=== PATIENT | female | born 1970 | race Caucasian/White ===

== ENCOUNTER → 2019-10-31 10:56 | Outpatient (BNVA) | payer MEDICAID, SELFPAY | PROVIDERS: Family Provider Internal Medicine; PCP Internal Medicine; Visit Provider Psychiatry & Neurology Psychiatry | DX: F41.1 Generalized anxiety disorder (principal); F32.9 Major depressive disorder, single episode, unspecified; F48.9 Nonpsychotic mental disorder, unspecified; F29 Unspecified psychosis not due to a substance or known physiological condition; F39 Unspecified mood [affective] disorder; F28 Other psychotic disorder not due to a substance or known physiological condition; R41.9 Unspecified symptoms and signs involving cognitive functions and awareness; E61.8 Deficiency of other specified nutrient elements | CPT/HCPCS: 99205 ==

== ENCOUNTER → 2019-11-16 08:07 | Outpatient (BNVA) | payer MEDICAID, SELFPAY | PROVIDERS: Family Provider Internal Medicine; PCP Internal Medicine; Visit Provider Counselor Professional | DX: F41.1 Generalized anxiety disorder (principal); F41.0 Panic disorder [episodic paroxysmal anxiety] | CPT/HCPCS: 90834 ==

== ENCOUNTER → 2020-01-24 15:25 | Outpatient (BNVA) | payer MEDICAID, SELFPAY | PROVIDERS: Family Provider Internal Medicine; PCP Internal Medicine; Visit Provider Internal Medicine | DX: Z00.00 Encounter for general adult medical examination without abnormal findings (principal) | CPT/HCPCS: 85025 ==

== ENCOUNTER → 2020-04-06 11:13 | Outpatient (BNVA) | payer MEDICAID, SELFPAY | PROVIDERS: Family Provider Internal Medicine; PCP Internal Medicine; Visit Provider Nurse Practitioner Family | DX: E89.0 Postprocedural hypothyroidism (principal); R53.83 Other fatigue; E78.5 Hyperlipidemia, unspecified | CPT/HCPCS: 80053; 80061; 84443 ==

== ENCOUNTER → 2020-06-14 10:26 | Outpatient (BNVA) | payer MEDICAID, SELFPAY | PROVIDERS: Family Provider Internal Medicine; PCP Internal Medicine; Visit Provider Nurse Practitioner | DX: F41.1 Generalized anxiety disorder (principal); F28 Other psychotic disorder not due to a substance or known physiological condition | CPT/HCPCS: 99204 ==

== ENCOUNTER → 2021-05-29 14:51 | Outpatient (BNVA) | payer MEDICAID, SELFPAY | PROVIDERS: Family Provider Internal Medicine; Visit Provider Family Medicine Adult Medicine | DX: E89.0 Postprocedural hypothyroidism (principal); Z86.39 Personal history of other endocrine, nutritional and metabolic disease; G89.4 Chronic pain syndrome; K21.9 Gastro-esophageal reflux disease without esophagitis; R53.83 Other fatigue; M51.37 Other intervertebral disc degeneration, lumbosacral region; Z13.6 Encounter for screening for cardiovascular disorders; M54.9 Dorsalgia, unspecified; R25.2 Cramp and spasm | CPT/HCPCS: 80053; 83036; 84439; 84443; 84480; 85025 ==

== ENCOUNTER 2021-12-28 19:27 | Inpatient (IN) | payer MEDICAID, SELFPAY ==
[2021-12-28 19:33] VITALS: BP 108/72; PULSE 123; RESP 18; TEMP 36.4; O2SAT 97; BMI 18.9
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
--- NOTE | 2021-12-28 19:47 | ECG_ITS ---
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 Measurements Intervals [place] Rate: 107 P: 79 PA: 141 QRS: 82 QRSD: 99 T: 42 QT: 337 QTc: 451 Interpretive Statements SINUS TACHYCARDIA NONSPECIFIC ST & T-WAVE ABNORMALITY ABNORMAL RHYTHM ECG Compared to ECG 02/15/2019 22:33:56 Short PA interval no longer present T-wave abnormality still present Electronically Signed On 12-29-2021 10:34:27 CDT by Rebel Wilson M.D. [email or web address]
--- NOTE | 2021-12-28 20:02 | CTR_ITS ---
PROCEDURE INFORMATION: Exam: CT Head Without Contrast Exam date and time: 12/28/2021 8:43 PM Age: 51 years old Clinical indication: Altered mental status/memory loss; Patient HX: Paranoid delusions; Additional info: AMS TECHNIQUE: Imaging protocol: Computed tomography of the head without contrast. Sagittal and coronal reformatted images were created and reviewed. Radiation optimization: All CT scans at this facility use at least one of these dose optimization techniques: automated exposure control; mA and/or kV adjustment per patient size (includes targeted exams where dose is matched to clinical indication); or iterative reconstruction. COMPARISON: No relevant prior studies available. RADIATION DOSE METRICS: Total DLP (mGy-cm): 967.78 FINDINGS: Brain: No acute intracranial hemorrhage. No acute infarct. No intra-axial or extra-axial masses. Martinez-white matter differentiation is preserved. No cerebral edema. No extra-axial fluid collections. No midline shift. Mild cerebral volume loss. Mildly decreased attenuation in the deep white matter, consistent with mild chronic microangiopathic change. No evidence for Chiari 1 malformation. Cerebral ventricles: No hydrocephalus. Paranasal sinuses: Visualized paranasal sinuses are clear. Mastoid air cells: Visualized mastoid air cells are clear. Orbital cavities: No acute abnormality in the visualized orbits. Bones/joints: No acute fracture. Soft tissues: No acute abnormality of the extracranial soft tissues. Vasculature: Mild atherosclerotic changes in the visualized arteries. CT/CT head wo con* [id number] IMPRESSION: 1. No acute abnormality of the brain. 2. Mild chronic white matter microangiopathic change. 3. Incidental/nonacute findings are listed in the report.
[2021-12-28 20:25] LABS: Basophils # 0.1 10^3/uL (0.0-0.1); Basophils % 0.9 %; Eosinophils # 0.1 10^3/uL (0.0-0.8); Eosinophils % 1.4 %; Hematocrit 45.1 % (37.0-47.0); Hemoglobin 15.5 g/dL (11.5-15.3); Lymphocytes # 2.4 10^3/uL (0.8-4.8); Lymphocytes % 34.6 %; Mean Corpuscular HGB Conc 34.4 g/dL (30.0-36.0); Mean Corpuscular Volume 93.2 fl (81-99); Mean Platelet Volume 10.9 fL (7.4-10.4); Monocytes # 0.5 10^3/uL (0.2-0.9); Monocytes % 7.7 %; Neutrophils # 3.89 10^3/uL (1.8-7.7); Neutrophils % 55.1 %; Nucleated Red Blood Cells % 0 %; Platelet Count 294 10^3/cmm (130-400); Red Blood Count 4.84 10^6/uL (4.1-5.3); Red Cell Distribution Width 12.7 % (12.1-15.1); White Blood Count 7.1 10^3/uL (4.0-10.0)
[2021-12-28 20:56] LABS: Alanine Aminotransferase 7 U/L (0-33); Albumin Level 4.5 g/dL (3.5-5.2); Alkaline Phosphatase 80 IU/L (35-105); Anion Gap 15.8 (5-19); Aspartate Amino Transferase 12 U/L (0-32); Blood Urea Nitrogen 6 mg/dL (6-20); Calcium 9.5 mg/dL (8.5-10.5); Carbon Dioxide 26 mmol/L (22-29); Chloride 103 mmol/L (98-107); Globulin 2.8 g/dL (1.3-4.6); Glomerular Filtration Rate 105.4 mL/min (90-130); Glucose 99 mg/dL (65-115); Osmolality Calculated 290 mOsm/kg (285-295); Potassium 3.8 mmol/L (3.5-5.1); Sodium 141 mmol/L (136-145); Thyroid Stimulating Hormone 0.03 uIU/mL (0.27-4.20); Total Bilirubin 0.2 mg/dL (0.15-1.2); Total Protein 7.3 g/dL (6.6-8.7)
[2021-12-28 20:57] LABS: Acetaminophen < 5.0 ug/mL (10-30); Alcohol Level < 10 mg/dL (0-10); Salicylate < 0.3 mg/dL (3-10)
[2021-12-28 21:05] LABS: ABG PCO2 36.7 mmHg (35-45); ABG PH Result 7.43 (7.35-7.45); Alveolar-Arterial Oxygen Gradi 1.5 mmHg (5-10); Arterial Blood Gas Hematocrit 45.2 % (37-47); Base Excess ABG 0.2 mmol/L (-2.0-2.0); Blood Gas Allen Test Pos; Blood Gas Sample Site Radial, right; Blood Gas Sample Type Arterial; Carboxyhemoglobin 7.8 %THgb (0.4-20.1); HCO3 ABG 24.2 mmol/L (22-26); HGB O2 Sat 89.8 % (95-100); Ionized Calcium Level - ABG 1.2 mmol/L (1.1-1.4); Methemoglobin 0.9 % (0.4-1.5); Oxygen Saturation ABG 98.3; Potassium Level - ABG 3.6 mmol/L (3.5-5.0); Total Hemoglobin 14.7 g/dL (12-16)
[2021-12-28 21:24] LABS: HCG Qualitative Urine. Negative (Negative)
[2021-12-28 21:46] LABS: Amphetamines Screen Urine Negative (Negative); Barbiturates Screen Urine Negative (Negative); Benzodiazepines Screen Urine Negative (Negative); Cocaine Screen Urine Negative (Negative); Opiate Screen Urine Negative (Negative); PCP Screen Urine Negative (Negative); THC Screen Urine Negative (Negative)
[2021-12-28 21:51] LABS: Add Urine Microscopic? YES; Bilirubin Urine Neg (Negative); Blood Urine 2+ (Negative); Glucose Urine UA Norm (Normal); Ketones Urine 1+ (Negative); Leukocyte Esterase Urine 1+ (Negative); Nitrate Urine Negative (Negative); Protein Urine 1+ (Negative); Urine Appearance Clear (CLEAR); Urine Color Yellow (Yellow); Urobilinogen Urine 1 mg/dL (Negative); pH Urine 6 (5-7)
[2021-12-28 21:52] LABS: Add Urine Culture? No; Bacteria Urine TRACE /hpf; Mucus Urine 2+ /hpf; Squamous Epithelial Cell Urine 15-25 /hpf (0-5)
[2021-12-28 21:57] VITALS: BP 125/71; PULSE 91; RESP 18; TEMP 36.6; O2SAT 93
[2021-12-28 22:04] VITALS: O2SAT 93
[2021-12-28 22:49] LABS: Free T4 Free Thyroxine 1.79 ng/dL (0.82-1.77); T3 Free 3.5 PG/ML (2.0-4.4)
[2021-12-29 00:12] VITALS: BP 104/64; PULSE 100; RESP 16; O2SAT 94
[2021-12-29 01:13] VITALS: BP 107/73; PULSE 97; RESP 18; TEMP 36.6; O2SAT 97
[2021-12-29] MEDS: oxyCODONE-APAP 10-325 mg Tablet 1 TAB PO ×3 (01:29→21:40)
--- NOTE | 2021-12-29 02:08 | PC.NURSE ---
Numerous tattoos to chest, abd, arms, back superficial abrasions/scratches to neck bilaterally
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
[2021-12-29] MEDS: levothyroxine 125 mcg Tablet PO (08:08)
[2021-12-29] MEDS: famotidine 20 mg Tablet 40 MG PO (08:09)
[2021-12-29] MEDS: multivitamin therapeutic Tablet 1 TAB PO (08:09)
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
[2021-12-29] MEDS: tizanidine 4 mg Tablet PO ×2 (13:08→17:33)
[2021-12-29 14:00] VITALS: BP 115/53; PULSE 110; RESP 18; TEMP 36.8; O2SAT 99
[2021-12-29 15:23] VITALS: RESP 16; O2SAT 99
[2021-12-29] MEDS: nicotine 2 mg Gum BUCCAL (15:58)
[2021-12-29] MEDS: amitriptyline 25 mg Tablet 50 MG PO (20:42)
[2021-12-29 21:01] VITALS: BP 108/67; PULSE 89; RESP 16; TEMP 36.8; O2SAT 100
[2021-12-29 21:40] VITALS: RESP 20
[2021-12-30] VITALS (7 sets, daily range): BP systolic 100–103; BP diastolic 63–68; PULSE 83–113; RESP 16–20; TEMP 36.6–36.9; O2SAT 98–99
[2021-12-30] MEDS: oxyCODONE-APAP 10-325 mg Tablet 1 TAB PO ×4 (04:01→22:15)
[2021-12-30] MEDS: tizanidine 4 mg Tablet PO (04:06)
[2021-12-30] MEDS: famotidine 20 mg Tablet 40 MG PO (08:15)
[2021-12-30] MEDS: multivitamin therapeutic Tablet 1 TAB PO (08:15)
[2021-12-30] MEDS: levothyroxine 125 mcg Tablet PO (08:15)
--- NOTE | 2021-12-30 14:51 | P.NPUPN_ITS ---
Subjective NPU Subjective: Patient 51 year old white female admitted with active paranoia and delusions who reports that she is here because she needs to move out of her place of residence. Patient continues to report that people are messing with her at home. She reports some frustration but denies suicidal or homicidal thoughts. She reports active use of pain medications in the last month and reports no opiate withdrawal. Mental Status Exam MSE Comments: This is a slender white female in hospital scrubs with adequate grooming and eye contact. No abnormal? movements appreciated. Cooperative with exam in no acute distress but guarded at points of the interview. Speech was normal rate, rhythm, and volume. Mood described as allright, affect was flat. Thought process was organized but evidence of active? ideas of reference and paranoia noted. Thought content: patient denies suicidal or homicidal ideation,? with active paranoid delusions noted. She did not appear to be attending to internal stimuli.?Attention was fair. She is alert and oriented three? times. Insight and judgment are impaired. Impulse control appeared fair.?? Vitals/I&O/Wt Last Vital Signs Temp 98.4 F 12/30/21 20:33 Pulse 102 H 12/30/21 20:33 Resp 20 H 12/30/21 22:15 BP 102/68 12/30/21 20:33 Pulse Ox 98 12/30/21 20:33 O2 Del Method 12/30/21 13:23 O2 Flow Rate 10 12/30/21 08:00 Data NPU : 12/28/21 20:18 12/28/21 20:18 A&P Assessment and plan (1) Psychosis: Status: Acute (2) Hallucinations: Status: Acute (3) Delusions: Status: Acute (4) Insomnia due to medical condition: Status: Acute Plan This is a 51 year old white female with no previously reported psychiatric history who presents with? evidence of paranoia and psychosis denying any past psychiatric issues but reporting active pain issues with extended use (perhaps overuse) of opiates leading to potential opiate withdrawal symptoms and possible psychosis versus primary psychotic disorder. 1. Continue current medications, patient remains resistant to use of antipsychotics. 2. Encourage individual, group and milieu therapy? 3. Continue TO-15 minute check 4. Will attempt to gather collateral information. Involuntary Hold Information 96 Hour Hold: 96 Hour Involuntary Admission: Yes 96 Hour Hold Ending Date: 01/03/22 96 Hour Hold Ending Time: 00:35 Attestations NPU Medical Necessity Statement*: Inpatient hospitalization is medically necessary and the clinically appropriate intervention at this? time. as we will monitor medications and make changes as indicated with likely length of stay is three to five days. 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
[2021-12-30] MEDS: amitriptyline 25 mg Tablet 50 MG PO (20:35)
[2021-12-31 05:27] VITALS: RESP 20
[2021-12-31] MEDS: oxyCODONE-APAP 10-325 mg Tablet 1 TAB PO ×3 (05:27→17:27)
[2021-12-31 06:00] VITALS: BP 105/60; PULSE 70; RESP 16; TEMP 36.8; O2SAT 98
[2021-12-31] MEDS: famotidine 20 mg Tablet 40 MG PO (09:33)
[2021-12-31] MEDS: multivitamin therapeutic Tablet 1 TAB PO (09:33)
[2021-12-31] MEDS: levothyroxine 125 mcg Tablet PO (09:33)
[2021-12-31 11:34] VITALS: RESP 16; O2SAT 99
[2021-12-31] MEDS: tizanidine 4 mg Tablet PO ×2 (11:35→20:52)
[2021-12-31 14:00] VITALS: BP 110/69; PULSE 88; RESP 16; TEMP 36.6; O2SAT 100
--- NOTE | 2021-12-31 14:29 | W.PM.NPUPNS ---
Subjective NPU Subjective: This this is a 51-year-old white female admitted with active paranoid delusions with a history of insomnia and chronic pain issues. She continues to show evidence of active paranoia but states that she has been trying to work through her problems and simply ignore the negative comments that her family members and friends have made about her. She acknowledges that she has been isolating herself. She reports that she is unwilling to consider medications at this time and wishes to try outpatient therapy. Mental Status Exam MSE Comments: This is a slender white female in hospital scrubs with adequate grooming and eye contact. No abnormal? movements appreciated. Somewhat evasive during the interview. Speech was normal rate, rhythm, and volume. Mood described as okay, affect was flat. Thought process was organized but evidence of active? ideas of reference and paranoia noted. Thought content: patient denies suicidal or homicidal ideation,? with active paranoid delusions noted. She did not appear to be attending to internal stimuli.?Attention was fair. She is alert and oriented three? times. Insight was poor. judgment was poor. Impulse control appeared fair.?? Vitals/I&O/Wt Last Vital Signs Temp 98.2 F 12/31/21 06:00 Pulse 70 12/31/21 06:00 Resp 16 12/31/21 11:34 BP 105/60 12/31/21 06:00 Pulse Ox 99 12/31/21 11:34 O2 Del Method 12/30/21 13:23 O2 Flow Rate 10 12/31/21 08:00 Data NPU : 12/28/21 20:18 12/28/21 20:18 A&P Assessment and plan (1) Psychosis: Status: Acute (2) Hallucinations: Status: Acute (3) Delusions: Status: Acute (4) Insomnia due to medical condition: Status: Acute Plan This is a 51 year old white female with no previously reported psychiatric history who presents with? evidence of paranoia and psychosis denying any past psychiatric issues but reporting active pain issues with extended use (perhaps overuse) of opiates leading to potential opiate withdrawal symptoms and possible psychosis versus primary psychotic disorder. 1. Continue current medications, patient remains resistant to use of antipsychotics. 2. Encourage individual, group and milieu therapy? 3. Continue TO-15 minute check 4. Vocational rehabilitation consult to assess her abililty to live in the home environment by herself. If it shown that she can make good decisions, she can likely be discharged very soon. Involuntary Hold Information 96 Hour Hold: 96 Hour Involuntary Admission: Yes 96 Hour Hold Ending Date: 01/03/22 96 Hour Hold Ending Time: 00:35 Attestations NPU Medical Necessity Statement*: Inpatient hospitalization is medically necessary and the clinically appropriate intervention at this? time, the length of stay is likely 1-3 days. 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
[2021-12-31 17:27] VITALS: RESP 16; O2SAT 98
[2021-12-31 20:12] VITALS: BP 109/68; PULSE 93; RESP 20; TEMP 36.7; O2SAT 95
[2021-12-31] MEDS: amitriptyline 25 mg Tablet 50 MG PO (20:51)
--- NOTE | 2021-12-31 22:00 | PC.NURSE ---
Patient was C/O muscle cightness / spasams at 20: 55. 4Mg PO Zanaflex was given with good results.
[2022-01-01 04:56] VITALS: RESP 20
[2022-01-01] MEDS: oxyCODONE-APAP 10-325 mg Tablet 1 TAB PO ×2 (04:56→11:35)
[2022-01-01 06:00] VITALS: BP 102/66; PULSE 96; RESP 20; TEMP 36.9; O2SAT 99
[2022-01-01] MEDS: multivitamin therapeutic Tablet 1 TAB PO (08:22)
[2022-01-01] MEDS: famotidine 20 mg Tablet 40 MG PO (08:22)
[2022-01-01] MEDS: levothyroxine 125 mcg Tablet PO (08:22)
[2022-01-01 11:35] VITALS: RESP 18; O2SAT 99
[2022-01-01 13:41] VITALS: BP 133/68; PULSE 78; RESP 18; TEMP 37; O2SAT 99
--- NOTE | 2022-01-01 14:39 | P.NPUDS_ITS ---
Diagnoses at Discharge Discharge Diagnosis (1) Psychosis: Status: Acute (2) Hallucinations: Status: Acute (3) Delusions: Status: Acute (4) Insomnia due to medical condition: Status: Acute Reason for Visit Reason for Visit: i was dehydrated and not feeling well. Brief History: History of Present Illness Sima Avelar is a a 51 year old white female who was admitted to the NPU due to not feeling well as if she was dehydrated and had brought been? by an ambulance after speaking with a deputy. She has never been psychiatrically hospitalized and has? not seen any outpatient psychiatric services. She reports she has troubles with sleeping and can stay? awake for 5 days at a time but reports it has not happened in a few years and occurred around her? thyroid problems. She has been on Amitriptyline currently but could not recall the dose. She had been? seeing Dr. Bullard at his office at the Urgent Care facility. She reports she takes two of her Percocet in the? morning for her pain and has been on it since 2010 as she was having headaches on the Hydrocodone.? She denies alcohol, marijuana or illicit drug use. She reports she has been having issues with her long? term memory and has had a few hits to her head in the past. We discussed how the reports from the? emergency room stated she had reported she felt as if people were trying to poison her and she? endorses she stated that people were ?messing with me? as other people have access to her house. She? reports sometimes being in the bathtub and hearing the door slam shut and finding food missing after? she grocery shopped. She reports she doesn?t have an idea of who would be messing with her and is? pretty much always at her house. She denies any changes in her mood since this began happening. She? reports she called the emergency room as she was having neck and back pain and had not eaten in? several days as she didn?t feel like it and hadn?t had something to eat. She reports she has been drinking? water but has been losing weight since she has stopped eating. She reports she has been sent things to? eat but feels sick when she does eat it and will get chris on her phone making fun of things that she is? going through as well. She endorses having anxiety and worrying constantly about people. She reports? she feels as if she is missing things and endorsed again that people are just messing or joking with her.? She denies any history of traumatic events that occurred which resulted in hypervigilance or intrusive? thoughts. She endorses her house is old and she needs to find another place to live. She reports once? she went to a doctor appointment and came home to all of her picture frames being moved. She had? spoken with her cousin who laughed at her and said ?why would I do that?. She reports a lot of people? have keys to her house. She denies thinking her house is haunted. She reports she had to switch? something with her cousin which made her mad though she did not understand why and believes that is? what is causing her to mess with her. She reports she has a hard time living in her house as it is filled? with memories and she is by herself and wants to go to another place to restart. She denies feeling as if? she is being messed with in the hospital and denies having issues with food currently either.?? Psychiatric History: As above.? Substance Abuse History:? As above.? Family History: None reported Developmental History:? No hx of developmental delays.? Psychosocial History:? She was born in [place] and raised there. She is currently and has been once. She? has a 25 and 32 year old children. She was raised by her grandparents as her parents both passed by the? time she was 4 years old. Her father in a car accident before she was born and her mother of? cervical cancer. She has a half sister. The highest grade she achieved was 12th? grade and she got her? GED. 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 She is not? currently working and is on disability for her back. She currently lives in a house by herself and reports it? needs some work done.??She report no history of sexual, physical, or emotional abuse.? Legal History:?? Medical History:? She has Graves disease and had an overactive thyroid which was removed. She is allergic to Zoloft. She? has been diagnosed with psoriasis and had a hysterectomy.??Medications on admission: tizanidine, pepcid, amitryptiline, estradiol, percocet.? Hospital Course Hospital Course During the hospitalization, patient had routine laboratory studies which were within normal limits except for few outliers. Additionally there was a general medical evaluation which was also within normal limits and revealed no new acute processes. Discharge Summary: At the time of discharge, lethality was denied. The patient had refused any medications to treat active paranoid delusions that persisted. She had expressed desire to return home and was not seen as a lethal threat to hurt herself or others. An OT evaluation including the ROSA test suggested that she may benefit from professional help in the home but that she could probably manage her affairs without risk. Mood and anxiety issues appeared to diminish on the unit. . Patient endorsed a plan to avoid all drugs of abuse and follow-up with the aftercare recommendations of the treatment team. Patient was evaluated and deemed to be absent credible lethality, and had achieved the maximum benefit from an inpatient hospitalization in the absence of psychotropic medications and was thereby discharged. Involuntary Hold Information 96 Hour Hold: 96 Hour Involuntary Admission: Yes 96 Hour Hold Ending Date: 01/03/22 96 Hour Hold Ending Time: 00:35 Mental Status Exam MSE Comments: This is a slender white female in hospital scrubs with adequate grooming and eye contact. No abnormal? movements appreciated. Somewhat evasive during the interview. Speech was normal rate, rhythm, and volume. Mood described as okay, affect was flat. Thought process was organized but evidence of active? ideas of reference and paranoia noted. Thought content: patient denies suicidal or homicidal ideation,with active paranoid delusions noted. She did not appear to be attending to internal stimuli.?Attention was fair. She is alert and oriented three? times. Insight was feeble. judgment was adeqate Impulse control appeared fair.?? Discharge Data Studies Completed and Pending: Completed Studies During Hospitalization Category Date Time Status CT head wo con* [id number] Stat Cat Scan 12/28/21 20:02 Completed Radiology Impressions Head CT 12/28/21 20:02 IMPRESSION: 1. No acute abnormality of the brain. 2. Mild chronic white matter microangiopathic change. 3. Incidental/nonacute findings are listed in the report. Laboratory Results WBC 7.1 10^3/uL (4.0- 10.0) 12/28/21 20:18 RBC 4.84 10^6/uL (4.1 -5.3) 12/28/21 20:18 Hgb 15.5 g/dL (11.5-1 5.3) H 12/28/21 20:18 Hct 45.1 % (37.0-47.0 ) 12/28/21 20:18 MCV 93.2 fl (81-99) 12/28/21 20:18 MCH 32.0 pg (28.0-34. 0) 12/28/21 20:18 MCHC 34.4 g/dL (30.0-3 6.0) 12/28/21 20:18 RDW 12.7 % (12.1-15.1 ) 12/28/21 20:18 Plt Count 294 10^3/cmm (130 -400) 12/28/21 20:18 MPV 10.9 fL (7.4-10.4 ) H 12/28/21 20:18 Neut % (Auto) 55.1 % 12/28/21 20:18 Lymph % (Auto) 34.6 % 12/28/21 20:18 [place] % (Auto) 7.7 % 12/28/21 20:18 Eos % (Auto) 1.4 % 12/28/21 20:18 Baso % (Auto) 0.9 % 12/28/21 20:18 Neut # (Auto) 3.89 10^3/uL (1.8 -7.7) 12/28/21 20:18 Lymph # (Auto) 2.4 10^3/uL (0.8- 4.8) 12/28/21 20:18 [place] # (Auto) 0.5 10^3/uL (0.2- 0.9) 12/28/21 20:18 Eos # (Auto) 0.1 10^3/uL (0.0- 0.8) 12/28/21 20:18 Baso # (Auto) 0.1 10^3/uL (0.0- 0.1) 12/28/21 20:18 Nucleated RBC % (a uto) 0 % 12/28/21 20:18 Nucleated RBCs # 0.0 /100WBC 12/28/21 20:18 Specimen Type Arterial 12/28/21 20:56 Sample Site Radial, right 12/28/21 20:56 ABG pH 7.43 (7.35-7.45) 12/28/21 20:56 ABG pCO2 36.7 mmHg (35-45) 12/28/21 20:56 ABG pO2 92.0 mmHg (80.0-1 00.0) 12/28/21 20:56 ABG HCO3 24.2 mmol/L (22-2 6) 12/28/21 20:56 ABG O2 Saturation 98.3 12/28/21 20:56 ABG Base Excess 0.2 mmol/L (-2.0- 2.0) 12/28/21 20:56 [place] Test Pos 12/28/21 20:56 A-a O2 Gradient 1.5 mmHg (5-10) L 12/28/21 20:56 Hematocrit 45.2 % (37-47) 12/28/21 20:56 Hgb O2 Saturation 89.8 % (95-100) L 12/28/21 20:56 Carboxyhemoglobin 7.8 %THgb (0.4-20 .1) 12/28/21 20:56 Methemoglobin 0.9 % (0.4-1.5) 12/28/21 20:56 Total Hemoglobin 14.7 g/dL (12-16) 12/28/21 20:56 Sodium 142.0 mmol/L (131 -143) 12/28/21 20:56 Potassium 3.6 mmol/L (3.5-5 .0) 12/28/21 20:56 Glucose 117.0 mg/dL (70-1 15) H 12/28/21 20:56 Ionized Calcium 1.2 mmol/L (1.1-1 .4) 12/28/21 20:56 O2 Delivery Device None 12/28/21 20:56 Supervisor Feed House ID Hensa 12/28/21 20:56 Sodium 141 mmol/L (136-1 45) 12/28/21 20:18 Potassium 3.8 mmol/L (3.5-5 .1) 12/28/21 20:18 Chloride 103 mmol/L (98-10 7) 12/28/21 20:18 Carbon Dioxide 26 mmol/L (22-29) 12/28/21 20:18 Anion Gap 15.8 (5-19) 12/28/21 20:18 BUN 6 mg/dL (6-20) 12/28/21 20:18 Creatinine 0.6 mg/dL (0.5-0. 9) 12/28/21 20:18 GFR Calculation 105.4 mL/min (90- 130) 12/28/21 20:18 Glucose 99 mg/dL (65-115) 12/28/21 20:18 Calculated Osmolal ity 290 mOsm/kg (285- 295) 12/28/21 20:18 Calcium 9.5 mg/dL (8.5-10 .5) 12/28/21 20:18 Total Bilirubin 0.2 mg/dL (0.15-1 .2) 12/28/21 20:18 AST 12 U/L (0-32) 12/28/21 20:18 ALT 7 U/L (0-33) 12/28/21 20:18 Alkaline Phosphata se 80 IU/L (35-105) 12/28/21 20:18 Total Protein 7.3 g/dL (6.6-8.7 ) 12/28/21 20:18 Albumin 4.5 g/dL (3.5-5.2 ) 12/28/21 20:18 Globulin 2.8 g/dL (1.3-4.6 ) 12/28/21 20:18 TSH 0.03 uIU/mL (0.27 -4.20) L 12/28/21 20:18 Free T4 1.79 ng/dL (0.82- 1.77) H 12/28/21 20:18 Free T3 3.5 PG/ML (2.0-4. 4) 12/28/21 20:18 HCG, Qual Negative (Negati ve) 12/28/21 21:10 Urine Color Yellow (Yellow) 12/28/21 21:10 Urine Appearance Clear (CLEAR) 12/28/21 21:10 Urine pH 6 (5-7) 12/28/21 21:10 Ur Specific Gravit y 1.020 (1.005-1.0 30) 12/28/21 21:10 Urine Protein 1+ (Negative) H 12/28/21 21:10 Urine Glucose (UA) Norm (Normal) 12/28/21 21:10 Urine Ketones 1+ (Negative) H 12/28/21 21:10 Urine Blood 2+ (Negative) H 12/28/21 21:10 Urine Nitrate Negative (Negati ve) 12/28/21 21:10 Urine Bilirubin Neg (Negative) 12/28/21 21:10 Urine Urobilinogen 1 mg/dL (Negative ) H 12/28/21 21:10 Ur Leukocyte Isabel ase 1+ (Negative) H 12/28/21 21:10 Urine RBC 5-10 /hpf (0-2) H 12/28/21 21:10 Urine WBC 10-15 /hpf (0-5) H 12/28/21 21:10 Ur Squamous Epith Cells 15-25 /hpf (0-5) H 12/28/21 21:10 Amorphous Sediment Not Reportable 12/28/21 21:10 Urine Bacteria Trace /hpf (NONE) 12/28/21 21:10 Urine Mucus 2+ /hpf 12/28/21 21:10 Salicylates < 0.3 mg/dL (3-10 ) L 12/28/21 20:18 Urine Opiates Scre en Negative ng/mL (N egative) 12/28/21 21:10 Acetaminophen < 5.0 ug/mL (10-3 0) L 12/28/21 20:18 Ur Barbiturates Sc reen Negative ng/mL (N egative) 12/28/21 21:10 Ur Phencyclidine S crn Negative ng/mL (N egative) 12/28/21 21:10 Ur Amphetamines Sc reen Negative ng/mL (N egative) 12/28/21 21:10 U Benzodiazepines Scrn Negative ng/mL (N egative) 12/28/21 21:10 Urine Cocaine Scre en Negative ng/mL (N egative) 12/28/21 21:10 U Marijuana (THC) Screen Negative ng/mL (N egative) 12/28/21 21:10 Ethyl Alcohol < 10 mg/dL (0-10) 12/28/21 20:18 Vitals: Last Vital Signs Temp 98.6 F 01/01/22 13:41 Pulse 78 01/01/22 13:41 Resp 18 01/01/22 13:41 BP 133/68 01/01/22 13:41 Pulse Ox 99 01/01/22 13:41 O2 Del Method 01/01/22 06:00 O2 Flow Rate 10 01/01/22 07:45 Discharge Plan Discharge Patient Disposition: Home Condition: Stable Prescriptions: Continued Narcan 4 mg/actuation spray,non-aerosol 4 mg intranasal Q2M PRN (Reason: opioid overdose) Qty: 2 0RF Rx Instructions: spray 1 dose into ONE nostril; alternate nostrils w each dose until help arrives multivitamin Tablet 1 tab PO DAILY famotidine 40 mg tablet 40 mg PO DAILY Qty: 30 3RF hydrocodone-acetaminophen 10-325 mg tablet 1 tab PO Q6H PRN (Reason: pain) 30 Days Qty: 120 0RF Rx Instructions: Fired from [employer], One month QID then to TID refill on or after 30 day interval levothyroxine [Synthroid] 125 mcg tablet 125 mcg PO DAILY Qty: 90 3RF Rx Instructions: Need labs before next refill. estradiol 1 mg tablet 1 mg PO DAILY Qty: 90 3RF tizanidine 4 mg tablet 4 mg PO Q8H PRN (Reason: muscle spasticity) Qty: 90 3RF amitriptyline 50 mg tablet 50 mg PO BEDTIME Discharge Orders: Discharge Order (Routine); Ordered 01/01/22 Ordered By: Elton Dobbins Referrals: [facility] [Outside] - 01/09/22 9:45 am (Initial appointment set for 9:45 check in on 01/09/22.) Iker Bullard MD [Physician] - 01/14/22 3:30 pm (Follow up) Discharge Diet: Advance as tolerated Discharge Activity: Resume usual activity Patient Instructions: Depression (DC), Generalized Anxiety Disorder (GEN), Help Prevent Suicide (DC), Anxiety (DC), Opioid Safety Discharge Attestations NPU Time Spent in Discharge Care*: less than 30 min Specific Discharge Activities: Specific discharge activities: educating patient, discussing with oil field caser/social workers/dc planners, documenting/other paperwork and evaluating patient/reviewing data Coding Level of Care Code Established Pt Acute Chg FW DC note Patient Type Established History Problem Focused Exam Problem Focused Medical Decision Making Straight Forward Diagnoses Psychosis F29 Hallucinations R44.3 Delusions F22 Insomnia due to medical condition G47.01
== END 2022-01-01 13:51 | disposition home or self-care (01) | DRG 885 ==
LOC: ER 23:39 → NP 12-29 00:03
PROVIDERS: Admitting Provider Psychiatry & Neurology Psychiatry; Emergency Provider Emergency Medicine; Visit Provider Psychiatry & Neurology Psychiatry
DX: F29 Unspecified psychosis not due to a substance or known physiological condition (principal); F22 Delusional disorders; F41.9 Anxiety disorder, unspecified; E89.0 Postprocedural hypothyroidism; Z88.8 Allergy status to other drugs, medicaments and biological substances; L40.0 Psoriasis vulgaris; G89.4 Chronic pain syndrome; M51.37 Other intervertebral disc degeneration, lumbosacral region; F32.A Depression, unspecified; K21.9 Gastro-esophageal reflux disease without esophagitis; G47.01 Insomnia due to medical condition; F17.200 Nicotine dependence, unspecified, uncomplicated; Z79.891 Long term (current) use of opiate analgesic; Z79.890 Hormone replacement therapy
CPT/HCPCS: 36600; 70450; 80051; 80053; 80306; 80307; 81001; 81025; 82330; 82805; 84439; 84443; 84481; 85025; 93005; 97150; 97165; 99285

== ENCOUNTER 2022-01-24 15:02 | Inpatient (IN) | payer MEDICAID, SELFPAY ==
[2022-01-24 15:12] VITALS: BP 115/70; PULSE 125; RESP 18; TEMP 36.8; O2SAT 97; BMI 17.6
--- NOTE | 2022-01-24 15:13 | ED.C_ITS ---
HPI - Psych General: Chief Complaint: Psychiatric Symptoms Stated Complaint: 96 Time Seen by Provider: 01/24/22 15:13 Limitations: altered mental status History of Present Illness: Ms. Avelar is a 51-year-old lady presenting to the emergency department for a 96-hour hold. The patient herself largely minimizes or is unaware of concerning symptoms. She reports that she was just walking down the [address] out for a walk and got hot so she sat down at which point someone saw her outside and called 911. Per review of affidavits patient has been paranoid with delusions and abnormal behavior. Otherwise denies medical complaints. No other specific changes in health, exacerbating, or alleviating factors identified. Review of Systems General: Reports: ROS unobtainable due to mental status PFSH ED PFSH: Medical History Arthritis Chronic pain syndrome DDD (degenerative disc disease), lumbosacral Depression Fluid retention GERD (gastroesophageal reflux disease) Graves disease Hypothyroidism Insomnia due to medical condition Muscle cramps Neuropsychiatric disorder Plaque psoriasis Smoker unmotivated to quit started at age 16 Surgical History History of hysterectomy History of thyroidectomy Family History Grandfather CAD (coronary artery disease) Maternal Cancer Maternal--colon Clotting disorder Maternal Dementia Maternal Hypertension Maternal Lung disease Maternal--TB Stroke Maternal Family/Other CAD (coronary artery disease) Maternal Grandmother Clotting disorder Maternal Dementia Maternal Hypertension Maternal Stroke Maternal Mother Cancer cervical that spread through bones Other Heart disease Denies family history of Diabetes Hyperlipidemia Chronic kidney disease (CKD) Anesthesia complication Bleeding disorder Social History Smoking and tobacco status: current every day smoker (1/2 - 1 ppd) Alcohol intake: never Adopted: No Caregiver/support person: No Lives independently: Yes Housing: House Marital status: Single Number of children: 2 Highest education level completed: GED or Equivalent service: No Current occupational status: unemployed Pets and animals: No History of recent travel: No Current gender identity: Female Mia/Orthodoxy: Sabianist Physical Exam Const: COMMON NORMALS: alert GENERAL APPEARANCE: cooperative and well developed HENMT: COMMON NORMALS: normocephalic and atraumatic HEAD & SCALP: normocephalic and atraumatic Eye: COMMON NORMALS: conjunctivae normal CONJUNCTIVA: Yes conjunctivae no rmal SCLERA: sclerae normal Neck/C-Spine: COMMON NORMALS: supple GENERAL: Yes trachea midline Resp: COMMON NORMALS: clear to auscultation bilaterally EFFORT & INSPECTION: Yes able to speak in complete sentences AUSCULTATION: clear to auscultation bilaterally Cardio: COMMON NORMALS: regular rate and regular rhythm RATE: regular rate RHYTHM: regular rhythm GI: COMMON NORMALS: Soft to palpation PALPATION: Yes Soft to palpation and No Tenderness to palpation present (GI) Extremity: GENERAL: Yes normal exam except as noted and No edema Neuro: COMMON NORMALS: moves all extremities SENSORIUM/ORIENTATION: Yes alert and No Orientation impaired Psych: COMMON NORMALS: mental status grossly normal and Normal thought process present THOUGHT PROCESS: Normal thought process present Course ED course: - Patient was seen and evaluated by me at bedside -Vital signs obtained - Initial evaluation notable for exam as above, nonfocal. Patient has limited insight and poor judgment. - Labs personally interpreted by me -Fluids given. Analgesia given. - Labs notable for leukocytosis which may be reactive. Metabolic panel with some evidence of dehydration, potassium replenishment ordered. Patient can adequately orally rehydrate. Low TSH with normal free T4. Negative . Toxic ingestions negative. - Upon serial reexamination after treatment the patient was similar - Based on patient history, evaluation, and testing as interpreted the most likely cause of the patient's condition is psychiatric disorder - The results of ED evaluation were discussed with the patient including plan for admission due to requirement for level of care not available if discharged to prevent significant worsening/deterioration. - Admitting service was contacted and Dr Dobbins with the psychiatry service [facility] to admit the patient -Patient on ED evaluation at this point there is no obvious condition that would preclude the patient from inpatient management Note: Click bubbles or prepopulated watters in note writing are used for assistance with data collection and billing and are inherently more limited than narrative and other text portions of this note. Please use narrative for additional clin ical history and defer to narrative/free test for any case of contradictory information. If information appears in only free text or click bubble it should be considered present or absent as reported. Please contact note documentation writer for clarifications of clinical information or contradictory information. MDM is a brief summary, contradictory or erroneous seeming information should be clarified and full note should be reviewed. Vital Signs: Vital signs: Vital Signs Temperature 98.0 F 02/09/22 20:09 Pulse Rate 93 02/09/22 20:09 Respiratory Rate 17 02/09/22 20:09 Blood Pressure 114/68 02/09/22 20:09 Pulse Oximetry 99 02/09/22 20:09 Oxygen Delivery Me thod 02/08/22 14:00 MDM - Psych Medical Decision Making 51-year-old lady presenting for a 96-hour hold. Mild dehydration noted on labs, fluids and potassium replenishment given. Admitted to [facility] for further management. Medical Records I reviewed the patient's medical records. Lab Data I reviewed the patient's lab results. : 01/24/22 15:01/24/22 15: Laboratory Results WBC 16.0 10^3/uL (4.0-10.0) H 01/24/22 15: RBC 4.44 10^6/uL (4.1-5.3) 01/24/22 15: Hgb 14.2 g/dL (11.5-15.3) 01/24/22 15: Hct 40.6 % (37.0-47.0) 01/24/22 15: MCV 91.4 fl (81-99) 01/24/22 15: MCH 32.0 pg (28.0-34.0) 01/24/22 15: MCHC 35.0 g/dL (30.0-36.0) 01/24/22 15: RDW 12.6 % (12.1-15.1) 01/24/22: Plt Count 346 10^3/cmm (130-400) 01/24/22 15:22 MPV 9.6 fL (7.4-10.4) 01/24/22 15: Neut % (Auto) 80.1 % 01/24/22: Lymph % (Auto) 11.9 % 01/24/22: Nolan % (Auto) 7.4 % 01/24/22 15: Eos % (Auto) 0.0 % 01/24/22: Baso % (Auto) 0.3 % 01/24/22: Neut # (Auto) 12.83 10^3/uL (1.8-7.7) H 01/24/22 15:22 Lymph # (Auto) 1.9 10^3/uL (0.8-4.8) 01/24/22 15:22 Nolan # (Auto) 1.2 10^3/uL (0.2-0.9) H 01/24/22 15:22 Eos # (Auto) 0.0 10^3/uL (0.0-0.8) 01/24/22 15:22 Baso # (Auto) 0.0 10^3/uL (0.0-0.1) 01/24/22 15:22 Nucleated RBC % (auto) 0 % 01/24/22 15:22 Nucleated RBCs # 0.0 /100WBC 01/24/22 15:22 Sodium 129 mmol/L (136-145) L 01/24/22 15:22 Potassium 3.2 mmol/L (3.5-5.1) L 01/24/22 15:22 Chloride 91 mmol/L (98-107) L 01/24/22 15:22 Carbon Dioxide 23 mmol/L (22-29) 01/24/22 15:22 Anion Gap 18.2 (5-19) 01/24/22 15:22 BUN 6 mg/dL (6-20) 01/24/22 15:22 Creatinine 0.7 mg/dL (0.5-0.9) 01/24/22 15:22 GFR Calculation 88.2 mL/min (90-130) L 01/24/22 15:22 Glucose 122 mg/dL (65-115) H 01/24/22 15:22 Calculated Osmolality 267 mOsm/kg (285-295) L 01/24/22 15:22 Calcium 9.5 mg/dL (8.5-10.5) 01/24/22 15:22 Total Bilirubin 0.3 mg/dL (0.15-1.2) 01/24/22 15:22 AST 22 U/L (0-32) 01/24/22 15:22 ALT 12 U/L (0-33) 01/24/22 15:22 Alkaline Phosphatase 81 U/L (35-105) 01/24/22 15:22 Total Protein 7.5 g/dL (6.6-8.7) 01/24/22 15:22 Albumin 4.8 g/dL (3.5-5.2) 01/24/22 15:22 Globulin 2.7 g/dL (1.3-4.6) 01/24/22 15:22 TSH 0.09 uIU/mL (0.27-4.20) L 01/24/22 15:22 Free T4 1.77 ng/dL (0.82-1.77) 01/24/22 15:22 HCG, Qual Negative (Negative) 01/24/22 16:07 Salicylates < 0.3 mg/dL (3-10) L 01/24/22 15:22 Acetaminophen < 5.0 ug/mL (10-30) L 01/24/22 15:22 Ethyl Alcohol < 10 mg/dL (0-10) 01/24/22 15:22 Discharge Plan Discharge Patient Disposition: Admitted As Inpatient Admit Provider: Jose Raul Santana Clinical Impression: Paranoia (psychosis), Acute dehydration Condition: Stable Coding Level of Care Code ED Business Development Engineer for Walter Ricci
[2022-01-24 15:30] LABS: Basophils % 0.3 %; Hematocrit 40.6 % (37.0-47.0); Hemoglobin 14.2 g/dL (11.5-15.3); Lymphocytes # 1.9 10^3/uL (0.8-4.8); Lymphocytes % 11.9 %; Mean Corpuscular Volume 91.4 fl (81-99); Mean Platelet Volume 9.6 fL (7.4-10.4); Monocytes # 1.2 10^3/uL (0.2-0.9); Monocytes % 7.4 %; Neutrophils # 12.83 10^3/uL (1.8-7.7); Neutrophils % 80.1 %; Nucleated Red Blood Cells % 0 %; Platelet Count 346 10^3/cmm (130-400); Red Blood Count 4.44 10^6/uL (4.1-5.3); Red Cell Distribution Width 12.6 % (12.1-15.1)
[2022-01-24 16:02] LABS: Acetaminophen < 5.0 ug/mL (10-30); Alanine Aminotransferase 12 U/L (0-33); Albumin Level 4.8 g/dL (3.5-5.2); Alcohol Level < 10 mg/dL (0-10); Alkaline Phosphatase 81 U/L (35-105); Anion Gap 18.2 (5-19); Aspartate Amino Transferase 22 U/L (0-32); Blood Urea Nitrogen 6 mg/dL (6-20); Calcium 9.5 mg/dL (8.5-10.5); Carbon Dioxide 23 mmol/L (22-29); Chloride 91 mmol/L (98-107); Free T4 Free Thyroxine 1.77 ng/dL (0.82-1.77); Globulin 2.7 g/dL (1.3-4.6); Glomerular Filtration Rate 88.2 mL/min (90-130); Glucose 122 mg/dL (65-115); Osmolality Calculated 267 mOsm/kg (285-295); Potassium 3.2 mmol/L (3.5-5.1); Salicylate < 0.3 mg/dL (3-10); Sodium 129 mmol/L (136-145); Thyroid Stimulating Hormone 0.09 uIU/mL (0.27-4.20); Total Bilirubin 0.3 mg/dL (0.15-1.2); Total Protein 7.5 g/dL (6.6-8.7)
[2022-01-24 16:39] LABS: HCG Qualitative Urine. Negative (Negative)
--- NOTE | 2022-01-24 16:41 | PC.NURSE ---
PT PLACED IN HORN NEXT TO SITTER D/T ROOM UNAVAILABILITY
[2022-01-24] MEDS: potassium chloride ER 20 mEq Tablet 40 MEQ PO (16:45)
[2022-01-24] MEDS: sodium chloride 0.9% 1,000 ML 999 ML IV (16:45)
[2022-01-24] MEDS: oxyCODONE-APAP 10-325 mg Tablet 1 TAB PO (16:45)
[2022-01-24 20:56] VITALS: BP 116/74; PULSE 99; RESP 16; O2SAT 99
[2022-01-24] MEDS: amitriptyline 25 mg Tablet 50 MG PO (22:35)
[2022-01-24] MEDS: risperiDONE 2 mg Tablet 9 MG PO (22:38)
--- NOTE | 2022-01-25 02:16 | PC.NURSE ---
Arrived 2011 from the ER via w/c and staff escort. Numerous previous admissions to this unit. On arrival, A/O x 2, ambulatory without assist, conversation oriented mostly to person, calm & cooperative demeanor. Stated she is here ?for a rest just like the last time. It?s not my fault they got pissed and called to police and I went for a walk.? Poor historian. Concerned about her meds she has ?missed over the past couple of days.? Oriented to unit.
[2022-01-25 06:00] VITALS: BP 116/74; PULSE 99; RESP 16; TEMP 36.8
[2022-01-25] MEDS: famotidine 20 mg Tablet 40 MG PO (10:17)
[2022-01-25] MEDS: levothyroxine 125 mcg Tablet PO (10:17)
[2022-01-25] MEDS: multivitamin therapeutic Tablet 1 TAB PO (10:17)
[2022-01-25] MEDS: estradiol 1 mg Tablet PO (10:17)
--- NOTE | 2022-01-25 11:13 | PC.NURSE ---
Nurse Note Patient sitting in bed. States she slept well last night. Patient states she has back pain at a 10 on a 0-10 scale. She said she usually takes percocet and should be on antibiotics for a sinus infection that has moved to her jaw. We will verify this with her pharmacy. Denies any suicidal or homicidal ideations. Denies any auditory or visual hallucinations. When asked why she was here she said she had went for a walk, but her uncles called the police on her because they thought she was crazy. States she is not anxious. No further concerns noted at this time.
--- NOTE | 2022-01-25 12:25 | W.PM.NPUH&PS ---
Providers/Chief Complaint Admitting Physician: Jose Raul Santana MD Chief Complaint: 96 HPI NPU History of Present Illness Sima Avelar is a 51 year old female who presents to the emergency department with the following report: Chief Complaint: Psychiatric Symptoms Stated Complaint: 96 Time Seen by Provider: 01/24/22 15:13 History of Present Illness: Ms. Avelar is a 51-year-old lady presenting to the emergency department for a 96-hour hold. The patient herself largely minimizes or is unaware of concerning symptoms. She reports that she was just walking down the [address] out for a walk and got hot so she sat down at which point someone saw her outside and called 911. Per review of affidavits patient has been paranoid with delusions and abnormal behavior. Otherwise denies medical complaints. No other specific changes in health, exacerbating, or alleviating factors identified. She was admitted to the neuropsychiatric unit for definitive treatment of those issues. 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 She reports she worked with a pharmacist afterwards who she trusted that told her to take Benadryl to stop what was happening with someone present to monitor her. She is not currently taking any psychiatric medications. She presented to the hospital as she was walking on the side of the road and police brought her into the hospital because of concerns. She has been psychiatrically hospitalized once before about a month ago and has been on a number of different medications in her life. She reports a pack to a pack and a half a day of cigarettes, denies alcohol, marijuana or any other illicit drug use. She has not been to rehab, gotten a DUI or drug and alcohol related charges. Her depression began presenting when she was a child when her mother and had anxiety which began presenting around her teenage years with increased worrying. She endorses having worsening depression and anxiety from high school that escalated when her children started getting older and she was trying to make their lives perfect. She denies passive wish, suicidal ideation or self-injurious behaviors. She reports she feels she held her family to a higher level of importance than they hold her. She reports at the times she was walking because of all this stress, she would sit in the ditch on the side of the road in between walking. She endorsed several times that she wanted to get help but was not specific in the type of help she is looking for and could not explain what behaviors caused people to be concerned about her. She reported later she had just taken off in her pajamas and started walking as she wanted to get a signal in order to contact her family to get help. She endorsed wanting to speak with a preacher as she has done so in the past and found comfort from it. Please see excerpt of hospitalization from November 2021 below for context. Psychiatric History: As above. Substance Abuse History: As above. Family History: She denies mental health issues on either side of the family, addiction issues on both sides of the family and denies any suicide attempts or completions on either side of the family. Developmental History: She denies any issues with her or , learned to walk and talk and met her developmental milestones on time and denies any need for speech therapy, learning support, emotional support or special education classes. Psychosocial History: She reports her father a week before she was born and she is the only product of this union. Her mother has one additional daughter and her father had no additional children. She described her childhood as good and denies any emotional, physical or sexual abuse. She denies CYS involvement but did have some truancy issues. She remembers when her mother from a stroke reporting she still has flashbacks of that night as well as avoidant behavior. The highest grade she achieved was 12th grade and she got her GED. She endorses being heterosexual with her longest relationship being 20 years. She has been and once, has two sons, 33 and 35, has never been in the and endorses being rastafarian. Her longest employment history is 6 years. She currently is homeless. Legal History: Denied. Medical History: She reports she had a stroke after taking Zoloft. She had Grave?s Disease and had her thyroid removed in 1997. She delivered her children vaginally. She began menstruating around 8th grade and reports her periods were problematic. Per her 12/29/2021 [facility] inpatient psychiatric evaluation: History of Present Illness Sima Avelar is a a 51 year old white female who presents today due to not feeling well as if she was dehydrated and had brought been? by an ambulance after speaking with a deputy. She has never been psychiatrically hospitalized and has? not seen any outpatient psychiatric services. She reports she has troubles with sleeping and can stay? awake for 5 days at a time but reports it has not happened in a few years and occurred around her? thyroid problems. She has been on Amitriptyline currently but could not recall the dose. She had been? seeing Dr. Bullard at his office at the Urgent Care facility. She reports she takes two of her Percocet in the? morning for her pain and has been on it since 2010 as she was having headaches on the Hydrocodone.? She denies alcohol, marijuana or illicit drug use. She reports she has been having issues with her long? term memory and has had a few hits to her head in the past. We discussed how the reports from the? emergency room stated she had reported she felt as if people were trying to poison her and she? endorses she stated that people were ?messing with me? as other people have access to her house. She? reports sometimes being in the bathtub and hearing the door slam shut and finding food missing after? she grocery shopped. She reports she doesn?t have an idea of who would be messing with her and is? pretty much always at her house. She denies any changes in her mood since this began happening. She? reports she called the emergency room as she was having neck and back pain and had not eaten in? several days as she didn?t feel like it and hadn?t had something to eat. She reports she has been drinking? water but has been losing weight since she has stopped eating. She reports she has been sent things to? eat but feels sick when she does eat it and will get chris on her phone making fun of things that she is? going through as well. She endorses having anxiety and worrying constantly about people. She reports? she feels as if she is missing things and endorsed again that people are just messing or joking with her.? She denies any history of traumatic events that occurred which resulted in hypervigilance or intrusive? thoughts. She endorses her house is old and she needs to find another place to live. She reports once? she went to a doctor appointment and came home to all of her picture frames being moved. She had? spoken with her cousin who laughed at her and said ?why would I do that?. She reports a lot of people? have keys to her house. She denies thinking her house is haunted. She reports she had to switch? something with her cousin which made her mad though she did not understand why and believes that is? what is causing her to mess with her. She reports she has a hard time living in her house as it is filled? with memories and she is by herself and wants to go to another place to restart. She denies feeling as if? she is being messed with in the hospital and denies having issues with food currently either.?? Psychiatric History: As above.? Substance Abuse History:? As above.? Family History: None reported Developmental History:? No hx of developmental delays.? Psychosocial History:? She was born in [place] and raised there. She is currently and has been once. She? has a 25 and 32 year old children. She was raised by her grandparents as her parents both passed by the? time she was 4 years old. Her father in a car accident before she was born and her mother of? cervical cancer. She has a half sister. The highest grade she achieved was 12th?grade and she got her? GED. 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 She is not? currently working and is on disability for her back. She currently lives in a house by herself and reports it? needs some work done.??She report no history of sexual, physical, or emotional abuse.? Legal History:?? Medical History:? She has Graves disease and had an overactive thyroid which was removed. She is allergic to Zoloft. She? has been diagnosed with psoriasis and had a hysterectomy.??Medications on admission: tizanidine, pepcid, amitryptiline, estradiol, percocet.? Meds NPU Home Medications Medication Instructions Recorded Confirmed Last Taken Type naloxone 4 mg/actuation nasal 4 mg intranasal Q2M PRN opioid 10/24/20 01/25/22 Unknown Rx spray (Narcan) overdose #2 ea estradiol 1 mg tablet 1 mg PO DAILY #90 tabs 02/01/21 01/24/22 Unknown Rx famotidine 40 mg tablet 40 mg PO DAILY #30 tabs 05/29/21 01/24/22 Unknown Rx multivitamin 1 tab PO DAILY 05/29/21 01/24/22 Unknown History tizanidine 4 mg tablet 4 mg PO Q8H PRN muscle spasticity 09/26/21 01/24/22 Unknown Rx #90 tabs hydrocodone 10 mg-acetaminophen 1 tab PO Q6H PRN pain 30 days #120 12/27/21 01/25/22 Unknown Rx 325 mg tablet tabs amitriptyline 50 mg tablet 50 mg PO BEDTIME 12/29/21 01/24/22 Unknown History levothyroxine 125 mcg tablet 125 mcg PO DAILY #90 tabs 01/23/22 01/24/22 Unknown Rx (Synthroid) hydroxyzine pamoate 50 mg capsule 50 mg PO BEDTIME 01/24/22 01/25/22 Unknown History risperidone 3 mg tablet 9 mg PO BEDTIME 01/24/22 01/24/22 Unknown History Allergies Allergy/AdvReac Type Severity Reaction Status Date / Time Penicillins Allergy Severe ALGY-Anaphy Verified 01/14/22 15:28 laxis gabapentin Allergy ADR-Headach Verified 01/14/22 15:28 e sertraline [From Zoloft] Allergy Unknown Verified 01/14/22 15:28 tramadol [From Ultracet] Allergy ADR-Gastrointestinal Verified 01/14/22 15:28 Upset PFSH NPU PFSH: Medical History Arthritis Chronic pain syndrome DDD (degenerative disc disease), lumbosacral Depression Fluid retention GERD (gastroesophageal reflux disease) Graves disease Insomnia due to medical condition Muscle cramps Neuropsychiatric disorder Plaque psoriasis Smoker unmotivated to quit started at age 16 Surgical History History of hysterectomy History of thyroidectomy Family History Grandfather CAD (coronary artery disease) Maternal Cancer Maternal--colon Clotting disorder Maternal Dementia Maternal Hypertension Maternal Lung disease Maternal--TB Stroke Maternal Family/Other CAD (coronary artery disease) Maternal Grandmother Clotting disorder Maternal Dementia Maternal Hypertension Maternal Stroke Maternal Mother Cancer cervical that spread through bones Other Heart disease Denies family history of Diabetes Hyperlipidemia Chronic kidney disease (CKD) Anesthesia complication Bleeding disorder Social History Smoking and tobacco status: current every day smoker (1/2 - 1 ppd) Alcohol intake: never Adopted: No Caregiver/support person: No Lives independently: Yes Housing: House Marital status: Single Number of children: 2 Highest education level completed: GED or Equivalent service: No Current occupational status: unemployed Pets and animals: No History of recent travel: No Current gender identity: Female Mai/Muslim: Spiritism Mental Status Exam MSE Comments: This is a slender white female in hospital scrubs with adequate grooming and limited eye contact. No abnormal movements except for psychomotor retardation. Cooperative with exam in mild distress. Speech was normal rate and volume. Mood described as good, affect is restricted. Thought process, organized. Thought content: patient denied suicidal or homicidal ideation, no delusions reported or noted and denies any auditory or visual hallucinations. Attention and concentration are intact and memory appeared reliable but none were formally tested. She is alert and oriented three times. Insight is limited versus impaired. Judgement is limited. Impulse control is impaired. Vitals/I&O/Wt Last Vital Signs Temp 98.3 F 01/25/22 06:00 Pulse 99 01/25/22 06:00 Resp 16 01/25/22 06:00 BP 116/74 01/25/22 06:00 Pulse Ox 99 01/24/22 20:56 O2 Del Method 01/25/22 06:00 01/24/22 01/25/22 01/25/22 22:59 06:59 14:59 Intake Total 1000 / 1000 Balance 1000 / 1000 Weight last 48 hrs Weight 45.359 kg Data NPU : 01/24/22 15:22 01/24/22 15:22 A&P Assessment and plan (1) Paranoia (psychosis): Status: Acute (2) Acute dehydration: Status: Acute (3) Delusions: Status: Acute (4) Depression: Status: Acute (5) DOMINIQUE (generalized anxiety disorder): Status: Acute Plan This is a 51 year old white female with a history of trauma and genetic loading for addiction issues who presents after walking for [address] the side of the road reporting she needs help but unable or unwilling to elaborate on what issues she needs help with currently, open to medications at this time. 1. Continue current medications 2. Encourage individual, group and milieu therapy 3. Continue q-15 minute check for safety Involuntary Hold Information 96 Hour Hold: 96 Hour Involuntary Admission: Yes 96 Hour Hold Ending Date: 01/03/22 96 Hour Hold Ending Time: 00:35 Attestations NPU Medical Necessity Statement*: Inpatient hospitalization is medically necessary and the clinically appropriate intervention at this time. We will monitor medications and make changes as indicated. Patient will be in the hospital for over two midnights. Likely length of stay is three to five days. Coding Level of Care Code Acute Beam Dyer Operator for Walter Ricci Diagnoses Paranoia (psychosis) F22 Acute dehydration E86.0 Delusions F22 Depression F32.9 DOMINIQUE (generalized anxiety disorder) F41.1
[2022-01-25 14:00] VITALS: BP 133/77; PULSE 91; RESP 18; TEMP 36.6; O2SAT 99
--- NOTE | 2022-01-25 18:20 | PC.NURSE ---
PATIENT APPROACHED ME TO ASK WHY WE WERE POISONING HER FOOD. SHE HAD PREVIOUSLY ASKED ANOTHER NURSE THIS BUT TURNED AND LEFT. I TOLD HER I WAS SORRY SHE FELT THAT WAY AND ASKED WHAT IT WAS THAT MADE HER FEEL IF THAT WAS HAPPENING. SHE REPLIED, THERE IS NO POINT IN TALKING ABOUT IT. I TOLD HER IT WAS VERY IMPORTANT TO ME TO MAKE HER FEEL COMFORTABLE AND ASKED WHAT I COULD DO TO HELP. SHE THEN SAID, YOU GUYS DON'T CARE. WE'RE JUST SUPPOSED TO SMILE AND LAUGH AND ACT LIKE ROBOTS. SHE THEN STORMED OFF TO HER ROOM.
[2022-01-25 20:15] VITALS: RESP 16
[2022-01-25] MEDS: amitriptyline 25 mg Tablet 50 MG PO (20:51)
[2022-01-25] MEDS: tizanidine 4 mg Tablet PO (20:51)
[2022-01-25] MEDS: risperiDONE 2 mg Tablet 9 MG PO (21:58)
--- NOTE | 2022-01-25 23:51 | PC.NURSE ---
2100 Pt is paranoid and depressed. While at nursing station, she began escalating about her children not talking to her. This nurse was able to calm and redirect her, but she still was upset. Pt kept saying, I don't know if my kids are safe. They won't talk to me for 5 years. they might not be safe right now. This nurse attempted to give pt her nighttime medications and she wanted to see them while they still were in the packaging. She kept insisting the amitriptyline was different last night, but did take it. At first, she refused the risperdal, but then agreed to take it. She only took two of the pills and then decided she didn't want the rest of the dose, so she ingested a total of 4 mg.
[2022-01-26] MEDS: tizanidine 4 mg Tablet PO ×2 (05:10→21:58)
[2022-01-26 06:00] VITALS: BP 104/66; PULSE 125; RESP 20; TEMP 36.9; O2SAT 98
--- NOTE | 2022-01-26 06:57 | W.PM.NPUPNS ---
Subjective NPU Subjective: Patient presents today reporting that she is doing okay in general. She did identify that he is having a tooth infection and there is notable swelling on the right upper side of her face but she reports is how this infection presents. Has been treated before but she has not gone to have it excised. We agreed to restart clindamycin which has been the treatment of choice in the past. She continues to be otherwise fairly isolative and it is unclear that she has been taking medication as prescribed. Mental Status Exam MSE Comments: This is a slender white female in hospital scrubs with adequate grooming and limited eye contact. No abnormal movements except for psychomotor retardation. Cooperative with exam in mild distress. Speech was normal rate and volume. Mood described as good, affect is restricted. Thought process, organized. Thought content: patient denied suicidal or homicidal ideation, no delusions reported or noted and denies any auditory or visual hallucinations. Attention and concentration are intact and memory appeared reliable but none were formally tested. She is alert and oriented three times. Insight is limited versus impaired. Judgement is limited. Impulse control is impaired. 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 1. Continue current medications. We will start clindamycin 3 times daily for her likely oral abscess. 2. Encourage individual, group and milieu therapy 3. Continue q-15 minute check for safety 4. Obtain collateral information on what was going on surrounding her strange episode. Involuntary Hold Information 96 Hour Hold: 96 Hour Involuntary Admission: Yes 96 Hour Hold Ending Date: 01/03/22 96 Hour Hold Ending Time: 00:35 Attestations NPU Medical Necessity Statement*: Inpatient hospitalization is medically necessary and the clinically appropriate intervention at this time. We will monitor medications and make changes as indicated. Likely length of stay is three to five days. 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
[2022-01-26] MEDS: levothyroxine 125 mcg Tablet PO (08:05)
[2022-01-26 14:00] VITALS: BP 107/69; PULSE 109; RESP 16; TEMP 36.9; O2SAT 100
[2022-01-26 19:44] VITALS: BP 119/74; PULSE 112; RESP 18; TEMP 36.8; O2SAT 98
[2022-01-26] MEDS: amitriptyline 25 mg Tablet 50 MG PO (20:37)
[2022-01-26] MEDS: risperiDONE 2 mg Tablet 9 MG PO (20:37)
--- NOTE | 2022-01-26 20:39 | PC.NURSE ---
Addendum entered by Minoo Chowdhury RN 01/27/22 00:22: PATIENT TOOK ANOTHER 2 FOR A TOTAL OF 8 MG OF RISPERIDONE OF THE 9 ORDERED. WOULD NOT TAKE THE 1/2 PILL. Original Note: PATIENT CAME TO STATION FOR MEDS BUT WOULD ONLY TAKE 2 OF THE 2 MG RISPERIDONE EQUALING 4MG INSTEAD OF THE 9 MG ORDERED. SWALLOWED TWO AND REFUSED THE OTHER 2.5
[2022-01-26] MEDS: acetaminophen 325 mg Tablet 650 MG PO (21:57)
[2022-01-26] MEDS: clindamycin 150 mg Capsule 300 MG PO (23:09)
--- NOTE | 2022-01-26 23:11 | PC.NURSE ---
PT PRESENTS TO NURSING STATION WITH SWOLLEN RIGHT FACE STATING, I HAVE AN ABCESS AGAIN. IT HAS BEEN HURTING FOR A COUPLE OF DAYS, BUT IT HAS GOTTEN BAD TODAY AND IS SWOLLEN NOW . PT REPORTS MULTIPLE TIMES OF THIS HAPPENING IN THE PAST. NOTIFIED PROVIDER AND HE SAID TO LOOK IN HX AT PREVIOUS MEDICATIONS GIVEN. NOTIFIED PROVIDER OF CLINDAMYCIN. CLINDAMYCIN STARTED. 1ST DOSE GIVEN.
[2022-01-27] MEDS: ibuprofen 600 mg Tablet PO ×3 (00:05→23:08)
[2022-01-27 06:00] VITALS: BP 108/69; PULSE 99; RESP 15; TEMP 36.6; O2SAT 98
[2022-01-27] MEDS: tizanidine 4 mg Tablet PO ×2 (06:57→18:20)
[2022-01-27] MEDS: hyDROXYzine 25 mg Capsule 50 MG PO ×3 (08:21→21:26)
[2022-01-27] MEDS: levothyroxine 125 mcg Tablet PO (08:21)
[2022-01-27] MEDS: famotidine 20 mg Tablet 40 MG PO (08:21)
[2022-01-27] MEDS: clindamycin 150 mg Capsule 300 MG PO ×3 (08:21→19:57)
[2022-01-27] MEDS: estradiol 1 mg Tablet PO (08:22)
[2022-01-27] MEDS: acetaminophen 325 mg Tablet 650 MG PO ×2 (13:04→18:20)
[2022-01-27 14:00] VITALS: BP 109/73; PULSE 106; RESP 18; TEMP 36.6; O2SAT 97
--- NOTE | 2022-01-27 17:35 | W.PM.NPUPNS ---
Subjective NPU Subjective: Sima is a 51-year-old white female with a history of psychotic disorder not otherwise specified recently discharged from the neuropsych unit last month. Patient continued to exhibit evidence of active paranoia and continued to report blame to her home. She reports that it is a creaky old home that has given her a lot of problems. She continued to report confusion as to why she was placed in the hospital. She reports that she did not follow-up with an outpatient psychiatrist shortly after her last discharge. She reports amitryptiline had been helpful for her sleep but reported pain in her hands and legs after taking her Risperdal last night. Mental Status Exam MSE Comments: This is a slender white female in hospital scrubs with adequate grooming and limited eye contact. No abnormal movements except for psychomotor retardation. Cooperative with exam in mild distress. Speech was normal rate and volume. Mood described as good, affect is blunted. Thought process: linear. Thought content: patient denied suicidal or homicidal ideation, content remained superficial and she was somewhat guarded. Attention and concentration are intact and memory appeared reliable but none were formally tested. She is alert and oriented three times. Insight is impaired. Judgement is limited. Impulse control is impaired. She was unable to elucidate why she was walking on the road with a cut on her finger. Vitals/I&O/Wt Last Vital Signs Temp 98 F 01/27/22 14:00 Pulse 106 H 01/27/22 14:00 Resp 18 01/27/22 14:00 BP 109/73 01/27/22 14:00 Pulse Ox 97 01/27/22 14:00 O2 Del Method 01/27/22 14:00 Weight last 48 hrs Weight 47.627 kg Data NPU : 01/24/22 15:22 01/24/22 15:22 A&P Assessment and plan (1) Paranoia (psychosis): Status: Acute (2) Acute dehydration: Status: Acute (3) Delusions: Status: Acute (4) Depression: Status: Acute (5) DOMINIQUE (generalized anxiety disorder): Status: Acute Plan This is a 51 year old white female with a history of trauma and genetic loading for addiction issues who presents after walking for [address] side of the road reporting she needs help but unable or unwilling to elaborate on what issues she needs help with currently, open to medications at this time. 1. Continue clindamycin 3 times daily for her likely oral abscess. 2. Encourage individual, group and milieu therapy 3. Continue q-15 minute check for safety 4. She may require forceable medication, as this appears unchanged and she has continued to decompensate despite being given opportunity to be discharged last month without psychotropics in theher last voluntary hospitalization. Involuntary Hold Information 96 Hour Hold: 96 Hour Involuntary Admission: Yes 96 Hour Hold Ending Date: 01/03/22 96 Hour Hold Ending Time: 00:35 Attestations NPU Medical Necessity Statement*: Inpatient hospitalization is medically necessary and the clinically appropriate intervention at this time. We will monitor medications and make changes as indicated. Likely length of stay is three to five days. 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
[2022-01-27] MEDS: amitriptyline 25 mg Tablet 50 MG PO (19:57)
[2022-01-27 20:40] VITALS: BP 101/65; PULSE 100; RESP 18; TEMP 36.6; O2SAT 98
[2022-01-28 06:00] VITALS: BP 120/62; PULSE 112; RESP 20; TEMP 36.8; O2SAT 97
[2022-01-28] MEDS: hyDROXYzine 25 mg Capsule 50 MG PO ×3 (08:40→20:44)
[2022-01-28] MEDS: estradiol 1 mg Tablet PO (08:40)
[2022-01-28] MEDS: clindamycin 150 mg Capsule 300 MG PO ×3 (08:40→20:42)
[2022-01-28] MEDS: levothyroxine 125 mcg Tablet PO (08:40)
[2022-01-28] MEDS: multivitamin therapeutic Tablet 1 TAB PO (08:40)
[2022-01-28] MEDS: acetaminophen 325 mg Tablet 650 MG PO (08:40)
[2022-01-28] MEDS: famotidine 20 mg Tablet 40 MG PO (08:40)
--- NOTE | 2022-01-28 10:41 | PC.NURSE ---
PT SON CALLED TO CHECK ON THE PATIENT. PT GAVE VERBAL PERMISISON FOR THIS NURSE TO SPEAK WITH HER. PT SON SAYS HE HAS NOT TALKED TO HER IN AWHILE AND ASK WHY THE PT IS HERE. ONCE THIS NURSE TOLD PT SON WHY PT WAS ADMITTED HE STATED HE WAS NOT SURPRISED. PT SON ASK IF THEY HAD COMPLETED A DRUG SCREEN ON HER UPON ADMISSION BECAUSE PT HAS A LONG HISTORY OF POPPING PILLS . THIS NURSE LOOKED AT THE ED NOTE AND THERE WAS NOT A DRUG SCREEN COMPLETED. PT ASK IF THE PROVIDER COULD STILL ORDER A DRUG SCREEN. THIS NURSE LET PT SON KNOW THAT THE PROVIDER WILL BE NOTIFIED AND ASKED ABOUT THE DRUG SCREEN. PT SON'S NAME IS AZC VIGIL. PHONE NUMBER [phone]
--- NOTE | 2022-01-28 11:46 | PC.NURSE ---
DURING AM ASSESSMENT PT COMPLAINED OF PAIN IN THE LEFT SIDE OF HER FACE FROM DENTAL ABSCESS. PT RECEIVED TYLENOL AND VISTERIL FOR ANXIETY.
[2022-01-28] MEDS: nicotine 2 mg Gum BUCCAL ×3 (13:24→18:15)
[2022-01-28 14:00] VITALS: BP 111/62; PULSE 105; RESP 18; TEMP 36.8; O2SAT 100
[2022-01-28] MEDS: tizanidine 4 mg Tablet PO (14:25)
--- NOTE | 2022-01-28 14:28 | PC.NURSE ---
Administered Zanaflex 4mg tab PO, for pt experiencing back muscle tightness.
--- NOTE | 2022-01-28 17:11 | P.NPUPN_ITS ---
Subjective NPU Subjective: Sima is a 51-year-old white female with a history of psychotic disorder not otherwise specified recently discharged from the neuropsych unit last month. Patient had admitted to having significant pain problems and reported at times that she had taken more pain medicines then she had been pr escribed. She reports that she continued to feel that her home was unsafe and reported some continued paranoia. She reported that she felt that people were trying to kill her in her home. She had continued to isolate herself on the milieu. She denied having any thoughts of hurting herself or others. She reports that she felt ready to go home but she was unable to elucidate how she would be able to solve her problems when she returned home and stated that she would continue to worry about the safety of her home. Mental Status Exam MSE Comments: This is a slender white female in hospital scrubs with adequate grooming and limited eye contact. No abnormal movements except for psychomotor retardation. Cooperative with exam in mild distress. Speech was normal rate and volume. Mood described as okay, affect is blunted and subdued. Thought process: circumstantial, superficial. Thought content: patient denied suicidal or homicidal ideation, content remained superficial and she was somewhat guarded. Attention and concentration are intact and memory appeared reliable but none were formally tested. She is alert and oriented three times. Insight is impaired. Judgement is limited. Impulse control is impaired. She remained guarded. 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 1. Continue clindamycin 3 times daily for her likely oral abscess. 2. Encourage individual, group and milieu therapy 3. Continue q-15 minute check for safety 4. She may require forceable medication, as this appears unchanged and she has continued to decompensate despite being given opportunity to be discharged last month without psychotropics in theher last voluntary hospitalization. Currently pursuing 21 day hold. Involuntary Hold Information 96 Hour Hold: 96 Hour Involuntary Admission: Yes 96 Hour Hold Ending Date: 01/03/22 96 Hour Hold Ending Time: 00:35 Attestations NPU Medical Necessity Statement*: Inpatient hospitalization is medically necessary and the clinically appropriate intervention at this time. We will monitor medications and make changes as indicated. Likely length of stay is five to ten days. 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
[2022-01-28] MEDS: amitriptyline 25 mg Tablet 50 MG PO (20:40)
[2022-01-28 21:48] VITALS: BP 121/73; PULSE 106; RESP 17; TEMP 36.7; O2SAT 99
[2022-01-29] MEDS: tizanidine 4 mg Tablet PO ×2 (03:35→18:55)
[2022-01-29] MEDS: hyDROXYzine 25 mg Capsule 50 MG PO ×4 (04:04→21:16)
[2022-01-29] MEDS: nicotine 2 mg Gum BUCCAL ×6 (04:35→18:55)
[2022-01-29 06:00] VITALS: BP 115/74; PULSE 97; RESP 14; TEMP 36.6; O2SAT 100
[2022-01-29] MEDS: multivitamin therapeutic Tablet 1 TAB PO (07:53)
[2022-01-29] MEDS: famotidine 20 mg Tablet 40 MG PO (07:53)
[2022-01-29] MEDS: clindamycin 150 mg Capsule 300 MG PO ×3 (07:53→20:36)
[2022-01-29] MEDS: levothyroxine 125 mcg Tablet PO (07:54)
[2022-01-29] MEDS: estradiol 1 mg Tablet PO (07:54)
[2022-01-29 14:00] VITALS: BP 109/60; PULSE 101; RESP 18; TEMP 36.9; O2SAT 96
--- NOTE | 2022-01-29 15:04 | P.NPUPN_ITS ---
Subjective NPU Subjective: Sima is a 51-year-old white female with a history of psychotic disorder not otherwise specified recently discharged from the neuropsych unit last month. Patient informed of court hearing to determine the placement of 21 day hold. Patient reported she felt that methamphetamine was being hyped through her ventilation at her house and denied that she had been using methamphetamine. However she had endorsed to a staff that she had indeed been using methamphetamine in her home. Patient continued to remain suspicious of others intent. She had continued to endorse a desire to manage her anxiety and states that she needed her pain medication to be augmented. She had continued to express concern that her house was unsafe but was unclear and did not elucidate why her home being unsafe had led her to be hospitalized involuntarily. Mental Status Exam MSE Comments: This is a slender white female in hospital scrubs with adequate grooming and limited eye contact. No abnormal movements except for psychomotor retardation. Cooperative with exam in mild distress. Speech was normal rate and volume. Mood described as allright, affect is blunted and subdued. Thought process: circumstantial, superficial. Thought content: patient denied suicidal or homicidal ideation, content remained superficial and she was somewhat guarded. There was clear evidence of delusional thinking. Attention and concentration are intact and memory appeared reliable but none were formally tested. She is alert and oriented three times. Insight is impaired. Judgement is limited. Impulse control is impaired. She remained guarded. 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 1. Continue clindamycin 3 times daily for her likely oral abscess. 2. Encourage individual, group and milieu therapy 3. Continue q-15 minute check for safety 4. She may require forceable medication, as this appears unchanged and she has continued to decompensate despite being given opportunity to be discharged last month without psychotropics in her last voluntary hospitalization. Currently pursuing 21 day hold and paperwork filed today. Involuntary Hold Information 96 Hour Hold: 96 Hour Involuntary Admission: Yes 96 Hour Hold Ending Date: 01/03/22 96 Hour Hold Ending Time: 00:35 Attestations NPU Medical Necessity Statement*: Inpatient hospitalization is medically necessary and the clinically appropriate intervention at this time. We will monitor medications and make changes as indicated. Likely length of stay is five to t en days. 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
[2022-01-29] MEDS: amitriptyline 25 mg Tablet 50 MG PO (20:36)
[2022-01-29 21:08] VITALS: BP 136/78; PULSE 96; RESP 15; TEMP 36.6; O2SAT 95
[2022-01-30] MEDS: nicotine 2 mg Gum BUCCAL ×5 (00:48→18:45)
[2022-01-30 06:00] VITALS: BP 111/74; PULSE 114; RESP 16; TEMP 36.7; O2SAT 96
[2022-01-30] MEDS: hyDROXYzine 25 mg Capsule 50 MG PO ×3 (06:37→19:31)
[2022-01-30] MEDS: tizanidine 4 mg Tablet PO ×3 (06:48→21:25)
[2022-01-30] MEDS: clindamycin 150 mg Capsule 300 MG PO ×3 (08:38→21:20)
[2022-01-30] MEDS: famotidine 20 mg Tablet 40 MG PO (08:39)
[2022-01-30] MEDS: multivitamin therapeutic Tablet 1 TAB PO (08:39)
[2022-01-30] MEDS: levothyroxine 125 mcg Tablet PO (08:39)
[2022-01-30] MEDS: estradiol 1 mg Tablet PO (08:39)
[2022-01-30] MEDS: acetaminophen 325 mg Tablet 650 MG PO (08:41)
--- NOTE | 2022-01-30 10:41 | PC.NURSE ---
Nurse Note Patient standing in dayroom calmly watching tv and drinking coffee. We moved to her room to talk and she said she slept well last night. She did say she was having some back and joint pain and rated the pain at a 4 on a 1-10 scale. I let the med nurse know she would need tylenol administered. Patient denied any suicidal or homicidal ideations. Also denied auditory or visual hallucinations. She reported to have very mild anxiety and rated it at a 2 on a scale of 1-10. Patient was bouncing her knee a bit and rarely move her shoulders, which I noted on the CIWA. No other needs or findings noted at this time.
--- NOTE | 2022-01-30 12:30 | PC.NURSE ---
BEHAVIORS PT AT NURSES STATION TO TAKE MEDICATIONS. PT REFUSES TO ALLOW MED NURSE TO VERIFY MEDICATIONS. PT THEN REFUSED TO TAKE EFFEXOR. PT THEN STOOD AT NURSES STATION AND URINATING DOWN BOTH LEGS AND THEN STARTED LAUGHING ERRATICALLY.
[2022-01-30 14:00] VITALS: BP 99/64; PULSE 81; RESP 16; TEMP 36.9; O2SAT 100
[2022-01-30] MEDS: ibuprofen 600 mg Tablet PO (14:30)
--- NOTE | 2022-01-30 17:53 | P.NPUPN_ITS ---
Subjective NPU Subjective: Sima is a 51-year-old white female with a history of psychotic disorder not otherwise specified recently discharged from the neuropsych unit last month. Patient informed of court hearing to determine the placement of 21 day hold. Patient continued to remain isolative on the unit and remained paranoid. She continued to state that she felt that her living situation at home was unsafe and the reason for hospitalization. She was unable to elaborate regarding the situation that had led to her walking along the road aimlessly. The patient did not appear to have any clear plan of where and how she would live if her house was deemed to be unsafe. She stated simply that she was not afraid . Mental Status Exam MSE Comments: This is a slender white female in hospital scrubs with adequate grooming and limited eye contact. No abnormal movements except for psychomotor retardation. Cooperative with exam in mild distress. Speech was normal rate and volume. Mood described as better as she stated she was making progress. , affect is blunted and subdued. Thought process: circumstantial, superficial. Thought content: patient denied suicidal or homicidal ideation, content remained superficial and she was somewhat guarded. There was clear evidence of delusional thinking. Attention and concentration are intact and memory appeared reliable but none were formally tested. She is alert and oriented three times. Insight is feeble. Judgement is limited. Impulse control is impaired. She remained guarded. 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 1. Continue clindamycin 3 times daily for her likely oral abscess. 2. Encourage individual, group and milieu therapy 3. Continue q-15 minute check for safety 4. She may require forceable medication, as this appears unchanged and she has continued to decompensate despite being given opportunity to be discharged last month without psychotropics in her last voluntary hospitalization. Currently pursuing 21 day hold and paperwork filed with adrienne villalobos with hope of forceably medicating her. Involuntary Hold Information 96 Hour Hold: 96 Hour Involuntary Admission: Yes 96 Hour Hold Ending Date: 01/03/22 96 Hour Hold Ending Time: 00:35 Attestations NPU Medical Necessity Statement*: Inpatient hospitalization is medically necessary and the clinically appropriate intervention at this time. We will monitor medications and make changes as indicated. Likely length of stay is five to ten days. 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
[2022-01-30] MEDS: amitriptyline 25 mg Tablet 50 MG PO (21:20)
[2022-01-30 21:54] VITALS: BP 116/74; PULSE 92; RESP 16; TEMP 36.7; O2SAT 100
[2022-01-31] MEDS: hyDROXYzine 25 mg Capsule 50 MG PO ×4 (01:27→19:41)
[2022-01-31 05:26] VITALS: BP 111/69; PULSE 84; RESP 16; TEMP 36.6; O2SAT 100
[2022-01-31] MEDS: tizanidine 4 mg Tablet PO ×3 (05:29→14:47)
[2022-01-31] MEDS: nicotine 2 mg Gum BUCCAL ×3 (09:03→17:58)
[2022-01-31] MEDS: levothyroxine 125 mcg Tablet PO (09:04)
[2022-01-31] MEDS: clindamycin 150 mg Capsule 300 MG PO ×3 (09:04→20:30)
[2022-01-31] MEDS: estradiol 1 mg Tablet PO (09:04)
[2022-01-31] MEDS: famotidine 20 mg Tablet 40 MG PO (09:04)
[2022-01-31] MEDS: multivitamin therapeutic Tablet 1 TAB PO (09:04)
[2022-01-31 14:00] VITALS: BP 115/67; PULSE 94; RESP 16; TEMP 36.6; O2SAT 100
--- NOTE | 2022-01-31 15:53 | PC.NURSE ---
Pt refused the invega 3mg tab, pt stated that she discussed with the doctor about taking Abilify. Nurse contacted on the matter, ordered to change med to Abilify 5mg PO, if the pt refuses to take oral meds, administer IM Haldol 5mg per [address] order.
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
[2022-01-31] MEDS: ARIPiprazole 2 mg Tablet 5 MG PO (17:55)
[2022-01-31] MEDS: nicotine 4 mg lozenge MUCOUS MEM ×2 (18:34→20:55)
[2022-01-31] MEDS: hyDROXYzine 25 mg Capsule PO (18:49)
[2022-01-31 20:18] VITALS: BP 133/71; PULSE 91; RESP 16; O2SAT 100
[2022-01-31] MEDS: amitriptyline 25 mg Tablet 50 MG PO (20:31)
[2022-02-01] MEDS: tizanidine 4 mg Tablet PO ×3 (00:03→16:17)
[2022-02-01] MEDS: hyDROXYzine 25 mg Capsule 50 MG PO ×4 (00:06→19:35)
[2022-02-01] MEDS: nicotine 4 mg lozenge MUCOUS MEM ×7 (00:07→20:11)
[2022-02-01] MEDS: acetaminophen 325 mg Tablet 650 MG PO (04:50)
[2022-02-01 06:00] VITALS: BP 106/67; PULSE 90; RESP 16; O2SAT 100
[2022-02-01] MEDS: multivitamin therapeutic Tablet 1 TAB PO (08:45)
[2022-02-01] MEDS: famotidine 20 mg Tablet 40 MG PO (08:45)
[2022-02-01] MEDS: levothyroxine 125 mcg Tablet PO (08:45)
[2022-02-01] MEDS: estradiol 1 mg Tablet PO (08:46)
[2022-02-01] MEDS: ARIPiprazole 10 mg Tablet 5 MG PO (08:46)
[2022-02-01] MEDS: clindamycin 150 mg Capsule 300 MG PO ×3 (08:47→20:11)
[2022-02-01 09:59] VITALS: RESP 16
[2022-02-01] MEDS: oxyCODONE-APAP 10-325 mg Tablet 1 TAB PO ×2 (09:59→17:49)
[2022-02-01 13:42] VITALS: BP 102/64; PULSE 95; RESP 16; TEMP 36.7; O2SAT 100
--- NOTE | 2022-02-01 15:58 | W.PM.NPUPNS ---
Subjective NPU Subjective: Sima is a 51-year-old white female with a history of psychotic disorder not otherwise specified recently discharged from the neuropsych unit last month. Patient is now on a 21-day hold. She was started on Abilify 5 mg orally daily. She reports no side effects from her medication. She continued to report that she would remain compliant here in the milieu but stated that she felt ready to go home. Patient continued to remain guarded. She was restarted back on her pain medications today and reported some reduction in her overall pain. She reported no auditory hallucinations. Staff reports that the patient has been able to attend groups but has minimally engaged. Mental Status Exam MSE Comments: This is a slender white female in hospital scrubs with adequate grooming and limited eye contact. No abnormal involuntary motor movements appreciated.except for psychomotor retardation. She was superficially cooperative with exam in mild distress. Speech was normal rate and volume. Mood described as okay as she stated she was good , affect remained blunted and subdued. Thought process: circumstantial, superficial. Thought content: patient denied suicidal or homicidal ideation, content remained superficial and she was somewhat guarded. There was clear evidence of delusional thinking with ideas of reference and paranoia. Attention and concentration are intact and memory appeared reliable but none were formally tested. She is alert and oriented three times. Insight is poor. Judgement is limited. Impulse control is impaired. 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 1. Continue clindamycin 3 times daily for her likely oral abscess. 2. Encourage individual, group and milieu therapy 3. Continue q-15 minute check for safety 4. Patient on forced medication with increase abilify to 10mg in am. Involuntary Hold Information 96 Hour Hold: 96 Hour Involuntary Admission: Yes 96 Hour Hold Ending Date: 01/03/22 96 Hour Hold Ending Time: 00:35 Attestations NPU Medical Necessity Statement*: Inpatient hospitalization is medically necessary and the clinically appropriate intervention at this time. We will monitor medications and make changes as indicated with likely length of stay is five to ten days. Coding Level of Care Code Established Pt Acute Orthotic And Prosthetic Technician for Walter Ricci Patient Type Established History Problem Focused Exam Problem Focused Medical Decision Making Straight Forward Diagnoses Psychotic disorder F29 Paranoia (psychosis) F22 Acute dehydration E86.0 Delusions F22 Depression F32.9 DOMINIQUE (generalized anxiety disorder) F41.1
--- NOTE | 2022-02-01 17:22 | PC.NURSE ---
prn Patient complains of muscle spasms - Zanaflex given - see MAR.
[2022-02-01 17:49] VITALS: RESP 18
[2022-02-01 20:01] VITALS: BP 124/75; PULSE 104; RESP 17; TEMP 36.7; O2SAT 98
[2022-02-01] MEDS: amitriptyline 25 mg Tablet 50 MG PO (20:11)
[2022-02-02] MEDS: tizanidine 4 mg Tablet PO ×2 (00:13→20:44)
[2022-02-02 03:20] VITALS: RESP 16
[2022-02-02] MEDS: oxyCODONE-APAP 10-325 mg Tablet 1 TAB PO ×3 (03:20→20:43)
[2022-02-02] MEDS: hyDROXYzine 25 mg Capsule 50 MG PO ×4 (03:21→21:02)
[2022-02-02] MEDS: nicotine 4 mg lozenge MUCOUS MEM ×8 (03:23→22:28)
[2022-02-02 06:00] VITALS: BP 111/67; PULSE 97; RESP 16; TEMP 36.7; O2SAT 100
[2022-02-02] MEDS: estradiol 1 mg Tablet PO (08:57)
[2022-02-02] MEDS: clindamycin 150 mg Capsule 300 MG PO ×3 (08:57→20:02)
[2022-02-02] MEDS: famotidine 20 mg Tablet 40 MG PO (08:57)
[2022-02-02] MEDS: ARIPiprazole 10 mg Tablet PO (08:57)
[2022-02-02] MEDS: levothyroxine 125 mcg Tablet PO (08:57)
[2022-02-02] MEDS: multivitamin therapeutic Tablet 1 TAB PO (08:57)
--- NOTE | 2022-02-02 10:49 | PC.NURSE ---
PT REQUESTED MEDICATION FOR ANXIETY AND NICOTINE LOZENGE. PT RECEIVED NICOTINE LOZENGE AND VISTERIL.
[2022-02-02 11:22] VITALS: RESP 18
[2022-02-02 13:36] VITALS: BP 112/68; PULSE 103; RESP 18; TEMP 36.9; O2SAT 98
--- NOTE | 2022-02-02 18:49 | P.NPUPN_ITS ---
Subjective NPU Subjective: Sima is a 51-year-old white female with a history of psychotic disorder not otherwise specified recently discharged from the neuropsych unit last month. Patient appeared to tolerate Abilify without any side effects. She reported feeling much better today. She reported no feelings of hopelessness. She reported that her thinking appeared to be clear today. Mental Status Exam MSE Comments: This is a slender white female in hospital scrubs with adequate grooming and limited eye contact. No abnormal involuntary motor movements appreciated.except for psychomotor retardation. She was superficially cooperative with exam in mild distress. Speech was normal rate and volume. Mood described as better as she stated she was good , affect did appear brighter. Thought process: circumstantial and superficial. Thought content: patient denied suicidal or homicidal ideation, content remained superficial and she was somewhat guarded. She remained paranoid. Attention and concentration are in tact and memory appeared reliable but none were formally tested. She is alert and oriented three times. Insight is poor. Judgement is limited. Impulse control is improving. 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 1. Continue clindamycin 3 times daily for her likely oral abscess. 2. Encourage individual, group and milieu therapy 3. Continue q-15 minute check for safety 4. Patient on forced medication and is tolerating abilify at 10mg in am. Involuntary Hold Information 96 Hour Hold: 96 Hour Involuntary Admission: Yes 96 Hour Hold Ending Date: 01/03/22 96 Hour Hold Ending Time: 00:35 Attestations NPU Medical Necessity Statement*: Inpatient hospitalization is medically necessary and the clinically appropriate intervention at this time. We will monitor medications and make changes as indicated with likely length of stay is five to ten days. Coding Level of Care Code Established Pt Acute Professional Soccer Player for Chg Fwd Patient Type Established History Problem Focused Exam Problem Focused Medical Decision Making Straight Forward Diagnoses Psychotic disorder F29 Paranoia (psychosis) F22 Acute dehydration E86.0 Delusions F22 Depression F32.9 DOMINIQUE (generalized anxiety disorder) F41.1
[2022-02-02] MEDS: amitriptyline 25 mg Tablet 50 MG PO (20:03)
[2022-02-02 20:12] VITALS: BP 123/74; PULSE 98; RESP 18; TEMP 36.6; O2SAT 99
[2022-02-02 20:43] VITALS: RESP 16; O2SAT 98
--- NOTE | 2022-02-03 01:52 | PC.NURSE ---
Medicated patient with Oxy/APAP for back pain;also had Zanaflex,Vistaril, and Nicotine lozenge.
[2022-02-03] MEDS: hyDROXYzine 25 mg Capsule 50 MG PO ×4 (02:59→20:48)
[2022-02-03 04:53] VITALS: RESP 16; O2SAT 98
[2022-02-03] MEDS: oxyCODONE-APAP 10-325 mg Tablet 1 TAB PO ×3 (04:53→17:25)
--- NOTE | 2022-02-03 04:57 | PC.NURSE ---
Patient was medicated for pain with Oxy/APAP,rated pain a 6,along her thoracic spine and shoulders.
[2022-02-03] MEDS: tizanidine 4 mg Tablet PO ×2 (05:56→17:25)
[2022-02-03 06:00] VITALS: BP 106/68; PULSE 98; RESP 16; TEMP 37; O2SAT 97
[2022-02-03] MEDS: nicotine 4 mg lozenge MUCOUS MEM ×7 (07:44→23:08)
[2022-02-03] MEDS: clindamycin 150 mg Capsule 300 MG PO ×3 (08:26→20:05)
[2022-02-03] MEDS: famotidine 20 mg Tablet 40 MG PO (08:26)
[2022-02-03] MEDS: levothyroxine 125 mcg Tablet PO (08:26)
[2022-02-03] MEDS: multivitamin therapeutic Tablet 1 TAB PO (08:26)
[2022-02-03] MEDS: ARIPiprazole 10 mg Tablet PO (08:26)
[2022-02-03] MEDS: estradiol 1 mg Tablet PO (08:26)
[2022-02-03 11:12] VITALS: RESP 18
[2022-02-03] MEDS: blistex lip oint 7 gm Tube 1 APPLIC TOPICAL (12:43)
[2022-02-03] MEDS: ibuprofen 600 mg Tablet PO (13:47)
[2022-02-03] MEDS: OLANZapine 5 mg ODT PO ×2 (13:49→23:10)
[2022-02-03 14:00] VITALS: BP 118/75; PULSE 98; RESP 18; TEMP 36.6; O2SAT 98
[2022-02-03] MEDS: acetaminophen 325 mg Tablet 650 MG PO (14:55)
--- NOTE | 2022-02-03 16:33 | W.PM.NPUPNS ---
Subjective NPU Subjective: Sima is a 51-year-old white female with a history of psychotic disorder not otherwise currently on a 21-day hold. Patient continues to report feeling better. Staff reports that engaged in treatment in the milieu. She reported no side effects from her medication. A great weight appeared to be lifted from her head and a decrease in anxiety was reported. She reports no suicidal thoughts and reports that she has been less worried about leaving to her home. Mental Status Exam MSE Comments: This is a slender white female in hospital scrubs with adequate grooming and limited eye contact. No abnormal involuntary motor movements appreciated other than some psychomotor slowing. She was superficially cooperative with exam in mild distress. Speech was normal rate and volume. Mood described as good. Her affect did appear brighter. Thought process: circumstantial and superficial. Thought content: patient denied suicidal or homicidal ideation, content remained superficial and she was somewhat guarded. She remained paranoid with still some evidence of delusional thinking. Attention and concentration are intact and memory appeared reliable but none were formally tested. She is alert and oriented three times. Insight is poor. Judgement is limited. Impulse control is improving. 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 1. Continue clindamycin 3 times daily for her likely oral abscess. 2. Encourage individual, group and milieu therapy 3. Continue q-15 minute check for safety 4. Patient on forced medication and is tolerating abilify with increase planned tommorow to 15mg in am. Involuntary Hold Information 96 Hour Hold: 96 Hour Involuntary Admission: Yes 96 Hour Hold Ending Date: 01/03/22 96 Hour Hold Ending Time: 00:35 Attestations NPU Medical Necessity Statement*: Inpatient hospitalization is medically necessary and the clinically appropriate intervention at this time. We will monitor medications and make changes as indicated with likely length of stay is five to ten days. Coding Level of Care Code Established Pt Acute Violent Crimes Detective for Chg Fwd Patient Type Established History Problem Focused Exam Problem Focused Medical Decision Making Straight Forward Diagnoses Psychotic disorder F29 Paranoia (psychosis) F22 Acute dehydration E86.0 Delusions F22 Depression F32.9 DOMINIQUE (generalized anxiety disorder) F41.1
[2022-02-03 17:25] VITALS: RESP 12
[2022-02-03] MEDS: trazodone 50 mg Tablet PO (20:05)
[2022-02-03 21:28] VITALS: BP 114/74; PULSE 90; RESP 20; TEMP 36.4; O2SAT 100
[2022-02-04] VITALS (7 sets, daily range): BP systolic 102–112; BP diastolic 67–70; PULSE 86–100; RESP 16–18; TEMP 36.4–36.8; O2SAT 96–100
[2022-02-04] MEDS: tizanidine 4 mg Tablet PO ×3 (03:48→20:48)
[2022-02-04] MEDS: hyDROXYzine 25 mg Capsule 50 MG PO ×4 (03:48→20:52)
[2022-02-04] MEDS: oxyCODONE-APAP 10-325 mg Tablet 1 TAB PO ×4 (03:48→20:45)
--- NOTE | 2022-02-04 04:02 | PC.NURSE ---
Patient requested something for pain,medicated with Percocet 10/325 mg po.
[2022-02-04] MEDS: nicotine 4 mg lozenge MUCOUS MEM ×7 (06:05→21:06)
[2022-02-04] MEDS: ibuprofen 600 mg Tablet PO ×2 (06:54→20:48)
[2022-02-04] MEDS: estradiol 1 mg Tablet PO (08:21)
[2022-02-04] MEDS: clindamycin 150 mg Capsule 300 MG PO ×3 (08:21→20:48)
[2022-02-04] MEDS: levothyroxine 125 mcg Tablet PO (08:21)
[2022-02-04] MEDS: multivitamin therapeutic Tablet 1 TAB PO (08:21)
[2022-02-04] MEDS: ARIPiprazole 10 mg Tablet 15 MG PO (08:21)
[2022-02-04] MEDS: famotidine 20 mg Tablet 40 MG PO (08:22)
[2022-02-04] MEDS: OLANZapine 5 mg ODT PO ×3 (13:52→22:01)
--- NOTE | 2022-02-04 15:31 | PC.NURSE ---
Pt wanted the to know that she used to take Ativan for her panic attacks and also for sleep and pt stated that it really worked.
--- NOTE | 2022-02-04 17:02 | W.PM.NPUPNS ---
Subjective NPU Subjective: Sima is a 51-year-old white female with a history of psychotic disorder not otherwise currently on a 21-day hold. Patient reported no side effects from her Abilify and states that she has been feeling better. She reported no feelings of hopelessness. She reported improved ability to focus and states that she has been less worried about her home situation. The patient reports that she has not been worrying about anything and states that she has been hopeful that her children will call her. She reports having extreme worry that she would have another stroke associated with her medication as per patient when on zoloft. Mental Status Exam MSE Comments: This is a slender white female in hospital scrubs with adequate grooming and limited eye contact. No abnormal involuntary motor movements appreciated other than some psychomotor slowing. She was more cooperative on exam in mild distress. Speech was normal rate and volume. Mood described as good. Her affect did appear brighter. Thought process: circumstantial and superficial. Thought content: patient denied suicidal or homicidal ideation, content remained superficial and she was somewhat guarded. She appeared less paranoid with still some evidence of delusional thinking. Attention and concentration are intact and memory appeared reliable but none were formally tested. She is alert and oriented three times. Insight is improving. Judgement is limited. Impulse control is improving. Vitals/I&O/Wt Last Vital Signs Temp 97.6 F 02/04/22 14:00 Pulse 91 02/04/22 14:00 Resp 16 02/04/22 16:52 BP 112/70 02/04/22 14:00 Pulse Ox 98 02/04/22 16:52 O2 Del Method 02/04/22 06:00 Data NPU : 01/24/22 15:22 01/24/22 15:22 A&P Assessment and plan (1) Psychotic disorder: Status: Acute (2) Paranoia (psychosis): Status: Acute (3) Acute dehydration: Status: Acute (4) Delusions: Status: Acute (5) Depression: Status: Acute (6) DOMINIQUE (generalized anxiety disorder): Status: Acute Plan This is a 51 year old white female with a history of trauma and genetic loading for addiction issues who presents after walking for [address] reporting she needs help currently receiving treatment for psychosis. 1. Referral for outpatient treatment. 2. Encourage individual, group and milieu therapy 3. Continue q-15 minute check for safety 4. Patient on forced medication and appears much improved, continue abilify 15mg daily Involuntary Hold Information 96 Hour Hold: 96 Hour Involuntary Admission: Yes 96 Hour Hold Ending Date: 01/03/22 96 Hour Hold Ending Time: 00:35 Attestations NPU Medical Necessity Statement*: Inpatient hospitalization is medically necessary and the clinically appropriate intervention at this time. We will monitor medications and make changes as indicated with likely length of stay is five to ten days. Coding Level of Care Code Established Pt Acute Employment Training Specialist for Chg Fwd Patient Type Established History Problem Focused Exam Problem Focused Medical Decision Making Straight Forward Diagnoses Psychotic disorder F29 Paranoia (psychosis) F22 Acute dehydration E86.0 Delusions F22 Depression F32.9 DOMINIQUE (generalized anxiety disorder) F41.1
[2022-02-04] MEDS: trazodone 50 mg Tablet PO (20:52)
--- NOTE | 2022-02-04 23:05 | NUR.SHIFT ---
at appx 2008 pt presents calm and cooperative with euthymic affect. pt reports 5/10 anxiety and 3/10 depression. pt denies si/hi/avh at this time. pt reports mood is tired pt reports last night I didn't really sleep and am worried I won't tonight, and they can't seem to get my pain meds right. I was doing so good at home and cleaning because I love to clean, but I just want my pain meds right and spent all day trying to get ahold of the doctor's office to get it handled. pt is hyperfocused on the timeline of when she can have her pain meds and has been told this nurse will give her some with her nightly meds. pt took all meds as prescribed.
[2022-02-05] VITALS (7 sets, daily range): BP systolic 102–113; BP diastolic 65–72; PULSE 91–101; RESP 16–18; TEMP 36.6; O2SAT 98–100
[2022-02-05] MEDS: nicotine 4 mg lozenge MUCOUS MEM ×9 (00:02→22:26)
[2022-02-05] MEDS: oxyCODONE-APAP 10-325 mg Tablet 1 TAB PO ×4 (05:15→21:44)
[2022-02-05] MEDS: hyDROXYzine 25 mg Capsule 50 MG PO ×4 (05:16→19:01)
[2022-02-05] MEDS: nicotine 2 mg Gum BUCCAL (05:26)
[2022-02-05] MEDS: tizanidine 4 mg Tablet PO ×3 (06:19→19:01)
[2022-02-05] MEDS: clindamycin 150 mg Capsule 300 MG PO ×3 (08:15→20:01)
[2022-02-05] MEDS: multivitamin therapeutic Tablet 1 TAB PO (08:15)
[2022-02-05] MEDS: ARIPiprazole 10 mg Tablet 15 MG PO (08:15)
[2022-02-05] MEDS: levothyroxine 125 mcg Tablet PO (08:16)
[2022-02-05] MEDS: famotidine 20 mg Tablet 40 MG PO (08:16)
[2022-02-05] MEDS: estradiol 1 mg Tablet PO (08:16)
[2022-02-05] MEDS: OLANZapine 5 mg ODT PO ×4 (09:28→22:26)
[2022-02-05] MEDS: ibuprofen 600 mg Tablet PO ×2 (10:32→18:22)
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
[2022-02-05] MEDS: trazodone 100 mg Tablet PO (20:01)
[2022-02-06] MEDS: hyDROXYzine 25 mg Capsule 50 MG PO ×3 (01:20→15:25)
[2022-02-06] MEDS: nicotine 4 mg lozenge MUCOUS MEM ×7 (01:31→22:06)
[2022-02-06 06:00] VITALS: BP 91/54; PULSE 95; RESP 14; TEMP 36.7; O2SAT 98
[2022-02-06] MEDS: tizanidine 4 mg Tablet PO ×2 (06:32→16:22)
[2022-02-06 06:35] VITALS: RESP 16
[2022-02-06] MEDS: oxyCODONE-APAP 10-325 mg Tablet 1 TAB PO ×3 (06:35→19:06)
[2022-02-06] MEDS: multivitamin therapeutic Tablet 1 TAB PO (09:00)
[2022-02-06] MEDS: ARIPiprazole 10 mg Tablet 15 MG PO (09:00)
[2022-02-06] MEDS: estradiol 1 mg Tablet PO (09:00)
[2022-02-06] MEDS: famotidine 20 mg Tablet 40 MG PO (09:00)
[2022-02-06] MEDS: levothyroxine 125 mcg Tablet PO (09:00)
--- NOTE | 2022-02-06 09:01 | PC.NURSE ---
prn Vistaril 50 mg given po per pt request and c/o anxiety
--- NOTE | 2022-02-06 11:34 | W.PM.NPUPNS ---
Subjective NPU Subjective: Patient resents today reporting that she is realizing that her being resistant to the medication is not helpful. She reports that after taking Zoloft previously she had a stroke or some neurological episode and so she was resistant to taking any more medication. But she told Dr. Dobbins and the nurse Viktoriya who suggested that she put her trust in their hands. She reports that she feels guilty now saying that the only thing she has experienced since starting Abilify has been positive. Mental Status Exam MSE Comments: This is a slender white female in hospital scrubs with adequate grooming and limited eye contact. No abnormal involuntary motor movements appreciated other than some psychomotor slowing. She was more cooperative on exam in mild distress. Speech was normal rate and volume. Mood described as better since the Abilify. Her affect did appear brighter. Thought process: linear, logical Thought content: patient denied suicidal or homicidal ideation, content remained superficial and she was somewhat guarded. She appeared less paranoid with still some evidence of delusional thinking. Attention and concentration are intact. and Her recent and remote memory were grossly intact. She is alert and oriented three times. Insight is improving. Judgement is limited. Impulse control is improving. Vitals/I&O/Wt Last Vital Signs Temp 98.1 F 02/06/22 06:00 Pulse 95 02/06/22 06:00 Resp 16 02/06/22 06:35 BP 91/54 02/06/22 06:00 Pulse Ox 98 02/06/22 06:00 O2 Del Method 02/05/22 06:00 Data NPU : 01/24/22 15:22 01/24/22 15:22 A&P Assessment and plan (1) Psychotic disorder: Status: Acute (2) Paranoia (psychosis): Status: Acute (3) Acute dehydration: Status: Acute (4) Delusions: Status: Acute (5) Depression: Status: Acute (6) DOMINIQUE (generalized anxiety disorder): Status: Acute Plan This is a 51 year old white female with a history of trauma and genetic loading for addiction issues who presents after walking for [address] road reporting she needs help currently receiving treatment for psychosis. 1. Referral for outpatient treatment. 2. Encourage individual, group and milieu therapy 3. Continue q-15 minute check for safety 4. Patient on forced medication and appears much improved, continue abilify 15mg daily Involuntary Hold Information 96 Hour Hold: 96 Hour Involuntary Admission: Yes 96 Hour Hold Ending Date: 01/03/22 96 Hour Hold Ending Time: 00:35 Attestations NPU Medical Necessity Statement*: Inpatient hospitalization is medically necessary and the clinically appropriate intervention at this time. We will monitor medications and make changes as indicated with likely length of stay is two to four days. Coding Level of Care Code Acute Buildings And Grounds Supervisor for g Fwd Diagnoses Psychotic disorder F29 Paranoia (psychosis) F22 Acute dehydration E86.0 Delusions F22 Depression F32.9 DOMINIQUE (generalized anxiety disorder) F41.1
[2022-02-06 14:00] VITALS: BP 106/75; PULSE 90; RESP 16; TEMP 36.6; O2SAT 100
[2022-02-06 14:06] VITALS: RESP 18
--- NOTE | 2022-02-06 14:08 | PC.NURSE ---
PRN MEDICATION PT C/O BACK PAIN 12/08 PERCOCET WAS GIVEN ORDERED.
[2022-02-06] MEDS: OLANZapine 5 mg ODT PO ×2 (16:21→22:06)
[2022-02-06 19:06] VITALS: RESP 16; O2SAT 98
[2022-02-06] MEDS: trazodone 100 mg Tablet PO (21:05)
[2022-02-06 21:35] VITALS: BP 123/66; PULSE 93; RESP 17; TEMP 36.7; O2SAT 94
[2022-02-07] MEDS: hyDROXYzine 25 mg Capsule 50 MG PO ×3 (00:39→21:38)
[2022-02-07] MEDS: tizanidine 4 mg Tablet PO ×3 (00:40→16:53)
[2022-02-07] MEDS: nicotine 4 mg lozenge MUCOUS MEM ×7 (00:42→21:38)
[2022-02-07 00:51] VITALS: RESP 16
[2022-02-07] MEDS: oxyCODONE-APAP 10-325 mg Tablet 1 TAB PO ×3 (00:51→16:53)
[2022-02-07 06:00] VITALS: BP 111/69; PULSE 87; RESP 17; TEMP 36.7; O2SAT 100
[2022-02-07] MEDS: ARIPiprazole 10 mg Tablet 15 MG PO (08:06)
[2022-02-07] MEDS: multivitamin therapeutic Tablet 1 TAB PO (08:06)
[2022-02-07] MEDS: famotidine 20 mg Tablet 40 MG PO (08:06)
[2022-02-07] MEDS: levothyroxine 125 mcg Tablet PO (08:06)
[2022-02-07] MEDS: estradiol 1 mg Tablet PO (08:06)
[2022-02-07 09:15] VITALS: RESP 17
--- NOTE | 2022-02-07 09:16 | PC.NURSE ---
PRN ZANAFLEX 4 MG GIVEN PO PER PT C/O SPASMS
--- NOTE | 2022-02-07 11:12 | PC.NURSE ---
PRN VISTARIL 50 MG GIVEN PO PER REQUEST, PT MED SEEKING, ASKING FOR ANY AND ALL PRN MEDICATIONS SHE CAN HAVE CONSTANTLY..PREVIOUSLY ATTENDING GROUP, NO OUTWARD S/S OF ANXIETY NOTED.
[2022-02-07 14:00] VITALS: BP 125/69; PULSE 107; RESP 19; O2SAT 100
[2022-02-07 16:53] VITALS: RESP 17
--- NOTE | 2022-02-07 16:55 | PC.NURSE ---
PRN ZANAFLEX 4 MG GIVEN PO PER PT C/O MUSCLE SPASMS
--- NOTE | 2022-02-07 19:20 | P.NPUPN_ITS ---
Subjective NPU Subjective: Patient presents today with continued advancement in her recovery. She was hopeful for discharge but understood the conservative treatment team to make sure she had a safe place to return to. She does report having a neighbor that would be able to assist in her reentry. She discussed still having significant pain and anxiety and was focused on the medications. She did not find the psychosis he was having prior to coming to the hospital but had loculation for why it occurred. She endorsed being stressed but there are concerns for drug abuse which she denied but there is no objective information in the form of the drug screen. Mental Status Exam MSE Comments: This is a slender white female in hospital scrubs with adequate grooming and limited eye contact. No abnormal involuntary motor movements appreciated other than some psychomotor slowing. She was more cooperative on exam in mild distress. Speech was normal rate and volume. Mood described as better since the Abilify. Her affect did appear brighter. Thought process: linear, logical Thought content: patient denied suicidal or homicidal ideation, content remained superficial and she was somewhat guarded. She appeared less paranoid with still some evidence of delusional thinking. Attention and concentration are intact. and Her recent and remote memory were grossly intact. She is alert and oriented three times. Insight is improving. Judgement is limited. Impulse control is improving. Vitals/I&O/Wt Last Vital Signs Temp 98.5 F 02/07/22 22:00 Pulse 95 02/07/22 22:00 Resp 20 H 02/07/22 22:00 BP 115/68 02/07/22 22:00 Pulse Ox 100 02/07/22 22:00 O2 Del Method 02/07/22 22:00 Data NPU : 01/24/22 15:22 01/24/22 15:22 A&P Assessment and plan (1) Psychotic disorder: Status: Acute (2) Paranoia (psychosis): Status: Acute (3) Acute dehydration: Status: Acute (4) Delusions: Status: Acute (5) Depression: Status: Acute (6) DOMINIQUE (generalized anxiety disorder): Status: Acute Plan This is a 51 year old white female with a history of trauma and genetic loading for addiction issues who presents after walking for [address] reporting she needs help currently receiving treatment for psychosis. 1. Referral for outpatient treatment. 2. Encourage individual, group and milieu therapy 3. Continue q-15 minute check for safety 4. Patient on forced medication and appears much improved, continue abilify 15mg daily, will consider long-acting injectable. Involuntary Hold Information 96 Hour Hold: 96 Hour Involuntary Admission: Yes 96 Hour Hold Ending Date: 01/03/22 96 Hour Hold Ending Time: 00:35 Attestations NPU Medical Necessity Statement*: Inpatient hospitalization is medically necessary and the clinically appropriate intervention at this time. We will monitor medications and make changes as indicated with likely length of stay is two to four days. Coding Level of Care Code Acute Billing Coordinator for Souravg Fwd Diagnoses Psychotic disorder F29 Paranoia (psychosis) F22 Acute dehydration E86.0 Delusions F22 Depression F32.9 DOMINIQUE (generalized anxiety disorder) F41.1
[2022-02-07] MEDS: ibuprofen 600 mg Tablet PO (21:38)
[2022-02-07] MEDS: trazodone 100 mg Tablet PO (21:38)
[2022-02-07 22:00] VITALS: BP 115/68; PULSE 95; RESP 20; TEMP 36.9; O2SAT 100
--- NOTE | 2022-02-07 22:45 | PC.NURSE ---
PRN MED PT GIVEN 50MG VISTARIL FOR STATED ANXIETY, WILL CONTINUE TO MONITOR.
[2022-02-08] VITALS (7 sets, daily range): BP systolic 95–111; BP diastolic 57–71; PULSE 94–97; RESP 14–20; TEMP 36.6–36.8; O2SAT 96–100
[2022-02-08] MEDS: nicotine 4 mg lozenge MUCOUS MEM ×9 (00:38→22:01)
[2022-02-08] MEDS: tizanidine 4 mg Tablet PO ×4 (00:54→20:13)
[2022-02-08] MEDS: oxyCODONE-APAP 10-325 mg Tablet 1 TAB PO ×4 (00:54→21:32)
[2022-02-08] MEDS: hyDROXYzine 25 mg Capsule 50 MG PO ×4 (03:45→21:32)
[2022-02-08] MEDS: estradiol 1 mg Tablet PO (08:35)
[2022-02-08] MEDS: multivitamin therapeutic Tablet 1 TAB PO (08:35)
[2022-02-08] MEDS: famotidine 20 mg Tablet 40 MG PO (08:35)
[2022-02-08] MEDS: ARIPiprazole 10 mg Tablet 15 MG PO (08:38)
[2022-02-08] MEDS: levothyroxine 125 mcg Tablet PO (08:38)
[2022-02-08] MEDS: ibuprofen 600 mg Tablet PO ×2 (11:53→19:36)
--- NOTE | 2022-02-08 11:58 | P.NPUPN_ITS ---
Subjective NPU Subjective: Patient returns today continuing to show slow but notable improvement in her psychosis. After drug screen we have limited objective information but great concern for issues regarding addiction. She continues to have no explanation for why I was thinking like that. Methamphetamine was likely malt and the importance of her avoiding drug abuse as well as maintaining her medication to manage any rebound psychosis. Mental Status Exam MSE Comments: This is a slender white female in hospital scrubs with adequate grooming and limited eye contact. No abnormal involuntary motor movements appreciated other than some psychomotor slowing. She was more cooperative on exam in mild distress. Speech was normal rate and volume. Mood described as better/pretty good. Her affect did appear brighter. Thought process: linear, logical Thought content: patient denied suicidal or homicidal ideation, content remained superficial and she was somewhat guarded. She appeared less paranoid with still some evidence of delusional thinking. Attention and concentration are intact. and Her recent and remote memory were grossly intact. She is alert and oriented three times. Insight is improving. Judgement is limited. Impulse control is improving. Vitals/I&O/Wt Last Vital Signs Temp 98.2 F 02/08/22 06:00 Pulse 97 02/08/22 06:00 Resp 16 02/08/22 08:35 BP 95/57 02/08/22 06:00 Pulse Ox 98 02/08/22 08:35 O2 Del Method 02/08/22 06:00 Data NPU : 01/24/22 15:22 01/24/22 15:22 A&P Assessment and plan (1) Psychotic disorder: Status: Acute (2) Paranoia (psychosis): Status: Acute (3) Acute dehydration: Status: Acute (4) Delusions: Status: Acute (5) Depression: Status: Acute (6) DOMINIQUE (generalized anxiety disorder): Status: Acute Plan This is a 51 year old white female with a history of trauma and genetic loading for addiction issues who presents after walking for [address] reporting she needs help currently receiving treatment for psychosis. 1. Referral for outpatient treatment. 2. Encourage individual, group and milieu therapy 3. Continue q-15 minute check for safety 4. Patient on forced medication and appears much improved, continue abilify 15mg daily, will consider long-acting injectable. Involuntary Hold Information 96 Hour Hold: 96 Hour Involuntary Admission: Yes 96 Hour Hold Ending Date: 01/03/22 96 Hour Hold Ending Time: 00:35 Attestations NPU Medical Necessity Statement*: Inpatient hospitalization is medically necessary and the clinically appropriate intervention at this time. We will monitor medications and make changes as indicated with likely length of stay is two to four days. Coding Level of Care Code Acute Preform Machine Operator for Souravg Fwd Diagnoses Psychotic disorder F29 Paranoia (psychosis) F22 Acute dehydration E86.0 Delusions F22 Depression F32.9 DOMINIQUE (generalized anxiety disorder) F41.1
[2022-02-08] MEDS: OLANZapine 5 mg ODT PO ×2 (13:37→17:35)
[2022-02-08] MEDS: trazodone 100 mg Tablet PO (20:13)
[2022-02-08] MEDS: haloperidol 5 mg Tablet PO (22:53)
[2022-02-09] VITALS (7 sets, daily range): BP systolic 102–120; BP diastolic 62–69; PULSE 86–94; RESP 16–20; TEMP 36.5–36.7; O2SAT 96–99; BMI 21.4
[2022-02-09] MEDS: ibuprofen 600 mg Tablet PO ×3 (03:51→19:59)
[2022-02-09] MEDS: OLANZapine 5 mg ODT PO ×4 (03:53→17:06)
[2022-02-09] MEDS: nicotine 4 mg lozenge MUCOUS MEM ×8 (03:57→20:02)
[2022-02-09] MEDS: tizanidine 4 mg Tablet PO ×4 (05:42→18:52)
[2022-02-09] MEDS: oxyCODONE-APAP 10-325 mg Tablet 1 TAB PO ×4 (05:43→18:51)
[2022-02-09] MEDS: hyDROXYzine 25 mg Capsule 50 MG PO ×2 (06:43→15:19)
[2022-02-09] MEDS: levothyroxine 125 mcg Tablet PO (08:42)
[2022-02-09] MEDS: ARIPiprazole 10 mg Tablet 15 MG PO (08:42)
[2022-02-09] MEDS: estradiol 1 mg Tablet PO (08:43)
[2022-02-09] MEDS: multivitamin therapeutic Tablet 1 TAB PO (08:43)
[2022-02-09] MEDS: famotidine 20 mg Tablet 40 MG PO (08:43)
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
[2022-02-09] MEDS: trazodone 100 mg Tablet PO (19:59)
[2022-02-09] MEDS: docusate sodium 100 mg Capsule PO (20:30)
[2022-02-10] MEDS: nicotine 4 mg lozenge MUCOUS MEM ×9 (00:39→22:51)
[2022-02-10] MEDS: hyDROXYzine 25 mg Capsule 50 MG PO ×4 (00:39→23:16)
[2022-02-10 04:38] VITALS: RESP 20
[2022-02-10] MEDS: oxyCODONE-APAP 10-325 mg Tablet 1 TAB PO ×3 (04:38→20:45)
[2022-02-10] MEDS: OLANZapine 5 mg ODT PO (04:49)
[2022-02-10 06:00] VITALS: BP 119/75; PULSE 84; RESP 20; TEMP 36.6; O2SAT 98
[2022-02-10] MEDS: tizanidine 4 mg Tablet PO ×3 (06:30→22:31)
[2022-02-10] MEDS: multivitamin therapeutic Tablet 1 TAB PO (08:29)
[2022-02-10] MEDS: famotidine 20 mg Tablet 40 MG PO (08:29)
[2022-02-10] MEDS: levothyroxine 125 mcg Tablet PO (08:29)
[2022-02-10] MEDS: estradiol 1 mg Tablet PO (08:29)
[2022-02-10] MEDS: ARIPiprazole 10 mg Tablet 15 MG PO (08:29)
--- NOTE | 2022-02-10 09:06 | PC.NURSE ---
asking for PRN Zyprexa, was told it was discontinued by physician, pt stated okay well thank you
--- NOTE | 2022-02-10 11:00 | W.PM.NPUPNS ---
Subjective NPU Subjective: Patient presents today reporting that she is feeling better and continued to have symptoms of her improving. She is eating better and sleeping fine. She reported openness to discharge soon if it something about going home. We discussed close of the condition her home is in and returning there being a very bad idea. We discussed possibility of initiating Abilify Maintena 400 mg IM for medication consistency and she understood and agreed to consider. Mental Status Exam MSE Comments: This is a slender white female in hospital scrubs with adequate grooming and limited eye contact. No abnormal involuntary motor movements appreciated other than some resolving psychomotor slowing. She was more cooperative on exam in no acute distress. Speech was normal rate and volume. Mood described as pretty good, her affect is brighter. Thought process: linear, logical Thought content: patient denied suicidal or homicidal ideation, content remained superficial and she was somewhat guarded. She appeared less paranoid with no clear evidence of delusional thinking. Attention and concentration are intact. and Her recent and remote memory were grossly intact. She is alert and oriented three times. Insight is improving. Judgement is limited. Impulse control is improving. Vitals/I&O/Wt Last Vital Signs Temp 97.9 F 02/10/22 06:00 Pulse 84 02/10/22 06:00 Resp 20 H 02/10/22 06:00 BP 119/75 02/10/22 06:00 Pulse Ox 98 02/10/22 06:00 O2 Del Method 02/10/22 06:00 Weight last 48 hrs Weight 54.885 kg Data NPU : 01/24/22 15:22 01/24/22 15:22 A&P Assessment and plan (1) Psychotic disorder: Status: Acute (2) Paranoia (psychosis): Status: Acute (3) Acute dehydration: Status: Acute (4) Delusions: Status: Acute (5) Depression: Status: Acute (6) DOMINIQUE (generalized anxiety disorder): Status: Acute Plan This is a 51 year old white female with a history of trauma and genetic loading for addiction issues who presents after walking for [address] reporting she needs help currently receiving treatment for psychosis. 1. Referral for outpatient treatment. 2. Encourage individual, group and milieu therapy 3. Continue q-15 minute check for safety 4. Patient on forced medication and appears much improved, continue abilify 15mg daily, will consider long-acting injectable. Involuntary Hold Information 96 Hour Hold: 96 Hour Involuntary Admission: Yes 96 Hour Hold Ending Date: 01/03/22 96 Hour Hold Ending Time: 00:35 Attestations NPU Medical Necessity Statement*: Inpatient hospitalization is medically necessary and the clinically appropriate intervention at this time. We will monitor medications and make changes as indicated with likely length of stay is two to four days. Coding Level of Care Code Acute Expressive Art Therapist for Walter Fwd Diagnoses Psychotic disorder F29 Paranoia (psychosis) F22 Acute dehydration E86.0 Delusions F22 Depression F32.9 DOMINIQUE (generalized anxiety disorder) F41.1
[2022-02-10 12:35] VITALS: RESP 16
[2022-02-10 14:00] VITALS: BP 117/73; PULSE 104; RESP 18; TEMP 36.7; O2SAT 100
--- NOTE | 2022-02-10 14:27 | PC.NURSE ---
PRN VISTARIL & ZANAFLEX VISTARIL 50 MG GIVEN PO PER PT REQUEST AND C/O STATED ANXIETY, NO OUTWARD S/S OF ANXIETY NOTED ZANAFLEX 4 MG GIVEN PO PER PT C/O SPASMS
[2022-02-10] MEDS: ibuprofen 600 mg Tablet PO ×2 (16:24→21:33)
[2022-02-10 20:15] VITALS: RESP 17
[2022-02-10 20:45] VITALS: RESP 18; O2SAT 97
[2022-02-10] MEDS: trazodone 100 mg Tablet PO (20:46)
[2022-02-11] MEDS: nicotine 4 mg lozenge MUCOUS MEM ×10 (01:25→23:11)
--- NOTE | 2022-02-11 03:05 | PC.NURSE ---
Patient has been awake since 44,spent time in the dayroom,walking the halls,prns given,Ibuprofen,Oxycodone,Trazadone,Tizanidine,Nolberto pancho x2.
[2022-02-11 06:00] VITALS: BP 102/63; PULSE 92; RESP 17; O2SAT 97
[2022-02-11 06:44] VITALS: RESP 18
[2022-02-11] MEDS: oxyCODONE-APAP 10-325 mg Tablet 1 TAB PO ×3 (06:44→20:53)
[2022-02-11] MEDS: famotidine 20 mg Tablet 40 MG PO (07:46)
[2022-02-11] MEDS: estradiol 1 mg Tablet PO (07:46)
[2022-02-11] MEDS: tizanidine 4 mg Tablet PO ×2 (07:46→16:34)
[2022-02-11] MEDS: ARIPiprazole 10 mg Tablet 15 MG PO (07:46)
[2022-02-11] MEDS: multivitamin therapeutic Tablet 1 TAB PO (07:46)
[2022-02-11] MEDS: levothyroxine 125 mcg Tablet PO (07:46)
[2022-02-11] MEDS: hyDROXYzine 25 mg Capsule 50 MG PO ×3 (09:47→22:10)
[2022-02-11 12:53] VITALS: RESP 16
[2022-02-11 14:00] VITALS: BP 113/70; PULSE 99; RESP 20; TEMP 36.8; O2SAT 100
[2022-02-11] MEDS: ibuprofen 600 mg Tablet PO ×2 (14:59→23:11)
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
[2022-02-11] MEDS: trazodone 100 mg Tablet PO (18:32)
[2022-02-11 20:53] VITALS: RESP 16
[2022-02-11 21:09] VITALS: BP 115/71; PULSE 100; RESP 18; O2SAT 100
[2022-02-12] MEDS: tizanidine 4 mg Tablet PO ×3 (04:16→21:53)
[2022-02-12] MEDS: nicotine 4 mg lozenge MUCOUS MEM ×8 (04:17→20:54)
[2022-02-12 04:53] VITALS: RESP 22
[2022-02-12] MEDS: oxyCODONE-APAP 10-325 mg Tablet 1 TAB PO ×3 (04:53→21:53)
[2022-02-12 06:00] VITALS: BP 108/69; PULSE 88; RESP 20; TEMP 36.6; O2SAT 100
[2022-02-12] MEDS: hyDROXYzine 25 mg Capsule 50 MG PO ×3 (06:09→20:07)
[2022-02-12] MEDS: multivitamin therapeutic Tablet 1 TAB PO (08:35)
[2022-02-12] MEDS: levothyroxine 125 mcg Tablet PO (08:35)
[2022-02-12] MEDS: famotidine 20 mg Tablet 40 MG PO (08:35)
[2022-02-12] MEDS: estradiol 1 mg Tablet PO (08:35)
[2022-02-12] MEDS: ARIPiprazole 10 mg Tablet 15 MG PO (08:36)
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
[2022-02-12 13:09] VITALS: RESP 17
--- NOTE | 2022-02-12 13:11 | PC.NURSE ---
PRN ZANAFLEX 4 MG GIVEN PO PER PT C/O STATED MUSCLE SPASMS
[2022-02-12 14:00] VITALS: BP 115/73; PULSE 95; RESP 18; TEMP 36.7; O2SAT 100
--- NOTE | 2022-02-12 14:03 | PC.NURSE ---
PRN VISTARIL 50 MG GIVEN PO PER PT C/O STATED ANXIETY, NO OUTWARD S/S OF ANXIETY NOTED
[2022-02-12] MEDS: ibuprofen 600 mg Tablet PO ×2 (16:45→21:53)
--- NOTE | 2022-02-12 16:55 | P.NPUPN_ITS ---
Subjective NPU Subjective: Patient presents today reporting that she is feeling ready to be discharged. We discussed our desire to assist her to get to a safe place to reside without returning home with the conditions that she had and living in. We also continued to discuss concerns about addiction as she continues to have signs including her psychosis and presentation that her use is more significant than she lets on. She has had her opiate pain medication delivered to the unit today for reasons that were unclear. She met with the [facility] program today which will help her focus on better utilization of resources at discharge. Mental Status Exam MSE Comments: This is a slender white female in hospital scrubs with adequate grooming and limited eye contact. No abnormal involuntary motor movements appreciated other than some resolving psychomotor slowing. She was more cooperative with exam in no acute distress. Speech was normal rate and volume. Mood described as better, her affect is congruent. Thought process: linear, logical Thought content: patient denied suicidal or homicidal ideation, content remained superficial and she was somewhat guarded. She appeared less paranoid with no clear evidence of delusional thinking. Attention and concentration are intact. and Her recent and remote memory were grossly intact. She is alert and oriented three times. Insight is improving. Judgement is limited. Impulse control is improving. Vitals/I&O/Wt Last Vital Signs Temp 98.6 F 02/12/22 22:00 Pulse 91 02/12/22 22:00 Resp 16 02/12/22 22:00 BP 132/80 02/12/22 22:00 Pulse Ox 98 02/12/22 22:00 O2 Del Method 02/12/22 22:00 Data NPU : 01/24/22 15:22 01/24/22 15:22 A&P Assessment and plan (1) Psychotic disorder: Status: Acute (2) Paranoia (psychosis): Status: Acute (3) Acute dehydration: Status: Acute (4) Delusions: Status: Acute (5) Depression: Status: Acute (6) DOMINIQUE (generalized anxiety disorder): Status: Acute Plan This is a 51 year old white female with a history of trauma and genetic loading for addiction issues who presents after walking for [address] reporting she needs help currently receiving treatment for psychosis. 1. Referral for outpatient treatment. 2. Encourage individual, group and milieu therapy 3. Continue q-15 minute check for safety 4. Patient on forced medication and appears much improved, continue abilify 15mg daily, will consider long-acting injectable. 5. We will work with outpatient resources and allow safe/stable discharge option to determine how quickly she can leave. Involuntary Hold Information 96 Hour Hold: 96 Hour Involuntary Admission: Yes 96 Hour Hold Ending Date: 01/03/22 96 Hour Hold Ending Time: 00:35 Attestations NPU Medical Necessity Statement*: Inpatient hospitalization is medically necessary and the clinically appropriate intervention at this time. We will monitor medications and make changes as indicated with likely length of stay is two to four days. Coding Level of Care Code Acute Dining Room Tables Set Up Attendant for [facility] Fwd Diagnoses Psychotic disorder F29 Paranoia (psychosis) F22 Acute dehydration E86.0 Delusions F22 Depression F32.9 DOMINIQUE (generalized anxiety disorder) F41.1
[2022-02-12] MEDS: trazodone 100 mg Tablet PO (20:07)
[2022-02-12] MEDS: trazodone 50 mg Tablet PO (20:07)
[2022-02-12 22:00] VITALS: BP 132/80; PULSE 91; RESP 16; TEMP 37; O2SAT 98
[2022-02-13] MEDS: hyDROXYzine 25 mg Capsule 50 MG PO ×3 (04:05→16:32)
[2022-02-13] MEDS: nicotine 4 mg lozenge MUCOUS MEM ×8 (05:18→21:00)
[2022-02-13] MEDS: acetaminophen 325 mg Tablet 650 MG PO (05:18)
[2022-02-13 06:00] VITALS: BP 114/70; PULSE 84; RESP 16; TEMP 36.7; O2SAT 98
[2022-02-13] MEDS: tizanidine 4 mg Tablet PO ×2 (06:18→14:16)
[2022-02-13] MEDS: ARIPiprazole 10 mg Tablet 15 MG PO (08:21)
[2022-02-13] MEDS: multivitamin therapeutic Tablet 1 TAB PO (08:21)
[2022-02-13] MEDS: levothyroxine 125 mcg Tablet PO (08:22)
[2022-02-13] MEDS: estradiol 1 mg Tablet PO (08:22)
[2022-02-13] MEDS: famotidine 20 mg Tablet 40 MG PO (08:22)
[2022-02-13 09:24] VITALS: RESP 18
[2022-02-13] MEDS: oxyCODONE-APAP 10-325 mg Tablet 1 TAB PO ×2 (09:24→17:22)
[2022-02-13] MEDS: ondansetron 4 MG Tablet PO ×2 (12:34→18:35)
[2022-02-13 14:00] VITALS: BP 124/75; PULSE 95; RESP 18; TEMP 36.8; O2SAT 100
[2022-02-13 17:22] VITALS: RESP 16; O2SAT 99
--- NOTE | 2022-02-13 17:59 | W.PM.NPUPNS ---
Subjective NPU Subjective: Patient presents today lobbying for discharge soon. She reports that she did get a hotel room and hang out there for about. We discussed ongoing concerns about addiction even with her prescribed medication. We also discussed illicit drug use concerns. She continues to deny those issues. We discussed making sure appropriate measures are in place at discharge and to be deferred with the treatment team on placement reportedly has been calling landlords. Mental Status Exam MSE Comments: This is a slender white female in hospital scrubs with adequate grooming and limited eye contact. No abnormal involuntary motor movements appreciated other than some resolving psychomotor slowing. She was more cooperative with exam in no acute distress. Speech was normal rate and volume. Mood described as better, her affect is congruent. Thought process: linear, logical Thought content: patient denied suicidal or homicidal ideation, content remained superficial and she was somewhat guarded. She appeared less paranoid with no clear evidence of delusional thinking. Attention and concentration are intact. and Her recent and remote memory were grossly intact. She is alert and oriented three times. Insight is improving. Judgement is limited. Impulse control is improving. Vitals/I&O/Wt Last Vital Signs Temp 98.4 F 02/13/22 20:48 Pulse 90 02/13/22 20:48 Resp 18 02/14/22 01:27 BP 106/65 02/13/22 20:48 Pulse Ox 100 02/13/22 20:48 O2 Del Method 02/13/22 20:48 Data NPU : 01/24/22 15:22 01/24/22 15:22 A&P Assessment and plan (1) Psychotic disorder: Status: Acute (2) Paranoia (psychosis): Status: Acute (3) Acute dehydration: Status: Acute (4) Delusions: Status: Acute (5) Depression: Status: Acute (6) DOMINIQUE (generalized anxiety disorder): Status: Acute Plan This is a 51 year old white female with a history of trauma and genetic loading for addiction issues who presents after walking for [address] reporting she needs help currently receiving treatment for psychosis. 1. Referral for outpatient treatment. 2. Encourage individual, group and milieu therapy 3. Continue q-15 minute check for safety 4. Patient on forced medication and appears much improved, continue abilify 15mg daily, will consider long-acting injectable. 5. We will work with outpatient resources and allow safe/stable discharge option to determine how quickly she can leave. Involuntary Hold Information 96 Hour Hold: 96 Hour Involuntary Admission: Yes 96 Hour Hold Ending Date: 01/03/22 96 Hour Hold Ending Time: 00:35 Attestations NPU Medical Necessity Statement*: Inpatient hospitalization is medically necessary and the clinically appropriate intervention at this time. We will monitor medications and make changes as indicated with likely length of stay is two to four days. Coding Level of Care Code Acute Senior Mobile Web Developer for Walter Molinad Diagnoses Psychotic disorder F29 Paranoia (psychosis) F22 Acute dehydration E86.0 Delusions F22 Depression F32.9 DOMINIQUE (generalized anxiety disorder) F41.1
[2022-02-13] MEDS: trazodone 50 mg Tablet PO (20:14)
[2022-02-13 20:48] VITALS: BP 106/65; PULSE 90; RESP 16; TEMP 36.9; O2SAT 100
[2022-02-13] MEDS: trazodone 100 mg Tablet PO (23:11)
[2022-02-14] MEDS: nicotine 4 mg lozenge MUCOUS MEM ×9 (01:26→20:06)
[2022-02-14 01:27] VITALS: RESP 18
[2022-02-14] MEDS: oxyCODONE-APAP 10-325 mg Tablet 1 TAB PO ×3 (01:27→17:26)
[2022-02-14] MEDS: hyDROXYzine 25 mg Capsule 50 MG PO ×4 (01:28→20:07)
[2022-02-14] MEDS: tizanidine 4 mg Tablet PO ×3 (02:54→20:09)
[2022-02-14] MEDS: ondansetron 4 MG Tablet PO ×3 (04:26→15:41)
[2022-02-14 06:00] VITALS: BP 113/78; PULSE 79; RESP 16; TEMP 36.4; O2SAT 98
[2022-02-14] MEDS: multivitamin therapeutic Tablet 1 TAB PO (08:38)
[2022-02-14] MEDS: levothyroxine 125 mcg Tablet PO (08:38)
[2022-02-14] MEDS: ibuprofen 600 mg Tablet PO ×2 (08:39→20:06)
[2022-02-14] MEDS: estradiol 1 mg Tablet PO (08:39)
[2022-02-14] MEDS: ARIPiprazole 10 mg Tablet 15 MG PO (08:40)
[2022-02-14] MEDS: famotidine 20 mg Tablet 40 MG PO (08:40)
[2022-02-14 09:24] VITALS: RESP 16; O2SAT 99
[2022-02-14] MEDS: benztropine 1 mg Tablet PO (13:30)
[2022-02-14] MEDS: diphenhydrAMINE 50 mg Capsule PO ×2 (13:47→18:36)
--- NOTE | 2022-02-14 13:47 | W.PM.NPUPNS ---
Subjective NPU Subjective: Sima presents today continuing to look for ways to get out of the hospital more quickly and we continue to discuss our concerns that this relates to addictive behavior whether illicit or prescription. We continue to work with the treatment team to creating a smooth transition to her new housing with significant mental health services in place. Mental Status Exam MSE Comments: This is a slender white female in hospital scrubs with adequate grooming and limited eye contact. No abnormal involuntary motor movements appreciated other than some resolving psychomotor slowing. She was more cooperative with exam in no acute distress. Speech was normal rate and volume. Mood described as better, her affect is congruent. Thought process: linear, logical Thought content: patient denied suicidal or homicidal ideation, content remained superficial and she was somewhat guarded. She appeared less paranoid with no clear evidence of delusional thinking. Attention and concentration are intact. and Her recent and remote memory were grossly intact. She is alert and oriented three times. Insight is improving. Judgement is limited. Impulse control is improving. Vitals/I&O/Wt Last Vital Signs Temp 97.6 F 02/14/22 06:00 Pulse 79 02/14/22 06:00 Resp 16 02/14/22 09:24 BP 113/78 02/14/22 06:00 Pulse Ox 99 02/14/22 09:24 O2 Del Method 02/14/22 06:00 Data NPU : 01/24/22 15:22 01/24/22 15:22 A&P Assessment and plan (1) Psychotic disorder: Status: Acute (2) Paranoia (psychosis): Status: Acute (3) Acute dehydration: Status: Acute (4) Delusions: Status: Acute (5) Depression: Status: Acute (6) DOMINIQUE (generalized anxiety disorder): Status: Acute Plan This is a 51 year old white female with a history of trauma and genetic loading for addiction issues who presents after walking for [address] reporting she needs help currently receiving treatment for psychosis. 1. Referral for outpatient treatment. 2. Encourage individual, group and milieu therapy 3. Continue q-15 minute check for safety 4. Patient on forced medication and appears much improved, continue abilify 15mg daily, will consider long-acting injectable. 5. We will work with outpatient resources and allow safe/stable discharge option to determine how quickly she can leave. Involuntary Hold Information 96 Hour Hold: 96 Hour Involuntary Admission: Yes 96 Hour Hold Ending Date: 01/03/22 96 Hour Hold Ending Time: 00:35 Attestations NPU Medical Necessity Statement*: Inpatient hospitalization is medically necessary and the clinically appropriate intervention at this time. We will monitor medications and make changes as indicated with likely length of stay is two to four days. Coding Level of Care Code Acute Gateman for [facility] Fwd Diagnoses Psychotic disorder F29 Paranoia (psychosis) F22 Acute dehydration E86.0 Delusions F22 Depression F32.9 DOMINIQUE (generalized anxiety disorder) F41.1
[2022-02-14] MEDS: nicotine 2 mg Gum BUCCAL (13:54)
[2022-02-14 14:00] VITALS: BP 125/75; PULSE 91; RESP 18; TEMP 36.6; O2SAT 100
[2022-02-14 17:26] VITALS: RESP 16; O2SAT 99
[2022-02-14] MEDS: docusate sodium 100 mg Capsule PO (18:36)
[2022-02-14] MEDS: trazodone 100 mg Tablet PO (20:07)
[2022-02-14 21:01] VITALS: BP 112/68; PULSE 86; RESP 16; TEMP 36.7; O2SAT 100
[2022-02-15] MEDS: hyDROXYzine 25 mg Capsule 50 MG PO ×4 (01:49→20:03)
[2022-02-15 01:54] VITALS: RESP 18
[2022-02-15] MEDS: oxyCODONE-APAP 10-325 mg Tablet 1 TAB PO ×3 (01:54→18:05)
[2022-02-15] MEDS: nicotine 4 mg lozenge MUCOUS MEM ×9 (02:25→23:03)
[2022-02-15] MEDS: ondansetron 4 MG Tablet PO (04:10)
[2022-02-15] MEDS: tizanidine 4 mg Tablet PO ×3 (04:10→20:02)
[2022-02-15 06:00] VITALS: BP 100/46; PULSE 79; RESP 15; TEMP 36.4; O2SAT 97
[2022-02-15] MEDS: estradiol 1 mg Tablet PO (08:31)
[2022-02-15] MEDS: multivitamin therapeutic Tablet 1 TAB PO (08:31)
[2022-02-15] MEDS: famotidine 20 mg Tablet 40 MG PO (08:31)
[2022-02-15] MEDS: levothyroxine 125 mcg Tablet PO (08:31)
[2022-02-15] MEDS: ARIPiprazole 10 mg Tablet PO (09:18)
[2022-02-15 10:03] VITALS: RESP 18
[2022-02-15] MEDS: docusate sodium 100 mg Capsule PO (12:44)
[2022-02-15 13:01] VITALS: BP 111/72; PULSE 83; RESP 20; TEMP 36.3; O2SAT 99
--- NOTE | 2022-02-15 13:26 | W.PM.NPUPNS ---
Subjective NPU Subjective: Patient presents today continuing to look for ways to get out of the hospital more quickly and we continue to discuss our concerns that this relates to addictive behavior whether illicit or prescription. She got focused on anxiety and tried to get Ativan prescribed, increasing the concern about addiction. We continue to work with the treatment team to creating a smooth transition to her new housing with significant mental health services in place, hopefully early next week. Mental Status Exam MSE Comments: This is a slender white female in hospital scrubs with adequate grooming and limited eye contact. No abnormal involuntary motor movements appreciated other than some resolving psychomotor slowing. She was more cooperative with exam in no acute distress. Speech was normal rate and volume. Mood described as okay but anxious, her affect is congruent. Thought process: linear, logical Thought content: patient denied suicidal or homicidal ideation, content remained superficial and she was somewhat guarded. She appeared less paranoid with no clear evidence of delusional thinking. Attention and concentration are intact. and Her recent and remote memory were grossly intact. She is alert and oriented three times. Insight is improving. Judgement is limited. Impulse control is improving. Vitals/I&O/Wt Last Vital Signs Temp 97.4 F L 02/15/22 13:01 Pulse 83 02/15/22 13:01 Resp 20 H 02/15/22 13:01 BP 111/72 02/15/22 13:01 Pulse Ox 99 02/15/22 13:01 O2 Del Method 02/15/22 13:01 Data NPU : 01/24/22 15:22 01/24/22 15:22 A&P Assessment and plan (1) Psychotic disorder: Status: Acute (2) Paranoia (psychosis): Status: Acute (3) Acute dehydration: Status: Acute (4) Delusions: Status: Acute (5) Depression: Status: Acute (6) DOMINIQUE (generalized anxiety disorder): Status: Acute Plan This is a 51 year old white female with a history of trauma and genetic loading for addiction issues who presents after walking for [address] reporting she needs help currently receiving treatment for psychosis. 1. Referral for outpatient treatment. 2. Encourage individual, group and milieu therapy 3. Continue q-15 minute check for safety 4. Patient on forced medication and appears much improved, continue abilify 15mg daily, will consider long-acting injectable. 5. We will work with outpatient resources and allow safe/stable discharge option to determine how quickly she can leave. Involuntary Hold Information 96 Hour Hold: 96 Hour Involuntary Admission: Yes 96 Hour Hold Ending Date: 01/03/22 96 Hour Hold Ending Time: 00:35 Attestations NPU Medical Necessity Statement*: Inpatient hospitalization is medically necessary and the clinically appropriate intervention at this time. We will monitor medications and make changes as indicated with likely length of stay is two to four days. 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
[2022-02-15] MEDS: benztropine 1 mg Tablet 0.5 MG PO (17:12)
[2022-02-15 18:05] VITALS: RESP 18
[2022-02-15 19:51] VITALS: BP 112/66; PULSE 87; RESP 15; TEMP 36.4; O2SAT 99
[2022-02-15] MEDS: ibuprofen 600 mg Tablet PO (20:01)
[2022-02-15] MEDS: trazodone 100 mg Tablet PO (20:02)
[2022-02-15] MEDS: trazodone 50 mg Tablet PO (22:20)
[2022-02-16 03:33] VITALS: RESP 18
[2022-02-16] MEDS: nicotine 4 mg lozenge MUCOUS MEM ×8 (03:33→20:23)
[2022-02-16] MEDS: oxyCODONE-APAP 10-325 mg Tablet 1 TAB PO ×3 (03:33→19:43)
[2022-02-16] MEDS: hyDROXYzine 25 mg Capsule 50 MG PO ×3 (03:34→17:20)
[2022-02-16] MEDS: tizanidine 4 mg Tablet PO ×3 (05:31→21:56)
[2022-02-16 06:00] VITALS: BP 112/70; PULSE 87; RESP 18; TEMP 36.4; O2SAT 100; BMI 21.4
[2022-02-16] MEDS: famotidine 20 mg Tablet 40 MG PO (08:53)
[2022-02-16] MEDS: ARIPiprazole 10 mg Tablet PO (08:53)
[2022-02-16] MEDS: benztropine 1 mg Tablet 0.5 MG PO ×2 (08:53→17:02)
[2022-02-16] MEDS: levothyroxine 125 mcg Tablet PO (08:53)
[2022-02-16] MEDS: estradiol 1 mg Tablet PO (08:53)
[2022-02-16] MEDS: multivitamin therapeutic Tablet 1 TAB PO (08:54)
[2022-02-16] MEDS: diphenhydrAMINE 50 mg Capsule PO (08:54)
[2022-02-16 11:32] VITALS: RESP 16
[2022-02-16 14:00] VITALS: BP 115/64; PULSE 87; RESP 18; TEMP 36.7; O2SAT 100
[2022-02-16] MEDS: ibuprofen 600 mg Tablet PO ×2 (15:24→20:17)
--- NOTE | 2022-02-16 17:39 | W.PM.NPUPNS ---
Subjective NPU Subjective: Patient presents today spending most of the time talking about concerns related to Abilify. We had a long conversation about how much better she is since she started Abilify and she acknowledges that was accurate. We discussed considering the injection still and she did not improvement on how she was feeling with the addition of of Cogentin. We discussed increasing the Cogentin. Mental Status Exam MSE Comments: This is a slender white female in hospital scrubs with adequate grooming and limited eye contact. No abnormal involuntary motor movements appreciated other than some resolving psychomotor slowing. She was more cooperative with exam in no acute distress. Speech was normal rate and volume. Mood described as fine, her affect is congruent. Thought process: linear, logical Thought content: patient denied suicidal or homicidal ideation, content remained superficial and she was somewhat guarded. She appeared less paranoid with no clear evidence of delusional thinking. Attention and concentration are intact. and Her recent and remote memory were grossly intact. She is alert and oriented three times. Insight is improving. Judgement is limited. Impulse control is improving. Vitals/I&O/Wt Last Vital Signs Temp 98.0 F 02/16/22 14:00 Pulse 87 02/16/22 14:00 Resp 18 02/16/22 14:00 BP 115/64 02/16/22 14:00 Pulse Ox 100 02/16/22 14:00 O2 Del Method 02/16/22 14:00 Weight last 48 hrs Weight 54.885 kg Data NPU : 01/24/22 15:22 01/24/22 15:22 A&P Assessment and plan (1) Psychotic disorder: Status: Acute (2) Paranoia (psychosis): Status: Acute (3) Acute dehydration: Status: Acute (4) Delusions: Status: Acute (5) Depression: Status: Acute (6) DOMINIQUE (generalized anxiety disorder): Status: Acute Plan This is a 51 year old white female with a history of trauma and genetic loading for addiction issues who presents after walking for [address] reporting she needs help currently receiving treatment for psychosis. 1. Referral for outpatient treatment. 2. Encourage individual, group and milieu therapy 3. Continue q-15 minute check for safety 4. Patient on forced medication and appears much improved, continue abilify 10mg daily, will consider long-acting injectable. 5. We will work with outpatient resources and allow safe/stable discharge option to determine how quickly she can leave. Involuntary Hold Information 96 Hour Hold: 96 Hour Involuntary Admission: Yes 96 Hour Hold Ending Date: 01/03/22 96 Hour Hold Ending Time: 00:35 Attestations NPU Medical Necessity Statement*: Inpatient hospitalization is medically necessary and the clinically appropriate intervention at this time. We will monitor medications and make changes as indicated with likely length of stay is two to four days. Coding Level of Care Code Acute Cosmetic Account Coordinator for Walter Ricci Diagnoses Psychotic disorder F29 Paranoia (psychosis) F22 Acute dehydration E86.0 Delusions F22 Depression F32.9 DOMINIQUE (generalized anxiety disorder) F41.1
[2022-02-16 19:43] VITALS: RESP 20
[2022-02-16] MEDS: simethicone 80 mg Chew PO ×2 (19:43→20:17)
[2022-02-16 20:15] VITALS: BP 115/69; PULSE 98; RESP 18; TEMP 36.7; O2SAT 99
[2022-02-16] MEDS: trazodone 100 mg Tablet PO (20:17)
[2022-02-16] MEDS: docusate sodium 100 mg Capsule PO (20:52)
[2022-02-17] MEDS: nicotine 4 mg lozenge MUCOUS MEM ×10 (00:57→23:20)
[2022-02-17] MEDS: hyDROXYzine 25 mg Capsule 50 MG PO ×4 (03:33→23:36)
[2022-02-17 03:47] VITALS: RESP 18
[2022-02-17] MEDS: oxyCODONE-APAP 10-325 mg Tablet 1 TAB PO ×3 (03:47→19:50)
[2022-02-17] MEDS: tizanidine 4 mg Tablet PO ×2 (05:58→14:57)
[2022-02-17] MEDS: simethicone 80 mg Chew PO ×2 (05:58→17:36)
[2022-02-17 06:00] VITALS: BP 119/75; PULSE 79; RESP 17; TEMP 36.5; O2SAT 97
[2022-02-17] MEDS: estradiol 1 mg Tablet PO (08:25)
[2022-02-17] MEDS: ibuprofen 600 mg Tablet PO ×2 (08:25→14:55)
[2022-02-17] MEDS: levothyroxine 125 mcg Tablet PO (08:25)
[2022-02-17] MEDS: famotidine 20 mg Tablet 40 MG PO (08:25)
[2022-02-17] MEDS: benztropine 1 mg Tablet PO ×2 (08:25→17:36)
[2022-02-17] MEDS: multivitamin therapeutic Tablet 1 TAB PO (08:25)
[2022-02-17] MEDS: ARIPiprazole 10 mg Tablet PO (08:25)
[2022-02-17 11:47] VITALS: RESP 17; O2SAT 97
[2022-02-17] MEDS: paliperidone palmitate 234 mg Syringe IM (13:29)
[2022-02-17 14:00] VITALS: BP 123/71; PULSE 93; RESP 16; TEMP 36.8; O2SAT 100
--- NOTE | 2022-02-17 15:57 | W.PM.NPUPNS ---
Subjective NPU Subjective: Patient presents today reporting that she is wanting to leave as soon as possible. She was not happy about Abilify Maintena injection being introduced. She reports that she does not need medication, just needs to leave her alone that were messing with her. Eventually we were able to discuss that she acknowledged the improvement she has had from Abilify and with the injection she does not have to worry about missing medication doses daily. We discussed working towards discharge with the treatment team. Mental Status Exam MSE Comments: This is a slender white female in hospital scrubs with adequate grooming and limited eye contact. No abnormal involuntary motor movements appreciated other than some resolving psychomotor slowing. She was more cooperative with exam in no acute distress. Speech was normal rate and volume. Mood described as okay, her affect is tearful. Thought process: linear, logical Thought content: patient denied suicidal or homicidal ideation, content remained superficial and she was somewhat guarded. She appeared less paranoid with no clear evidence of delusional thinking. Attention and concentration are intact. and Her recent and remote memory were grossly intact. She is alert and oriented three times. Insight is improving. Judgement is limited. Impulse control is improving. Vitals/I&O/Wt Last Vital Signs Temp 98.2 F 02/17/22 14:00 Pulse 93 02/17/22 14:00 Resp 16 02/17/22 14:00 BP 123/71 02/17/22 14:00 Pulse Ox 100 02/17/22 14:00 O2 Del Method 02/17/22 14:00 Weight last 48 hrs Weight 54.885 kg Data NPU : 01/24/22 15:22 01/24/22 15:22 A&P Assessment and plan (1) Psychotic disorder: Status: Acute (2) Paranoia (psychosis): Status: Acute (3) Acute dehydration: Status: Acute (4) Delusions: Status: Acute (5) Depression: Status: Acute (6) DOMINIQUE (generalized anxiety disorder): Status: Acute Plan This is a 51 year old white female with a history of trauma and genetic loading for addiction issues who presents after walking for [address] reporting she needs help currently receiving treatment for psychosis. 1. Referral for outpatient treatment. 2. Encourage individual, group and milieu therapy 3. Continue q-15 minute check for safety 4. Patient on forced medication and appears much improved, continue abilify 10mg daily, will administered long-acting injectable Abilify Maintena 400 mg IM q. monthly. 5. We will work with outpatient resources and allow safe/stable discharge option to determine how quickly she can leave. Involuntary Hold Information 96 Hour Hold: 96 Hour Involuntary Admission: Yes 96 Hour Hold Ending Date: 01/03/22 96 Hour Hold Ending Time: 00:35 Attestations NPU Medical Necessity Statement*: Inpatient hospitalization is medically necessary and the clinically appropriate intervention at this time. We will monitor medications and make changes as indicated with likely length of stay is two to four days. Coding Level of Care Code Acute Armhole Baster Jumpbasting for Walter Fwd Diagnoses Psychotic disorder F29 Paranoia (psychosis) F22 Acute dehydration E86.0 Delusions F22 Depression F32.9 DOMINIQUE (generalized anxiety disorder) F41.1
[2022-02-17 19:50] VITALS: RESP 22
[2022-02-17] MEDS: trazodone 100 mg Tablet PO (19:51)
[2022-02-17] MEDS: docusate sodium 100 mg Capsule PO (19:51)
[2022-02-17 21:26] VITALS: BP 118/70; PULSE 96; RESP 18; TEMP 37; O2SAT 100
[2022-02-18] MEDS: tizanidine 4 mg Tablet PO ×3 (03:09→17:39)
[2022-02-18] MEDS: nicotine 4 mg lozenge MUCOUS MEM ×9 (03:09→22:44)
[2022-02-18 06:00] VITALS: BP 98/59; PULSE 92; RESP 18; TEMP 36.3; O2SAT 97
[2022-02-18] MEDS: hyDROXYzine 25 mg Capsule 50 MG PO ×3 (06:05→15:58)
[2022-02-18 06:53] VITALS: RESP 22
[2022-02-18] MEDS: oxyCODONE-APAP 10-325 mg Tablet 1 TAB PO ×3 (06:53→22:43)
[2022-02-18] MEDS: multivitamin therapeutic Tablet 1 TAB PO (08:17)
[2022-02-18] MEDS: benztropine 1 mg Tablet PO ×2 (08:17→17:02)
[2022-02-18] MEDS: estradiol 1 mg Tablet PO (08:17)
[2022-02-18] MEDS: famotidine 20 mg Tablet 40 MG PO (08:17)
[2022-02-18] MEDS: levothyroxine 125 mcg Tablet PO (08:18)
[2022-02-18] MEDS: simethicone 80 mg Chew PO ×2 (08:22→17:39)
[2022-02-18 14:00] VITALS: BP 113/69; PULSE 95; RESP 17; TEMP 36.8; O2SAT 99
[2022-02-18 14:39] VITALS: RESP 16; O2SAT 99
--- NOTE | 2022-02-18 17:25 | P.NPUPN_ITS ---
Subjective NPU Subjective: Patient presents today reporting that she had no ill effects with the Invega injection. She reports that the black floaties and muscle heaviness that she has experienced is not present with the Invega. We discussed that the medication level will begin to increase and that she will be due for a second injection next Thursday. She was okay with that wanting to move away from the Abilify. We agreed to have the Abilify at 5 mg tomorrow and if she still feels the same response that we can discontinue it completely in favor of the Invega. We agreed to continue the Cogentin. Her family member came by and she was able to fill out the application for the home that she had been looking at and saw in the picture. Mental Status Exam MSE Comments: This is a slender white female in hospital scrubs with adequate grooming and limited eye contact. No abnormal involuntary motor movements appreciated other than some resolving psychomotor slowing. She was more cooperative with exam in no acute distress. Speech was normal rate and volume. Mood described as feeling better, her affect is congruent. Thought process: linear, logical Thought content: patient denied suicidal or homicidal ideatio n, content remained superficial and she was somewhat guarded. She appeared less paranoid with no clear evidence of delusional thinking. Attention and concentration are intact. and Her recent and remote memory were grossly intact. She is alert and oriented three times. Insight is improving. Judgement is limited. Impulse control is improving. Vitals/I&O/Wt Last Vital Signs Temp 97.7 F 02/18/22 21:22 Pulse 91 02/18/22 21:22 Resp 20 H 02/18/22 21:22 BP 109/69 02/18/22 21:22 Pulse Ox 100 02/18/22 21:22 O2 Del Method 02/18/22 21:22 Data NPU : 01/24/22 15:22 01/24/22 15:22 A&P Assessment and plan (1) Psychotic disorder: Status: Acute (2) Paranoia (psychosis): Status: Acute (3) Acute dehydration: Status: Acute (4) Delusions: Status: Acute (5) Depression: Status: Acute (6) DOMINIQUE (generalized anxiety disorder): Status: Acute Plan This is a 51 year old white female with a history of trauma and genetic loading for addiction issues who presents after walking for [address] reporting she needs help currently receiving treatment for psychosis. 1. Referral for outpatient treatment. 2. Encourage individual, group and milieu therapy 3. Continue q-15 minute check for safety 4. Patient on forced medication and appears much improved, decrease Abilify to 5 mg and consider discontinuing. Patient received Invega Sustenna 234 mg IM to deltoid and first loading dose yesterday. We discussed which approach he takes given intention was for Abilify long-acting. We agreed to monitor for 2 days, continue Cogentin and likely move forward with second milligrams next week given her reticence to continue Abilify anyway 5. We will work with outpatient resources and allow safe/stable discharge option to determine how quickly she can leave. Plan for discharge . Involuntary Hold Information 96 Hour Hold: 96 Hour Involuntary Admission: Yes 96 Hour Hold Ending Date: 01/03/22 96 Hour Hold Ending Time: 00:35 Attestations NPU Medical Necessity Statement*: Inpatient hospitalization is medically necessary and the clinically appropriate intervention at this time. We will monitor medications and make changes as indicated with likely length of stay is two days. Coding Level of Care Code Acute Change Control Analyst for Walter Fwd Diagnoses Psychotic disorder F29 Paranoia (psychosis) F22 Acute dehydration E86.0 Delusions F22 Depression F32.9 DOMINIQUE (generalized anxiety disorder) F41.1
[2022-02-18] MEDS: diphenhydrAMINE 50 mg Capsule PO (19:12)
[2022-02-18] MEDS: ibuprofen 600 mg Tablet PO (20:09)
[2022-02-18] MEDS: trazodone 100 mg Tablet PO (20:09)
[2022-02-18 21:22] VITALS: BP 109/69; PULSE 91; RESP 20; TEMP 36.5; O2SAT 100
[2022-02-18] MEDS: docusate sodium 100 mg Capsule PO (22:18)
[2022-02-18 22:43] VITALS: RESP 18
[2022-02-18] MEDS: trazodone 50 mg Tablet PO (22:43)
[2022-02-19] MEDS: nicotine 4 mg lozenge MUCOUS MEM ×9 (02:55→20:02)
[2022-02-19] MEDS: hyDROXYzine 25 mg Capsule 50 MG PO ×3 (02:55→17:19)
[2022-02-19] MEDS: acetaminophen 325 mg Tablet 650 MG PO (02:55)
--- NOTE | 2022-02-19 02:57 | PC.NURSE ---
patient came to nurses desk stating having an sinus headache requesting benadryl. I offered patient tylenol for pain management stating ibuprofen is not do until 0400. patient refused stating she didn't want to take the chance of not being able to take her oxycodone/tylenol. informed patient that if she did take the tylenol now for pain relief she still would be able have her oxycodone/tylenol prn medication on time. patient stated well give me the vistaril now an if it doesnt work i will come back for the tylenol because i want my oxycodone when it is available. I again explained to patient if she did take the tylenol now it would not effect the time for the oxycodone but if she waited to take the tylenol then it would defintely effect the time frame of the prn oxycodone. I administered verbal education on the amount of tylenol an person can have in a day and that taking tylenol 650 mg once a day extra would not exceed the dosage amount in a 24 hour peroid. patient stated she understood but just did not want to take the chance of not being able to take her other pain medication. patient did finally state she would take the tylenol now with the visitril for her sinus headache.
[2022-02-19] MEDS: tizanidine 4 mg Tablet PO ×4 (03:45→22:34)
[2022-02-19] MEDS: hydrocortisone 2.5% cream 28 gm 1 APPLIC TOPICAL ×2 (03:46→16:01)
[2022-02-19 06:00] VITALS: BP 94/53; PULSE 87; RESP 16; TEMP 36.8; O2SAT 98
[2022-02-19 06:50] VITALS: RESP 16
[2022-02-19] MEDS: oxyCODONE-APAP 10-325 mg Tablet 1 TAB PO ×3 (06:50→22:34)
[2022-02-19] MEDS: famotidine 20 mg Tablet 40 MG PO (08:37)
[2022-02-19] MEDS: multivitamin therapeutic Tablet 1 TAB PO (08:37)
[2022-02-19] MEDS: levothyroxine 125 mcg Tablet PO (08:38)
[2022-02-19] MEDS: estradiol 1 mg Tablet PO (08:38)
[2022-02-19] MEDS: simethicone 80 mg Chew PO ×4 (08:39→21:22)
[2022-02-19] MEDS: benztropine 1 mg Tablet PO ×2 (08:39→17:40)
[2022-02-19] MEDS: diphenhydrAMINE 50 mg Capsule PO ×3 (08:42→20:02)
[2022-02-19] MEDS: ibuprofen 600 mg Tablet PO ×2 (09:59→18:20)
[2022-02-19] MEDS: ondansetron 4 MG Tablet PO ×2 (12:53→18:21)
[2022-02-19 14:00] VITALS: BP 121/68; PULSE 89; RESP 17; TEMP 36.4; O2SAT 99
[2022-02-19 14:32] VITALS: RESP 16; O2SAT 99
--- NOTE | 2022-02-19 14:50 | P.NPUPN_ITS ---
Subjective NPU Subjective: Patient is in today reporting that she is feeling tightness and pain in her back but feeling very happy as the landlord for the property had reported that he is going to work with her to help her make this rental happen. Her aunt/family number is more open now to taking her given that we had a clear living arrangement. She reports he is tolerating the Invega injection and is planning for the next injection next week through [facility]. We discussed discharge by Thursday when her 21-day hold expires. Mental Status Exam MSE Comments: This is a slender white female in hospital scrubs with adequate grooming and improving eye contact. No abnormal involuntary motor movements appreciated other than some resolving psychomotor slowing and stiffness of gait. She was cooperative with exam in no acute distress. Speech was normal rate and volume. Mood described as better, her affect is congruent. Thought process: linear, logical Thought content: patient denied suicidal or homicidal ideation, there were no delusions reported or noted and she denied auditory or visualizations. Attention and concentration are intact. and Her recent and remote memory were grossly intact. She is alert and oriented x3. Insight is improving. Judgement is limited, but improving. Impulse control is improving. Vitals/I&O/Wt Last Vital Signs Temp 97.6 F 02/19/22 14:00 Pulse 89 02/19/22 14:00 Resp 16 02/19/22 14:32 BP 121/68 02/19/22 14:00 Pulse Ox 99 02/19/22 14:32 O2 Del Method 02/19/22 06:00 Data NPU : 01/24/22 15:22 01/24/22 15:22 A&P Assessment and plan (1) Psychotic disorder: Status: Acute (2) Paranoia (psychosis): Status: Acute (3) Acute dehydration: Status: Acute (4) Delusions: Status: Acute (5) Depression: Status: Acute (6) DOMINIQUE (generalized anxiety disorder): Status: Acute Plan This is a 51 year old white female with a history of trauma and genetic loading for addiction issues who presents after walking for [address] side of the road reporting she needs help currently receiving treatment for psychosis. 1. Referral for outpatient treatment. 2. Encourage individual, group and milieu therapy 3. Continue q-15 minute check for safety 4. Patient on forced medication and appears much improved, decrease Abilify to 5 mg and consider discontinuing. Patient received Invega Sustenna 234 mg IM to deltoid and first loading dose yesterday. We discussed which approach he takes given intention was for Abilify long-acting. We agreed to monitor for 2 days, continue Cogentin and likely move forward with second 156 mg Invega Sustenna next week given her reticence to continue Abilify anyway. We will officially discontinue oral Abilify. 5. Clear location for discharge identified and her aunt is going to allow her to stay until she is able to move in. Working with her for discharge by Thursday at 1400. Involuntary Hold Information 96 Hour Hold: 96 Hour Involuntary Admission: Yes 96 Hour Hold Ending Date: 01/03/22 96 Hour Hold Ending Time: 00:35 Attestations NPU Medical Necessity Statement*: Inpatient hospitalization is medically necessary and the clinically appropriate intervention at this time. We will monitor medications and make changes as indicated with likely length of stay is 1-2 days. Coding Level of Care Code Acute Program Director/Morning Show Host for Walter Ricci Diagnoses Psychotic disorder F29 Paranoia (psychosis) F22 Acute dehydration E86.0 Delusions F22 Depression F32.9 DOMINIQUE (generalized anxiety disorder) F41.1
[2022-02-19] MEDS: trazodone 100 mg Tablet PO (20:03)
[2022-02-19 20:21] VITALS: BP 96/53; PULSE 84; RESP 16; TEMP 36.6; O2SAT 99
[2022-02-19 22:34] VITALS: RESP 16
[2022-02-19] MEDS: trazodone 50 mg Tablet PO (22:34)
[2022-02-19] MEDS: docusate sodium 100 mg Capsule PO (22:34)
[2022-02-20] MEDS: nicotine 4 mg lozenge MUCOUS MEM ×10 (02:53→20:24)
[2022-02-20] MEDS: hyDROXYzine 25 mg Capsule 50 MG PO ×3 (03:27→16:34)
--- NOTE | 2022-02-20 03:46 | PC.NURSE ---
0240 AM. PT CAME TO NURSING STATION REQUESTING NICOTINE LOZENGE. THIS NURSE TOLD PT THAT BECAUSE SHE HAD BEEN TAKING MANY MEDICATION TO TRY AND REST AND DECREASE STIMULATION THAT A NICOTINE LOZENGE WOULD NOT BE APPROPRIATE AFTER 10PM BECAUSE IT IS A STIMULANT. PT WAS OK UNTIL ANOTHER NURSE SAID, YES YOU CAN GIVE IT TO HER THIS NURSE THEN EXPLAINED AGAIN WHY THAT WOULD NOT BE A GREAT CHOICE AT THIS TIME AND PT BECAME AGITATED STATING, YOU GIVE IT TO OTHER PATIENT'S THIS NURSE REPLIED, NO, I DO NOT GIVE STIMULANTS OF ANY KIND AFTER 10PM. WE ALSO DON'T GIVE CAFFEINE AFTER 3PM. PT IRRITABLE BUT WENT BACK TO ROOM.
[2022-02-20 06:00] VITALS: BP 92/53; PULSE 84; RESP 17; TEMP 36.6; O2SAT 93
[2022-02-20 06:56] VITALS: RESP 14
[2022-02-20] MEDS: oxyCODONE-APAP 10-325 mg Tablet 1 TAB PO ×2 (06:56→15:09)
[2022-02-20] MEDS: benztropine 1 mg Tablet PO ×2 (08:15→17:13)
[2022-02-20] MEDS: levothyroxine 125 mcg Tablet PO (08:15)
[2022-02-20] MEDS: estradiol 1 mg Tablet PO (08:15)
[2022-02-20] MEDS: simethicone 80 mg Chew PO ×4 (08:15→18:26)
[2022-02-20] MEDS: famotidine 20 mg Tablet 40 MG PO (08:16)
[2022-02-20] MEDS: multivitamin therapeutic Tablet 1 TAB PO (08:16)
[2022-02-20] MEDS: tizanidine 4 mg Tablet PO ×2 (10:28→18:06)
[2022-02-20 14:00] VITALS: BP 116/73; PULSE 92; RESP 18; O2SAT 100
[2022-02-20] MEDS: diphenhydrAMINE 50 mg Capsule PO ×2 (14:03→18:26)
[2022-02-20 15:09] VITALS: RESP 16; O2SAT 100
--- NOTE | 2022-02-20 16:30 | W.PM.NPUPNS ---
Subjective NPU Subjective: Patient presents today reporting that she is feeling optimistic and excited about discharge tomorrow. She had a medical discharge for today but she reports appreciating all that her aunt is doing and knowing that this will be a challenge for her to have company. She continues to be optimistic things will work out as planned and we agreed that continued adherence to her monthly injection will go a long way towards her success. Mental Status Exam MSE Comments: This is a slender white female in hospital scrubs with adequate grooming and improving eye contact. No abnormal involuntary motor movements appreciated other than some resolving psychomotor slowing and stiffness of gait. She was cooperative with exam in no acute distress. Speech was normal rate and volume. Mood described as happy, her affect is congruent. Thought process: linear, logical Thought content: patient denied suicidal or homicidal ideation, there were no delusions reported or noted and she denied auditory or visualizations. Attention and concentration are intact. and Her recent and remote memory were grossly intact. She is alert and oriented x3. Insight is improving. Judgement is limited, but improving. Impulse control is improving. Vitals/I&O/Wt Last Vital Signs Temp 97.5 F L 02/20/22 20:39 Pulse 94 02/20/22 20:39 Resp 16 02/20/22 20:39 BP 114/74 02/20/22 20:39 Pulse Ox 100 02/20/22 20:39 O2 Del Method 02/19/22 06:00 Data NPU : 01/24/22 15:22 01/24/22 15:22 A&P Assessment and plan (1) Psychotic disorder: Status: Acute (2) Paranoia (psychosis): Status: Acute (3) Acute dehydration: Status: Acute (4) Delusions: Status: Acute (5) Depression: Status: Acute (6) DOMINIQUE (generalized anxiety disorder): Status: Acute Plan This is a 51 year old white female with a history of trauma and genetic loading for addiction issues who presents after walking for [address] of the road reporting she needs help currently receiving treatment for psychosis. 1. Referral for outpatient treatment. 2. Encourage individual, group and milieu therapy 3. Continue q-15 minute check for safety 4. Patient on forced medication and appears much improved. Patient received Invega Sustenna 234 mg IM to deltoid and first loading dose yesterday. We discussed which approach he takes given intention was for Abilify long-acting. We agreed to continue Cogentin and give 156 mg Invega Sustenna second loading dose via deltoid 02/24/2022. We discontinued oral Abilify. 5. Clear location for discharge identified and her aunt is going to allow her to stay until she is able to move in. Working with her for discharge by tomorrow at 1400. Involuntary Hold Information 96 Hour Hold: 96 Hour Involuntary Admission: Yes 96 Hour Hold Ending Date: 01/03/22 96 Hour Hold Ending Time: 00:35 Attestations NPU Medical Necessity Statement*: Inpatient hospitalization is medically necessary and the clinically appropriate intervention at this time. We will monitor medications and make changes as indicated. Plan for discharge tomorrow. Coding Level of Care Code Acute Bill Adjuster for Walter Molinad Diagnoses Psychotic disorder F29 Paranoia (psychosis) F22 Acute dehydration E86.0 Delusions F22 Depression F32.9 DOMINIQUE (generalized anxiety disorder) F41.1
[2022-02-20] MEDS: trazodone 100 mg Tablet PO (20:24)
[2022-02-20 20:39] VITALS: BP 114/74; PULSE 94; RESP 16; TEMP 36.4; O2SAT 100
[2022-02-21] MEDS: nicotine 4 mg lozenge MUCOUS MEM ×5 (00:53→11:28)
[2022-02-21] MEDS: hyDROXYzine 25 mg Capsule 50 MG PO ×2 (00:53→07:41)
[2022-02-21] MEDS: oxyCODONE-APAP 10-325 mg Tablet 1 TAB PO ×2 (00:56→08:30)
[2022-02-21] MEDS: tizanidine 4 mg Tablet PO ×2 (03:05→11:28)
[2022-02-21] MEDS: ibuprofen 600 mg Tablet PO (05:03)
[2022-02-21 07:25] VITALS: BP 113/66; PULSE 84; RESP 16; TEMP 36.5; O2SAT 100
[2022-02-21] MEDS: multivitamin therapeutic Tablet 1 TAB PO (08:29)
[2022-02-21] MEDS: benztropine 1 mg Tablet PO (08:29)
[2022-02-21] MEDS: famotidine 20 mg Tablet 40 MG PO (08:29)
[2022-02-21] MEDS: estradiol 1 mg Tablet PO (08:29)
[2022-02-21 08:30] VITALS: RESP 16; O2SAT 100
[2022-02-21] MEDS: levothyroxine 125 mcg Tablet PO (08:30)
[2022-02-21] MEDS: blistex lip oint 7 gm Tube 1 APPLIC TOPICAL (09:29)
--- NOTE | 2022-02-21 11:23 | P.NPUDS_ITS ---
Diagnoses at Discharge Discharge Diagnosis (1) Psychotic disorder: Status: Acute (2) Paranoia (psychosis): Status: Acute (3) Acute dehydration: Status: Resolved (4) Delusions: Status: Acute (5) Depression: Status: Acute (6) DOMINIQUE (generalized anxiety disorder): Status: Acute Reason for Visit Reason for Visit: 96 Brief History: History of Present Illness Sima Avelar is a 51 year old female who presents to the emergency department with the following report: Chief Complaint: Psychiatric Symptoms Stated Complaint: 96 Time Seen by Provider: 01/24/22 15:13 History of Present Illness: Ms. Avelar is a 51-year-old lady presenting to the emergency department for a 96-hour hold. The patient herself largely minimizes or is unaware of concerning symptoms. She reports that she was just walking down the [address] out for a walk and got hot so she sat down at which point someone saw her outside and called 911. Per review of affidavits patient has been paranoid with delusions and abnormal behavior. Otherwise denies medical complaints. No other specific changes in health, exacerbating, or alleviating factors identified. She was admitted to the neuropsychiatric unit for definitive treatment of those issues. 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 She reports she worked with a pharmacist afterwards who she trusted that told her to take Benadryl to stop what was happening with someone present to monitor her. She is not currently taking any psychiatric medications. She presented to the hospital as she was walking on the side of the road and police brought her into the hospital because of concerns. She has been psychiatrically hospitalized once before about a month ago and has been on a number of different medications in her life. She reports a pack to a pack and a half a day of cigarettes, denies alcohol, marijuana or any other illicit drug use. She has not been to rehab, gotten a DUI or drug and alcohol related charges. Her depression began presenting when she was a child when her mother and had anxiety which began presenting around her teenage years with increased worrying. She endorses having worsening depression and anxiety from high school that escalated when her children started getting older and she was trying to make their lives perfect. She denies passive wish, suicidal ideation or self-injurious behaviors. She reports she feels she held her family to a higher level of importance than they hold her. She reports at the times she was walking because of all this stress, she would sit in the ditch on the side of the road in between walking. She endorsed several times that she wanted to get help but was not specific in the type of help she is looking for and could not explain what behaviors caused people to be concerned about her. She reported later she had just taken off in her pajamas and started walking as she wanted to get a signal in order to contact her family to get help. She endorsed wanting to speak with a preacher as she has done so in the past and found comfort from it. Please see excerpt of hospitalization from November 2021 below for context. Psychiatric History: As above. Substance Abuse History: As above. Family History: She denies mental health issues on either side of the family, addiction issues on both sides of the family and denies any suicide attempts or completions on either side of the family. Developmental History: She denies any issues with her or , learned to walk and talk and met her developmental milestones on time and denies any need for speech therapy, learning support, emotional support or special education classes. Psychosocial History: She reports her father a week before she was born and she is the only product of this union. Her mother has one additional daughter and her father had no additional children. She described her childhood as good and denies any emotional, physical or sexual abuse. She denies CYS involvement but did have some truancy issues. She remembers when her mother from a stroke reporting she still has flashbacks of that night as well as avoidant behavior. The highest grade she achieved was 12th grade and she got her GED. She endorses being heterosexual with her longest relationship being 20 years. She has been and once, has two sons, 33 and 35, has never been in the and endorses being muslim. Her longest employment history is 6 years. She currently is homeless. Legal History: Denied. Medical History: She reports she had a stroke after taking Zoloft. She had Grave?s Disease and had her thyroid removed in 1997. She delivered her children vaginally. She began menstruating around 8th grade and reports her periods were problematic. Per her 12/29/2021 [facility] inpatient psychiatric evaluation: History of Present Illness Sima Avelar is a a 51 year old white female who presents today due to not feeling well as if she was dehydrated and had brought been by an ambulance after speaking with a deputy. She has never been psychiatrically hospitalized and has not seen any outpatient psychiatric services. She reports she has troubles with sleeping and can stay awake for 5 days at a time but reports it has not happened in a few years and occurred around her thyroid problems. She has been on Amitriptyline currently but could not recall the dose. She had been seeing Dr. Bullard at his office at the Urgent Care facility. She reports she takes two of her Percocet in the morning for her pain and has been on it since 2010 as she was having headaches on the Hydrocodone. She denies alcohol, marijuana or illicit drug use. She reports she has been having issues with her intermission coordinator memory and has had a few hits to her head in the past. We discussed how the reports from the emergency room stated she had reported she felt as if people were trying to poison her and she endorses she stated that people were ?messing with me? as other people have access to her house. She reports sometimes being in the bathtub and hearing the door slam shut and finding food missing after she grocery shopped. She reports she doesn?t have an idea of who would be messing with her and is pretty much always at her house. She denies any changes in her mood since this began happening. She reports she called the emergency room as she was having neck and back pain and had not eaten in several days as she didn?t feel like it and hadn?t had something to eat. She reports she has been drinking water but has been losing weight since she has stopped eating. She reports she has been sent things to eat but feels sick when she does eat it and will get chris on her phone making fun of things that she is going through as well. She endorses having anxiety and worrying constantly about people. She reports she feels as if she is missing things and endorsed again that people are just messing or joking with her. She denies any history of traumatic events that occurred which resulted in hypervigilance or intrusive thoughts. She endorses her house is old and she needs to find another place to live. She reports once she went to a doctor appointment and came home to all of her picture frames being moved. She had spoken with her cousin who laughed at her and said ?why would I do that?. She reports a lot of people have keys to her house. She denies thinking her house is haunted. She reports she had to switch something with her cousin which made her mad though she did not understand why and believes that is what is causing her to mess with her. She reports she has a hard time living in her house as it is filled with memories and she is by herself and wants to go to another place to restart. She denies feeling as if she is being messed with in the hospital and denies having issues with food currently either. Psychiatric History: As above. Substance Abuse History: As above. Family History: None reported Developmental History: No hx of developmental delays. Psychosocial History: She was born in [place] and raised there. She is currently and has been once. She has a 25 and 32 year old children. She was raised by her grandparents as her parents both passed by the time she was 4 years old. Her father in a car accident before she was born and her mother of cervical cancer. She has a half sister. The highest grade she achieved was 12th grade and she got her GED. 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 She is not currently working and is on disability for her back. She currently lives in a house by herself and reports it needs some work done. She report no history of sexual, physical, or emotional abuse. Legal History: Medical History: She has Graves disease and had an overactive thyroid which was removed. She is allergic to Zoloft. She has been diagnosed with psoriasis and had a hysterectomy. Medications on admission: tizanidine, pepcid, amitryptiline, estradiol, percocet. Hospital Course Hospital Course She slowly acclimated to the individual, group and milieu therapies provided.? When she presented she was struggling with hallucinations and psychosis with no clear evidence of addiction but concerns raised about addiction. It is unclear whether this represents a new onset psychosis related to the violent nature of psychotic illness appointment or a substance-induced situation. She was initially started on Abilify with some improvement but she complained about side effects that she reported were relieved to some degree with Cogentin. She was switched to Invega Sustenna 234 mg IM instead of Abilify Maintena which she was happy about because he did not really Abilify. She was monitored for a couple days after that with a plan to transition her with the second injection of 156 mg IM next week. She had significant improvement during her hospitalization. She worked with the treatment team and was able to go from an unlivable home from she came to live with her aunt with a [employer] housing option being pursued vigorously. She was able to contract for safety outside of the hospital prior to discharge.? During the hospitalization, patient had routine laboratory studies which were within normal limits except for few outliers.? Additionally there was a general medical evaluation which was also within normal limits and revealed no new acute processes. Discharge Summary: At the time of discharge, lethality was denied and psychosis was resolving.? Mood and anxiety were well managed.? Patient endorsed a plan to avoid all drugs of abuse and follow-up with the aftercare recommendations of the treatment team .? Patient was evaluated and deemed to be absent credible lethality, and had achieved the maximum benefit from an inpatient hospitalization, so was discharged. Involuntary Hold Information 96 Hour Hold: 96 Hour Involuntary Admission: Yes 96 Hour Hold Ending Date: 01/03/22 96 Hour Hold Ending Time: 00:35 Mental Status Exam MSE Comments: This is a slender white female in hospital scrubs with adequate grooming and improving eye contact. No abnormal involuntary motor movements appreciated other than some resolving psychomotor slowing and stiffness of gait. She was cooperative with exam in no acute distress. Speech was normal rate and volume. Mood described as happy, her affect is congruent. Thought process: linear, logical Thought content: patient denied suicidal or homicidal ideation, there were no delusions reported or noted and she denied auditory or visualizations. Attention and concentration are intact. and Her recent and remote memory were grossly intact. She is alert and oriented x3. Insight is improving. Judgement is limited, but improving. Impulse control is improving. Discharge Data Studies Completed and Pending: Laboratory Results WBC 16.0 10^3/uL (4.0 -10.0) H 01/24/22 15:22 RBC 4.44 10^6/uL (4.1 -5.3) 01/24/22 15:22 Hgb 14.2 g/dL (11.5-1 5.3) 01/24/22 15: Hct 40.6 % (37.0-47.0 ) 01/24/22 15: MCV 91.4 fl (81-99) 01/24/22 15: MCH 32.0 pg (28.0-34. 0) 01/24/22 15: MCHC 35.0 g/dL (30.0-3 6.0) 01/24/22: RDW 12.6 % (12.1-15.1 ) 01/24/22 15: Plt Count 346 10^3/cmm (130 -400) 01/24/22 15: MPV 9.6 fL (7.4-10.4) 01/24/22: Neut % (Auto) 80.1 % 01/24/22: Lymph % (Auto) 11.9 % 01/24/22 15: [place] % (Auto) 7.4 % 01/24/22 15: Eos % (Auto) 0.0 % 01/24/22 15: Baso % (Auto) 0.3 % 01/24/22: Neut # (Auto) 12.83 10^3/uL (1. 8-7.7) H 01/24/22: Lymph # (Auto) 1.9 10^3/uL (0.8- 4.8) 01/24/22: [place] # (Auto) 1.2 10^3/uL (0.2- 0.9) H 01/24/22: Eos # (Auto) 0.0 10^3/uL (0.0- 0.8) 01/24/22: Baso # (Auto) 0.0 10^3/uL (0.0- 0.1) 01/24/22: Nucleated RBC % (a uto) 0 % 01/24/22: Nucleated RBCs # 0.0 /100WBC 01/24/22 15:22 Sodium 129 mmol/L (136-1 45) L 01/24/22 15: Potassium 3.2 mmol/L (3.5-5 .1) L 01/24/22 15:22 Chloride 91 mmol/L (98-107 ) L 01/24/22 15:22 Carbon Dioxide 23 mmol/L (22-29) 01/24/22 15:22 Anion Gap 18.2 (5-19) 01/24/22 15:22 BUN 6 mg/dL (6-20) 01/24/22 15:22 Creatinine 0.7 mg/dL (0.5-0. 9) 01/24/22 15:22 GFR Calculation 88.2 mL/min (90-1 30) L 01/24/22 15:22 Glucose 122 mg/dL (65-115 ) H 01/24/22 15:22 Calculated Osmolal ity 267 mOsm/kg (285- 295) L 01/24/22 15:22 Calcium 9.5 mg/dL (8.5-10 .5) 01/24/22 15:22 Total Bilirubin 0.3 mg/dL (0.15-1 .2) 01/24/22 15:22 AST 22 U/L (0-32) 01/24/22 15:22 ALT 12 U/L (0-33) 01/24/22 15:22 Alkaline Phosphata se 81 U/L (35-105) 01/24/22 15:22 Total Protein 7.5 g/dL (6.6-8.7 ) 01/24/22 15:22 Albumin 4.8 g/dL (3.5-5.2 ) 01/24/22 15:22 Globulin 2.7 g/dL (1.3-4.6 ) 01/24/22 15:22 TSH 0.09 uIU/mL (0.27 -4.20) L 01/24/22 15:22 Free T4 1.77 ng/dL (0.82- 1.77) 01/24/22 15:22 HCG, Qual Negative (Negati ve) 01/24/22 16:07 Salicylates < 0.3 mg/dL (3-10 ) L 01/24/22 15:22 Acetaminophen < 5.0 ug/mL (10-3 0) L 01/24/22 15:22 Ethyl Alcohol < 10 mg/dL (0-10) 01/24/22 15:22 Vitals: Last Vital Signs Temp 97.7 F 02/21/22 07:25 Pulse 84 02/21/22 07:25 Resp 16 02/21/22 08:30 BP 113/66 02/21/22 07:25 Pulse Ox 100 02/21/22 08:30 O2 Del Method 02/21/22 07:25 Discharge Plan Discharge Patient Disposition: Home Condition: Stable Prescriptions: New famotidine 20 mg Tablet 40 mg PO DAILY 30 Days Qty: 60 1RF benztropine 1 mg Tablet 1 mg PO BID 30 Days Qty: 60 1RF trazodone 100 mg Tablet 100 mg PO BEDTIME 30 Days Qty: 30 1RF simethicone 80 mg Tablet,Chewable 80 mg PO QID PRN (Reason: Flatulence) 30 Days Qty: 90 1RF Invega Sustenna 156 mg/mL syringe 156 mg IM Q30D 30 Days Qty: 1 1RF Rx Instructions: next injection 02/24/22 IM deltoid then monthly injection 03/26 Continued Narcan 4 mg/actuation spray,non-aerosol 4 mg intranasal Q2M PRN (Reason: opioid overdose) Qty: 2 0RF Rx Instructions: spray 1 dose into ONE nostril; alternate nostrils w each dose until help arrives multivitamin Tablet 1 tab PO DAILY levothyroxine [Synthroid] 125 mcg tablet 125 mcg PO DAILY Qty: 90 3RF Rx Instructions: Need labs before next refill. estradiol 1 mg tablet 1 mg PO DAILY Qty: 90 3RF tizanidine 4 mg tablet 4 mg PO Q8H PRN (Reason: muscle spasticity) Qty: 90 3RF Percocet 10-325 mg tablet 10 - 325 tab PO TID PRN (Reason: Pain, Moderate) Discontinued famotidine 40 mg tablet See Rx Instructions .ROUTE .COMPLEX Qty: 30 2RF Dose Instruction: TAKE ONE TABLET BY MOUTH DAILY Rx Instructions: TAKE ONE TABLET BY MOUTH DAILY amitriptyline 50 mg tablet 50 mg PO BEDTIME hydroxyzine pamoate 50 mg capsule 50 mg PO BEDTIME risperidone 3 mg tablet 9 mg PO BEDTIME Discharge Orders: Discharge Order (Routine); Ordered 02/21/22 Ordered By: Jose Raul Santana Referrals: [facility] [Outside] - 03/06/22 1:30 pm (Initial appointment. ) Iker Bullard MD [Physician] - 02/27/22 11:30 am (Follow up) Discharge Diet: Regular Discharge Activity: Resume usual activity Patient Instructions: Schizophrenia (DC), Psychotic Disorder (DC), Opioid Safety Discharge Attestations NPU Time Spent in Discharge Care*: less than 30 min Specific Discharge Activities: Specific discharge activities: educating patient, discussing with casework manager/social workers/dc planners, documenting/other paperwork and evaluating patient/reviewing data Coding Level of Care Code Acute Chg FW DC note Diagnoses Psychotic disorder F29 Paranoia (psychosis) F22 Acute dehydration E86.0 Delusions F22 Depression F32.9 DOMINIQUE (generalized anxiety disorder) F41.1
[2022-02-21 12:10] VITALS: RESP 16; O2SAT 100
== END 2022-02-21 12:31 | disposition home or self-care (01) | DRG 885 ==
LOC: ER 17:34 → NP 18:01
PROVIDERS: Admitting Provider Psychiatry & Neurology Psychiatry; Emergency Provider Emergency Medicine; Visit Provider Psychiatry & Neurology Psychiatry
DX: F20.9 Schizophrenia, unspecified (principal); F17.210 Nicotine dependence, cigarettes, uncomplicated; G89.4 Chronic pain syndrome; M51.37 Other intervertebral disc degeneration, lumbosacral region; K21.9 Gastro-esophageal reflux disease without esophagitis; E86.0 Dehydration; Z79.890 Hormone replacement therapy
CPT/HCPCS: 80053; 80307; 81025; 84439; 84443; 85025; 96360; 96372; 97150; 97165; 99285; J7030; J8499; Q0162; Q0163

== ENCOUNTER → 2022-04-11 13:57 | Outpatient (BNVA) | payer MEDICAID, SELFPAY | PROVIDERS: PCP Family Medicine Adult Medicine; Visit Provider Family Medicine Adult Medicine | DX: E03.9 Hypothyroidism, unspecified (principal); M51.37 Other intervertebral disc degeneration, lumbosacral region; G89.4 Chronic pain syndrome; L40.0 Psoriasis vulgaris; F20.9 Schizophrenia, unspecified; Z79.891 Long term (current) use of opiate analgesic | CPT/HCPCS: 84443 ==

== ENCOUNTER 2022-04-18 18:22 | Emergency (ER) | payer MEDICAID, SELFPAY ==
--- NOTE | 2022-04-18 18:34 | ED_ITS ---
HPI - Anxiety General: Chief Complaint: Anxiety Stated Complaint: anxiety Time Seen by Provider: 04/18/22 18:32 History of Present Illness: Ms. Avelar is a 51-year-old lady with significant past medical history of psychiatric illness and chronic pain presenting to the emergency department due to anxious feeling and other generalized illness that has largely improved. She reports searching for a treatment that is more verbal for her chronic pain and she stumbled upon delta 8 THC. She used this for the first time and had a abnormal feeling. She describes feeling like she was m elting through objects and it made her very anxious. She has subsequently improved somewhat. No other specific changes in health, exacerbating, or alleviating factors identified. Onset (ago): hour(s) Symptoms: palpitations, sense of impending doom and other Severity: mild Quality: improving History of similar episodes: No Provoking factors: other Review of Systems General: Reports: 10 or more systems reviewed and unremarkable except in HPI and below PFSH ED PFSH: Medical History Arthritis Chronic pain syndrome DDD (degenerative disc disease), lumbosacral Fluid retention GERD (gastroesophageal reflux disease) Graves disease Hypothyroidism Insomnia due to medical condition Muscle cramps Neuropsychiatric disorder Opiate analgesic contract exists Plaque psoriasis Post menopausal syndrome Psychiatric care Smoker unmotivated to quit started at age 16 Surgical History History of hysterectomy History of thyroidectomy Family History Grandfather CAD (coronary artery disease) Maternal Cancer Maternal--colon Clotting disorder Maternal Dementia Maternal Hypertension Maternal Lung disease Maternal--TB Stroke Maternal Family/Other CAD (coronary artery disease) Maternal Grandmother Clotting disorder Maternal Dementia Maternal Hypertension Maternal Stroke Maternal Mother Cancer cervical that spread through bones Other Heart disease Denies family history of Diabetes Hyperlipidemia Chronic kidney disease (CKD) Anesthesia complication Bleeding disorder Social History Smoking and tobacco status: current every day smoker cigarettes Smoking risk assessment/counseling performed?: No Alcohol intake: never Desire information about alcohol rehabilitation?: No Counseling given: No Desire information about substance/drug rehabilitation?: No Counseling given: No Adopted: No Caregiver/support person: No Lives independently: Yes Housing: House Marital status: Single Number of children: 2 Highest education level completed: GED or Equivalent service: No Current occupational status: unemployed Pets and animals: No History of recent travel: No Current gender identity: Female Mia/Orthodoxy: Yazidi Special mia needs: No Physical Exam Const: COMMON NORMALS: alert GENERAL APPEARANCE: cooperative and well developed HENMT: COMMON NORMALS: normocephalic and atraumatic HEAD & SCALP: n ormocephalic and atraumatic Eye: COMMON NORMALS: conjunctivae normal CONJUNCTIVA: Yes conjunctivae normal SCLERA: sclerae normal Neck/C-Spine: COMMON NORMALS: supple GENERAL: Yes trachea midline Resp: COMMON NORMALS: normal respiratory effort EFFORT & INSPECTION: Yes able to speak in complete sentences Cardio: COMMON NORMALS: regular rate and regular rhythm RATE: regular rate RHYTHM: regular rhythm GI: COMMON NORMALS: Soft to palpation PALPATION: Yes Soft to palpation and No Tenderness to palpation present (GI) PERCUSSION: normal to percussion Extremity: GENERAL: Yes normal exam except as noted and No edema Neuro: COMMON NORMALS: moves all extremities SENSORIUM/ORIENTATION: Yes alert and No Orientation impaired Psych: COMMON NORMALS: mental status grossly normal and Normal thought process present THOUGHT PROCESS: Normal thought process present Course Vital Signs: Vital signs: Vital Signs Temperature 98 F 04/18/22 18:36 Pulse Rate 84 04/18/22 23:27 Respiratory Rate 16 04/18/22 23:27 Blood Pressure 130/74 04/18/22 18:36 Pulse Oximetry 97 04/18/22 23:27 Oxygen Delivery Me thod 04/18/22 18:36 MDM - Anxiety Medical Decision Making 51-year-old lady presenting with anxiety. Slightly abnormal mental status though no focal abnormalities on exam. Clinical appearance consistent with reported delta 8 THC use. No significant hematologic abnormalities. No significant metabolic abnormalities. TSH elevated but normal free T4. Given provided history and physical exam indication for imaging. Patient proved with anxiolysis, fluids, analgesia. Most likely cause of patient's symptoms is related to delta 8 THC use/intoxication. The results of ED evaluation were discussed with the patient including pre scriptions and/or symptomatic cares (if applicable) including appropriate and responsible use, followup plan, and return precautions. The patient verbalized understanding and felt safe for discharge. Medical Records I reviewed the patient's medical records. Lab Data I reviewed the patient's lab results. 04/18/22 18:55 04/18/22 18:55 Laboratory Results WBC 9.8 10^3/uL (4.0-10.0) 04/18/22 18:55 RBC 4.68 10^6/uL (4.1-5.3) 04/18/22 18:55 Hgb 15.0 g/dL (11.5-15.3) 04/18/22 18:55 Hct 44.8 % (37.0-47.0) 04/18/22 18:55 MCV 95.7 fl (81-99) 04/18/22 18:55 MCH 32.1 pg (28.0-34.0) 04/18/22 18:55 MCHC 33.5 g/dL (30.0-36.0) 04/18/22 18: RDW 13.2 % (12.1-15.1) 04/18/22 18:55 Plt Count 346 10^3/cmm (130-400) 04/18/22 18: MPV 9.9 fL (7.4-10.4) 04/18/22 18:55 Neut % (Auto) 63.3 % 04/18/22 18:55 Lymph % (Auto) 27.0 % 04/18/22 18:55 [place] % (Auto) 7.2 % 04/18/22 18:55 Eos % (Auto) 1.3 % 04/18/22 18:55 Baso % (Auto) 0.8 % 04/18/22 18:55 Neut # (Auto) 6.22 10^3/uL (1.8-7.7) 04/18/22 18:55 Lymph # (Auto) 2.7 10^3/uL (0.8-4.8) 04/18/22 18:55 [place] # (Auto) 0.7 10^3/uL (0.2-0.9) 04/18/22 18:55 Eos # (Auto) 0.1 10^3/uL (0.0-0.8) 04/18/22 18:55 Baso # (Auto) 0.1 10^3/uL (0.0-0.1) 04/18/22 18:55 Nucleated RBC % (auto) 0 % 04/18/22 18:55 Nucleated RBCs # 0.0 /100WBC 04/18/22 18:55 Sodium 138 mmol/L (136-145) 04/18/22 18:55 Potassium 3.5 mmol/L (3.5-5.1) 04/18/22 18:55 Chloride 98 mmol/L (98-107) 04/18/22 18:55 Carbon Dioxide 27 mmol/L (22-29) 04/18/22 18:55 Anion Gap 16.5 (5-19) 04/18/22 18:55 BUN 6 mg/dL (6-20) 04/18/22 18:55 Creatinine 0.8 mg/dL (0.5-0.9) 04/18/22 18:55 GFR Calculation 75.6 mL/min (90-130) L 04/18/22 18:55 Glucose 178 mg/dL (65-115) H 04/18/22 18:55 Calculated Osmolality 288 mOsm/kg (285-295) 04/18/22 18:55 Calcium 9.5 mg/dL (8.5-10.5) 04/18/22 18:55 TSH 5.85 uIU/mL (0.27-4.20) H 04/18/22 18:55 Free T4 0.92 ng/dL (0.82-1.77) 04/18/22 16:55 Discharge Plan Discharge Patient Disposition: Home Clinical Impression: Synthetic cannabinoid intoxication Condition: Stable Prescriptions: No Action Narcan 4 mg/actuation spray,non-aerosol 4 mg intranasal Q2M PRN (Reason: opioid overdose) Qty: 2 0RF Rx Instructions: spray 1 dose into ONE nostril; alternate nostrils w each dose until help arrives multivitamin Tablet 1 tab PO DAILY oxycodone-acetaminophen [Percocet] 10-325 mg tablet 10 - 325 tab PO TID PRN (Reason: Pain, Moderate) 30 Days Qty: 90 0RF Rx Instructions: refill on or after 30 day interval diphenhydramine HCl [Benadryl Allergy] 25 mg tablet 25 mg PO BID PRN estradiol 1 mg tablet 1 mg PO DAILY 90 Days Qty: 90 3RF tizanidine 4 mg tablet 4 mg PO Q8H PRN (Reason: muscle spasticity) Qty: 90 3RF levothyroxine 88 mcg capsule 88 mcg PO DAILY Qty: 30 5RF amitriptyline 50 mg tablet 50 mg PO DAILY Qty: 30 5RF famotidine 20 mg Tablet 40 mg PO DAILY 30 Days Qty: 60 1RF simethicone 80 mg Tablet,Chewable 80 mg PO QID PRN (Reason: Flatulence) 30 Days Qty: 90 1RF Discharge Orders: Discharge ED (Routine); Ordered 04/18/22 Ordered By: Eric Garcia Referrals: Iker Bullard MD [Primary Care Provider] - Discharge Diet: Usual diet Discharge Activity: Increase activity as tolerated Activity Restrictions/Additional Instructions: Thank you for visiting the emergency department. You were seen evaluated for symptoms which are likely related to your abuse of delta-8-THC. We are pleased that you had improvement. Given your underlying psychiatric history I recommend avoiding using ps ychoactive substances outside of the prescribed medications. Follow-up with your primary care provider and psychiatric care provider. Return to the emergency department for uncontrolled symptoms or anything else that you are concerned about and feel needs emergency department evaluation. [facility] [phone] If you or someone you care for is experiencing a psychiatric emergency, please call the crisis hotline ([email or web address]) 24-hours a day, 7 days a week at [phone]. 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
[2022-04-18 18:36] VITALS: BP 130/74; PULSE 110; RESP 21; TEMP 36.6; O2SAT 97
--- NOTE | 2022-04-18 18:56 | ECG_ITS ---
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 Measurements Intervals [place] Rate: 106 P: 66 SC: 160 QRS: 75 QRSD: 81 T: 53 QT: 324 QTc: 431 Interpretive Statements SINUS TACHYCARDIA SEPTAL MYOCARDIAL INFARCTION , PROBABLY OLD [40+ ms Q WAVE IN V1/V2] Compared to ECG 12/28/2021 19:47:49 Myocardial infarct finding now present T-wave abnormality no longer present Electronically Signed On 04-21-2022 18:25:43 DIRECTOR CLIENT by Ant Lopez M.D. [id number]
[2022-04-18 19:02] LABS: Basophils # 0.1 10^3/uL (0.0-0.1); Basophils % 0.8 %; Eosinophils # 0.1 10^3/uL (0.0-0.8); Eosinophils % 1.3 %; Hematocrit 44.8 % (37.0-47.0); Lymphocytes # 2.7 10^3/uL (0.8-4.8); Mean Corpuscular HGB Conc 33.5 g/dL (30.0-36.0); Mean Corpuscular Hemoglobin 32.1 pg (28.0-34.0); Mean Corpuscular Volume 95.7 fl (81-99); Mean Platelet Volume 9.9 fL (7.4-10.4); Monocytes # 0.7 10^3/uL (0.2-0.9); Monocytes % 7.2 %; Neutrophils # 6.22 10^3/uL (1.8-7.7); Neutrophils % 63.3 %; Nucleated Red Blood Cells % 0 %; Platelet Count 346 10^3/cmm (130-400); Red Blood Count 4.68 10^6/uL (4.1-5.3); Red Cell Distribution Width 13.2 % (12.1-15.1); White Blood Count 9.8 10^3/uL (4.0-10.0)
[2022-04-18] MEDS: sodium chloride 0.9% 1,000 ML 999 ML IV (19:14)
[2022-04-18] MEDS: LORazepam 0.5 mg Tablet PO (19:14)
[2022-04-18 19:30] LABS: Anion Gap 16.5 (5-19); Blood Urea Nitrogen 6 mg/dL (6-20); Calcium 9.5 mg/dL (8.5-10.5); Carbon Dioxide 27 mmol/L (22-29); Chloride 98 mmol/L (98-107); Glomerular Filtration Rate 75.6 mL/min (90-130); Glucose 178 mg/dL (65-115); Osmolality Calculated 288 mOsm/kg (285-295); Potassium 3.5 mmol/L (3.5-5.1); Sodium 138 mmol/L (136-145); Thyroid Stimulating Hormone 5.85 uIU/mL (0.27-4.20)
[2022-04-18 22:21] LABS: Free T4 Free Thyroxine 0.92 ng/dL (0.82-1.77)
[2022-04-18] MEDS: ketorolac 30 mg/mL INJ 15 MG IVP (23:18)
[2022-04-18] MEDS: acetaminophen 500 mg Tablet 1000 MG PO (23:19)
[2022-04-18 23:27] VITALS: PULSE 84; RESP 16; O2SAT 97
== END 2022-04-18 23:26 | disposition home or self-care (01) ==
PROVIDERS: Emergency Provider Emergency Medicine; PCP Family Medicine Adult Medicine
DX: F12.929 Cannabis use, unspecified with intoxication, unspecified (principal)
CPT/HCPCS: 80048; 84439; 84443; 85025; 93005; 96374; 99284; J1885; J7030

== ENCOUNTER 2022-11-15 00:18 | Inpatient (IN) | payer MEDICAID, SELFPAY ==
[2022-11-15] VITALS (8 sets, daily range): BP systolic 109–130; BP diastolic 70–83; PULSE 91–104; RESP 15–18; TEMP 36.4–36.7; O2SAT 93–100; BMI 22.1
[2022-11-15 01:09] LABS: Basophils # 0.1 10^3/uL (0.0-0.1); Basophils % 1.2 %; Eosinophils # 0.1 10^3/uL (0.0-0.8); Eosinophils % 1.7 %; Hematocrit 45.3 % (37.0-47.0); Hemoglobin 14.9 g/dL (11.5-15.3); Lymphocytes # 3.3 10^3/uL (0.8-4.8); Lymphocytes % 42.9 %; Mean Corpuscular HGB Conc 32.9 g/dL (30.0-36.0); Mean Corpuscular Hemoglobin 31.2 pg (28.0-34.0); Mean Corpuscular Volume 94.8 fl (81-99); Mean Platelet Volume 10.6 fL (7.4-10.4); Monocytes # 0.6 10^3/uL (0.2-0.9); Monocytes % 7.8 %; Neutrophils # 3.59 10^3/uL (1.8-7.7); Neutrophils % 46.3 %; Nucleated Red Blood Cells % 0 %; Platelet Count 290 10^3/cmm (130-400); Red Blood Count 4.78 10^6/uL (4.1-5.3); Red Cell Distribution Width 12.8 % (12.1-15.1); White Blood Count 7.7 10^3/uL (4.0-10.0)
[2022-11-15 01:18] LABS: Bilirubin Urine Neg (Negative); Blood Urine 2+ (Negative); Glucose Urine UA Norm (Normal); Ketones Urine 1+ (Negative); Nitrate Urine Negative (Negative); Protein Urine Neg (Negative); Specific Gravity, Urine 1.015 (1.005-1.030); Urine Appearance Hazy (CLEAR); Urine Color Yellow (Yellow); Urobilinogen Urine Norm (Negative); pH Urine 6 (5-7)
[2022-11-15 01:19] LABS: Add Urine Microscopic? YES; Leukocyte Esterase Urine 2+ (Negative)
[2022-11-15 01:20] LABS: Bacteria Urine 1+ /hpf; WBC Urine 40-55 /hpf (0-5)
[2022-11-15 01:22] LABS: Amphetamines Screen Urine Negative (Negative); Barbiturates Screen Urine Negative (Negative); Benzodiazepines Screen Urine Negative (Negative); Cocaine Screen Urine Negative (Negative); Opiate Screen Urine Negative (Negative); PCP Screen Urine Negative (Negative); THC Screen Urine Negative (Negative)
[2022-11-15 01:23] LABS: Alanine Aminotransferase 6 U/L (0-33); Albumin Level 4.4 g/dL (3.5-5.2); Alkaline Phosphatase 105 U/L (35-105); Anion Gap 15.4 (5-19); Aspartate Amino Transferase 13 U/L (0-32); Blood Urea Nitrogen 4 mg/dL (6-20); Calcium 9.4 mg/dL (8.5-10.5); Carbon Dioxide 27 mmol/L (22-29); Chloride 100 mmol/L (98-107); Glomerular Filtration Rate 87.9 mL/min (90-130); Glucose 86 mg/dL (65-115); Osmolality Calculated 284 mOsm/kg (285-295); Potassium 3.4 mmol/L (3.5-5.1); Sodium 139 mmol/L (136-145); Total Bilirubin 0.3 mg/dL (0.15-1.2); Total Protein 7.4 g/dL (6.6-8.7)
--- NOTE | 2022-11-15 01:23 | PC.NURSE ---
11/15/2022 at 0123 96 Hour Hold Patient Rights have been read to patient and a copy of the same has been given to her. Supervisor Polishing Murray Santana was present at bedside at the time of reading.
[2022-11-15 01:26] LABS: Acetaminophen < 5.0 ug/mL (10-30); Alcohol Level < 10 mg/dL (0-10); Salicylate < 0.3 mg/dL (3-10)
[2022-11-15] MEDS: oxyCODONE-APAP 5-325 mg Tablet 1 TAB PO (01:35)
[2022-11-15] MEDS: sulfamethoxazole-trimeth DS 160-800 mg Tablet 1 TAB PO ×3 (02:06→20:02)
--- NOTE | 2022-11-15 02:58 | W.ED.PSYCHS ---
HPI - Psych General: Chief Complaint: Psychiatric Symptoms Stated Complaint: 96 HOUR HOLD Time Seen by Provider: 11/15/22 00:41 History of Present Illness: 52-year-old female comes in as a 96-hour hold that is court ordered. Family stated that she was acting odd, paranoid, and has a history of paranoid schizophrenia. She had stopped taking her medication evidently. She does not admit to other substance related problems such as illicit substance abuse, etc. MD complaint: altered mental status and other Onset (ago): hour(s) History of same: Yes Relieving factors: none Exacerbating factors: none Associated symptoms: Reports auditory hallucinations (By report.) and visual hallucinations Treatments prior to arrival: placed on mental health hold Review of Systems Const: Denies: fever(s), chills or body aches Eyes: Denies: change in vision Card: Denies: chest pain or palpitations Resp: Denies: dyspnea, productive cough, non-productive cough or wheezing GI: Denies: abdominal pain, nausea, vomiting, diarrhea or hematochezia : Denies: difficulty voiding Musc: Reports: back pain (chronic) Skin/Breast: Denies: rash Neuro: Denies: headache(s), weakness in extremities, dizziness or confusion Psych: Reports: visual hallucinations and auditory hallucinations (By report.) PFSH ED PFSH: Medical History Arthritis Chronic pain syndrome DDD (degenerative disc disease), lumbosacral Encounter for smoking cessation counseling GERD (gastroesophageal reflux disease) Hypothyroidism Muscle cramps Neuropsychiatric disorder Opiate analgesic 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 Plaque psoriasis Psychiatric care Raynaud phenomenon Tobacco use disorder Started at age 16 Surgical History History of hysterectomy History of thyroidectomy Family History Grandfather CAD (coronary artery disease) Maternal Cancer Maternal--colon Clotting disorder Maternal Dementia Maternal Hypertension Maternal Lung disease Maternal--TB Stroke Maternal Family/Other CAD (coronary artery disease) Maternal Grandmother Clotting disorder Maternal Dementia Maternal Hypertension Maternal Stroke Maternal Mother Cancer cervical that spread through bones Other Heart disease Denies family history of Diabetes Hyperlipidemia Chronic kidney disease (CKD) Anesthesia complication Bleeding disorder Social History Smoking and tobacco status: current every day smoker cigarettes Smoking risk assessment/counseling performed?: No Alcohol intake: never Desire information about alcohol rehabilitation?: No Counseling given: No Substance/Drug Use: never Desire information about substance/drug rehabilitation?: No Counseling given: No Adopted: No Caregiver/support person: No Lives independently: Yes Housing: House Marital status: Single Number of children: 2 Highest education level completed: GED or Equivalent service: No Current occupational status: unemployed Pets and animals: No Do you think of yourself as: Straight/Heterosexual Current gender identity: Female Mia/Scientology: Taoism Special mia needs: No Physical Exam Const: COMMON NORMALS: no acute distress GENERAL APPEARANCE: cooperative; not ill appearing and not frail appearing HENMT: COMMON NORMALS: normocephalic, atraumatic and Normal external nose present HEAD & SCALP: normocephalic and atraumatic FACE & SINUS: normal facial exam and face symmetric NOSE: Normal external nose present Eye: COMMON NORMALS: Equal, round and reactive pupils present and EOMs intact bilaterally PUPIL: Yes Equal, round and reactive pupils present Neck/C-Spine: GENERAL: Yes trachea midline Chest: CHEST: Yes Symmetrical chest wall rise Resp: COMMON NORMALS: normal respiratory effort, No retractions, No use of accessory muscles and clear to auscultation bilaterally AUSCULTATION: clear to auscultation bilaterally Cardio: COMMON NORMALS: regular rate and regular rhythm RATE: regular rate RHYTHM: regular rhythm GI: COMMON NORMALS: Normal to inspection, nondistended, normoactive bowel sounds present Extremity: COMMON NORMALS: no pedal edema Neuro: DUANE COMA SCALE: document GCS findings Duane coma scale eye opening: Spontaneous Duane coma scale verbal response: Orientated Duane coma scale motor response: Obey commands Duane coma scale total score: 15 SENSORY EXAM: Yes extremities (intact) Psych: COMMON NORMALS: speech normal SPEECH: Yes normal speech Skin: COMMON NORMALS: no rashes or lesions noted GENERAL SKIN EXAM: no rashes or lesions noted Course Vital Signs: Vital signs: Vital Signs Temperature 97.6 F 11/15/22 02:46 Pulse Rate 93 11/15/22 02:46 Respiratory Rate 18 11/15/22 02:46 Blood Pressure 130/83 06/17/23 02:46 Pulse Oximetry 100 11/15/22 02:46 Oxygen Delivery Me thod Room Air 11/15/22 02:46 MDM - Psych Medical Decision Making Patient does have a urinary tract infection. No other medical issues. No coingestions. She will be treated with antibiotics for the UTI. Spoke with Dr. Santana. He agrees to admission. She is placed under court ordered 96-hour hold. Admission orders written. Lab Data 11/15/22 00:51 11/15/22 00:51 Laboratory Results WBC 7.7 10^3/uL (4.0-10.0) 11/15/22 00:51 RBC 4.78 10^6/uL (4.1-5.3) 11/15/22 00:51 Hgb 14.9 g/dL (11.5-15.3) 11/15/22 00:51 Hct 45.3 % (37.0-47.0) 11/15/22 00:51 MCV 94.8 fl (81-99) 11/15/22 00:51 MCH 31.2 pg (28.0-34.0) 11/15/22 00:51 MCHC 32.9 g/dL (30.0-36.0) 11/15/22 00:51 RDW 12.8 % (12.1-15.1) 11/15/22 00:51 Plt Count 290 10^3/cmm (130-400) 11/15/22 00:51 MPV 10.6 fL (7.4-10.4) H 11/15/22 00:51 Neut % (Auto) 46.3 % 11/15/22 00:51 Lymph % (Auto) 42.9 % 11/15/22 00:51 [place] % (Auto) 7.8 % 11/15/22 00:51 Eos % (Auto) 1.7 % 11/15/22 00:51 Baso % (Auto) 1.2 % 11/15/22 00:51 Neut # (Auto) 3.59 10^3/uL (1.8-7.7) 11/15/22 00:51 Lymph # (Auto) 3.3 10^3/uL (0.8-4.8) 11/15/22 00:51 [place] # (Auto) 0.6 10^3/uL (0.2-0.9) 11/15/22 00:51 Eos # (Auto) 0.1 10^3/uL (0.0-0.8) 11/15/22 00:51 Baso # (Auto) 0.1 10^3/uL (0.0-0.1) 11/15/22 00:51 Nucleated RBC % (auto) 0 % 11/15/22 00:51 Nucleated RBCs # 0.0 /100WBC 11/15/22 00:51 Sodium 139 mmol/L (136-145) 11/15/22 00:51 Potassium 3.4 mmol/L (3.5-5.1) L 11/15/22 00:51 Chloride 100 mmol/L (98-107) 11/15/22 00:51 Carbon Dioxide 27 mmol/L (22-29) 11/15/22 00:51 Anion Gap 15.4 (5-19) 11/15/22 00:51 BUN 4 mg/dL (6-20) L 11/15/22 00:51 Creatinine 0.7 mg/dL (0.5-0.9) 11/15/22 00:51 GFR Calculation 87.9 mL/min (90-130) L 11/15/22 00:51 Glucose 86 mg/dL (65-115) 11/15/22 00:51 Calculated Osmolality 284 mOsm/kg (285-295) L 11/15/22 00:51 Calcium 9.4 mg/dL (8.5-10.5) 11/15/22 00:51 Total Bilirubin 0.3 mg/dL (0.15-1.2) 11/15/22 00:51 AST 13 U/L (0-32) 11/15/22 00:51 ALT 6 U/L (0-33) 11/15/22 00:51 Alkaline Phosphatase 105 U/L (35-105) 11/15/22 00:51 Total Protein 7.4 g/dL (6.6-8.7) 11/15/22 00:51 Albumin 4.4 g/dL (3.5-5.2) 11/15/22 00:51 Globulin 3.0 g/dL (1.3-4.6) 11/15/22 00:51 Urine Color Yellow (Yellow) 11/15/22 00:52 Urine Appearance Hazy (CLEAR) A 11/15/22 00:52 Urine pH 6 (5-7) 11/15/22 00:52 Ur Specific [place] 1.015 (1.005-1.030) 11/15/22 00:52 Urine Protein Neg (Negative) 11/15/22 00:52 Urine Glucose (UA) Norm (Normal) 11/15/22 00:52 Urine Ketones 1+ (Negative) H 11/15/22 00:52 Urine Blood 2+ (Negative) H 11/15/22 00:52 Urine Nitrate Negative (Negative) 11/15/22 00:52 Urine Bilirubin Neg (Negative) 11/15/22 00:52 Urine Urobilinogen Norm mg/dL (Negative) 11/15/22 00:52 Ur Leukocyte Esterase 2+ (Negative) H 11/15/22 00:52 Urine RBC 10-15 /hpf (0-2) H 11/15/22 00:52 Urine WBC 40-55 /hpf (0-5) H 11/15/22 00:52 Ur Squamous Epith Cells 10-15 /hpf (0-5) H 11/15/22 00:52 Amorphous Sediment Not Reportable 11/15/22 00:52 Urine Bacteria 1+ /hpf (NONE) H 11/15/22 00:52 Salicylates < 0.3 mg/dL (3-10) L 11/15/22 00:51 Urine Opiates Screen Negative ng/mL (Negative) 11/15/22 00:52 Acetaminophen < 5.0 ug/mL (10-30) L 11/15/22 00:51 Ur Barbiturates Screen Negative ng/mL (Negative) 11/15/22 00:52 Ur Phencyclidine Scrn Negative ng/mL (Negative) 11/15/22 00:52 Ur Amphetamines Screen Negative ng/mL (Negative) 11/15/22 00:52 U Benzodiazepines Scrn Negative ng/mL (Negative) 11/15/22 00:52 Urine Cocaine Screen Negative ng/mL (Negative) 11/15/22 00:52 U Marijuana (THC) Screen Negative ng/mL (Negative) 11/15/22 00:52 Ethyl Alcohol < 10 mg/dL (0-10) 11/15/22 00:51 Discharge Plan Discharge Patient Disposition: Admitted As Inpatient Admit Provider: Jose Raul Santana Clinical Impression: Schizophrenia, Acute psychosis, Urinary tract infection Condition: Stable Coding Level of Care Code ED 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
[2022-11-15] MEDS: tizanidine 4 mg Tablet PO ×3 (05:04→17:32)
[2022-11-15] MEDS: levothyroxine 88 mcg Tablet PO (09:23)
[2022-11-15] MEDS: nicotine 4 mg lozenge MUCOUS MEM ×7 (09:23→21:04)
[2022-11-15] MEDS: estradiol 1 mg Tablet PO (09:23)
--- NOTE | 2022-11-15 11:48 | W.PM.NPUH&PS ---
Providers/Chief Complaint Admitting Physician: Jose Raul Santana MD Chief Complaint: 96 HOUR HOLD [facility] NPU History of Present Illness Sima Avelar is a 52 year old female who presents to the emergency department with the following report: Chief Complaint: Psychiatric Symptoms Stated Complaint: 96 HOUR HOLD Time Seen by Provider: 11/15/22 00:41 History of Present Illness: 52-year-old female comes in as a 96-hour hold that is court ordered. Family stated that she was acting odd, paranoid, and has a history of paranoid schizophrenia. She had stopped taking her medication evidently. She does not admit to other substance related problems such as illicit substance abuse, etc. complaint: altered mental status and other Onset (ago): hour(s) History of same: Yes Relieving factors: none Exacerbating factors: none Associated symptoms: Reports auditory hallucinations (By report.) and visual hallucinations Treatments prior to arrival: placed on mental health hold She was admitted to the neuropsychiatric unit for definitive treatment of those issues. She presents today on a 96-hour hold reporting that she does not understand why she is here. She does acknowledge that she stopped taking her medication but she reports that she did fine after that. She endorsed not feeling like she needs her medication. She reports that she stopped going to [facility] but that the counselor [facility] told she did not need to come anymore but she was going fine. We discussed the need to get collateral information on her report. She reports that she was at home doing fine having no issues there were knots on her door that were the police picking her up and telling her that she needed to go because she was on this hold. She denies any symptoms or any problems and she reports that this is just a confusing situation. We agreed we would hold on medication for today, but her history suggest that being stable on medication we will keep her out of the hospital but we need to do some research and collateral information to find out what is really going on. An excerpt of her discharge summary from January of last year is included below for context. Per her 02/21/2022 [facility] inpatient psychiatric discharge summary: Discharge Diagnosis (1) Psychotic disorder: Status: Acute (2) Paranoia (psychosis): Status: Acute (3) Acute dehydration: Status: Resolved (4) Delusions: Status: Acute (5) Depression: Status: Acute (6) DOMINIQUE (generalized anxiety disorder): Status: Acute Reason for Visit Reason for Visit: 96 Brief History: History of Present Illness Sima Avelar is a 51 year old female who presents to the emergency department with the following report: Chief Complaint: Psychiatric Symptoms Stated Complaint: 96 Time Seen by Provider: 01/24/22 15:13 History of Present Illness: Ms. Avelar is a 51-year-old lady presenting to the emergency department for a 96-hour hold. The patient herself largely minimizes or is unaware of concerning symptoms. She reports that she was just walking down the [address] out for a walk and got hot so she sat down at which point someone saw her outside and called 911. Per review of affidavits patient has been paranoid with delusions and abnormal behavior. Otherwise denies medical complaints. No other specific changes in health, exacerbating, or alleviating factors identified. She was admitted to the neuropsychiatric unit for definitive treatment of those issues. 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 She reports she worked with a pharmacist afterwards who she trusted that told her to take Benadryl to stop what was happening with someone present to monitor her. She is not currently taking any psychiatric medications. She presented to the hospital as she was walking on the side of the road and police brought her into the hospital because of concerns. She has been psychiatrically hospitalized once before about a month ago and has been on a number of different medications in her life. She reports a pack to a pack and a half a day of cigarettes, denies alcohol, marijuana or any other illicit drug use. She has not been to rehab, gotten a DUI or drug and alcohol related charges. Her depression began presenting when she was a child when her mother and had anxiety which began presenting around her teenage years with increased worrying. She endorses having worsening depression and anxiety from high school that escalated when her children started getting older and she was trying to make their lives perfect. She denies passive wish, suicidal ideation or self-injurious behaviors. She reports she feels she held her family to a higher level of importance than they hold her. She reports at the times she was walking because of all this stress, she would sit in the ditch on the side of the road in between walking. She endorsed several times that she wanted to get help but was not specific in the type of help she is looking for and could not explain what behaviors caused people to be concerned about her. She reported later she had just taken off in her pajamas and started walking as she wanted to get a signal in order to contact her family to get help. She endorsed wanting to speak with a preacher as she has done so in the past and found comfort from it. Please see excerpt of hospitalization from November 2021 below for context. Psychiatric History: As above. Substance Abuse History: As above. Family History: She denies mental health issues on either side of the family, addiction issues on both sides of the family and denies any suicide attempts or completions on either side of the family. Developmental History: She denies any issues with her or , learned to walk and talk and met her developmental milestones on time and denies any need for speech therapy, learning support, emotional support or special education classes. Psychosocial History: She reports her father a week before she was born and she is the only product of this union. Her mother has one additional daughter and her father had no additional children. She described her childhood as good and denies any emotional, physical or sexual abuse. She denies CYS involvement but did have some truancy issues. She remembers when her mother from a stroke reporting she still has flashbacks of that night as well as avoidant behavior. The highest grade she achieved was 12th grade and she got her GED. She endorses being heterosexual with her longest relationship being 20 years. She has been and once, has two sons, 33 and 35, has never been in the and endorses being catholic. Her longest employment history is 6 years. She currently is homeless. Legal History: Denied. Medical History: She reports she had a stroke after taking Zoloft. She had Grave?s Disease and had her thyroid removed in 1997. She delivered her children vaginally. She began menstruating around 8th grade and reports her periods were problematic. Per her 12/29/2021 [facility] inpatient psychiatric evaluation: History of Present Illness Sima Avelar is a a 51 year old white female who presents today due to not feeling well as if she was dehydrated and had brought been by an ambulance after speaking with a deputy. She has never been psychiatrically hospitalized and has not seen any outpatient psychiatric services. She reports she has troubles with sleeping and can stay awake for 5 days at a time but reports it has not happened in a few years and occurred around her thyroid problems. She has been on Amitriptyline currently but could not recall the dose. She had been seeing Dr. Bullard at his office at the Urgent Care facility. She reports she takes two of her Percocet in the morning for her pain and has been on it since 2010 as she was having headaches on the Hydrocodone. She denies alcohol, marijuana or illicit drug use. 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 We discussed how the reports from the emergency room stated she had reported she felt as if people were trying to poison her and she endorses she stated that people were ?messing with me? as other people have access to her house. She reports sometimes being in the bathtub and hearing the door slam shut and finding food missing after she grocery shopped. She reports she doesn?t have an idea of who would be messing with her and is pretty much always at her house. She denies any changes in her mood since this began happening. She reports she called the emergency room as she was having neck and back pain and had not eaten in several days as she didn?t feel like it and hadn?t had something to eat. She reports she has been drinking water but has been losing weight since she has stopped eating. She reports she has been sent things to eat but feels sick when she does eat it and will get chris on her phone making fun of things that she is going through as well. She endorses having anxiety and worrying constantly about people. She reports she feels as if she is missing things and endorsed again that people are just messing or joking with her. She denies any history of traumatic events that occurred which resulted in hypervigilance or intrusive thoughts. She endorses her house is old and she needs to find another place to live. She reports once she went to a doctor appointment and came home to all of her picture frames being moved. She had spoken with her cousin who laughed at her and said ?why would I do that?. She reports a lot of people have keys to her house. She denies thinking her house is haunted. She reports she had to switch something with her cousin which made her mad though she did not understand why and believes that is what is causing her to mess with her. She reports she has a hard time living in her house as it is filled with memories and she is by herself and wants to go to another place to restart. She denies feeling as if she is being messed with in the hospital and denies having issues with food currently either. Psychiatric History: As above. Substance Abuse History: As above. Family History: None reported Developmental History: No hx of developmental delays. Psychosocial History: She was born in [place] and raised there. She is currently and has been once. She has a 25 and 32 year old children. She was raised by her grandparents as her parents both passed by the time she was 4 years old. Her father in a car accident before she was born and her mother of cervical cancer. She has a half sister. The highest grade she achieved was 12th grade and she got her GED. 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 She is not currently working and is on disability for her back. She currently lives in a house by herself and reports it needs some work done. She report no history of sexual, physical, or emotional abuse. Legal History: Medical History: She has Graves disease and had an overactive thyroid which was removed. She is allergic to Zoloft. She has been diagnosed with psoriasis and had a hysterectomy. Medications on admission: tizanidine, pepcid, amitryptiline, estradiol, percocet. Hospital Course Hospital Course She slowly acclimated to the individual, group and milieu therapies provided. When she presented she was struggling with hallucinations and psychosis with no clear evidence of addiction but concerns raised about addiction. It is unclear whether this represents a new onset psychosis related to the violent nature of psychotic illness appointment or a substance-induced situation. She was initially started on Abilify with some improvement but she complained about side effects that she reported were relieved to some degree with Cogentin. She was switched to Invega Sustenna 234 mg IM instead of Abilify Maintena which she was happy about because he did not really Abilify. She was monitored for a couple days after that with a plan to transition her with the second injection of 156 mg IM next week. She had significant improvement during her hospitalization. She worked with the treatment team and was able to go from an unlivable home from she came to live with her aunt with a [employer] housing option being pursued vigorously. She was able to contract for safety outside of the hospital prior to discharge. During the hospitalization, patient had routine laboratory studies which were within normal limits except for few outliers. Additionally there was a general medical evaluation which was also within normal limits and revealed no new acute processes. Discharge Summary: At the time of discharge, lethality was denied and psychosis was resolving. Mood and anxiety were well managed. Patient endorsed a plan to avoid all drugs of abuse and follow-up with the aftercare recommendations of the treatment team. Patient was evaluated and deemed to be absent credible lethality, and had achieved the maximum benefit from an inpatient hospitalization, so was discharged. Meds NPU Home Medications Medication Instructions Recorded Confirmed Last Taken Type naloxone 4 mg/actuation nasal 4 mg intranasal Q2M PRN opioid 10/24/20 09/18/22 Unknown Rx spray (Narcan) overdose #2 ea multivitamin 1 tab PO DAILY 05/29/21 09/18/22 Unknown History famotidine 20 mg tablet 40 mg PO DAILY 30 days #60 tabs 02/21/22 09/18/22 Unknown Rx simethicone 80 mg chewable tablet 80 mg PO QID PRN Flatulence 30 02/21/22 09/18/22 Unknown Rx days #90 tabs diphenhydramine HCl 25 mg tablet 25 mg PO BID PRN 03/11/22 09/18/22 Unknown History (Benadryl Allergy) estradiol 1 mg tablet 1 mg PO DAILY Menopause symptoms 03/11/22 11/15/22 Unknown Rx 90 days #90 tabs amitriptyline 50 mg tablet 50 mg PO DAILY #30 tabs 05/19/22 11/15/22 Unknown Rx naproxen sodium 220 mg tablet 220 mg PO DAILY 07/03/22 09/18/22 Unknown History (Aleve) orphenadrine citrate 100 mg 100 mg PO BID #60 tabs 09/18/22 09/18/22 Unknown Rx tablet,extended release triamcinolone acetonide 0.025 % 1 applic topical DAILY eczema #80 09/18/22 09/18/22 Unknown Rx topical cream grams levothyroxine 88 mcg capsule 88 mcg PO DAILY low thyroid #30 09/25/22 11/15/22 Unknown Rx caps hydrocodone 5 mg-acetaminophen 325 2.5 - 162.5 tab PO DAILY PRN Pain 11/15/22 11/15/22 Unknown History mg tablet tizanidine 4 mg tablet 4 mg PO Q8H PRN Muscle Pain 11/15/22 11/15/22 Unknown History Allergies Allergy/AdvReac Type Severity Reaction Status Date / Time Penicillins Allergy Severe ALGY-Anaphy Verified 09/18/22 14:49 laxis gabapentin Allergy ADR-Headach Verified 09/18/22 14:49 e sertraline [From Zoloft] Allergy Unknown Verified 09/18/22 14:49 tramadol [From Ultracet] Allergy ADR-Gastrointestinal Verified 09/18/22 14:49 Upset PFSH NPU PFSH: Medical History Arthritis Chronic pain syndrome DDD (degenerative disc disease), lumbosacral Encounter for smoking cessation counseling GERD (gastroesophageal reflux disease) Hypothyroidism Muscle cramps Neuropsychiatric disorder Opiate analgesic 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 Plaque psoriasis Psychiatric care Raynaud phenomenon Tobacco use disorder Started at age 16 Surgical History History of hysterectomy History of thyroidectomy Family History Grandfather CAD (coronary artery disease) Maternal Cancer Maternal--colon Clotting disorder Maternal Dementia Maternal Hypertension Maternal Lung disease Maternal--TB Stroke Maternal Family/Other CAD (coronary artery disease) Maternal Grandmother Clotting disorder Maternal Dementia Maternal Hypertension Maternal Stroke Maternal Mother Cancer cervical that spread through bones Other Heart disease Denies family history of Diabetes Hyperlipidemia Chronic kidney disease (CKD) Anesthesia complication Bleeding disorder Social History Smoking and tobacco status: current every day smoker cigarettes Smoking risk assessment/counseling performed?: No Alcohol intake: never Desire information about alcohol rehabilitation?: No Counseling given: No Substance/Drug Use: never Desire information about substance/drug rehabilitation?: No Counseling given: No Adopted: No Caregiver/support person: No Lives independently: Yes Housing: House Marital status: Single Number of children: 2 Highest education level completed: GED or Equivalent service: No Current occupational status: unemployed Pets and animals: No Do you think of yourself as: Straight/Heterosexual Current gender identity: Female Mia/Yazidism: Synagogue Special mia needs: No Mental Status Exam MSE Comments: This is a slender white female in hospital scrubs with adequate grooming and eye contact. No abnormal involuntary motor movements appreciated other than some mild psychomotor retardation. She was cooperative with exam in no acute distress. Speech was normal rate and volume. Mood described as fine not sure why I am here, her affect is congruent. Thought process: linear, logical Thought content: patient denied suicidal or homicidal ideation, there were no delusions reported or noted and she denied auditory or visualizations. Attention and concentration are intact. and Her recent and remote memory were grossly intact. She is alert and oriented x3. Insight and judgment are limited and impulse control appears fair. Vitals/I&O/Wt Last Vital Signs Temp 98.1 F 11/15/22 06:00 Pulse 101 H 11/15/22 06:00 Resp 16 11/15/22 06:00 BP 115/75 11/15/22 06:00 Pulse Ox 100 11/15/22 06:00 O2 Del Method Room Air 11/15/22 06:00 Weight last 48 hrs Weight 53.07 kg Data NPU 11/15/22 00:51 11/15/22 00:51 A&P Assessment and plan (1) Psychotic disorder: (2) Paranoia (psychosis): (3) Acute dehydration: (4) Delusions: (5) Depression: (6) DOMINIQUE (generalized anxiety disorder): Plan This is a 52 year old white female with a history of trauma and genetic loading for addiction issues who presents about 9 months after her last hospitalization endorsing that she is doing fine and not sure why she has been brought to the hospital. Currently off of her medications. 1. Continue off medication while we identify previous medication and need to restart. Patient required forced medication during last hospitalization. 2. Encourage individual, group and milieu therapy 3. Continue q-15 minute check for safety Involuntary Hold Information 96 Hour Hold: 96 Hour Involuntary Admission: Yes 96 Hour Hold Ending Date: 11/24/22 96 Hour Hold Ending Time: 00:01 Attestations NPU Medical Necessity Statement*: Inpatient hospitalization is medically necessary and the clinically appropriate intervention at this time. We will monitor medications and make changes as indicated. Patient will be in the hospital for over two midnights. Likely length of stay is three to five days. Coding Level of Care Code Acute Code for Chg Fwd Diagnoses Psychotic disorder F29 Paranoia (psychosis) F22 Acute dehydration E86.0 Delusions F22 Depression F32.9 DOMINIQUE (generalized anxiety disorder) F41.1
[2022-11-15] MEDS: HYDROcodone-acetaminophen 5-325 mg Tablet 0.5 TAB PO (11:54)
[2022-11-15] MEDS: amitriptyline 25 mg Tablet 50 MG PO (20:01)
[2022-11-15] MEDS: acetaminophen 325 mg Tablet 650 MG PO (20:02)
[2022-11-16 06:00] VITALS: BP 104/64; PULSE 105; RESP 16; TEMP 36.6; O2SAT 96
[2022-11-16] MEDS: tizanidine 4 mg Tablet PO ×3 (06:42→20:51)
[2022-11-16] MEDS: nicotine 4 mg lozenge MUCOUS MEM ×9 (06:44→22:38)
[2022-11-16] MEDS: estradiol 1 mg Tablet PO (08:39)
[2022-11-16] MEDS: levothyroxine 88 mcg Tablet PO (08:39)
[2022-11-16] MEDS: HYDROcodone-acetaminophen 5-325 mg Tablet 0.5 TAB PO (08:42)
--- NOTE | 2022-11-16 11:24 | P.NPUPN_ITS ---
Subjective NPU Subjective: Patient presented today reporting that she was doing fine. We had a lengthy discussion about her 96-hour hold affidavits and the reason why she is here. She denied what was in the document but clearly was struggling with acknowledgment that what they were saying she was saying was not actually true. We discussed the clear presence of paranoia and the need to restart her medication when she had resistance soon. We discussed her last hospitalization and our understanding of her illness and the need for us to restart the medication for a more rapid discharge outcome. Mental Status Exam MSE Comments: This is a slender white female in hospital scrubs with adequate grooming and eye contact. No abnormal involuntary motor movements appreciated other than some mild psychomotor retardation. She was cooperative with exam in no acute distress. Speech was normal rate and volume. Mood described as fine not sure why I am here, her affect is congruent. Thought process: linear, logical Thought content: patient denied suicidal or homicidal ideation, there were no delusions reported but paranoid and likely persecutory delusions noted and she denied auditory or visual hallucinations. Attention and concentration are intact. and Her recent and remote memory were grossly intact, but concerns exist about the reliability of some of the information secondary to paranoia. She is alert and oriented x3. Insight and judgment are limited and impulse control appears limited versus impaired. Vitals/I&O/Wt Last Vital Signs Temp 97.8 F 11/16/22 06:00 Pulse 105 H 11/16/22 06:00 Resp 16 11/16/22 06:00 BP 104/64 11/16/22 06:00 Pulse Ox 96 11/16/22 06:00 O2 Del Method Room Air 11/16/22 06:00 11/15/22 11/16/22 11/16/22 22:59 06:59 14:59 Intake Total 720 / 720 Balance 720 / 720 Weight last 48 hrs Weight 58.06 kg Weight 53.07 kg Data NPU 11/15/22 00:51 11/15/22 00:51 A&P Assessment and plan (1) Psychotic disorder: (2) Paranoia (psychosis): (3) Acute dehydration: (4) Delusions: (5) Depression: (6) DOMINIQUE (generalized anxiety disorder): Plan This is a 52 year old white female with a history of trauma and genetic loading for addiction issues who presents about 9 months after her last hospitalization endorsing that she is doing fine and not sure why she has been brought to the hospital. Currently off of her medications. 1. Continue off medication and restart Invega Sustenna injection with permission. Patient required forced medication during last hospitalization. 2. Encourage individual, group and milieu therapy 3. Continue q-15 minute check for safety Involuntary Hold Information 96 Hour Hold: 96 Hour Involuntary Admission: Yes 96 Hour Hold Ending Date: 11/24/22 96 Hour Hold Ending Time: 00:01 Attestations NPU Medical Necessity Statement*: Inpatient hospitalization is medically necessary and the clinically appropriate intervention at this time. We will monitor medications and make changes as indicated. Likely length of stay is three to five days. But possibly longer if patient unwilling to restart medications. Coding Level of Care Code Acute Code for [facility] Fwd Diagnoses Psychotic disorder F29 Paranoia (psychosis) F22 Acute dehydration E86.0 Delusions F22 Depression F32.9 DOMINIQUE (generalized anxiety disorder) F41.1
--- NOTE | 2022-11-16 13:23 | PC.NURSE ---
patient asking for pain medication, only written for once a day, which she was given this AM. She was given zanaflex 4mg for muscle spasms in her upper back pain 5-10
[2022-11-16 14:00] VITALS: BP 114/73; PULSE 98; RESP 17; TEMP 36.8; O2SAT 100
[2022-11-16] MEDS: sulfamethoxazole-trimeth DS 160-800 mg Tablet 1 TAB PO (17:33)
--- NOTE | 2022-11-16 17:36 | PC.NURSE ---
patient has been pacing for several hours, patient has not asked for more hydrocodone.
[2022-11-16] MEDS: diphenhydrAMINE 50 mg Capsule PO (19:37)
[2022-11-16] MEDS: amitriptyline 25 mg Tablet 50 MG PO (20:51)
[2022-11-16 21:03] VITALS: BP 104/71; PULSE 101; RESP 16; TEMP 37; O2SAT 97
[2022-11-16] MEDS: acetaminophen 325 mg Tablet 650 MG PO (21:31)
[2022-11-17 06:00] VITALS: BP 104/75; PULSE 100; RESP 16; TEMP 36.7; O2SAT 95
[2022-11-17] MEDS: tizanidine 4 mg Tablet PO ×3 (06:15→17:40)
[2022-11-17] MEDS: nicotine 4 mg lozenge MUCOUS MEM ×10 (06:18→21:10)
[2022-11-17] MEDS: HYDROcodone-acetaminophen 5-325 mg Tablet 0.5 TAB PO (06:33)
[2022-11-17] MEDS: estradiol 1 mg Tablet PO (08:01)
[2022-11-17] MEDS: levothyroxine 88 mcg Tablet PO (08:01)
[2022-11-17] MEDS: diphenhydrAMINE 50 mg Capsule PO ×3 (08:02→20:55)
--- NOTE | 2022-11-17 09:48 | PC.NURSE ---
refusing her antibiotics for a UTI because she believes she does not have one. Patient agreed to take antibiotics if she could have tests ran again.
[2022-11-17 10:55] LABS: Add Urine Microscopic? YES; Bilirubin Urine Neg (Negative); Blood Urine 2+ (Negative); Glucose Urine UA Norm (Normal); Ketones Urine Negative (Negative); Leukocyte Esterase Urine Negative (Negative); Nitrate Urine Negative (Negative); Protein Urine Neg (Negative); RBC Urine 0-4 /hpf (0-2); Specific Gravity, Urine 1.005 (1.005-1.030); Urine Appearance Hazy (CLEAR); Urine Color Yellow (Yellow); Urobilinogen Urine Norm (Negative); pH Urine 8 (5-7)
[2022-11-17 10:56] LABS: Add Urine Culture? No; Bacteria Urine 1+ /hpf; Squamous Epithelial Cell Urine 40-55 /hpf (0-5)
--- NOTE | 2022-11-17 11:57 | W.PM.NPUPNS ---
Subjective NPU Subjective: Patient presented today reporting that she was not needing medication but ultimately after an extended conversation agreed that she would consider restarting the Abilify at the lowest dose. We discussed the risk benefits and alternatives of starting it at 5 mg p.o. every morning and she understood and agreed to proceed as is documented in this note. We continue to discuss the need for the long-acting injectable given her continued resistance to the medication and the resistance to the reality that no one was breaking into her house and tasing her. Mental Status Exam MSE Comments: This is a slender white female in hospital scrubs with adequate grooming and eye contact. No abnormal involuntary motor movements appreciated other than some mild psychomotor retardation. She was cooperative with exam in no acute distress. Speech was normal rate and volume. Mood described okay, her affect is congruent. Thought process: linear, logical Thought content: patient denied suicidal or homicidal ideation, there were no delusions reported but paranoid and likely persecutory delusions noted and she denied auditory or visual hallucinations. Attention and concentration are intact. and Her recent and remote memory were grossly intact, but concerns exist about the reliability of some of the information secondary to paranoia. She is alert and oriented x3. Insight and judgment are limited and impulse control appears limited versus impaired. Vitals/I&O/Wt Last Vital Signs Temp 98.0 F 11/17/22 06:00 Pulse 100 11/17/22 06:00 Resp 16 11/17/22 06:00 BP 104/75 11/17/22 06:00 Pulse Ox 95 11/17/22 06:00 O2 Del Method Room Air 11/16/22 21:03 Weight last 48 hrs Weight 58.06 kg Data NPU 11/15/22 00:51 11/15/22 00:51 A&P Assessment and plan (1) Psychotic disorder: (2) Paranoia (psychosis): (3) Acute dehydration: (4) Delusions: (5) Depression: (6) DOMINIQUE (generalized anxiety disorder): Plan This is a 52 year old white female with a history of trauma and genetic loading for addiction issues who presents about 9 months after her last hospitalization endorsing that she is doing fine and not sure why she has been brought to the hospital. Currently off of her medications. 1. Continue off medication and restart Abilify 5 mg with permission. Plan to switch to long-acting injection prior to discharge as patient required forced medication during last hospitalization. 2. Encourage individual, group and milieu therapy 3. Continue q-15 minute check for safety Involuntary Hold Information 96 Hour Hold: 96 Hour Involuntary Admission: Yes 96 Hour Hold Ending Date: 11/24/22 96 Hour Hold Ending Time: 00:01 Attestations NPU Medical Necessity Statement*: Inpatient hospitalization is medically necessary and the clinically appropriate intervention at this time. We will monitor medications and make changes as indicated. Likely length of stay is three to five days. But possibly longer if patient unwilling to restart medications. The patient will depend on whether she agrees to long-acting injection but likely plan to submit for 21-day hold. Coding Level of Care Code Acute Code for [facility] Fwd Diagnoses Psychotic disorder F29 Paranoia (psychosis) F22 Acute dehydration E86.0 Delusions F22 Depression F32.9 DOMINIQUE (generalized anxiety disorder) F41.1
[2022-11-17] MEDS: acetaminophen 325 mg Tablet 650 MG PO ×2 (13:35→19:27)
[2022-11-17 14:00] VITALS: BP 103/67; PULSE 97; RESP 14; TEMP 36.8; O2SAT 96
[2022-11-17] MEDS: amitriptyline 25 mg Tablet 50 MG PO (20:47)
[2022-11-17] MEDS: sulfamethoxazole-trimeth DS 160-800 mg Tablet 1 TAB PO (20:49)
[2022-11-17 21:06] VITALS: BP 115/75; PULSE 100; RESP 18; TEMP 36.8; O2SAT 99
[2022-11-18] MEDS: nicotine 4 mg lozenge MUCOUS MEM ×10 (00:12→23:38)
[2022-11-18] MEDS: tizanidine 4 mg Tablet PO ×4 (00:12→20:04)
[2022-11-18 06:00] VITALS: BP 108/67; PULSE 94; RESP 16; TEMP 36.6; O2SAT 98
[2022-11-18] MEDS: diphenhydrAMINE 50 mg Capsule PO ×3 (06:19→20:55)
[2022-11-18] MEDS: estradiol 1 mg Tablet PO (08:26)
[2022-11-18] MEDS: ARIPiprazole 10 mg Tablet 5 MG PO (08:26)
[2022-11-18] MEDS: HYDROcodone-acetaminophen 5-325 mg Tablet 0.5 TAB PO (08:26)
[2022-11-18] MEDS: levothyroxine 88 mcg Tablet PO (08:26)
[2022-11-18] MEDS: sulfamethoxazole-trimeth DS 160-800 mg Tablet 1 TAB PO (08:28)
[2022-11-18 13:11] VITALS: BP 127/78; PULSE 80; RESP 16; TEMP 36.8; O2SAT 95
[2022-11-18] MEDS: acetaminophen 325 mg Tablet 650 MG PO ×2 (16:28→20:55)
--- NOTE | 2022-11-18 17:32 | W.PM.NPUPNS ---
Subjective NPU Subjective: Patient presented today reporting that she is doing okay with the Abilify. Still endorsing that she has concerns that the dose is too high at 5 mg. We discussed the fact that we need the dose to be high enough to have impact. Once again discussed her psychosis and the text messages and her inability to embrace the fact that no one breaking in her house and pacing her in her sleep that there would be clear signs of that kind of interaction. Reports of her being less paranoid per staff and certainly appears to already be improving. Mental Status Exam MSE Comments: This is a slender white female in hospital scrubs with adequate grooming and eye contact. No abnormal involuntary motor movements appreciated other than some mild psychomotor retardation. She was cooperative with exam in no acute distress. Speech was normal rate and volume. Mood described okay, her affect is congruent. Thought process: linear, logical Thought content: patient denied suicidal or homicidal ideation, there were no delusions reported but paranoid and likely persecutory delusions noted and she denied auditory or visual hallucinations. Attention and concentration are intact. and Her recent and remote memory were grossly intact, but concerns exist about the reliability of some of the information secondary to paranoia. She is alert and oriented x3. Insight and judgment are limited and impulse control appears limited versus impaired. Vitals/I&O/Wt Last Vital Signs Temp 98.3 F 11/18/22 22:00 Pulse 101 H 11/18/22 22:00 Resp 17 11/18/22 22:00 BP 126/79 11/18/22 22:00 Pulse Ox 98 11/18/22 22:00 O2 Del Method Room Air 11/18/22 22:00 Data NPU 11/15/22 00:51 11/15/22 00:51 A&P Assessment and plan (1) Psychotic disorder: (2) Paranoia (psychosis): (3) Acute dehydration: (4) Delusions: (5) Depression: (6) DOMINIQUE (generalized anxiety disorder): Plan This is a 52 year old white female with a history of trauma and genetic loading for addiction issues who presents about 9 months after her last hospitalization endorsing that she is doing fine and not sure why she has been brought to the hospital. Currently off of her medications. 1. Continue off medication and restarted Abilify 5 mg. Plan to switch to long-acting injection prior to discharge as patient required forced medication during last hospitalization. 2. Encourage individual, group and milieu therapy 3. Continue q-15 minute check for safety Involuntary Hold Information 96 Hour Hold: 96 Hour Involuntary Admission: Yes 96 Hour Hold Ending Date: 11/24/22 96 Hour Hold Ending Time: 00:01 Attestations NPU Medical Necessity Statement*: Inpatient hospitalization is medically necessary and the clinically appropriate intervention at this time. We will monitor medications and make changes as indicated. Likely length of stay is three to five days. But possibly longer if patient unwilling to restart medications. The patient will depend on whether she agrees to long-acting injection but likely plan to submit for 21-day hold. Coding Level of Care Code Acute Code for [facility] Fwd Diagnoses Psychotic disorder F29 Paranoia (psychosis) F22 Acute dehydration E86.0 Delusions F22 Depression F32.9 DOMINIQUE (generalized anxiety disorder) F41.1
[2022-11-18] MEDS: amitriptyline 25 mg Tablet 50 MG PO (20:04)
[2022-11-18 22:00] VITALS: BP 126/79; PULSE 101; RESP 17; TEMP 36.8; O2SAT 98
[2022-11-19] MEDS: nicotine 4 mg lozenge MUCOUS MEM ×9 (03:38→21:13)
[2022-11-19] MEDS: diphenhydrAMINE 50 mg Capsule PO ×5 (03:56→20:03)
[2022-11-19] MEDS: tizanidine 4 mg Tablet PO ×3 (04:53→20:03)
[2022-11-19] MEDS: HYDROcodone-acetaminophen 5-325 mg Tablet 0.5 TAB PO ×2 (05:27→18:12)
[2022-11-19 06:00] VITALS: BP 110/70; PULSE 99; RESP 17; O2SAT 96
[2022-11-19] MEDS: estradiol 1 mg Tablet PO (08:50)
[2022-11-19] MEDS: ARIPiprazole 10 mg Tablet 5 MG PO (08:50)
[2022-11-19] MEDS: levothyroxine 88 mcg Tablet PO (08:50)
[2022-11-19] MEDS: blistex lip oint 7 gm Tube 1 APPLIC TOPICAL (11:26)
[2022-11-19 14:05] VITALS: BP 109/73; PULSE 101; RESP 16; TEMP 36.8; O2SAT 98
--- NOTE | 2022-11-19 17:58 | PC.NURSE ---
PT REQUESTED FOR PAIN MEDICATION TO BE CHANGES TO BID. PHYSICIAN AGREED WITH THIS CHANGE UNDER THE CIRCUMSTANCE TAHT IT WILL RETURN TO PREVIOUS ORDER UPON DISCHARGE.
--- NOTE | 2022-11-19 19:09 | W.PM.NPUPNS ---
Subjective NPU Subjective: Patient presented today with some pain complaints but with overall reports of improvement. He was more open about the concerns that surround her irritability and paranoia. She acknowledges that the Abilify has not caused any side effects like headaches that she was concerned about and that she is feeling less stressed and knotted up like she was when she came in. We discussed that our concern is highly get her to continue to take the medication and which has been a challenge on a longer nonadherence. Mental Status Exam MSE Comments: This is a slender white female in hospital scrubs with adequate grooming and eye contact. No abnormal involuntary motor movements appreciated other than some mild psychomotor retardation. She was cooperative with exam in no acute distress. Speech was normal rate and volume. Mood described okay, her affect is congruent. Thought process: linear, logical Thought content: patient denied suicidal or homicidal ideation, there were no delusions reported but paranoid and likely persecutory delusions noted and she denied auditory or visual hallucinations. Attention and concentration are intact. and Her recent and remote memory were grossly intact, but concerns exist about the reliability of some of the information secondary to paranoia. She is alert and oriented x3. Insight and judgment are limited and impulse control appears limited versus impaired. Vitals/I&O/Wt Last Vital Signs Temp 98.2 F 11/19/22 14:05 Pulse 101 H 11/19/22 14:05 Resp 16 11/19/22 14:05 BP 109/73 11/19/22 14:05 Pulse Ox 98 11/19/22 14:05 O2 Del Method Room Air 11/19/22 14:05 11/19/22 11/19/22 11/19/22 06:59 14:59 22:59 Intake Total 720 / 720 Balance 720 / 720 Data NPU 11/15/22 00:51 11/15/22 00:51 A&P Assessment and plan (1) Psychotic disorder: (2) Paranoia (psychosis): (3) Acute dehydration: (4) Delusions: (5) Depression: (6) DOMINIQUE (generalized anxiety disorder): Plan This is a 52 year old white female with a history of trauma and genetic loading for addiction issues who presents about 9 months after her last hospitalization endorsing that she is doing fine and not sure why she has been brought to the hospital. Currently off of her medications. 1. Continue off medication and restarted Abilify 5 mg. Plan to switch to long-acting injection prior to discharge as patient required forced medication during last hospitalization. 2. Encourage individual, group and milieu therapy 3. Continue q-15 minute check for safety Involuntary Hold Information 96 Hour Hold: 96 Hour Involuntary Admission: Yes 96 Hour Hold Ending Date: 11/24/22 96 Hour Hold Ending Time: 00:01 Attestations NPU Medical Necessity Statement*: Inpatient hospitalization is medically necessary and the clinically appropriate intervention at this time. We will monitor medications and make changes as indicated. Likely length of stay is three to five days. But possibly longer if patient unwilling to restart long-acting injectable. The patient will depend on whether she agrees to long-acting injection but likely plan to submit for 21-day hold. Coding Level of Care Code Acute Code for [facility] Fwd Diagnoses Psychotic disorder F29 Paranoia (psychosis) F22 Acute dehydration E86.0 Delusions F22 Depression F32.9 DOMINIQUE (generalized anxiety disorder) F41.1
[2022-11-19] MEDS: amitriptyline 25 mg Tablet 50 MG PO (20:03)
[2022-11-19] MEDS: naproxen 500 mg Tablet 250 MG PO (20:08)
[2022-11-19 21:26] VITALS: BP 120/76; PULSE 99; RESP 12; TEMP 36.8; O2SAT 96
[2022-11-20] MEDS: nicotine 4 mg lozenge MUCOUS MEM ×9 (00:26→21:27)
[2022-11-20] MEDS: diphenhydrAMINE 50 mg Capsule PO ×4 (00:48→21:54)
[2022-11-20 06:00] VITALS: BP 113/75; PULSE 74; RESP 14; TEMP 36.8; O2SAT 98
[2022-11-20] MEDS: HYDROcodone-acetaminophen 5-325 mg Tablet 0.5 TAB PO ×2 (06:10→14:10)
[2022-11-20] MEDS: tizanidine 4 mg Tablet PO ×4 (06:10→21:53)
[2022-11-20] MEDS: levothyroxine 88 mcg Tablet PO (09:07)
[2022-11-20] MEDS: estradiol 1 mg Tablet PO (09:07)
[2022-11-20] MEDS: ARIPiprazole 10 mg Tablet 5 MG PO (09:07)
--- NOTE | 2022-11-20 11:17 | PC.NURSE ---
11/19/22 1600 Pt stated that she really loved talking with Dr. Santana today, she exclaimed that he was very nice and felt that he was truly listening to her needs and wants.
[2022-11-20] MEDS: naproxen 500 mg Tablet 250 MG PO (13:13)
[2022-11-20 14:00] VITALS: BP 112/73; PULSE 104; TEMP 36.8; O2SAT 100
--- NOTE | 2022-11-20 18:45 | P.NPUPN_ITS ---
Subjective NPU Subjective: Patient presented today reporting that she is feeling better physically. Patient was last stiff as she walked around on the unit. She continued to report being less anxious. And was able to knowledge the impact of the Abilify. We continue to discuss as feeling much more comfortable with the idea of her being on the injection given her history of nonadherence. We discussed her considering this as a contingency for us to move towards discharge versus a 21- day hold. Mental Status Exam MSE Comments: This is a slender white female in hospital scrubs with adequate grooming and eye contact. No abnormal involuntary motor movements appreciated other than some mild psychomotor retardation. She was cooperative with exam in no acute distress. Speech was normal rate and volume. Mood described okay, her affect is congruent. Thought process: linear, logical Thought content: patient denied suicidal or homicidal ideation, there were no delusions reported but paranoid and likely persecutory delusions noted and she denied auditory or visual hallucinations. Attention and concentration are intact. and Her recent and remote memory were grossly intact, but concerns exist about the reliability of some of the information secondary to paranoia. She is alert and oriented x3. Insight and judgment are limited and impulse control appears limited. Vitals/I&O/Wt Last Vital Signs Temp 98.1 F 11/20/22 20:05 Pulse 100 11/20/22 20:05 Resp 14 11/20/22 20:05 BP 120/63 11/20/22 20:05 Pulse Ox 99 11/20/22 20:05 O2 Del Method Room Air 11/20/22 20:05 Data NPU 11/15/22 00:51 11/15/22 00:51 A&P Assessment and plan (1) Psychotic disorder: (2) Paranoia (psychosis): (3) Acute dehydration: (4) Delusions: (5) Depression: (6) DOMINIQUE (generalized anxiety disorder): Plan This is a 52 year old white female with a history of trauma and genetic loading for addiction issues who presents about 9 months after her last hospitalization endorsing that she is doing fine and not sure why she has been brought to the hospital. Currently off of her medications. 1. Continue off medication and restarted Abilify 5 mg. Plan to switch to long-acting injection prior to discharge as patient required forced medication during last hospitalization. 2. Encourage individual, group and milieu therapy 3. Continue q-15 minute check for safety Involuntary Hold Information 96 Hour Hold: 96 Hour Involuntary Admission: Yes 96 Hour Hold Ending Date: 11/24/22 96 Hour Hold Ending Time: 00:01 Attestations NPU Medical Necessity Statement*: Inpatient hospitalization is medically necessary and the clinically appropriate intervention at this time. We will monitor medications and make changes as indicated. Likely length of stay is 2-4 days. But possibly longer if patient unwilling to restart long-acting injectable. The patient will depend on whether she agrees to long-acting injection but likely plan to submit for 21-day hold. Coding Level of Care Code Acute Code for [facility] Fwd Diagnoses Psychotic disorder F29 Paranoia (psychosis) F22 Acute dehydration E86.0 Delusions F22 Depression F32.9 DOMINIQUE (generalized anxiety disorder) F41.1
[2022-11-20 20:05] VITALS: BP 120/63; PULSE 100; RESP 14; TEMP 36.7; O2SAT 99
[2022-11-20] MEDS: amitriptyline 25 mg Tablet 50 MG PO (20:13)
[2022-11-21] MEDS: nicotine 4 mg lozenge MUCOUS MEM ×10 (04:12→21:47)
[2022-11-21] MEDS: HYDROcodone-acetaminophen 5-325 mg Tablet 0.5 TAB PO ×2 (04:27→12:29)
[2022-11-21] MEDS: tizanidine 4 mg Tablet PO ×3 (04:27→20:09)
[2022-11-21 06:00] VITALS: BP 102/64; PULSE 102; RESP 16; TEMP 36.8; O2SAT 95
[2022-11-21] MEDS: diphenhydrAMINE 50 mg Capsule PO ×4 (06:10→20:09)
[2022-11-21] MEDS: estradiol 1 mg Tablet PO (08:11)
[2022-11-21] MEDS: ARIPiprazole 10 mg Tablet 5 MG PO (08:11)
[2022-11-21] MEDS: levothyroxine 88 mcg Tablet PO (08:11)
[2022-11-21 14:00] VITALS: BP 106/66; PULSE 93; RESP 20; TEMP 36.7; O2SAT 98
[2022-11-21] MEDS: naproxen 500 mg Tablet 250 MG PO (15:40)
--- NOTE | 2022-11-21 17:07 | P.NPUPN_ITS ---
Subjective NPU Subjective: Patient presented today reporting that she is fine continuing to lobby for discharge. Continue to discuss long-acting injectable but she continues to be resistant to it reporting that she promises that she will take her medication every day. We continue to discuss the challenges that we have with her as she finds her self at times committed to medication but then stops and then back thi ngs happen. Is understanding that she is back in the residence that created although concern the last time she was here. She is talking to the nurses about mice running over her as she was laying down. We discussed the total day hold being submitted and the hearing is on Thursday. Mental Status Exam MSE Comments: This is a slender white female in hospital scrubs with adequate grooming and eye contact. No abnormal involuntary motor movements appreciated other than some mild psychomotor retardation. She was cooperative with exam in no acute distress. Speech was normal rate and volume. Mood described okay, her affect is congruent. Thought process: linear, logical Thought content: patient denied suicidal or homicidal ideation, there were no delusions reported but paranoid and persecutory delusions noted and she denied auditory or visual hallucinations. Attention and concentration are intact. and Her recent and remote memory were grossly intact, but concerns exist about the reliability of some of the information secondary to paranoia. She is alert and oriented x3. Insight and judgment are limited and impulse control appears limited. Vitals/I&O/Wt Last Vital Signs Temp 98.2 F 11/21/22 20:53 Pulse 107 H 11/21/22 20:53 Resp 16 11/21/22 20:53 BP 126/77 11/21/22 20:53 Pulse Ox 100 11/21/22 20:53 O2 Del Method Room Air 11/21/22 14:00 Data NPU 11/15/22 00:51 11/15/22 00:51 A&P Assessment and plan (1) Psychotic disorder: (2) Paranoia (psychosis): (3) Acute dehydration: (4) Delusions: (5) Depression: (6) DOMINIQUE (generalized anxiety disorder): Plan This is a 52 year old white female with a history of trauma and genetic loading for addiction issues who presents about 9 months after her last hospitalization endorsing that she is doing fine and not sure why she has been brought to the hospital. Currently off of her medications. 1. Continue off medication and restarted Abilify 5 mg. Plan to switch to long-acting injection prior to discharge as patient required forced medication during last hospitalization. 2. Encourage individual, group and milieu therapy 3. Continue q-15 minute check for safety 4. 21-day hold paperwork submitted in hearing will be on 11/25/2022. We will give her the injection as soon as she agrees and or the hearing concludes. Involuntary Hold Information 96 Hour Hold: 96 Hour Involuntary Admission: Yes 96 Hour Hold Ending Date: 11/24/22 96 Hour Hold Ending Time: 00:01 Attestations NPU Medical Necessity Statement*: Inpatient hospitalization is medically necessary and the clinically appropriate intervention at this time. We will monitor medications and make changes as indicated. Likely length of stay is 6-10 days. But possibly longer if patient unwilling to restart long-acting injectable. The patient will depend on whether she agrees to long-acting injection but likely plan to submit for 21-day hold. Coding Level of Care Code Acute Code for [facility] Fwd Diagnoses Psychotic disorder F29 Paranoia (psychosis) F22 Acute dehydration E86.0 Delusions F22 Depression F32.9 DOMNIIQUE (generalized anxiety disorder) F41.1
--- NOTE | 2022-11-21 19:39 | PC.NURSE ---
after being served by [facility] for [address] pt became upset and went to her room. at that time I went to pt room to talk with her. pt stated that the reason she is here is because of her cousin calling the police because she sent her a text. pt then stated that her cousin wired her whole house up with camera and she knows everything she does, that she sees her everywhere she goes, when she goes to the grocery store she is there when she goes to the doctors she is shows up, pt then stated that she knows she has camera because she hears the motors in the ceiling fans as the camera is coming down to record her. pt then stated that her cousin wired speakers on the outside and played birds sounds really loud and that she knew it because birds do not sing that loud. pt then stated that when she left her house one time an when i came home there were mice and poop everywhere on the the counters and on the floors, i tried to clean it up but finally i stopped and i didn't want to have my cousin see me cry so i just let the mice go even when I went to bed and layed down they ran all over me. pt then stated when she would call 911 to reeport something missing, her cousin and her cousins had some how had her phone directed to them and they would say oh you are related to the person who worked at [facility] so I know they are in my phone.
[2022-11-21] MEDS: amitriptyline 25 mg Tablet 50 MG PO (20:08)
[2022-11-21] MEDS: acetaminophen 325 mg Tablet 650 MG PO (20:08)
[2022-11-21 20:53] VITALS: BP 126/77; PULSE 107; RESP 16; TEMP 36.8; O2SAT 100
[2022-11-22] MEDS: nicotine 4 mg lozenge MUCOUS MEM ×12 (01:27→23:23)
[2022-11-22] MEDS: HYDROcodone-acetaminophen 5-325 mg Tablet 0.5 TAB PO ×2 (02:28→10:58)
[2022-11-22 06:00] VITALS: BP 107/72; PULSE 87; RESP 18; TEMP 36.7; O2SAT 100
[2022-11-22] MEDS: ARIPiprazole 10 mg Tablet 5 MG PO (08:49)
[2022-11-22] MEDS: levothyroxine 88 mcg Tablet PO (08:50)
[2022-11-22] MEDS: estradiol 1 mg Tablet PO (08:51)
[2022-11-22] MEDS: tizanidine 4 mg Tablet PO ×3 (08:53→20:40)
--- NOTE | 2022-11-22 12:13 | W.PM.NPUPNS ---
Subjective NPU Subjective: Patient presented today reporting that she is feeling better with the dose of Abilify as it is. We discussed the fact that the milligrams is likely better dose for and that we would prefer that she have the medication in a injectable form. We discussed concerns we have about her place of residence and I returned back to the place that is reportedly still deplorable but she argues that she has cleaned up. Other times though she has reported to staff horrible conditions with mice etc. we agreed to allow her to have 1 more day with the Abilify 5 mg. We discussed likely increasing to 10 mg tomorrow which is resistant to. She is aware of the 21-day hearing that is scheduled for Thursday. Mental Status Exam MSE Comments: This is a slender white female in hospital scrubs with adequate grooming and eye contact. No abnormal involuntary motor movements appreciated other than some mild psychomotor retardation. She was cooperative with exam in no acute distress. Speech was normal rate and volume. Mood described okay, her affect is congruent. Thought process: linear, logical Thought content: patient denied suicidal or homicidal ideation, there were no delusions reported but paranoid and persecutory delusions noted and she denied auditory or visual hallucinations. Attention and concentration are intact. and Her recent and remote memory were grossly intact, but concerns exist about the reliability of some of the information secondary to paranoia. She is alert and oriented x3. Insight and judgment are limited and impulse control appears limited. 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 Currently off of her medications. 1. Continue off medication and restarted Abilify 5 mg. Plan to switch to long-acting injection prior to discharge as patient required forced medication during last hospitalization. Working on increasing Abilify to 10 mg po q daily. 2. Encourage individual, group and milieu therapy 3. Continue q-15 minute check for safety 4. 21-day hold paperwork submitted in hearing will be on 11/25/2022. We will give her the injection as soon as she agrees and or the hearing concludes. Involuntary Hold Information 96 Hour Hold: 96 Hour Involuntary Admission: Yes 96 Hour Hold Ending Date: 11/24/22 96 Hour Hold Ending Time: 00:01 Attestations NPU Medical Necessity Statement*: Inpatient hospitalization is medically necessary and the clinically appropriate intervention at this time. We will monitor medications and make changes as indicated. Likely length of stay is 6-10 days. But possibly longer if patient unwilling to restart long-acting injectable. The patient will depend on whether she agrees to long-acting injection but likely plan to submit for 21-day hold. Coding Level of Care Code Acute Code for [facility] Fwd Diagnoses Psychotic disorder F29 Paranoia (psychosis) F22 Acute dehydration E86.0 Delusions F22 Depression F32.9 DOMINIQUE (generalized anxiety disorder) F41.1
[2022-11-22] MEDS: diphenhydrAMINE 50 mg Capsule PO ×2 (13:01→16:46)
[2022-11-22 14:00] VITALS: BP 112/71; PULSE 90; RESP 17; TEMP 36.6; O2SAT 100
[2022-11-22] MEDS: naproxen 500 mg Tablet 250 MG PO (14:17)
[2022-11-22] MEDS: amitriptyline 25 mg Tablet 50 MG PO (20:40)
[2022-11-22] MEDS: acetaminophen 325 mg Tablet 650 MG PO (20:42)
[2022-11-22 21:28] VITALS: BP 108/72; PULSE 92; RESP 15; TEMP 36.6; O2SAT 100
[2022-11-23] MEDS: nicotine 4 mg lozenge MUCOUS MEM ×8 (05:26→21:19)
[2022-11-23] MEDS: HYDROcodone-acetaminophen 5-325 mg Tablet 0.5 TAB PO ×2 (05:34→13:37)
[2022-11-23 06:00] VITALS: BP 115/76; PULSE 97; RESP 16; TEMP 36.7; O2SAT 96
[2022-11-23] MEDS: levothyroxine 88 mcg Tablet PO (08:53)
[2022-11-23] MEDS: estradiol 1 mg Tablet PO (08:53)
[2022-11-23] MEDS: ARIPiprazole 10 mg Tablet 5 MG PO (08:53)
[2022-11-23] MEDS: naproxen 500 mg Tablet 250 MG PO ×2 (08:59→21:55)
[2022-11-23] MEDS: tizanidine 4 mg Tablet PO ×2 (08:59→17:35)
--- NOTE | 2022-11-23 10:30 | W.PM.NPUPNS ---
Subjective NPU Subjective: Patient presented today reporting that she is afraid of the increase in medication and afraid of the injection. However we continued to discuss the importance of creating this foundation for her to have her ability to have independence. She reported a plan to take injection tomorrow. We discussed the likelihood that she will need to take the 1 month injection tomorrow but that we would have her follow-up with the 2-month injection. Mental Status Exam MSE Comments: This is a slender white female in hospital scrubs with adequate grooming and eye contact. No abnormal involuntary motor movements appreciated other than some mild psychomotor retardation. She was cooperative with exam in no acute distress. Speech was normal rate and volume. Mood described okay but anxious about the injection, her affect is congruent. Thought process: linear, logical Thought content: patient denied suicidal or homicidal ideation, there were no delusions reported but paranoid and persecutory delusions noted and she denied auditory or visual hallucinations. Attention and concentration are intact. and Her recent and remote memory were grossly intact, but concerns exist about the reliability of some of the information secondary to paranoia. She is alert and oriented x3. Insight and judgment are limited and impulse control appears limited. 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 Currently off of her medications. 1. Continue off medication and restarted Abilify 5 mg. Plan to switch to long-acting injection prior to discharge as patient required forced medication during last hospitalization. Increase Abilify to 10 mg po q daily in the morning. 2. Encourage individual, group and milieu therapy 3. Continue q-15 minute check for safety 4. 21-day hold paperwork submitted in hearing will be on 11/25/2022. We will give her the injection as soon as she agrees and or the hearing concludes. Involuntary Hold Information 96 Hour Hold: 96 Hour Involuntary Admission: Yes 96 Hour Hold Ending Date: 11/24/22 96 Hour Hold Ending Time: 00:01 Attestations NPU Medical Necessity Statement*: Inpatient hospitalization is medically necessary and the clinically appropriate intervention at this time. We will monitor medications and make changes as indicated. Likely length of stay is 5-9 days. But possibly longer if patient unwilling to restart long-acting injectable. The patient will depend on whether she agrees to long-acting injection but likely plan to submit for 21-day hold. Coding Level of Care Code Acute Code for [facility] Fwd Diagnoses Psychotic disorder F29 Paranoia (psychosis) F22 Acute dehydration E86.0 Delusions F22 Depression F32.9 DOMINIQUE (generalized anxiety disorder) F41.1
[2022-11-23 14:00] VITALS: BP 121/75; PULSE 97; RESP 16; TEMP 36.6; O2SAT 100
[2022-11-23] MEDS: diphenhydrAMINE 50 mg Capsule PO ×2 (17:35→21:44)
[2022-11-23] MEDS: amitriptyline 25 mg Tablet 50 MG PO (20:02)
[2022-11-23] MEDS: acetaminophen 325 mg Tablet 650 MG PO (20:02)
[2022-11-23 20:21] VITALS: BP 104/70; PULSE 99; RESP 16; TEMP 36.7; O2SAT 100
[2022-11-24] MEDS: nicotine 4 mg lozenge MUCOUS MEM ×12 (00:12→23:29)
[2022-11-24] MEDS: tizanidine 4 mg Tablet PO ×4 (02:06→20:53)
[2022-11-24] MEDS: HYDROcodone-acetaminophen 5-325 mg Tablet 0.5 TAB PO ×2 (02:25→11:42)
[2022-11-24] MEDS: diphenhydrAMINE 50 mg Capsule PO ×4 (03:56→20:56)
--- NOTE | 2022-11-24 04:06 | PC.NURSE ---
pt c/o continued pain. requested norco and flexeril. administered, will continue to monitor.
[2022-11-24 06:00] VITALS: BP 103/69; PULSE 90; RESP 16; TEMP 36.5; O2SAT 99
[2022-11-24] MEDS: naproxen 500 mg Tablet 250 MG PO ×2 (08:03→23:33)
[2022-11-24] MEDS: estradiol 1 mg Tablet PO (08:03)
[2022-11-24] MEDS: levothyroxine 88 mcg Tablet PO (08:03)
[2022-11-24] MEDS: ARIPiprazole 10 mg Tablet PO (08:03)
--- NOTE | 2022-11-24 08:06 | PC.NURSE ---
Patient refused triamcinolone ointment this AM. Stated it was too messy and didn't want it, but said if she felt she needed something else she would ask.
[2022-11-24] MEDS: ARIPiprazole Maintena 400 MG IM (12:28)
[2022-11-24 14:00] VITALS: BP 138/76; PULSE 110; RESP 18; TEMP 36.6; O2SAT 98
--- NOTE | 2022-11-24 14:05 | PC.NURSE ---
Patient initially refused to take abilify injection but after a long discussion with this RN she agreed to take it. Patient tolerated injection and is now pacing hallway.
--- NOTE | 2022-11-24 16:24 | P.NPUPN_ITS ---
Subjective NPU Subjective: Patient presented today reporting that she is doing okay. After some resistance she took the Abilify Maintena injection with a plan to change to the Abilify Asimtufii injection. We discussed her 21 day hold hearing tomorrow and concerns that that us to this route. Otherwise she denies symptoms and reports that she feels like she is ready to go home. She continues to downplay the circumstances of her living arrangements. Mental Status Exam MSE Comments: This is a slender white female in hospital scrubs with adequate grooming and eye contact. No abnormal involuntary motor movements appreciated other than some mild psychomotor retardation. She was cooperative with exam in no acute dis tress. Speech was normal rate and volume. Mood described okay but anxious about the injection, her affect is congruent. Thought process: linear, logical Thought content: patient denied suicidal or homicidal ideation, there were no delusions reported but paranoid and persecutory delusions noted and she denied auditory or visual hallucinations. Attention and concentration are intact. and Her recent and remote memory were grossly intact, but concerns exist about the reliability of some of the information secondary to paranoia. She is alert and oriented x3. Insight and judgment are limited and impulse control appears limited. 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 Currently off of her medications. 1. Continue off medication and restarted Abilify 5 mg. Plan to switch to long-acting injection prior to discharge as patient required forced medication during last hospitalization. Increased Abilify to 10 mg po q daily in the morning. And gave the Abilify Maintena 400 mg IM injection. 2. Encourage individual, group and milieu therapy 3. Continue q-15 minute check for safety 4. 21-day hold paperwork submitted in hearing will be on 11/25/2022. We will give her the injection as soon as she agrees and or the hearing concludes. Involuntary Hold Information 96 Hour Hold: 96 Hour Involuntary Admission: Yes 96 Hour Hold Ending Date: 11/24/22 96 Hour Hold Ending Time: 00:01 Attestations NPU Medical Necessity Statement*: Inpatient hospitalization is medically necessary and the clinically appropriate intervention at this time. We will monitor medications and make changes as indicated. Likely length of stay is 5-9 days. But possibly longer if patient unwilling to restart long-acting injectable. The patient will depend on whether she agrees to long-acting injection but likely plan to submit for 21-day hold. Coding Level of Care Code Acute Code for [facility] Diagnoses Psychotic disorder F29 Paranoia (psychosis) F22 Acute dehydration E86.0 Delusions F22 Depression F32.9 DOMINIQUE (generalized anxiety disorder) F41.1
[2022-11-24 20:32] VITALS: BP 109/73; PULSE 94; RESP 18; TEMP 36.7; O2SAT 100
[2022-11-24] MEDS: amitriptyline 25 mg Tablet 50 MG PO (20:53)
[2022-11-24] MEDS: acetaminophen 325 mg Tablet 650 MG PO (21:36)
[2022-11-25] MEDS: HYDROcodone-acetaminophen 5-325 mg Tablet 0.5 TAB PO ×3 (01:19→20:47)
[2022-11-25] MEDS: nicotine 4 mg lozenge MUCOUS MEM ×11 (01:20→22:58)
[2022-11-25] MEDS: diphenhydrAMINE 50 mg Capsule PO ×2 (02:34→15:34)
[2022-11-25 06:00] VITALS: BP 115/70; PULSE 90; RESP 16; TEMP 36.9; O2SAT 100
[2022-11-25] MEDS: levothyroxine 88 mcg Tablet PO (08:04)
[2022-11-25] MEDS: tizanidine 4 mg Tablet PO ×2 (08:04→16:28)
[2022-11-25] MEDS: estradiol 1 mg Tablet PO (08:04)
[2022-11-25] MEDS: ARIPiprazole 10 mg Tablet PO (08:04)
[2022-11-25 14:00] VITALS: BP 125/73; PULSE 101; RESP 16; TEMP 36.6; O2SAT 100
--- NOTE | 2022-11-25 15:37 | PC.NURSE ---
off unit for [address]
[2022-11-25] MEDS: naproxen 500 mg Tablet 250 MG PO (17:14)
--- NOTE | 2022-11-25 17:51 | P.NPUPN_ITS ---
Subjective NPU Subjective: Patient presented today reporting that she is feeling better. She did go to the 21-day hold hearing and testified. She did really struggle in cross examination by the hospital salesperson pets [employer] pet supplies. Her paranoia was exposed understand that she identified a belief that the mice in her house were put there by someone. She also identified her continued belief that she does not have a mental illness and questions whether medication is necessary for her. Which underscore the risk and need for her to be on the long-acting injectable in her case the every 2 month Abilify Asimtufii. Mental Status Exam MSE Comments: This is a slender white female in hospital scrubs with adequate grooming and eye contact. No abnormal involuntary motor movements appreciated other than some mild psychomotor retardation. She was cooperative with exam in no acute distress. Speech was normal rate and volume. Mood described okay but anxious about the injection, her affect is congruent. Thought process: linear, logical Thought content: patient denied suicidal or homicidal ideation, there were no delusions reported but paranoid and persecutory delusions noted and she denied auditory or visual hallucinations. Attention and concentration are intact. and Her recent and remote memory were grossly intact, but concerns exist about the reliability of some of the information secondary to paranoia. She is alert and o riented x3. Insight and judgment are limited and impulse control appears limited. Vitals/I&O/Wt Last Vital Signs Temp 97.6 F 11/25/22 22:00 Pulse 92 11/25/22 22:00 Resp 24 H 11/25/22 22:00 BP 109/73 11/25/22 22:00 Pulse Ox 99 11/25/22 22:00 O2 Del Method Room Air 11/25/22 22:00 Data NPU 11/15/22 00:51 11/15/22 00:51 A&P Assessment and plan (1) Psychotic disorder: (2) Paranoia (psychosis): (3) Acute dehydration: (4) Delusions: (5) Depression: (6) DOMINIQUE (generalized anxiety disorder): (7) Schizophrenia: Plan This is a 52 year old white female with a history of trauma and genetic loading for addiction issues who presents about 9 months after her last hospitalization endorsing that she is doing fine and not sure why she has been brought to the hospital. Currently off of her medications. 1. Continue off medication and restarted Abilify 5 mg. Plan to switch to long-acting injection prior to discharge as patient required forced medication during last hospitalization. Increased Abilify to 10 mg po q daily 11/24/22 . And gave the Abilify Maintena 400 mg IM injection 11/24/22. 2. Encourage individual, group and milieu therapy 3. Continue q-15 minute check for safety 4. 21-day hold hearing today at 3 PM and she was placed on a 21-day hold. Involuntary Hold Information 96 Hour Hold: 96 Hour Involuntary Admission: Yes 96 Hour Hold Ending Date: 11/24/22 96 Hour Hold Ending Time: 00:01 Attestations NPU Medical Necessity Statement*: Inpatient hospitalization is medically necessary and the clinically appropriate intervention at this time. We will monitor medications and make changes as indicated. Likely length of stay is 5-9 days. Coding Level of Care Code Acute Code for [facility] Fwd Diagnoses Psychotic disorder F29 Paranoia (psychosis) F22 Acute dehydration E86.0 Delusions F22 Depression F32.9 DOMINIQUE (generalized anxiety disorder) F41.1 Schizophrenia F20.9
[2022-11-25 20:00] VITALS: BP 109/73; PULSE 92; RESP 24; TEMP 36.4; O2SAT 99
[2022-11-25] MEDS: amitriptyline 25 mg Tablet 50 MG PO (20:48)
[2022-11-25 22:00] VITALS: BP 109/73; PULSE 92; RESP 24; TEMP 36.4; O2SAT 99
[2022-11-25] MEDS: hyDROXYzine 25 mg Capsule 50 MG PO (23:10)
[2022-11-26] MEDS: tizanidine 4 mg Tablet PO ×3 (00:48→17:39)
[2022-11-26] MEDS: nicotine 4 mg lozenge MUCOUS MEM ×9 (01:01→21:30)
[2022-11-26] MEDS: OLANZapine 5 mg ODT PO (01:24)
[2022-11-26] MEDS: acetaminophen 325 mg Tablet 650 MG PO ×2 (02:18→19:32)
[2022-11-26] MEDS: HYDROcodone-acetaminophen 5-325 mg Tablet 0.5 TAB PO ×2 (05:33→17:39)
[2022-11-26 06:00] VITALS: BP 118/64; PULSE 91; RESP 16; O2SAT 98
[2022-11-26] MEDS: ARIPiprazole 10 mg Tablet PO (08:10)
[2022-11-26] MEDS: estradiol 1 mg Tablet PO (08:10)
[2022-11-26] MEDS: levothyroxine 88 mcg Tablet PO (08:11)
[2022-11-26] MEDS: naproxen 500 mg Tablet 250 MG PO (08:48)
--- NOTE | 2022-11-26 09:26 | PC.NURSE ---
PT HAS BLISTER ON LEFT PAD OF FOOT CLEANED WITH NORMAL SALINE, PATTED DRY, DRESSED WITH VENAGUARD. WENT TO CRISIS CENTER AND WAS GIVEN SMITH PAIR OF ANKLET SOCKS TO HELP WITH FRICTION ON INJURED SITE.
--- NOTE | 2022-11-26 10:21 | P.NPUPN_ITS ---
Subjective NPU Subjective: Patient presented today reporting that she was tolerating the injection along with the medication which she is taking daily. We have discussing what options to be for discharge which created some struggle as she continues to be resistant to the idea of needing help and avoiding returning to her home in its current condition. Mental Status Exam MSE Comments: This is a slender white female in hospital scrubs with adequate grooming and eye contact. No abnormal involuntary motor movements appreciated other than some mild psychomotor retardation. She was cooperative with exam in no acute dis tress. Speech was normal rate and volume. Mood described okay, her affect is congruent. Thought process: linear, logical Thought content: patient denied suicidal or homicidal ideation, there were no delusions reported but paranoid and persecutory delusions noted and she denied auditory or visual hallucinations. Attention and concentration are intact. and Her recent and remote memory were grossly intact, but concerns exist about the reliability of some of the information secondary to paranoia. She is alert and oriented x3. Insight and judgment are limited and impulse control appears limited. Vitals/I&O/Wt Last Vital Signs Temp 97.6 F 11/25/22 22:00 Pulse 91 11/26/22 06:00 Resp 16 11/26/22 06:00 BP 118/64 11/26/22 06:00 Pulse Ox 98 11/26/22 06:00 O2 Del Method Room Air 11/26/22 06:00 Data NPU 11/15/22 00:51 11/15/22 00:51 A&P Assessment and plan (1) Psychotic disorder: (2) Paranoia (psychosis): (3) Acute dehydration: (4) Delusions: (5) Depression: (6) DOMINIQUE (generalized anxiety disorder): (7) Schizophrenia: Plan This is a 52 year old white female with a history of trauma and genetic loading for addiction issues who presents about 9 months after her last hospitalization endorsing that she is doing fine and not sure why she has been brought to the hospital. Currently off of her medications. 1. Continue off medication and restarted Abilify 5 mg. Plan to switch to long-acting injection prior to discharge as patient required forced medication during last hospitalization. Increased Abilify to 10 mg po q daily 11/24/22 . And gave the Abilify Maintena 400 mg IM injection 11/24/22. 2. Encourage individual, group and milieu therapy 3. Continue q-15 minute check for safety 4. 21-day hold hearing today at 3 PM and she was placed on a 21-day hold. Involuntary Hold Information 96 Hour Hold: 96 Hour Involuntary Admission: Yes 96 Hour Hold Ending Date: 11/24/22 96 Hour Hold Ending Time: 00:01 Attestations NPU Medical Necessity Statement*: Inpatient hospitalization is medically necessary and the clinically appropriate intervention at this time. We will monitor medications and make changes as indicated. Likely length of stay is 5-9 days. Coding Level of Care Code Acute Code for [facility] Diagnoses Psychotic disorder F29 Paranoia (psychosis) F22 Acute dehydration E86.0 Delusions F22 Depression F32.9 DOMINIQUE (generalized anxiety disorder) F41.1 Schizophrenia F20.9
[2022-11-26] MEDS: diphenhydrAMINE 50 mg Capsule PO ×2 (11:53→21:24)
[2022-11-26 14:00] VITALS: BP 121/68; PULSE 90; RESP 16; TEMP 36.6; O2SAT 98
[2022-11-26] MEDS: amitriptyline 25 mg Tablet 50 MG PO (19:32)
[2022-11-26 20:39] VITALS: BP 117/74; PULSE 95; RESP 18; TEMP 36.6; O2SAT 99
[2022-11-26] MEDS: CLONazepam 1 mg Tablet PO (21:37)
[2022-11-27] MEDS: nicotine 4 mg lozenge MUCOUS MEM ×9 (04:32→20:16)
[2022-11-27] MEDS: HYDROcodone-acetaminophen 5-325 mg Tablet 0.5 TAB PO ×2 (05:02→14:08)
[2022-11-27] MEDS: tizanidine 4 mg Tablet PO ×3 (05:03→20:16)
[2022-11-27] MEDS: blistex lip oint 7 gm Tube 1 APPLIC TOPICAL (05:16)
[2022-11-27] MEDS: neomycin-poly-bacitracin oint 28 gm 1 APPLIC TOPICAL (05:26)
[2022-11-27 06:00] VITALS: BP 105/71; PULSE 98; RESP 18; TEMP 36.6; O2SAT 96
[2022-11-27] MEDS: estradiol 1 mg Tablet PO (08:31)
[2022-11-27] MEDS: ARIPiprazole 10 mg Tablet PO (08:31)
[2022-11-27] MEDS: levothyroxine 88 mcg Tablet PO (08:31)
[2022-11-27] MEDS: naproxen 500 mg Tablet 250 MG PO ×2 (09:10→21:10)
[2022-11-27] MEDS: diphenhydrAMINE 50 mg Capsule PO (10:08)
[2022-11-27 14:00] VITALS: BP 105/69; PULSE 95; RESP 16; TEMP 36.6; O2SAT 100
[2022-11-27] MEDS: acetaminophen 325 mg Tablet 650 MG PO (17:32)
--- NOTE | 2022-11-27 18:04 | P.NPUPN_ITS ---
Subjective NPU Subjective: Patient is in today again as a reluctant patient. We discussed importance of having a viable plan for discharge. She continues to report a willingness to work with the social work team on something other than a plan to return to her home that she reports is now well kept but we will verify. She reports tolerating the Abilify injection at this time. Mental Status Exam MSE Comments: This is a slender white female in hospital scrubs with adequate grooming and eye contact. No abnormal involuntary motor movements appreciated other than some mild psychomotor retardation. She was cooperative with exam in no acute distress. Speech was normal rate and volume. Mood described okay, her affect is congruent. Thought process: linear, logical Thought content: patient denied suicidal or homicidal ideation, there were no delusions reported but paranoid and persecutory delusions noted and she denied auditory or visual hallucinations. Attention and concentration are intact. and Her recent and remote memory were grossly intact, but concerns exist about the reliability of some of the information secondary to paranoia. She is alert and oriented x3. Insight and judgment are limited and impulse control appears limited. Vitals/I&O/Wt Last Vital Signs Temp 98.6 F 11/27/22 20:24 Pulse 90 11/27/22 20:24 Resp 18 11/27/22 20:24 BP 121/75 11/27/22 20:24 Pulse Ox 97 11/27/22 20:24 O2 Del Method Room Air 11/27/22 20:24 Data NPU 11/15/22 00:51 11/15/22 00:51 A&P Assessment and plan (1) Psychotic disorder: (2) Paranoia (psychosis): (3) Acute dehydration: (4) Delusions: (5) Depression: (6) DOMINIQUE (generalized anxiety disorder): (7) Schizophrenia: Plan This is a 52 year old white female with a history of trauma and genetic loading for addiction issues who presents about 9 months after her last hospitalization endorsing that she is doing fine and not sure why she has been brought to the hospital. Currently off of her medications. 1. Continue off medication and restarted Abilify 5 mg. Plan to switch to long-acting injection prior to discharge as patient required forced medication during last hospitalization. Increased Abilify to 10 mg po q daily 11/24/22 . And gave the Abilify Maintena 400 mg IM injection 11/24/22. 2. Encourage individual, group and milieu therapy 3. Continue q-15 minute check for safety 4. 21-day hold hearing today at 3 PM and she was placed on a 21-day hold. Involuntary Hold Information 96 Hour Hold: 96 Hour Involuntary Admission: Yes 96 Hour Hold Ending Date: 11/24/22 96 Hour Hold Ending Time: 00:01 Attestations NPU Medical Necessity Statement*: Inpatient hospitalization is medically necessary and the clinically appropriate intervention at this time. We will monitor medications and make changes as i ndicated. Likely length of stay is 4-8 days. Coding Level of Care Code Acute Code for [facility] Fwd Diagnoses Psychotic disorder F29 Paranoia (psychosis) F22 Acute dehydration E86.0 Delusions F22 Depression F32.9 DOMINIQUE (generalized anxiety disorder) F41.1 Schizophrenia F20.9
[2022-11-27] MEDS: OLANZapine 5 mg ODT PO (20:16)
[2022-11-27] MEDS: amitriptyline 25 mg Tablet 50 MG PO (20:16)
[2022-11-27 20:24] VITALS: BP 121/75; PULSE 90; RESP 18; TEMP 37; O2SAT 97
[2022-11-27] MEDS: CLONazepam 1 mg Tablet PO (21:22)
[2022-11-28] MEDS: nicotine 4 mg lozenge MUCOUS MEM ×7 (01:47→20:06)
[2022-11-28 06:00] VITALS: BP 113/73; PULSE 106; RESP 18; TEMP 37; O2SAT 94
[2022-11-28] MEDS: tizanidine 4 mg Tablet PO ×3 (06:20→20:14)
[2022-11-28] MEDS: HYDROcodone-acetaminophen 5-325 mg Tablet 0.5 TAB PO ×2 (06:20→14:42)
[2022-11-28] MEDS: naproxen 500 mg Tablet 250 MG PO ×2 (09:08→20:14)
[2022-11-28] MEDS: diphenhydrAMINE 50 mg Capsule PO ×2 (09:08→13:25)
[2022-11-28] MEDS: levothyroxine 88 mcg Tablet PO (09:10)
[2022-11-28] MEDS: ARIPiprazole 10 mg Tablet PO (09:10)
[2022-11-28] MEDS: estradiol 1 mg Tablet PO (09:10)
[2022-11-28] MEDS: acetaminophen 325 mg Tablet 650 MG PO ×2 (12:06→20:35)
--- NOTE | 2022-11-28 13:02 | P.NPUPN_ITS ---
Subjective NPU Subjective: Patient presents today again resistent to being here and on medication, but having improved insight. We discussed importance of having a viable plan for discharge. She continues to report a willingness to work with the social work team on something other than a plan to return to her home that she reports is now well kept but we will verify. She denies side effects to the medication. Mental Status Exam MSE Comments: This is a slender white female in hospital scrubs with adequate grooming and eye contact. No abnormal involuntary motor movements appreciated other than some mild psychomotor retardation. She was cooperative with exam in no acute distress. Speech was normal rate and volume. Mood described okay, her affect is congruent, but anxious. Thought process: linear, logical Thought content: patient denied suicidal or homicidal ideation, there were no delusions reported but paranoid and persecutory delusions noted and she denied auditory or visual hallucinations. Attention and concentration are intact. and Her recent and remote memory were grossly intact, but concerns exist about the reliability of some of the information secondary to paranoia. She is alert and oriented x3. Insight and judgment are limited and impulse control appears limited. 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 Currently off of her medications. 1. Continue off medication and restarted Abilify 5 mg. Plan to switch to long-acting injection prior to discharge as patient required forced medication during last hospitalization. Increased Abilify to 10 mg po q daily 11/24/22 . And gave the Abilify Maintena 400 mg IM injection 11/24/22. 2. Encourage individual, group and milieu therapy 3. Continue q-15 minute check for safety 4. 21-day hold hearing today at 3 PM and she was placed on a 21-day hold. Involuntary Hold Information 96 Hour Hold: 96 Hour Involuntary Admission: Yes 96 Hour Hold Ending Date: 11/24/22 96 Hour Hold Ending Time: 00:01 Attestations NPU Medical Necessity Statement*: Inpatient hospitalization is medically necessary and the clinically appropriate intervention at this time. We will monitor medications and make changes as indicated. Likely length of stay is 4-8 days. Coding Level of Care Code Acute Code for [facility] Fwd Diagnoses Psychotic disorder F29 Paranoia (psychosis) F22 Acute dehydration E86.0 Delusions F22 Depression F32.9 DOMINIQUE (generalized anxiety disorder) F41.1 Schizophrenia F20.9
[2022-11-28 14:00] VITALS: BP 112/79; PULSE 115; RESP 18; TEMP 36.6; O2SAT 99
[2022-11-28] MEDS: OLANZapine 5 mg ODT PO ×2 (16:41→20:06)
[2022-11-28] MEDS: amitriptyline 25 mg Tablet 50 MG PO (20:06)
[2022-11-28] MEDS: CLONazepam 1 mg Tablet PO (20:35)
[2022-11-28 20:41] VITALS: BP 107/68; PULSE 97; RESP 18; TEMP 36.4; O2SAT 96
[2022-11-29] MEDS: nicotine 4 mg lozenge MUCOUS MEM ×10 (00:55→23:15)
[2022-11-29] MEDS: diphenhydrAMINE 50 mg Capsule PO ×3 (01:01→18:00)
[2022-11-29] MEDS: haloperidol 5 mg Tablet PO (02:03)
[2022-11-29] MEDS: OLANZapine 5 mg ODT PO ×5 (02:03→20:12)
[2022-11-29 06:00] VITALS: BP 121/79; PULSE 93; RESP 16; TEMP 36.5; O2SAT 97
[2022-11-29] MEDS: tizanidine 4 mg Tablet PO ×3 (06:33→23:15)
[2022-11-29] MEDS: HYDROcodone-acetaminophen 5-325 mg Tablet 0.5 TAB PO ×2 (06:34→14:49)
[2022-11-29] MEDS: neomycin-poly-bacitracin oint 28 gm 1 APPLIC TOPICAL (08:30)
[2022-11-29] MEDS: ARIPiprazole 10 mg Tablet PO (08:30)
[2022-11-29] MEDS: levothyroxine 88 mcg Tablet PO (08:30)
[2022-11-29] MEDS: estradiol 1 mg Tablet PO (08:30)
[2022-11-29] MEDS: naproxen 500 mg Tablet 250 MG PO (10:25)
--- NOTE | 2022-11-29 12:18 | PC.NURSE ---
Administered ODT Zyprexa to patient for anxiety. Patient reports being anxious about being here and about being in pain.
[2022-11-29 14:00] VITALS: BP 118/74; PULSE 95; RESP 16; TEMP 36.3; O2SAT 98
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
[2022-11-29 19:50] VITALS: BP 115/71; PULSE 91; RESP 17; TEMP 36.6; O2SAT 98
[2022-11-29] MEDS: CLONazepam 1 mg Tablet PO (20:12)
[2022-11-29] MEDS: amitriptyline 25 mg Tablet 50 MG PO (20:12)
[2022-11-29] MEDS: acetaminophen 325 mg Tablet 650 MG PO (20:12)
[2022-11-29] MEDS: hyDROXYzine 25 mg Capsule 50 MG PO (23:15)
[2022-11-30] MEDS: nicotine 4 mg lozenge MUCOUS MEM ×8 (04:07→23:16)
[2022-11-30] MEDS: OLANZapine 5 mg ODT PO ×4 (04:07→18:19)
[2022-11-30] MEDS: HYDROcodone-acetaminophen 5-325 mg Tablet 0.5 TAB PO ×2 (04:27→14:57)
[2022-11-30] MEDS: naproxen 500 mg Tablet 250 MG PO ×2 (05:45→20:20)
[2022-11-30 06:00] VITALS: BP 108/69; PULSE 84; RESP 17; TEMP 36.6; O2SAT 100; BMI 23.8
[2022-11-30] MEDS: ARIPiprazole 10 mg Tablet PO (08:21)
[2022-11-30] MEDS: levothyroxine 88 mcg Tablet PO (08:22)
[2022-11-30] MEDS: estradiol 1 mg Tablet PO (08:22)
[2022-11-30] MEDS: tizanidine 4 mg Tablet PO ×2 (08:22→16:48)
--- NOTE | 2022-11-30 09:16 | PC.NURSE ---
refused scheduled Triamcinolone Acetonide cream this morning
[2022-11-30] MEDS: hyDROXYzine 25 mg Capsule 50 MG PO (11:25)
[2022-11-30] MEDS: acetaminophen 325 mg Tablet 650 MG PO ×2 (11:53→16:48)
[2022-11-30 14:00] VITALS: BP 115/74; PULSE 97; RESP 18; TEMP 36.6; O2SAT 100
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
[2022-11-30] MEDS: diphenhydrAMINE 50 mg Capsule PO ×2 (15:41→21:12)
--- NOTE | 2022-11-30 16:50 | PC.NURSE ---
PRN ZANAFLEX 4 MG GIVEN PO PER PT REQUEST & C/O SPASMS. MED SEEKING FOR ANY AND ALL PRN MEDICATIONS
[2022-11-30] MEDS: amitriptyline 25 mg Tablet 50 MG PO (20:18)
[2022-11-30] MEDS: CLONazepam 1 mg Tablet PO (20:36)
[2022-11-30 21:30] VITALS: BP 112/73; PULSE 83; RESP 18; TEMP 36.5; O2SAT 100
[2022-12-01] MEDS: hyDROXYzine 25 mg Capsule 50 MG PO ×2 (01:37→12:08)
[2022-12-01] MEDS: nicotine 4 mg lozenge MUCOUS MEM ×8 (01:37→20:48)
[2022-12-01] MEDS: HYDROcodone-acetaminophen 5-325 mg Tablet 0.5 TAB PO ×2 (05:02→17:05)
[2022-12-01] MEDS: tizanidine 4 mg Tablet PO ×2 (05:02→13:02)
[2022-12-01] MEDS: OLANZapine 5 mg ODT PO ×4 (05:17→17:49)
[2022-12-01 06:00] VITALS: BP 105/69; PULSE 84; RESP 16; TEMP 36.6; O2SAT 98
[2022-12-01] MEDS: levothyroxine 88 mcg Tablet PO (07:49)
[2022-12-01] MEDS: estradiol 1 mg Tablet PO (07:49)
[2022-12-01] MEDS: ARIPiprazole 10 mg Tablet PO (07:49)
[2022-12-01] MEDS: acetaminophen 325 mg Tablet 650 MG PO ×3 (07:50→20:48)
[2022-12-01] MEDS: diphenhydrAMINE 50 mg Capsule PO ×2 (07:51→20:48)
[2022-12-01 14:00] VITALS: BP 113/73; PULSE 92; RESP 17; TEMP 36.8; O2SAT 100
[2022-12-01] MEDS: naproxen 500 mg Tablet 250 MG PO (15:27)
--- NOTE | 2022-12-01 18:23 | P.NPUPN_ITS ---
Subjective NPU Subjective: Patient is a 52-year-old white female currently involuntarily hospitalized for psychosis particularly with paranoia. she continued to show evidence of active paranoia with concerns about family members and friends having been overly intrusive and messing with me . She continued to report significant back pain. She had reported a history of complete thyroidectomy and stated that she had needed to her thyroid medication adjusted as she was without a thyroid currently. She reported complaints of being cold and complained of recent hair loss. She reported difficulties with concentration but stated that she had been feeling calmer with her Abilify. she reported struggles with concentration. She continued to isolate herself on the milieu with limited interaction with her peers. Mental Status Exam MSE Comments: This is a slender white female in hospital scrubs with adequate grooming and eye contact. She was seen pacing through the hallway today. No abnormal involuntary motor movements appreciated other than some mild psychomotor retardation. She was cooperative with exam in no acute distress. Speech was normal in rate and volume. Mood described as all right. Her affect is blunted and mood incongruent. Thought process: linear, logical Thought content: patient denied suicidal or homicidal ideation. She endorsed ideas of persecution with some paranoid delusions present. Continued ideas of reference were noted. Attention and concentration are intact. and Her recent and remote memory were grossly intact, but concerns exist about the reliability of some of the information secondary to paranoia. She is alert and oriented x3. Insight and judgment are impaired. Her impulse control appears limited. 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 Currently off of her medications. 1. Increase Abilify to 15mg po q daily. Patient given the Abilify Maintena 400 mg IM injection 11/24/22. Check thyroid function tests. 2. Encourage individual, group and milieu therapy 3. Continue q-15 minute check for safety 4. Patient remains on 21 day hold. . Involuntary Hold Information 96 Hour Hold: 96 Hour Involuntary Admission: Yes 96 Hour Hold Ending Date: 11/24/22 96 Hour Hold Ending Time: 00:01 Attestations NPU 2 Medical Necessity Statement*: Inpatient hospitalization is medically necessary and the clinically appropriate intervention at this time. We will monitor medications and make changes as indicated. Her likely length of stay is 6-8 days. Coding Level of Care Code Acute Code for [facility] Diagnoses Psychotic disorder F29 Paranoia (psychosis) F22 Acute dehydration E86.0 Delusions F22 Depression F32.9 DOMINIQUE (generalized anxiety disorder) F41.1 Schizophrenia F20.9
[2022-12-01 19:40] VITALS: BP 105/66; PULSE 95; RESP 18; TEMP 36.6; O2SAT 98
[2022-12-01] MEDS: amitriptyline 25 mg Tablet 50 MG PO (20:48)
[2022-12-01] MEDS: CLONazepam 1 mg Tablet PO (20:48)
[2022-12-02] MEDS: nicotine 4 mg lozenge MUCOUS MEM ×9 (00:27→20:39)
[2022-12-02] MEDS: tizanidine 4 mg Tablet PO ×4 (00:42→21:29)
[2022-12-02] MEDS: OLANZapine 5 mg ODT PO ×4 (00:42→17:19)
[2022-12-02] MEDS: HYDROcodone-acetaminophen 5-325 mg Tablet 0.5 TAB PO ×3 (04:39→21:29)
[2022-12-02] MEDS: hyDROXYzine 25 mg Capsule 50 MG PO ×2 (04:48→21:43)
[2022-12-02 06:00] VITALS: BP 109/69; PULSE 84; RESP 18; TEMP 36.4; O2SAT 97
[2022-12-02] MEDS: docusate sodium 100 mg Capsule PO (08:16)
[2022-12-02] MEDS: ARIPiprazole 10 mg Tablet 15 MG PO (08:16)
[2022-12-02] MEDS: levothyroxine 88 mcg Tablet PO (08:16)
[2022-12-02] MEDS: diphenhydrAMINE 50 mg Capsule PO ×2 (08:16→15:09)
[2022-12-02] MEDS: estradiol 1 mg Tablet PO (08:16)
[2022-12-02] MEDS: benztropine 1 mg Tablet PO ×2 (08:16→17:19)
[2022-12-02 08:45] LABS: Thyroid Stimulating Hormone 8.05 uIU/mL (0.27-4.20)
[2022-12-02 10:50] LABS: Free T4 Free Thyroxine 1.34 ng/dL (0.82-1.77)
[2022-12-02 14:00] VITALS: BP 110/65; PULSE 96; RESP 18; TEMP 36.8; O2SAT 100
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
[2022-12-02 19:43] VITALS: BP 107/63; PULSE 84; RESP 16; TEMP 36.8; O2SAT 97
[2022-12-02] MEDS: CLONazepam 1 mg Tablet PO (20:39)
[2022-12-02] MEDS: amitriptyline 25 mg Tablet 50 MG PO (20:40)
[2022-12-02] MEDS: naproxen 500 mg Tablet 250 MG PO (20:45)
[2022-12-03] MEDS: nicotine 4 mg lozenge MUCOUS MEM ×7 (03:08→19:21)
[2022-12-03] MEDS: diphenhydrAMINE 50 mg Capsule PO ×3 (03:08→14:32)
[2022-12-03] MEDS: OLANZapine 5 mg ODT PO ×5 (03:35→21:03)
[2022-12-03] MEDS: tizanidine 4 mg Tablet PO ×3 (03:35→20:09)
[2022-12-03] MEDS: hyDROXYzine 25 mg Capsule 50 MG PO ×2 (03:58→19:20)
[2022-12-03] MEDS: ARIPiprazole 10 mg Tablet 15 MG PO (07:36)
[2022-12-03] MEDS: benztropine 1 mg Tablet PO ×2 (07:37→19:20)
[2022-12-03] MEDS: docusate sodium 100 mg Capsule PO (07:37)
[2022-12-03] MEDS: levothyroxine 88 mcg Tablet PO (07:37)
[2022-12-03] MEDS: HYDROcodone-acetaminophen 5-325 mg Tablet 0.5 TAB PO ×2 (07:37→20:09)
[2022-12-03] MEDS: estradiol 1 mg Tablet PO (07:37)
[2022-12-03] MEDS: naproxen 500 mg Tablet 250 MG PO (10:17)
--- NOTE | 2022-12-03 12:25 | PC.NURSE ---
PT REQUESTS SOMETHING FOR ANXIETY. PT REPORTS I AM VERY ANXIOUS. ZYPREXA MG GIVEN ORDERED FOR ANXIETY.
[2022-12-03] MEDS: acetaminophen 325 mg Tablet 650 MG PO (13:22)
[2022-12-03 14:00] VITALS: BP 111/65; PULSE 88; RESP 18; TEMP 36.6; O2SAT 100
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
[2022-12-03 19:38] VITALS: BP 116/73; PULSE 95; RESP 17; TEMP 37.2; O2SAT 100
[2022-12-03] MEDS: amitriptyline 25 mg Tablet 50 MG PO (20:09)
[2022-12-03] MEDS: CLONazepam 1 mg Tablet PO (20:09)
[2022-12-04] MEDS: OLANZapine 5 mg ODT PO ×3 (01:06→20:43)
[2022-12-04] MEDS: nicotine 4 mg lozenge MUCOUS MEM ×8 (01:06→21:27)
[2022-12-04] MEDS: tizanidine 4 mg Tablet PO ×3 (01:13→18:01)
[2022-12-04] MEDS: diphenhydrAMINE 50 mg Capsule PO ×4 (01:13→21:46)
[2022-12-04] MEDS: hyDROXYzine 25 mg Capsule 50 MG PO ×2 (01:29→18:01)
[2022-12-04] MEDS: naproxen 500 mg Tablet 250 MG PO ×2 (02:07→20:43)
[2022-12-04 06:00] VITALS: BP 115/71; PULSE 84; RESP 18; TEMP 36.5; O2SAT 100
[2022-12-04] MEDS: docusate sodium 100 mg Capsule PO (07:33)
[2022-12-04] MEDS: benztropine 1 mg Tablet PO ×2 (07:33→18:01)
[2022-12-04] MEDS: estradiol 1 mg Tablet PO (07:34)
[2022-12-04] MEDS: HYDROcodone-acetaminophen 5-325 mg Tablet 0.5 TAB PO ×2 (07:34→16:51)
[2022-12-04] MEDS: levothyroxine 100 mcg Tablet PO (07:34)
[2022-12-04] MEDS: ARIPiprazole 10 mg Tablet 15 MG PO (07:37)
[2022-12-04 14:00] VITALS: BP 128/74; PULSE 83; RESP 18; TEMP 36.6; O2SAT 95
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
[2022-12-04 20:27] VITALS: BP 105/70; PULSE 95; RESP 18; TEMP 36.6; O2SAT 98
[2022-12-04] MEDS: amitriptyline 25 mg Tablet 50 MG PO (20:42)
[2022-12-04] MEDS: CLONazepam 1 mg Tablet PO (20:43)
[2022-12-05] MEDS: nicotine 4 mg lozenge MUCOUS MEM ×10 (00:55→21:34)
[2022-12-05] MEDS: hyDROXYzine 25 mg Capsule 50 MG PO ×3 (00:55→16:22)
[2022-12-05] MEDS: HYDROcodone-acetaminophen 5-325 mg Tablet 0.5 TAB PO ×2 (01:11→11:32)
[2022-12-05] MEDS: tizanidine 4 mg Tablet PO ×2 (04:19→15:11)
[2022-12-05] MEDS: OLANZapine 5 mg ODT PO ×3 (05:39→19:03)
[2022-12-05 06:00] VITALS: BP 113/73; PULSE 84; RESP 16; TEMP 36.4; O2SAT 99
[2022-12-05] MEDS: ARIPiprazole 10 mg Tablet 15 MG PO (08:28)
[2022-12-05] MEDS: docusate sodium 100 mg Capsule PO (08:29)
[2022-12-05] MEDS: estradiol 1 mg Tablet PO (08:29)
[2022-12-05] MEDS: levothyroxine 100 mcg Tablet PO (08:29)
[2022-12-05] MEDS: benztropine 1 mg Tablet PO ×2 (08:29→17:08)
[2022-12-05 14:00] VITALS: BP 117/75; PULSE 92; RESP 18; TEMP 36.7; O2SAT 100
--- NOTE | 2022-12-05 15:08 | P.NPUPN_ITS ---
Subjective NPU Subjective: Patient is a 52-year-old white female currently involuntarily hospitalized for psychosis particularly with paranoia. The patient reported no side effects from her medication. The patient had complained of low energy for several months with reports of excess caffeine use. She had continued to perseverate regarding wanting medication to help better manage her pain as she states it had been reduced inappropriately. She reported no suicidal thoughts. She reported that she was encouraged to hear that her son had offered to put her on her property in a smaller home until they could decide whether to refurbish or demolition her house. She reported having a good visit with her brothers but stated that she still was worried about seeing her children. She had expressed less anger reg arding her hospitalization today stating that she was thinking better here and was feeling optimistic about leaving soon. Mental Status Exam MSE Comments: This is a slender white female in hospital scrubs with adequate grooming and eye contact. She was seen in her room today and was calm and cooperative. There were no abnormal involuntary motor movements appreciated other than some mild psychomotor slowing. She was cooperative with exam in no acute distress. Speech was normal in rate and volume. Mood described as okay. Her affect was blunted. Thought process: linear, logical Thought content: patient denied suicidal or homicidal ideation. There was less paranoia noted though she still expressed concern about her house being bugged. There was continued ideas of reference were present but it was less prominent. Attention and concentration are intact. Her recent and remote memory were grossly intact,She is alert and oriented x3. Insight was improving. Her judgment was also improving. Her impulse control appears limited. Vitals/I&O/Wt Last Vital Signs Temp 98.1 F 12/05/22 14:00 Pulse 92 12/05/22 14:00 Resp 18 12/05/22 14:00 BP 117/75 12/05/22 14:00 Pulse Ox 100 12/05/22 14:00 O2 Del Method Room Air 12/05/22 14:00 Data NPU 11/15/22 00:51 11/15/22 00:51 A&P Assessment and plan (1) Psychotic disorder: (2) Paranoia (psychosis): (3) Acute dehydration: (4) Delusions: (5) Depression: (6) DOMINIQUE (generalized anxiety disorder): (7) Schizophrenia: Plan This is a 52 year old white female with a history of trauma and genetic loading for addiction issues who presents about 9 months after her last hospitalization endorsing that she is doing fine and not sure why she has been brought to the hospital. Currently off of her medications. 1. Continue Abilify at 15mg po q daily. Patient given the Abilify Maintena 400 mg IM injection 11/24/22. TSH elevated 8.02, normal T4 (suggest continued subclinical hypothyroidism.)-Continue Synthroid to 100mcg daily, continue klonopin 1mg at night, add zyprexa 5mg at night. 2. Encourage individual, group and milieu therapy 3. Continue q-15 minute check for safety 4. Patient remains on 21 day hold. Involuntary Hold Information 96 Hour Hold: 96 Hour Involuntary Admission: Yes 96 Hour Hold Ending Date: 11/24/22 96 Hour Hold Ending Time: 00:01 Attestations NPU Medical Necessity Statement*: Inpatient hospitalization is medically necessary and the clinically appropriate intervention at this time. We will monitor medications and make changes as indicated. Her likely length of stay is 6-8 days. Coding Level of Care Code Acute Code for [facility] Fwd Diagnoses Psychotic disorder F29 Paranoia (psychosis) F22 Acute dehydration E86.0 Delusions F22 Depression F32.9 DOMINIQUE (generalized anxiety disorder) F41.1 Schizophrenia F20.9
[2022-12-05] MEDS: diphenhydrAMINE 50 mg Capsule PO (15:10)
[2022-12-05 18:40] LABS: Basophils # 0.1 10^3/uL (0.0-0.1); Basophils % 0.9 %; Eosinophils # 0.1 10^3/uL (0.0-0.8); Eosinophils % 1.8 %; Hematocrit 37.7 % (37.0-47.0); Hemoglobin 12.8 g/dL (11.5-15.3); Lymphocytes # 1.9 10^3/uL (0.8-4.8); Lymphocytes % 23.9 %; Mean Corpuscular Hemoglobin 31.9 pg (28.0-34.0); Mean Platelet Volume 9.6 fL (7.4-10.4); Monocytes # 0.7 10^3/uL (0.2-0.9); Monocytes % 9.1 %; Neutrophils # 5.06 10^3/uL (1.8-7.7); Nucleated Red Blood Cells % 0 %; Platelet Count 283 10^3/cmm (130-400); Red Blood Count 4.01 10^6/uL (4.1-5.3); Red Cell Distribution Width 12.5 % (12.1-15.1); White Blood Count 7.9 10^3/uL (4.0-10.0)
[2022-12-05 19:00] LABS: Alanine Aminotransferase 21 U/L (0-33); Albumin Level 4.8 g/dL (3.5-5.2); Alkaline Phosphatase 79 U/L (35-105); Anion Gap 15.2 (5-19); Aspartate Amino Transferase 19 U/L (0-32); Blood Urea Nitrogen 12 mg/dL (6-20); Calcium 9.6 mg/dL (8.5-10.5); Carbon Dioxide 26 mmol/L (22-29); Chloride 94 mmol/L (98-107); Globulin 2.6 g/dL (1.3-4.6); Glomerular Filtration Rate 87.9 mL/min (90-130); Glucose 74 mg/dL (65-115); Osmolality Calculated 270 mOsm/kg (285-295); Potassium 4.2 mmol/L (3.5-5.1); Sodium 131 mmol/L (136-145); Total Bilirubin 0.2 mg/dL (0.15-1.2); Total Protein 7.4 g/dL (6.6-8.7)
[2022-12-05] MEDS: amitriptyline 25 mg Tablet 50 MG PO (20:43)
[2022-12-05] MEDS: OLANZapine 5 mg TABLET PO (20:43)
[2022-12-05] MEDS: CLONazepam 1 mg Tablet PO (21:47)
[2022-12-05 22:00] VITALS: BP 108/70; PULSE 97; RESP 18; TEMP 36.6; O2SAT 100
[2022-12-06 06:00] VITALS: RESP 16
[2022-12-06] MEDS: ARIPiprazole 10 mg Tablet 15 MG PO (07:43)
[2022-12-06] MEDS: HYDROcodone-acetaminophen 5-325 mg Tablet 0.5 TAB PO ×2 (07:44→16:32)
[2022-12-06] MEDS: docusate sodium 100 mg Capsule PO (07:44)
[2022-12-06] MEDS: benztropine 1 mg Tablet PO ×2 (07:45→17:00)
[2022-12-06] MEDS: tizanidine 4 mg Tablet PO ×3 (07:45→20:00)
[2022-12-06] MEDS: estradiol 1 mg Tablet PO (07:45)
[2022-12-06] MEDS: levothyroxine 100 mcg Tablet PO (07:45)
[2022-12-06] MEDS: nicotine 4 mg lozenge MUCOUS MEM ×7 (07:45→22:06)
[2022-12-06] MEDS: hyDROXYzine 25 mg Capsule 50 MG PO ×2 (09:48→21:28)
[2022-12-06] MEDS: naproxen 500 mg Tablet 250 MG PO (12:14)
[2022-12-06 14:00] VITALS: BP 123/79; PULSE 93; RESP 18; TEMP 36.7; O2SAT 94
[2022-12-06] MEDS: diphenhydrAMINE 50 mg Capsule PO (14:19)
--- NOTE | 2022-12-06 14:57 | NPU.GN ---
[facility] Topic: art therapy General Mood of Group patient participated in group, painting a rainbow and listening to music. Became distracted when was talking with another patient and conversation turned to killing. We turned the music up and her view was blocked. Patient was able to reengage in activity
[2022-12-06] MEDS: OLANZapine 5 mg ODT PO (15:47)
--- NOTE | 2022-12-06 16:09 | P.NPUPN_ITS ---
Subjective NPU Subjective: Patient is a 52-year-old white female currently involuntarily hospitalized for psychosis particularly with paranoia. The patient had expressed no changes in mood. She was less guarded and isolative on the milieu. She continued to blame a friend for causing her stay here. She remained agreeable to the use of abilify. Patient reports no feelings of hopelessness. She reports continued pr oblems with low energy. She reports sleep continuity disruption but states that addition of zyprexa was helpful. She reports long hx of low motivation and states that her pain issues remain prominent and particularly her lower back pain. Mental Status Exam MSE Comments: This is a slender white female in hospital scrubs with adequate grooming and eye contact. She was seen in her room today and was calm and cooperative. There were no abnormal involuntary motor movements appreciated other than some mild psychomotor slowing. She was cooperative with exam in no acute distress. Speech was normal in rate and volume. Mood described as allright. Her affect was blunted. Thought process: linear, logical Thought content: patient denied suicidal or homicidal ideation. There was some perseveration regarding her hospitalization being associated to others messing with me There was contin ued ideas of reference were present but it was less prominent. Attention and concentration are intact. Her recent and remote memory were grossly intact,She is alert and oriented x3. Insight was improving. Her judgment was also improving. Her impulse control appears limited. Vitals/I&O/Wt Last Vital Signs Temp 97.8 F 12/05/22 22:00 Pulse 97 12/05/22 22:00 Resp 16 12/06/22 06:00 BP 108/70 12/05/22 22:00 Pulse Ox 100 12/05/22 22:00 O2 Del Method Room Air 12/05/22 14:00 Data NPU 12/05/22 18:20 12/05/22 18:20 A&P Assessment and plan (1) Psychotic disorder: (2) Paranoia (psychosis): (3) Acute dehydration: (4) Delusions: (5) Depression: (6) DOMINIQUE (generalized anxiety disorder): (7) Schizophrenia: Plan This is a 52 year old white female with a history of trauma and genetic loading for addiction issues who presents about 9 months after her last hospitalization endorsing that she is doing fine and not sure why she has been brought to the hospital. Currently off of her medications. 1. Continue Abilify at 15mg po q daily. Patient given the Abilify Maintena 400 mg IM injection 11/24/22. TSH elevated 8.02, normal T4 (suggest continued subclinical hypothyroidism.)-Continue Synthroid to 100mcg daily, continue klonopin 1mg at night, continue zyprexa 5mg at night. 2. Encourage individual, group and milieu therapy 3. Continue q-15 minute check for safety 4. Patient remains on 21 day hold. Involuntary Hold Information 96 Hour Hold: 96 Hour Involuntary Admission: Yes 96 Hour Hold Ending Date: 11/24/22 96 Hour Hold Ending Time: 00:01 Attestations NPU Medical Necessity Statement*: Inpatient hospitalization is medically necessary and the clinically appropriate intervention at this time. We will monitor medications and make changes as indicated. Her likely length of stay is 3-5 days. Coding Level of Care Code Acute Code for Chg Fwd Diagnoses Psychotic disorder F29 Paranoia (psychosis) F22 Acute dehydration E86.0 Delusions F22 Depression F32.9 DOMINIQUE (generalized anxiety disorder) F41.1 Schizophrenia F20.9
[2022-12-06] MEDS: nicotine 2 mg Gum BUCCAL (19:55)
--- NOTE | 2022-12-06 20:00 | PC.NURSE ---
Patient with c/o back and neck spasms. Rating pain 6/10. Request for muscle relaxer. Tizanidine 4 mg po given for this.
[2022-12-06 20:38] VITALS: BP 107/72; PULSE 90; RESP 18; TEMP 36.6; O2SAT 96
[2022-12-06] MEDS: OLANZapine 5 mg TABLET PO (21:20)
[2022-12-06] MEDS: CLONazepam 1 mg Tablet PO (21:21)
[2022-12-06] MEDS: amitriptyline 25 mg Tablet 50 MG PO (21:21)
--- NOTE | 2022-12-06 21:28 | PC.NURSE ---
Patient reports increased anxiety this shift. Requested medication for this. Given hydroxyzine 50 po.
[2022-12-07] MEDS: nicotine 4 mg lozenge MUCOUS MEM ×9 (02:49→20:35)
[2022-12-07] MEDS: OLANZapine 5 mg ODT PO ×3 (02:55→17:19)
--- NOTE | 2022-12-07 03:07 | PC.NURSE ---
patient at nurses station with c/o anxiety. Patient is upset over not being prescribed pain medication appropriately. Zyprexa 5mg sl given.
[2022-12-07] MEDS: HYDROcodone-acetaminophen 5-325 mg Tablet 0.5 TAB PO ×2 (04:07→15:18)
[2022-12-07] MEDS: tizanidine 4 mg Tablet PO ×2 (04:08→14:11)
--- NOTE | 2022-12-07 04:18 | PC.NURSE ---
Hydrocodone 5/325mg 1/2 tab, tizanidine 4 mg po given for c/o right hip and spinal pain rated 7/10.
[2022-12-07 06:00] VITALS: BP 112/73; PULSE 85; RESP 18; TEMP 36.6; O2SAT 98
[2022-12-07] MEDS: levothyroxine 100 mcg Tablet PO (09:10)
[2022-12-07] MEDS: ARIPiprazole 10 mg Tablet 15 MG PO (09:10)
[2022-12-07] MEDS: benztropine 1 mg Tablet PO ×2 (09:12→17:02)
[2022-12-07] MEDS: docusate sodium 100 mg Capsule PO (09:12)
[2022-12-07] MEDS: estradiol 1 mg Tablet PO (09:12)
--- NOTE | 2022-12-07 11:07 | NPU.GN ---
[facility] Topic:Motivation General Mood of Group Patient participated in group writing down her motivations on her paper and adding to the list. Patient was positive about herself during group
[2022-12-07] MEDS: diphenhydrAMINE 50 mg Capsule PO ×2 (11:17→17:02)
--- NOTE | 2022-12-07 12:23 | P.NPUPN_ITS ---
Subjective NPU Subjective: Patient is a 52-year-old white female currently involuntarily hospitalized for psychosis particularly with paranoia. The patient had continued to be somewhat suspicious as she stated that she felt that someone had signed the affidavit and used her son's signature but states that upon looking at that signature she felt that it was not him that had written the affidavit that supported the patient needing to be in the hospital. She had reported that she was more goal directed about wanting to switch her phone and change her locks of her home when she would leave here. She reported no side effects from the current Abilify. She had reported having problems with anxiety and stated that she frequently worried about other people interfering with her life particularly her distant cousin. She had reported feeling anxious and reported that she was sleeping better with her routine use of Zyprexa. Mental Status Exam MSE Comments: This is a slender white female in hospital scrubs with adequate grooming and eye contact. She is alert and oriented x3 There were no abnormal involuntary mot or movements appreciated other than some mild psychomotor slowing. She was cooperative with exam in no acute distress. Speech was normal in rate and volume. Mood described as okay.. Her affect remained blunted. Thought process: linear, logical Thought content: patient denied suicidal or homicidal ideation. There was some and ideas of reference and continued evidence of paranoia. She continued to appear focused on determining who was attempting to sabotage her return home. Attention and concentration are intact. Her recent and remote memory were grossly intact ,. Insight was improving. Her judgment was also improving. Her impulse control appears limited. Vitals/I&O/Wt Last Vital Signs Temp 97.8 F 12/07/22 06:00 Pulse 85 12/07/22 06:00 Resp 18 12/07/22 06:00 BP 112/73 12/07/22 06:00 Pulse Ox 98 12/07/22 06:00 O2 Del Method Room Air 12/05/22 14:00 12/06/22 12/07/22 12/07/22 22:59 06:59 14:59 Intake Total 0 / 0 Balance 0 / 0 Weight last 48 hrs Weight 59.148 kg Data NPU 12/05/22 18:20 12/05/22 18:20 A&P Assessment and plan (1) Psychotic disorder: (2) Paranoia (psychosis): (3) Acute dehydration: (4) Delusions: (5) Depression: (6) DOMINIQUE (generalized anxiety disorder): (7) Schizophrenia: Plan This is a 52 year old white female with a history of trauma and genetic loading for addiction issues who presents about 9 months after her last hospitalization endorsing that she is doing fine and not sure why she has been brought to the hospital. Currently off of her medications. 1. Continue Abilify at 15mg po q daily. Patient given the Abilify Maintena 400 mg IM injection 11/24/22. TSH elevated 8.02, normal T4 (suggest continued subclinical hypothyroidism.)-Continue Synthroid to 100mcg daily, continue klonopin 1mg at night, continue zyprexa 5mg at night. 2. Encourage individual, group and milieu therapy 3. Continue q-15 minute check for safety 4. Patient remains on 21 day hold. Involuntary Hold Information 96 Hour Hold: 96 Hour Involuntary Admission: Yes 96 Hour Hold Ending Date: 11/24/22 96 Hour Hold Ending Time: 00:01 Attestations NPU Medical Necessity Statement*: Inpatient hospitalization is medically necessary and the clinically appropriate intervention at this time. We will monitor medications and make changes as indicated. Her likely length of stay is 3-5 days. Coding Level of Care Code Acute Code for [facility] Fwd Diagnoses Psychotic disorder F29 Paranoia (psychosis) F22 Acute dehydration E86.0 Delusions F22 Depression F32.9 DOMINIQUE (generalized anxiety disorder) F41.1 Schizophrenia F20.9
--- NOTE | 2022-12-07 12:37 | PC.NURSE ---
Patient requesting Zyprexa. Patient couldn't give an answer for why she needed it. This nurse encouraged patient to try coloring, etc for distraction. Patient said that she could go back and watch her movie. This nurse explained the importance of not relying on meds.
[2022-12-07 13:36] VITALS: BP 124/74; PULSE 97; RESP 17; TEMP 36.6; O2SAT 100
[2022-12-07] MEDS: amitriptyline 25 mg Tablet 50 MG PO (19:58)
[2022-12-07] MEDS: OLANZapine 5 mg TABLET PO (19:58)
[2022-12-07] MEDS: CLONazepam 1 mg Tablet PO (19:59)
[2022-12-07 20:01] VITALS: BP 117/72; PULSE 98; RESP 18; TEMP 36.4; O2SAT 98
[2022-12-07] MEDS: hyDROXYzine 25 mg Capsule 50 MG PO (20:45)
[2022-12-08] MEDS: nicotine 4 mg lozenge MUCOUS MEM ×10 (01:48→22:18)
[2022-12-08] MEDS: tizanidine 4 mg Tablet PO (01:58)
[2022-12-08] MEDS: OLANZapine 5 mg ODT PO ×3 (02:26→15:47)
[2022-12-08] MEDS: hyDROXYzine 25 mg Capsule 50 MG PO ×3 (02:41→19:07)
[2022-12-08] MEDS: HYDROcodone-acetaminophen 5-325 mg Tablet 0.5 TAB PO ×2 (04:00→14:14)
[2022-12-08 06:00] VITALS: BP 119/74; PULSE 92; RESP 18; O2SAT 96
[2022-12-08] MEDS: diphenhydrAMINE 50 mg Capsule PO ×2 (07:33→17:46)
[2022-12-08] MEDS: ARIPiprazole 10 mg Tablet 15 MG PO (08:29)
[2022-12-08] MEDS: levothyroxine 100 mcg Tablet PO (08:29)
[2022-12-08] MEDS: estradiol 1 mg Tablet PO (08:30)
[2022-12-08] MEDS: docusate sodium 100 mg Capsule PO (08:30)
[2022-12-08] MEDS: benztropine 1 mg Tablet PO ×2 (08:30→17:46)
[2022-12-08 14:00] VITALS: BP 118/72; PULSE 87; RESP 18; TEMP 36.6; O2SAT 100
--- NOTE | 2022-12-08 15:27 | W.PM.NPUPNS ---
Subjective NPU Subjective: Patient is a 52-year-old white female currently involuntarily hospitalized for psychosis particularly with paranoia. There were no new changes. She had continued to report active paranoia and concerned about her phone being bugged. Despite this, she had been reporting feeling better and reported an improvement in energy. She had reported improved sleep with the addition of Zyprexa. She reported that she would be able to continue to take her medication and was agreeable to taking Abilify and Zyprexa on discharge. Staff notes patient was redirectable and was able to attend groups. She appeared less guarded and reported that she did not feel at this time like others were attempting to sabotage her but stated that in the past these events had occurred. Mental Status Exam MSE Comments: This is a slender white female in hospital scrubs with adequate grooming and eye contact. She is alert and oriented x3 There were no abnormal involuntary motor movements appreciated other than some mild psychomotor slowing. She was cooperative with exam in no acute distress. Speech was normal in rate and volume. Mood described as good. Her affect remained blunted and mood incongruent. Thought process: linear, logical Thought content: patient denied suicidal or homicidal ideation. There was some and ideas of reference and continued evidence of paranoia with ideas of persecution remaining present. Attention and concentration are intact. Her recent and remote memory were grossly intact ,. Insight was improving. Her judgment was also improving. Her impulse control appears limited. Vitals/I&O/Wt Last Vital Signs Temp 98 F 12/08/22 14:00 Pulse 87 12/08/22 14:00 Resp 18 12/08/22 14:00 BP 118/72 12/08/22 14:00 Pulse Ox 100 12/08/22 14:00 O2 Del Method Room Air 12/08/22 14:00 Weight last 48 hrs Weight 59.148 kg Data NPU 12/05/22 18:20 12/05/22 18:20 A&P Assessment and plan (1) Psychotic disorder: (2) Paranoia (psychosis): (3) Acute dehydration: (4) Delusions: (5) Depression: (6) DOMINIQUE (generalized anxiety disorder): (7) Schizophrenia: Plan This is a 52 year old white female with a history of trauma and genetic loading for addiction issues who presents about 9 months after her last hospitalization endorsing that she is doing fine and not sure why she has been brought to the hospital. Currently off of her medications. 1. Continue Abilify at 15mg po q daily. Patient given the Abilify Maintena 400 mg IM injection 11/24/22. TSH elevated 8.02, normal T4 (suggest continued subclinical hypothyroidism.)-Continue Synthroid to 100mcg daily, continue klonopin 1mg at night, continue zyprexa 5mg at night. 2. Encourage individual, group and milieu therapy 3. Continue q-15 minute check for safety 4. Patient remains on 21 day hold. Involuntary Hold Information 96 Hour Hold: 96 Hour Involuntary Admission: Yes 96 Hour Hold Ending Date: 11/24/22 96 Hour Hold Ending Time: 00:01 Attestations NPU Medical Necessity Statement*: Inpatient hospitalization is medically necessary and the clinically appropriate intervention at this time. We will monitor medications and make changes as indicated. Her likely length of stay is 2-3 days. Coding Level of Care Code Acute Code for g Fwd Diagnoses Psychotic disorder F29 Paranoia (psychosis) F22 Acute dehydration E86.0 Delusions F22 Depression F32.9 DOMINIQUE (generalized anxiety disorder) F41.1 Schizophrenia F20.9
--- NOTE | 2022-12-08 16:10 | PC.NURSE ---
patient in dayroom. After patient returned to [facility] from [facility], patient was confused as to where her room was. patient wandered slowly down the [place] for a short time, looking for her room. She said to this nurse that she couldn't remember where her room was after being on the [facility] [place], operated by [facility]
--- NOTE | 2022-12-08 16:10 | PC.NURSE ---
Patient asked this nurse if she could shave her legs. She asked for a bowl she could use to heat up water in the microwave. This nurse told her that she would have to get doctor approval that to shave her legs. After getting approval from Dr. Dobbins, patient returned to nurse desk. This nurse told her that we would use the bathroom water to shave, not a bowl. Patient then said something along the lines of Oh, I guess I forgot there is warm water here, I was thinking it was like at home . A short time later, patient returned and said she wanted to wait to shave her legs until tomorrow after she goes to the store and buys an electric razor. This nurse reminded the patient that she is in a lock down facility and cannot leave to go to the store. Patient acted surprised at this. This nurse reoriented patient to her present situation in the unit, on a hold. Dr. Dobbins notified
[2022-12-08 19:44] VITALS: BP 112/72; PULSE 91; RESP 18; TEMP 36.4; O2SAT 97
[2022-12-08] MEDS: CLONazepam 1 mg Tablet PO (19:48)
[2022-12-08] MEDS: amitriptyline 25 mg Tablet 50 MG PO (19:48)
[2022-12-08] MEDS: OLANZapine 5 mg TABLET PO (19:48)
[2022-12-09] MEDS: nicotine 4 mg lozenge MUCOUS MEM ×10 (03:25→22:15)
[2022-12-09] MEDS: diphenhydrAMINE 50 mg Capsule PO ×2 (03:37→13:29)
[2022-12-09] MEDS: HYDROcodone-acetaminophen 5-325 mg Tablet 0.5 TAB PO ×2 (04:27→16:03)
[2022-12-09 06:00] VITALS: BP 110/73; PULSE 107; RESP 18; TEMP 36.5; O2SAT 100
[2022-12-09] MEDS: ARIPiprazole 10 mg Tablet 15 MG PO (08:03)
[2022-12-09] MEDS: estradiol 1 mg Tablet PO (08:04)
[2022-12-09] MEDS: levothyroxine 100 mcg Tablet PO (08:05)
[2022-12-09] MEDS: docusate sodium 100 mg Capsule PO (08:05)
[2022-12-09] MEDS: tizanidine 4 mg Tablet PO ×2 (08:05→17:51)
[2022-12-09] MEDS: benztropine 1 mg Tablet PO ×2 (08:05→17:48)
[2022-12-09] MEDS: hyDROXYzine 25 mg Capsule 50 MG PO ×2 (09:49→20:09)
[2022-12-09 12:29] LABS: Urine Appearance Clear (CLEAR); Urine Color Light yellow (Yellow); pH Urine 7 (5-7)
[2022-12-09 12:30] LABS: Add Urine Microscopic? YES; Bilirubin Urine Neg (Negative); Blood Urine Neg (Negative); Glucose Urine UA Norm (Normal); Ketones Urine Negative (Negative); Leukocyte Esterase Urine Trace (Negative); Nitrate Urine Negative (Negative); Protein Urine Neg (Negative); Specific Gravity, Urine 1.005 (1.005-1.030); Urobilinogen Urine Norm (Negative)
[2022-12-09 12:33] LABS: Bacteria Urine TRACE /hpf; RBC Urine 0-4 /hpf (0-2); Squamous Epithelial Cell Urine 0-4 /hpf (0-5)
[2022-12-09 12:34] LABS: Add Urine Culture? No
[2022-12-09 14:00] VITALS: BP 118/76; PULSE 88; RESP 18; TEMP 36.6; O2SAT 100
--- NOTE | 2022-12-09 15:18 | PC.NURSE ---
PT CAME UP TO NURSES STATION AND ASKED FOR HER DEBIT CARD TO ORDER GROCERIES THROUGH [employer]. PT WAS EDUCATED THAT WE CANNOT ALLOW ANY OUTSIDE FOOD OR DRINK TO BE BROUGHT INTO THE UNIT AND WE CANNOT ALLOW DELIVERY HERE FOR PTS. PT STATED WELL IF YOU WONT LET ME PICK IT UP AND YOU WONT LET ME GET IT DELIVERED THEN WHAT DO YOU ALLOW. PT WAS EDUCATED THAT THEN PT STATED WELL WHAT ABOUT IN BOTTLES? PT WAS EDUCATED AGAIN NO OUTSIDE FOOD OR DRINK. PT THEN WALKED AWAY.
--- NOTE | 2022-12-09 16:34 | W.PM.NPUPNS ---
Subjective NPU Subjective: Patient is a 52-year-old white female currently involuntarily hospitalized for psychosis particularly with paranoia. Patient had appeared confused on the unit. She had asked yesterday whether the exit for the unit was in a specific direction. She had continued to report feeling optimistic about returning to her property but living in a new location on the property. She had appeared more socially engaged. She had continue to report back pain. She had reported some improvement in energy with the increase in Synthroid to 100 mcg. She reported no side effects from her Abilify this time. Mental Status Exam MSE Comments: This is a slender white female in hospital scrubs with adequate grooming and eye contact. She is alert and oriented x3 There were no abnormal involuntary motor movements appreciated other than some mild psychomotor slowing. She was cooperative with exam in no acute distress. Speech was normal in rate and volume. Mood described as okay. Her affect remained somewhat flat. Thought process: linear, logical Thought content: patient denied suicidal or homicidal ideation. There was some and ideas of reference and continued evidence of paranoia with ideas of persecution remaining present. Attention and concentration are intact. Her recent and remote memory were grossly intact. Insight was improving. Her judgment was also improving. Her impulse control appears improved. Vitals/I&O/Wt Last Vital Signs Temp 98 F 12/09/22 14:00 Pulse 88 12/09/22 14:00 Resp 18 12/09/22 14:00 BP 118/76 12/09/22 14:00 Pulse Ox 100 12/09/22 14:00 O2 Del Method Room Air 12/09/22 14:00 Data NPU 12/05/22 18:20 12/05/22 18:20 A&P Assessment and plan (1) Psychotic disorder: (2) Paranoia (psychosis): (3) Acute dehydration: (4) Delusions: (5) Depression: (6) DOMINIQUE (generalized anxiety disorder): (7) Schizophrenia: Plan This is a 52 year old white female with a history of trauma and genetic loading for addiction issues who presented with psychosis with noncompliance with outpatient medications leading to recurring psychosis. 1. Continue Abilify at 15mg po q daily. Patient given the Abilify Maintena 400 mg IM injection 11/24/22. TSH elevated 8.02, normal T4 (suggest continued subclinical hypothyroidism.)-Continue Synthroid to 100mcg daily, continue klonopin 1mg at night, continue zyprexa 5mg at night. 2. Encourage individual, group and milieu therapy 3. Continue q-15 minute check for safety 4. Patient remains on 21 day hold. Involuntary Hold Information 96 Hour Hold: 96 Hour Involuntary Admission: Yes 96 Hour Hold Ending Date: 11/24/22 96 Hour Hold Ending Time: 00:01 Attestations NPU Medical Necessity Statement*: Inpatient hospitalization is medically necessary and the clinically appropriate intervention at this time. We will monitor medications and make changes as indicated. Her likely length of stay is 2-3 days. Coding Level of Care Code Acute Code for Chg Fwd Diagnoses Psychotic disorder F29 Paranoia (psychosis) F22 Acute dehydration E86.0 Delusions F22 Depression F32.9 DOMINIQUE (generalized anxiety disorder) F41.1 Schizophrenia F20.9
[2022-12-09 19:21] VITALS: BP 107/71; PULSE 96; RESP 16; TEMP 36.7; O2SAT 100
[2022-12-09] MEDS: naproxen 500 mg Tablet 250 MG PO (20:08)
[2022-12-09] MEDS: CLONazepam 1 mg Tablet PO (20:08)
[2022-12-09] MEDS: OLANZapine 5 mg TABLET PO (20:09)
[2022-12-09] MEDS: amitriptyline 25 mg Tablet 50 MG PO (20:09)
[2022-12-10 06:00] VITALS: BP 99/60; PULSE 93; RESP 18; TEMP 37.2; O2SAT 96
[2022-12-10] MEDS: HYDROcodone-acetaminophen 5-325 mg Tablet 0.5 TAB PO ×2 (06:36→18:36)
[2022-12-10] MEDS: nicotine 4 mg lozenge MUCOUS MEM ×8 (06:36→21:44)
[2022-12-10] MEDS: levothyroxine 100 mcg Tablet PO (08:07)
[2022-12-10] MEDS: benztropine 1 mg Tablet PO ×2 (08:08→20:35)
[2022-12-10] MEDS: docusate sodium 100 mg Capsule PO (08:08)
[2022-12-10] MEDS: estradiol 1 mg Tablet PO (08:08)
--- NOTE | 2022-12-10 08:10 | PC.NURSE ---
refused scheduled Abilify, patient stated she isn't comfortable taking 15 mg, it makes her feel like crap
[2022-12-10] MEDS: tizanidine 4 mg Tablet PO ×2 (08:16→16:17)
--- NOTE | 2022-12-10 08:16 | PC.NURSE ---
PRN TIZANIDINE 4 MG GIVEN PO PER PT C/O SPASMS
[2022-12-10] MEDS: hyDROXYzine 25 mg Capsule 50 MG PO ×2 (09:52→16:17)
--- NOTE | 2022-12-10 09:52 | PC.NURSE ---
Addendum entered by Kriss Royal LPN 12/10/22 11:09: prn med effective no further c/o anxiety, participating in group currently Original Note: PRN VISTARIL 50 MG GIVEN PO PER PT C/O STATED ANXIETY, NO OUTWARD S/S OF ANXIETY NOTED, PT MED SEEKS FOR ANY AND ALL PRN MEDICATIONS SHE CAN HAVE
[2022-12-10] MEDS: neomycin-poly-bacitracin oint 28 gm 1 APPLIC TOPICAL (10:02)
[2022-12-10] MEDS: blistex lip oint 7 gm Tube 1 APPLIC TOPICAL (10:02)
[2022-12-10 13:24] VITALS: BP 107/70; PULSE 105; RESP 16; TEMP 36.5; O2SAT 99
--- NOTE | 2022-12-10 15:17 | W.PM.NPUPNS ---
Subjective NPU Subjective: Patient is a 52-year-old white female currently involuntarily hospitalized for psychosis particularly with paranoia. She appeared less confused on the milieu. She stated that she would like to have her Abilify lowered as she stated that it made her tired. She had reported improved sleep with the Zyprexa at 5 mg at night. She continued to perpetuate the belief that others had been messing with her home. She reported no acute changes otherwise. She had been redirectable and continued to complain of back pain. She had reported feeling more hopeful about returning home soon. Mental Status Exam MSE Comments: This is a slender white female in hospital scrubs with adequate grooming and eye contact. She is alert and oriented x3 There were no abnormal involuntary motor movements appreciated other than some mild psychomotor slowing. She was cooperative with exam in no acute distress. Speech was normal in rate and volume. Mood described as allright. Her affect remained somewhat flat. Thought process: linear, logical Thought content: patient denied suicidal or homicidal ideation. There was some ideas of reference and continued evidence of paranoia with ideas of persecution remaining present. Attention and concentration are intact. Her recent and remote memory were grossly intact. Insight was improving. Her judgment was also improving. Her impulse control appears improved. Vitals/I&O/Wt Last Vital Signs Temp 97.7 F 12/10/22 13:24 Pulse 105 H 12/10/22 13:24 Resp 16 12/10/22 13:24 BP 107/70 12/10/22 13:24 Pulse Ox 99 12/10/22 13:24 O2 Del Method Room Air 12/10/22 13:24 Data NPU 12/05/22 18:20 12/05/22 18:20 A&P Assessment and plan (1) Psychotic disorder: (2) Paranoia (psychosis): (3) Acute dehydration: (4) Delusions: (5) Depression: (6) DOMINIQUE (generalized anxiety disorder): (7) Schizophrenia: Plan This is a 52 year old white female with a history of trauma and genetic loading for addiction issues who presented with psychosis with noncompliance with outpatient medications leading to recurring psychosis. 1. Reduce Abilify to 10mg po q daily. Patient given the Abilify Maintena 400 mg IM injection 11/24/22. TSH elevated 8.02, normal T4 (suggest continued subclinical hypothyroidism.)-Continue Synthroid to 100mcg daily, continue klonopin with switch to .5mg bid at night, continue zyprexa 5mg at night. 2. Encourage individual, group and milieu therapy 3. Continue q-15 minute check for safety 4. Patient remains on 21 day hold. Involuntary Hold Information 96 Hour Hold: 96 Hour Involuntary Admission: Yes 96 Hour Hold Ending Date: 11/24/22 96 Hour Hold Ending Time: 00:01 Attestations NPU Medical Necessity Statement*: Inpatient hospitalization is medically necessary and the clinically appropriate intervention at this time. We will monitor medications and make changes as indicated. Her likely length of stay is 2-3 days. Coding Level of Care Code Acute Code for [facility] Fwd Diagnoses Psychotic disorder F29 Paranoia (psychosis) F22 Acute dehydration E86.0 Delusions F22 Depression F32.9 DOMINIQUE (generalized anxiety disorder) F41.1 Schizophrenia F20.9
--- NOTE | 2022-12-10 16:17 | PC.NURSE ---
PRN MEDS TIZANIDINE 4 MG GIVEN PO PER PT C/O SPASMS VISTARIL 50 MG GIVEN PO PER PT C/O STATED ANXIETY NO OUTWARD S/S OF ANXIETY NOTED, PATIENT MED SEEKING BEHAVIOR FOR ANY AND ALL PRN MEDICATIONS SHE CAN HAVE
[2022-12-10] MEDS: amitriptyline 25 mg Tablet 50 MG PO (20:35)
[2022-12-10] MEDS: OLANZapine 5 mg TABLET PO (20:35)
[2022-12-10 21:06] VITALS: BP 117/77; PULSE 89; RESP 18; O2SAT 98
[2022-12-10] MEDS: CLONazepam 1 mg Tablet PO (21:12)
[2022-12-10] MEDS: diphenhydrAMINE 50 mg Capsule PO (21:49)
[2022-12-11] MEDS: nicotine 4 mg lozenge MUCOUS MEM ×8 (04:03→22:26)
[2022-12-11] MEDS: tizanidine 4 mg Tablet PO ×2 (04:03→14:11)
[2022-12-11] MEDS: hyDROXYzine 25 mg Capsule 50 MG PO ×3 (04:09→21:07)
[2022-12-11 06:00] VITALS: BP 128/82; PULSE 102; RESP 18; TEMP 36.8; O2SAT 99
[2022-12-11] MEDS: HYDROcodone-acetaminophen 5-325 mg Tablet 0.5 TAB PO ×2 (06:39→18:41)
[2022-12-11] MEDS: levothyroxine 100 mcg Tablet PO (09:18)
[2022-12-11] MEDS: CLONazepam 0.5 mg Tablet PO ×2 (09:19→17:14)
[2022-12-11] MEDS: ARIPiprazole 10 mg Tablet PO (09:19)
[2022-12-11] MEDS: benztropine 1 mg Tablet PO ×2 (09:19→20:25)
[2022-12-11] MEDS: docusate sodium 100 mg Capsule PO (09:20)
[2022-12-11] MEDS: estradiol 1 mg Tablet PO (09:20)
--- NOTE | 2022-12-11 11:59 | PC.NURSE ---
1125 pt arrived to unit via wheelchair accompanied by security and icu staff member. pt vital signs taken and she requested to go to room.
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
[2022-12-11 14:00] VITALS: BP 99/65; PULSE 94; RESP 17; TEMP 36.6; O2SAT 100
[2022-12-11] MEDS: diphenhydrAMINE 50 mg Capsule PO (14:11)
[2022-12-11] MEDS: OLANZapine 5 mg TABLET PO (20:25)
[2022-12-11] MEDS: amitriptyline 25 mg Tablet 50 MG PO (20:25)
[2022-12-11 21:49] VITALS: BP 102/67; PULSE 101; RESP 16; TEMP 36.6; O2SAT 99
[2022-12-12] MEDS: nicotine 4 mg lozenge MUCOUS MEM ×9 (01:49→21:54)
[2022-12-12] MEDS: hyDROXYzine 25 mg Capsule 50 MG PO ×4 (01:49→21:40)
[2022-12-12] MEDS: tizanidine 4 mg Tablet PO ×3 (03:38→21:54)
[2022-12-12 06:00] VITALS: BP 90/56; PULSE 84; RESP 16; TEMP 36.4; O2SAT 99
[2022-12-12] MEDS: HYDROcodone-acetaminophen 5-325 mg Tablet 0.5 TAB PO ×2 (06:37→17:37)
[2022-12-12] MEDS: benztropine 1 mg Tablet PO ×2 (08:32→20:06)
[2022-12-12] MEDS: estradiol 1 mg Tablet PO (08:32)
[2022-12-12] MEDS: CLONazepam 0.5 mg Tablet PO ×2 (08:32→17:03)
[2022-12-12] MEDS: levothyroxine 100 mcg Tablet PO (08:32)
[2022-12-12] MEDS: ARIPiprazole 10 mg Tablet PO (08:32)
[2022-12-12 14:00] VITALS: BP 114/69; PULSE 100; RESP 16; TEMP 36.6; O2SAT 97
[2022-12-12] MEDS: naproxen 500 mg Tablet 250 MG PO (15:04)
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
--- NOTE | 2022-12-12 17:43 | PC.NURSE ---
Patient with c/o right hip and spine pain rated 7/10. Hydrocodone 2.5 mg po given for this.
--- NOTE | 2022-12-12 18:33 | P.NPUPN_ITS ---
Subjective NPU Subjective: Patient presented today reporting that she is hopeful that she can go home soon. We talked about the rn social services working with her family on a discharge in the next 4 days. This was exciting to her. 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 It was unclear whether she understood how odd that was given her inpatient status. Mental Status Exam MSE Comments: This is a slender white female in hospital scrubs with adequate grooming and eye contact. No abnormal involuntary motor movements appreciated other than some mild psychomotor retardation. She was cooperative with exam in no acute distress. Speech was normal rate and volume. Mood described pretty good just wanting to get out of here, her affect is congruent, but anxious. Thought process: linear, logical Thought content: patient denied suicidal or homicidal ideation, there were no delusions reported but paranoid and persecutory del usions noted and she denied auditory or visual hallucinations. Attention and concentration are intact. and Her recent and remote memory were grossly intact, but concerns exist about the reliability of some of the information secondary to paranoia. She is alert and oriented x3. Insight and judgment are limited and impulse control appears limited. Vitals/I&O/Wt Last Vital Signs Temp 98 F 12/12/22 14:00 Pulse 100 12/12/22 14:00 Resp 16 12/12/22 14:00 BP 114/69 12/12/22 14:00 Pulse Ox 97 12/12/22 14:00 O2 Del Method Room Air 12/12/22 14:00 12/12/22 12/12/22 12/12/22 06:59 14:59 22:59 Intake Total 360 / 360 480 / 840 Balance 360 / 360 480 / 840 Data NPU 12/05/22 18:20 12/05/22 18:20 A&P Assessment and plan (1) Psychotic disorder: (2) Paranoia (psychosis): (3) Acute dehydration: (4) Delusions: (5) Depression: (6) DOMINIQUE (generalized anxiety disorder): (7) Schizophrenia: Plan This is a 52 year old white female with a history of trauma and genetic loading for addiction issues who presented with psychosis with noncompliance with outpatient medications leading to recurring psychosis. 1. Reduced Abilify to 10mg po q daily. Patient given the Abilify Maintena 400 mg IM injection 11/24/22. TSH elevated 8.02, normal T4 (suggest continued subclinical hypothyroidism.)-Continue Synthroid to 100mcg daily, continue klonopin with switch to .5mg bid at night, continue zyprexa 5mg at night. 2. Encourage individual, group and milieu therapy 3. Continue q-15 minute check for safety 4. Patient remains on 21 day hold. Involuntary Hold Information 96 Hour Hold: 96 Hour Involuntary Admission: Yes 96 Hour Hold Ending Date: 11/24/22 96 Hour Hold Ending Time: 00:01 Attestations NPU Medical Necessity Statement*: Inpatient hospitalization is medically necessary and the clinically appropriate intervention at this time. We will monitor medications and make changes as indicated. Her likely length of stay is 2-3 days. Coding Level of Care Code Acute Code for [facility] Fwd Diagnoses Psychotic disorder F29 Paranoia (psychosis) F22 Acute dehydration E86.0 Delusions F22 Depression F32.9 DOMINIQUE (generalized anxiety disorder) F41.1 Schizophrenia F20.9
[2022-12-12] MEDS: amitriptyline 25 mg Tablet 50 MG PO (20:06)
[2022-12-12] MEDS: OLANZapine 5 mg TABLET PO (20:06)
[2022-12-12 20:35] VITALS: BP 111/73; PULSE 90; RESP 16; TEMP 36.7; O2SAT 99
--- NOTE | 2022-12-12 22:02 | PC.NURSE ---
Pt came up to nurses station window and asked to have her purse and phone. Pt was educated multiple times by this nurse on why she can't have her phone and purse with her on the unit, but she will get it back upon discharge. Pt appeared agitated and still was not understanding. supercharger mechanic nurse came over to help educate pt on this matter and then asked the pt if we can do anything else for her at this time, Pt stated Definitely no and went to pt room.
[2022-12-13 06:00] VITALS: BP 117/74; PULSE 90; RESP 16; TEMP 36.4; O2SAT 98
[2022-12-13] MEDS: nicotine 4 mg lozenge MUCOUS MEM ×7 (06:19→20:16)
[2022-12-13] MEDS: HYDROcodone-acetaminophen 5-325 mg Tablet 0.5 TAB PO ×2 (06:28→17:35)
[2022-12-13] MEDS: tizanidine 4 mg Tablet PO ×2 (06:29→15:04)
[2022-12-13] MEDS: benztropine 1 mg Tablet PO ×2 (07:50→20:16)
[2022-12-13] MEDS: ARIPiprazole 10 mg Tablet PO (07:50)
[2022-12-13] MEDS: CLONazepam 0.5 mg Tablet PO ×2 (07:50→17:35)
[2022-12-13] MEDS: levothyroxine 100 mcg Tablet PO (07:50)
[2022-12-13] MEDS: docusate sodium 100 mg Capsule PO (07:50)
[2022-12-13] MEDS: estradiol 1 mg Tablet PO (07:50)
--- NOTE | 2022-12-13 08:38 | PC.NURSE ---
PT CURRENTLY DENIES SI/HI/AH/VH. PT WAS WILLING AND COOPERATIVE DURING ASSESSMENT. PT WAS INFORMED ABOUT THE LOW SUPPLY OF COFFEE. PT BECAME IRRITABLE AND SNAPPED ON AN AID THAT WAS NOT IN THE CONVERSATION. THIS NURSE EDUCATED PT THAT IT HAD NOTHING TO DO WITH THE AID AND WITH THE AMOUNT OF COFFEE THAT WE HAD. PT CONTINUED TO SNAP AT AID THAT WAS NOT IN CONVERSATION TO WHICH THIS NURSE STATED SHE DOES NOT HAVE ANYTHING TO DO WITH THIS, AND SHE DID NOT EVEN SAY ANYTHING TO YOU, SO LETS NOT BRING HER INTO THIS. PT THEN RESPOND OKAY, I GUESS YOU ARE RIGHT AND WALKED AWAY.
[2022-12-13] MEDS: hyDROXYzine 25 mg Capsule 50 MG PO ×2 (11:01→19:20)
--- NOTE | 2022-12-13 12:03 | W.PM.NPUPNS ---
Subjective NPU Subjective: Patient presented today reporting that she and her family have spoken and she is finally agreed that they are going to sell the property. We discussed how this decision will take away her drive to get back there because it was the family home. We agreed we would continue to work with them on our discharge planning for the beginning of the week. She denied any issues with the medications and no moments of confusion noted during the session though some of them reported by staff. Mental Status Exam MSE Comments: This is a slender white female in hospital scrubs with adequate grooming and eye contact. No abnormal involuntary motor movements appreciated other than some mild psychomotor retardation. She was cooperative with exam in no acute distress. Speech was normal rate and volume. Mood described pretty good just wanting to get out of here, her affect is congruent, but anxious. Thought process: linear, logical Thought content: patient denied suicidal or homicidal ideation, there were no delusions reported but paranoid and persecutory delusions noted and she denied auditory or visual hallucinations. Attention and concentration are intact. and Her recent and remote memory were grossly intact, but concerns exist about the reliability of some of the information secondary to paranoia. She is alert and oriented x3. Insight and judgment are limited and impulse control appears limited. Vitals/I&O/Wt Last Vital Signs Temp 97.6 F 12/13/22 06:00 Pulse 90 12/13/22 06:00 Resp 16 12/13/22 06:00 BP 117/74 12/13/22 06:00 Pulse Ox 98 12/13/22 06:00 O2 Del Method Room Air 12/13/22 06:00 12/12/22 12/13/22 12/13/22 22:59 06:59 14:59 Intake Total 480 / 840 Balance 480 / 840 Data NPU 12/05/22 18:20 12/05/22 18:20 A&P Assessment and plan (1) Psychotic disorder: (2) Paranoia (psychosis): (3) Acute dehydration: (4) Delusions: (5) Depression: (6) DOMINIQUE (generalized anxiety disorder): (7) Schizophrenia: Plan This is a 52 year old white female with a history of trauma and genetic loading for addiction issues who presented with psychosis with noncompliance with outpatient medications leading to recurring psychosis. 1. Reduced Abilify to 10mg po q daily. Patient given the Abilify Maintena 400 mg IM injection 11/24/22. TSH elevated 8.02, normal T4 (suggest continued subclinical hypothyroidism.)-Continue Synthroid to 100mcg daily, continue klonopin with switch to .5mg bid at night, continue zyprexa 5mg at night. 2. Encourage individual, group and milieu therapy 3. Continue q-15 minute check for safety 4. Patient remains on 21 day hold. Involuntary Hold Information 96 Hour Hold: 96 Hour Involuntary Admission: Yes 96 Hour Hold Ending Date: 11/24/22 96 Hour Hold Ending Time: 00:01 Attestations NPU Medical Necessity Statement*: Inpatient hospitalization is medically necessary and the clinically appropriate intervention at this time. We will monitor medications and make changes as indicated. Her likely length of stay is 2-4 days. Coding Level of Care Code Acute Code for [facility] Fwd Diagnoses Psychotic disorder F29 Paranoia (psychosis) F22 Acute dehydration E86.0 Delusions F22 Depression F32.9 DOMINIQUE (generalized anxiety disorder) F41.1 Schizophrenia F20.9
[2022-12-13 14:00] VITALS: BP 104/69; PULSE 93; RESP 18; TEMP 36.6; O2SAT 98
[2022-12-13] MEDS: naproxen 500 mg Tablet 250 MG PO (19:19)
[2022-12-13 20:15] VITALS: BP 126/73; PULSE 88; RESP 18; TEMP 36.4; O2SAT 96
[2022-12-13] MEDS: OLANZapine 5 mg TABLET PO (20:16)
[2022-12-13] MEDS: amitriptyline 25 mg Tablet 50 MG PO (20:16)
[2022-12-14] MEDS: nicotine 4 mg lozenge MUCOUS MEM ×10 (00:53→22:06)
[2022-12-14] MEDS: diphenhydrAMINE 50 mg Capsule PO ×3 (00:54→20:50)
[2022-12-14] MEDS: tizanidine 4 mg Tablet PO ×2 (01:27→22:06)
[2022-12-14] MEDS: hyDROXYzine 25 mg Capsule 50 MG PO ×3 (01:27→16:08)
[2022-12-14 06:00] VITALS: BP 124/76; PULSE 86; RESP 18; TEMP 36.4; O2SAT 98
[2022-12-14] MEDS: HYDROcodone-acetaminophen 5-325 mg Tablet 0.5 TAB PO (06:51)
--- NOTE | 2022-12-14 08:24 | PC.NURSE ---
SHIFT ASSESSMENT DENIES SI/HI/AVH THIS MORNING, PACING UNIT, ATE BREAKFAST, ASKING FOR PRN VISTARIL SPECIFICALLY.
[2022-12-14] MEDS: estradiol 1 mg Tablet PO (09:07)
[2022-12-14] MEDS: levothyroxine 100 mcg Tablet PO (09:07)
[2022-12-14] MEDS: docusate sodium 100 mg Capsule PO (09:07)
[2022-12-14] MEDS: CLONazepam 0.5 mg Tablet PO ×2 (09:07→18:27)
--- NOTE | 2022-12-14 09:08 | PC.NURSE ---
refused scheduled Abilify and Cogentin this morning, pt stated I'm on the injection so why should I have to continue to take the pill? Dr. Santana notified via phone of med refusal
--- NOTE | 2022-12-14 09:09 | PC.NURSE ---
PRN VISTARIL 50 GIVEN PO PER PT C/O STATED ANXIETY, MED SEEKING FOR PRN MEDICATIONS. NO OUTWARD S/S OF ANXIETY NOTED
--- NOTE | 2022-12-14 13:15 | P.NPUPN_ITS ---
Subjective NPU Subjective: Patient presented today reporting that she hit prepared to work with her family to sell the home. She reports that she understands that this is necessary and reports that she is talking to her family about grabbing boxes so that she can move out of there. She reports that the plan is for her to likely get some kind of a trailer. She reports she is somewhat sad about this area being over but also reports some relief. We talked about discharge in the next 48 hours. Mental Status Exam MSE Comments: This is a slender white female in hospital scrubs with adequate grooming and eye contact. No abnormal involuntary motor movements appreciated other than some mild psychomotor retardation. She was cooperative with exam in no acute distress. Speech was normal rate and volume. Mood described pretty good just wanting to get out of here, her affect is congruent, but anxious. Thought process: linear, logical Thought content: patient denied suicidal or homicidal ideation, there were no delusions reported but paranoid and persecutory delusions noted and she denied auditory or visual hallucinations. Attention and concentration are intact. and Her recent and remote memory were grossly intact, but concerns exist about the reliability of some of the information secondary to paranoia. She is alert and oriented x3. Insight and judgment are limited and impulse control appears limited. Vitals/I&O/Wt Last Vital Signs Temp 97.5 F L 12/14/22 06:00 Pulse 86 12/14/22 06:00 Resp 18 12/14/22 06:00 BP 124/76 12/14/22 06:00 Pulse Ox 98 12/14/22 06:00 O2 Del Method Room Air 12/13/22 20:15 Weight last 48 hrs Weight 59.148 kg Data NPU 12/05/22 18:20 12/05/22 18:20 A&P Assessment and plan (1) Psychotic disorder: (2) Paranoia (psychosis): (3) Acute dehydration: (4) Delusions: (5) Depression: (6) DOMINIQUE (generalized anxiety disorder): (7) Schizophrenia: Plan This is a 52 year old white female with a history of trauma and genetic loading for addiction issues who presented with psychosis with noncompliance with outpatient medications leading to recurring psychosis. 1. Discontinue oral Abilify as we are past the 14-day. Patient given the Abilify Maintena 400 mg IM injection 11/24/22. TSH elevated 8.02, normal T4 (suggest continued subclinical hypothyroidism.)-Continue Synthroid to 100mcg daily, continue klonopin with switch to .5mg bid at night, continue zyprexa 5mg at night. 2. Encourage individual, group and milieu therapy 3. Continue q-15 minute check for safety 4. Patient remains on 21 day hold. Involuntary Hold Information 96 Hour Hold: 96 Hour Involuntary Admission: Yes 96 Hour Hold Ending Date: 11/24/22 96 Hour Hold Ending Time: 00:01 Attestations NPU Medical Necessity Statement*: Inpatient hospitalization is medically necessary and the clinically appropriate intervention at this time. We will monitor medications and make changes as indic ated. Her likely length of stay is 1-3 days. Coding Level of Care Code Acute Code for [facility] Fwd Diagnoses Psychotic disorder F29 Paranoia (psychosis) F22 Acute dehydration E86.0 Delusions F22 Depression F32.9 DOMINIQUE (generalized anxiety disorder) F41.1 Schizophrenia F20.9
[2022-12-14 13:50] VITALS: BP 112/70; PULSE 99; RESP 17; TEMP 36.7; O2SAT 100
[2022-12-14] MEDS: naproxen 500 mg Tablet 250 MG PO (20:07)
[2022-12-14] MEDS: OLANZapine 5 mg TABLET PO (20:09)
[2022-12-14] MEDS: amitriptyline 25 mg Tablet 50 MG PO (20:10)
[2022-12-14 21:07] VITALS: BP 126/82; PULSE 100; RESP 18; TEMP 36.8; O2SAT 97
[2022-12-15] MEDS: HYDROcodone-acetaminophen 5-325 mg Tablet 0.5 TAB PO ×2 (02:54→14:09)
[2022-12-15] MEDS: hyDROXYzine 25 mg Capsule 50 MG PO ×3 (02:55→20:14)
[2022-12-15] MEDS: nicotine 4 mg lozenge MUCOUS MEM ×10 (02:55→22:16)
[2022-12-15 06:00] VITALS: BP 109/72; PULSE 88; RESP 18; TEMP 36.5; O2SAT 99
[2022-12-15] MEDS: levothyroxine 100 mcg Tablet PO (08:08)
[2022-12-15] MEDS: CLONazepam 0.5 mg Tablet PO ×2 (08:08→17:33)
[2022-12-15] MEDS: estradiol 1 mg Tablet PO (08:08)
[2022-12-15] MEDS: diphenhydrAMINE 50 mg Capsule PO ×2 (08:08→21:58)
[2022-12-15] MEDS: docusate sodium 100 mg Capsule PO (08:08)
--- NOTE | 2022-12-15 08:47 | PC.NURSE ---
Patient reports some mild anxiety. Patient denies thoughts of suicide and homicide.
--- NOTE | 2022-12-15 12:51 | PC.NURSE ---
Patient reporting anxiety 4/10. Patient tried to distance herself from the anxiety by taking a shower. Patient also tried pacing the quintero to alleviate anxious feelings, with no change. This nurse adminisered 50mg Vistaril PO to patient.
[2022-12-15 13:27] VITALS: BP 112/71; PULSE 94; RESP 16; TEMP 36.6; O2SAT 100
[2022-12-15] MEDS: tizanidine 4 mg Tablet PO ×2 (14:10→20:14)
--- NOTE | 2022-12-15 17:36 | P.NPUPN_ITS ---
Subjective NPU Subjective: Patient presented today reporting that she is feeling pretty good. She has been working with her signs and uncles to get discharge arranged. She is working with the social work team as she is planning on moving out of her home and working with her family for the next option which may very well be an apartment in town. She reports that she is open to this idea and has excepted that this i s the best plan moving forward. She denies any issues with the medication and endorses a plan to follow-up with outpatient resources as directed. Mental Status Exam MSE Comments: This is a slender white female in hospital scrubs with adequate grooming and eye contact. No abnormal involuntary motor movements appreciated other than some mild psychomotor retardation. She was cooperative with exam in no acute distress. Speech was normal rate and volume. Mood described pretty good, her affect is congruent, and generally calm. Thought process: linear, logical Thought content: patient denied suicidal or homicidal ideation, there were no delusions reported but paranoid and persecutory delusions noted and she denied auditory or visual hallucinations. Attention and concentration are intact. and Her recent and remote memory were grossly intact, but concerns exist about the reliability of some of the information secondary to paranoia. She is alert and oriented x3. Insight and judgment are limited and impulse control appears limited. Vitals/I&O/Wt Last Vital Signs Temp 98.1 F 12/15/22 19:54 Pulse 102 H 12/15/22 19:54 Resp 18 12/15/22 19:54 BP 101/67 12/15/22 19:54 Pulse Ox 100 12/15/22 19:54 O2 Del Method Room Air 12/13/22 20:15 12/15/22 12/15/22 14:59 22:59 Intake Total 480 / 480 Balance 480 / 480 Weight last 48 hrs Weight 59.148 kg Data NPU 12/05/22 18:20 12/05/22 18:20 A&P Assessment and plan (1) Psychotic disorder: (2) Paranoia (psychosis): (3) Acute dehydration: (4) Delusions: (5) Depression: (6) DOMINIQUE (generalized anxiety disorder): (7) Schizophrenia: Plan This is a 52 year old white female with a history of trauma and genetic loading for addiction issues who presented with psychosis with noncompliance with outpatient medications leading to recurring psychosis. 1. Discontinue oral Abilify as we are past the 14-day. Patient given the Abilify Maintena 400 mg IM injection 11/24/22. TSH elevated 8.02, normal T4 (suggest continued subclinical hypothyroidism.)-Continue Synthroid to 100mcg daily, continue klonopin with switch to .5mg bid at night, continue zyprexa 5mg at night. 2. Encourage individual, group and milieu therapy 3. Continue q-15 minute check for safety 4. Patient remains on 21 day hold. 5. Plan on discharge tomorrow with goal of Abilify Asimtulfii every 2 months at discharge. Involuntary Hold Information 96 Hour Hold: 96 Hour Involuntary Admission: Yes 96 Hour Hold Ending Date: 11/24/22 96 Hour Hold Ending Time: 00:01 Attestations NPU Medical Necessity Statement*: Inpatient hospitalization is medically necessary and the clinically appropriate intervention at this time. We will monitor medications and make changes as indicated. Her likely length of stay is 1-2 days. Coding Level of Care Code Acute Code for [facility] Fwd Diagnoses Psychotic disorder F29 Paranoia (psychosis) F22 Acute dehydration E86.0 Delusions F22 Depression F32.9 DOMINIQUE (generalized anxiety disorder) F41.1 Schizophrenia F20.9
[2022-12-15 19:54] VITALS: BP 101/67; PULSE 102; RESP 18; TEMP 36.7; O2SAT 100
[2022-12-15] MEDS: naproxen 500 mg Tablet 250 MG PO (20:14)
[2022-12-15] MEDS: amitriptyline 25 mg Tablet 50 MG PO (20:14)
[2022-12-15] MEDS: OLANZapine 5 mg TABLET PO (20:15)
[2022-12-16] MEDS: hyDROXYzine 25 mg Capsule 50 MG PO ×2 (03:13→09:51)
[2022-12-16] MEDS: nicotine 4 mg lozenge MUCOUS MEM ×5 (03:13→12:46)
[2022-12-16] MEDS: HYDROcodone-acetaminophen 5-325 mg Tablet 0.5 TAB PO (03:16)
[2022-12-16 06:00] VITALS: BP 118/77; PULSE 87; RESP 18; TEMP 36.7; O2SAT 100
--- NOTE | 2022-12-16 07:31 | PC.NURSE ---
Patient reports feeling tired; she was up and down a lot during the night d/t to anxiety and excitement r/t being discharged today. Patient denies SI, HI, AVH, and depression.
[2022-12-16] MEDS: CLONazepam 0.5 mg Tablet PO (08:08)
[2022-12-16] MEDS: levothyroxine 100 mcg Tablet PO (08:08)
[2022-12-16] MEDS: docusate sodium 100 mg Capsule PO (08:08)
[2022-12-16] MEDS: estradiol 1 mg Tablet PO (08:08)
--- NOTE | 2022-12-16 12:03 | P.NPUDS_ITS ---
Diagnoses at Discharge Discharge Diagnosis (1) Psychotic disorder: Status: Inactive (2) Paranoia (psychosis): Status: Inactive (3) Acute dehydration: Status: Resolved (4) Delusions: Status: Inactive (5) Depression: Status: Inactive (6) DOMINIQUE (generalized anxiety disorder): Status: Inactive (7) Schizophrenia: Status: Acute Reason for Visit Reason for Visit: 96 HOUR HOLD Brief History: History of Present Illness Sima Avelar is a 52 year old female who presents to the emergency department with the following report: Chief Complaint: Psychiatric Symptoms Stated Complaint: 96 HOUR HOLD Time Seen by Provider: 11/15/22 00:41 History of Present Illness:?? 52-year-old female comes in as a 96-hour hold that is court ordered.? Family stated that she was acting odd, paranoid, and has a history of paranoid schizophrenia.? She had stopped taking her medication evidently.? She does not admit to other substance related problems such as illicit substance abuse, etc. ? MD complaint: altered mental status and other Onset (ago): hour(s) History of same: Yes Relieving factors: none Exacerbating factors: none Associated symptoms: Reports auditory hallucinations (By report.) and visual hallucinations Treatments prior to arrival: placed on mental health hold She was admitted to the neuropsychiatric unit for definitive treatment of those issues.? She presents today on a 96-hour hold reporting that she does not understand why she is here.? She does acknowledge that she stopped taking her medication but she reports that she did fine after that.? She endorsed not feeling like she needs her medication.? She reports that she stopped going to [facility] but that the counselor [facility] told she did not need to come anymore but she was going fine.? We discussed the need to get collateral information on her report.? She reports that she was at home doing fine having no issues there were knots on her door that were the police picking her up and telling her that she needed to go because she was on this hold.? She denies any symptoms or any problems and she reports that this is just a confusing situation.? We agreed we would hold on medication for today, but her history suggest that being stable on medication we will keep her out of the hospital but we need to do some research and collateral information to find out what is really going on.? An excerpt of her discharge summary from January of last year is included below for context. Per her 02/21/2022 [facility] inpatient psychiatric discharge summary: Discharge Diagnosis (1) Psychotic disorder: ? ? ? Status: Acute (2) Paranoia (psychosis): ? ? ? Status: Acute (3) Acute dehydration: ? ? ? Status: Resolved (4) Delusions: ? ? ? Status: Acute (5) Depression: ? ? ? Status: Acute (6) DOMINIQUE (generalized anxiety disorder): ? ? ? Status: Acute Reason for Visit Reason for Visit:?? 96? Brief History: History of Present Illness Sima Avelar is a 51 year old female who presents to the emergency department with the following report: Chief Complaint: Psychiatric Symptoms Stated Complaint: 96 Time Seen by Provider: 01/24/22 15:13 History of Present Illness:?? Ms. Avelar is a 51-year-old lady presenting to the emergency department for a 96-hour hold.? The patient herself largely minimizes or is unaware of concerning symptoms.? She reports that she was just walking down the [address] out for a walk and got hot so she sat down at which point someone saw her outside and called 911.? Per review of affidavits patient has been paranoid with delusions and abnormal behavior.? Otherwise denies medical complaints.? No other specific changes in health, exacerbating, or alleviating factors identified. She was admitted to the neuropsychiatric unit for definitive treatment of those issues. 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 She reports she worked with a pharmacist afterwards who she trusted that told her to take Benadryl to stop what was happening with someone present to monitor her. She is not currently taking any psychiatric medications. She presented to the hospital as she was walking on the side of the road and police brought her into the hospital because of concerns. She has been psychiatrically hospitalized once before about a month ago and has been on a number of different medications in her life. She reports a pack to a pack and a half a day of cigarettes, denies alcohol, marijuana or any other illicit drug use. She has not been to rehab, gotten a DUI or drug and alcohol related charges. Her depression began presenting when she was a child when her mother and had anxiety which began presenting around her teenage years with increased worrying. She endorses having worsening depression and anxiety from high school that escalated when her children started getting older and she was trying to make their lives perfect. She denies passive wish, suicidal ideation or self-injurious behaviors. She reports she feels she held her family to a higher level of importance than they hold her. She reports at the times she was walking because of all this stress, she would sit in the ditch on the side of the road in between walking. She endorsed several times that she wanted to get help but was not specific in the type of help she is looking for and could not explain what behaviors caused people to be concerned about her. She reported later she had just taken off in her pajamas and started walking as she wanted to get a signal in order to contact her family to get help. She endorsed wanting to speak with a preacher as she has done so in the past and found comfort from it.? Please see excerpt of hospitalization from November 2021 below for context. Psychiatric History: As above. Substance Abuse History: As above. Family History: She denies mental health issues on either side of the family, addiction issues on both sides of the family and denies any suicide attempts or completions on either side of the family. Developmental History: She denies any issues with her or , learned to walk and talk and met her developmental milestones on time and denies any need for speech therapy, learning support, emotional support or special education classes. Psychosocial History: She reports her father a week before she was born and she is the only product of this union. Her mother has one additional daughter and her father had no additional children. She described her childhood as good and denies any emotional, physical or sexual abuse. She denies CYS involvement but did have some truancy issues. She remembers when her mother from a stroke reporting she still has flashbacks of that night as well as avoidant behavior. The highest grade she achieved was 12th grade and she got her GED. She endorses being heterosexual with her longest relationship being 20 years. She has been and once, has two sons, 33 and 35, has never been in the and endorses being voodoo. Her longest employment history is 6 years. She currently is homeless. Legal History: Denied. Medical History: She reports she had a stroke after taking Zoloft. She had Grave?s Disease and had her thyroid removed in 1997. She delivered her children vaginally. She began menstruating around 8th grade and reports her periods were problematic. Per her 12/29/2021 [facility] inpatient psychiatric evaluation: History of Present Illness Sima Avelar is a a 51 year old white female who presents today due to not feeling well as if she was dehydrated and had brought been? by an ambulance after speaking with a deputy. She has never been psychiatrically hospitalized and has? not seen any outpatient psychiatric services. She reports she has troubles with sleeping and can stay? awake for 5 days at a time but reports it has not happened in a few years and occurred around her? thyroid problems. She has been on Amitriptyline currently but could not recall the dose. She had been? seeing Dr. Bullard at his office at the Urgent Care facility. She reports she takes two of her Percocet in the? morning for her pain and has been on it since 2010 as she was having headaches on the Hydrocodone.? She denies alcohol, marijuana or illicit drug use. She reports she has been having issues with her long? term memory and has had a few hits to her head in the past. We discussed how the reports from the? emergency room stated she had reported she felt as if people were trying to poison her and she? endorses she stated that people were ?messing with me? as other people have access to her house. She? reports sometimes being in the bathtub and hearing the door slam shut and finding food missing after? she grocery shopped. She reports she doesn?t have an idea of who would be messing with her and is? pretty much always at her house. She denies any changes in her mood since this began happening. She? reports she called the emergency room as she was having neck and back pain and had not eaten in? several days as she didn?t feel like it and hadn?t had something to eat. She reports she has been drinking? water but has been losing weight since she has stopped eating. She reports she has been sent things to? eat but feels sick when she does eat it and will get chris on her phone making fun of things that she is? going through as well. She endorses having anxiety and worrying constantly about people. She reports? she feels as if she is missing things and endorsed again that people are just messing or joking with her.? She denies any history of traumatic events that occurred which resulted in hypervigilance or intrusive? thoughts. She endorses her house is old and she needs to find another place to live. She reports once? she went to a doctor appointment and came home to all of her picture frames being moved. She had? spoken with her cousin who laughed at her and said ?why would I do that?. She reports a lot of people? have keys to her house. She denies thinking her house is haunted. She reports she had to switch? something with her cousin which made her mad though she did not understand why and believes that is? what is causing her to mess with her. She reports she has a hard time living in her house as it is filled? with memories and she is by herself and wants to go to another place to restart. She denies feeling as if? she is being messed with in the hospital and denies having issues with food currently either. Psychiatric History: As above. Substance Abuse History: As above. Family History: None reported Developmental History: No hx of developmental delays. Psychosocial History: She was born in [place] and raised there. She is currently and has been once. She? has a 25 and 32 year old children. She was raised by her grandparents as her parents both passed by the? time she was 4 years old. Her father in a car accident before she was born and her mother of? cervical cancer. She has a half sister. The highest grade she achieved was 12th grade and she got her? GED. 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 She is not? currently working and is on disability for her back. She currently lives in a house by herself and reports it? needs some work done.? She report no history of sexual, physical, or emotional abuse. Legal History: Medical History: She has Graves disease and had an overactive thyroid which was removed. She is allergic to Zoloft. She? has been diagnosed with psoriasis and had a hysterectomy.? Medications on admission: tizanidine, pepcid, amitryptiline, estradiol, percocet. Hospital Course Hospital Course She slowly acclimated to the individual, group and milieu therapies provided.? When she presented she was struggling with delusions and paranoia again. She has stopped taking her medication for some time. There have been ongoing concerns that there is addiction but the likelihood this is enough that psychosis that certainly occurs with females in a bimodal pattern and this is in the second mode. We restarted her Abilify and eventually gave her Abilify Maintena. It would be desirable for her to then go on Abilify Asimtufii which will be every 2 months. She was also getting Cogentin she has a past. She worked with her family for a plan for housing afterwards with a plan to have her not returned to previous home again. She was in a 96-hour hold and then a 21- day hold. She was able to contract for safety outside of the hospital prior to discharge.? During the hospitalization, patient had routine laboratory studies which were within normal limits except for few outliers.? Additionally there was a general medical evaluation which was also within normal limits and revealed no new acute processes. Discharge Summary: At the time of discharge, lethality was denied and psychosis was resolving.? Mood and anxiety were well managed.? Patient endorsed a plan to avoid all drugs of abuse and follow-up with the aftercare recommendations of the treatment team.? Patient was evaluated and deemed to be absent credible lethality, and had achieved the maximum benefit from an inpatient hospitalization, so was discharged. Involuntary Hold Information 96 Hour Hold: 96 Hour Involuntary Admission: Yes 96 Hour Hold Ending Date: 11/24/22 96 Hour Hold Ending Time: 00:01 Mental Status Exam MSE Comments: This is a slender white female in hospital scrubs with adequate grooming and eye contact. No abnormal involuntary motor movements appreciated other than some mild psychomotor retardation. She was cooperative with exam in no acute distress. Speech was normal rate and volume. Mood described pretty good, her affect is congruent, and generally calm. Thought process: linear, logical Thought content: patient denied suicidal or homicidal ideation, there were no delusions reported but paranoid and persecutory delusions noted and she denied auditory or visual hallucinations. Attention and concentration are intact. and Her recent and remote memory were grossly intact, but concerns exist about the reliability of some of the information secondary to paranoia. She is alert and oriented x3. Insight and judgment are limited and impulse control appears limited. Discharge Data Studies Completed and Pending: Laboratory Results WBC 7.9 10^3/uL (4.0- 10.0) 12/05/22 18:20 RBC 4.01 10^6/uL (4.1 -5.3) L 12/05/22 18:20 Hgb 12.8 g/dL (11.5-1 5.3) 12/05/22 18:20 Hct 37.7 % (37.0-47.0 ) 12/05/22 18:20 MCV 94.0 fl (81-99) 12/05/22 18:20 MCH 31.9 pg (28.0-34. 0) 12/05/22 18:20 MCHC 34.0 g/dL (30.0-3 6.0) 12/05/22 18:20 RDW 12.5 % (12.1-15.1 ) 12/05/22 18:20 Plt Count 283 10^3/cmm (130 -400) 12/05/22 18:20 MPV 9.6 fL (7.4-10.4) 12/05/22 18:20 Neut % (Auto) 64.0 % 12/05/22 18:20 Lymph % (Auto) 23.9 % 12/05/22 18:20 [place] % (Auto) 9.1 % 12/05/22 18:20 Eos % (Auto) 1.8 % 12/05/22 18:20 Baso % (Auto) 0.9 % 12/05/22 18:20 Neut # (Auto) 5.06 10^3/uL (1.8 -7.7) 12/05/22 18:20 Lymph # (Auto) 1.9 10^3/uL (0.8- 4.8) 12/05/22 18:20 [place] # (Auto) 0.7 10^3/uL (0.2- 0.9) 12/05/22 18:20 Eos # (Auto) 0.1 10^3/uL (0.0- 0.8) 12/05/22 18:20 Baso # (Auto) 0.1 10^3/uL (0.0- 0.1) 12/05/22 18:20 Nucleated RBC % (a uto) 0 % 12/05/22 18:20 Nucleated RBCs # 0.0 /100WBC 12/05/22 18:20 Sodium 131 mmol/L (136-1 45) L 12/05/22 18:20 Potassium 4.2 mmol/L (3.5-5 .1) 12/05/22 18:20 Chloride 94 mmol/L (98-107 ) L 12/05/22 18:20 Carbon Dioxide 26 mmol/L (22-29) 12/05/22 18:20 Anion Gap 15.2 (5-19) 12/05/22 18:20 BUN 12 mg/dL (6-20) 12/05/22 18:20 Creatinine 0.7 mg/dL (0.5-0. 9) 12/05/22 18:20 GFR Calculation 87.9 mL/min (90-1 30) L 12/05/22 18:20 Glucose 74 mg/dL (65-115) 12/05/22 18:20 Calculated Osmolal ity 270 mOsm/kg (285- 295) L 12/05/22 18:20 Calcium 9.6 mg/dL (8.5-10 .5) 12/05/22 18:20 Total Bilirubin 0.2 mg/dL (0.15-1 .2) 12/05/22 18:20 Direct Bilirubin 0.20 mg/dL (0.00- 0.30) 12/05/22 18:20 AST 19 U/L (0-32) 12/05/22 18:20 ALT 21 U/L (0-33) 12/05/22 18:20 Alkaline Phosphata se 79 U/L (35-105) 12/05/22 18:20 Total Protein 7.4 g/dL (6.6-8.7 ) 12/05/22 18:20 Albumin 4.8 g/dL (3.5-5.2 ) 12/05/22 18:20 Globulin 2.6 g/dL (1.3-4.6 ) 12/05/22 18:20 TSH 8.05 uIU/mL (0.27 -4.20) H 12/02/22 08:06 Free T4 1.34 ng/dL (0.82- 1.77) 12/02/22 08:06 Urine Color Light yellow (Ye llow) 12/09/22 11:30 Urine Appearance Clear (CLEAR) 12/09/22 11:30 Urine pH 7 (5-7) 12/09/22 11:30 Ur Specific Gravit y 1.005 (1.005-1.0 30) 12/09/22 11:30 Urine Protein Neg (Negative) 12/09/22 11:30 Urine Glucose (UA) Norm (Normal) 12/09/22 11:30 Urine Ketones Negative (Negati ve) 12/09/22 11:30 Urine Blood Neg (Negative) 12/09/22 11:30 Urine Nitrate Negative (Negati ve) 12/09/22 11:30 Urine Bilirubin Neg (Negative) 12/09/22 11:30 Urine Urobilinogen Norm mg/dL (Negat [place]) 12/09/22 11:30 Ur Leukocyte [place] ase Trace (Negative) H 12/09/22 11:30 Urine RBC 0-4 /hpf (0-2) H 12/09/22 11:30 Urine WBC 5-10 /hpf (0-5) H 12/09/22 11:30 Ur Squamous Epith Cells 0-4 /hpf (0-5) H 12/09/22 11:30 Amorphous Sediment Not Reportable 12/09/22 11:30 Urine Bacteria Trace /hpf (NONE) 12/09/22 11:30 Urine Mucus None /hpf 12/09/22 11:30 Salicylates < 0.3 mg/dL (3-10 ) L 11/15/22 00:51 Urine Opiates Scre en Negative ng/mL (N egative) 11/15/22 00:52 Acetaminophen < 5.0 ug/mL (10-3 0) L 11/15/22 00:51 Ur Barbiturates Sc reen Negative ng/mL (N egative) 11/15/22 00:52 Ur Phencyclidine S crn Negative ng/mL (N egative) 11/15/22 00:52 Ur Amphetamines Sc reen Negative ng/mL (N egative) 11/15/22 00:52 U Benzodiazepines Scrn Negative ng/mL (N egative) 11/15/22 00:52 Urine Cocaine Scre en Negative ng/mL (N egative) 11/15/22 00:52 U Marijuana (THC) Screen Negative ng/mL (N egative) 11/15/22 00:52 Ethyl Alcohol < 10 mg/dL (0-10) 11/15/22 00:51 Vitals: Last Vital Signs Temp 98.0 F 12/16/22 06:00 Pulse 87 12/16/22 06:00 Resp 18 12/16/22 06:00 BP 118/77 12/16/22 06:00 Pulse Ox 100 12/16/22 06:00 O2 Del Method Room Air 12/13/22 20:15 Discharge Plan Discharge Patient Disposition: Home Condition: Stable Prescriptions: New Levoxyl 100 mcg Tablet 100 mcg PO DAILY 30 Days Qty: 30 1RF diphenhydramine HCl 50 mg Capsule 50 mg PO Q4H PRN (Reason: Allergies) 30 Days Qty: 120 1RF clonazepam 0.5 mg Tablet 0.5 mg PO BID 30 Days Qty: 60 1RF docusate sodium 100 mg Capsule 100 mg PO DAILY 30 Days Qty: 30 1RF Abilify Maintena 400 mg suspension,extended rel recon 400 mg IM Q28D 28 Days Qty: 1 1RF Rx Instructions: next injection 12/22/22 Continued triamcinolone acetonide 0.025 % cream 1 applic TOPICAL DAILY tizanidine 4 mg tablet 4 mg PO Q8H PRN (Reason: Muscle Pain) 30 Days Qty: 90 1RF amitriptyline 50 mg tablet 50 mg PO DAILY 30 Days Qty: 30 1RF estradiol 1 mg tablet 1 mg PO DAILY 90 Days Qty: 90 0RF Changed hydrocodone-acetaminophen 5-325 mg tablet 2.5 - 162.5 tab PO BID PRN (Reason: Pain) 30 Days Qty: 30 0RF Discontinued amitriptyline 50 mg tablet 50 mg PO DAILY Qty: 30 5RF No Action levothyroxine 88 mcg capsule 88 mcg PO DAILY Qty: 30 5RF Discharge Orders: Discharge Order (Routine); Ordered 12/16/22 Ordered By: Jose Raul Santana Referrals: [facility] [Other] - 12/16/22 Adelia Mckeon PMHNP [Staff Physician] - 12/17/22 11:15 am (Follow up) Cinthia Branham LPC [Therapist] - 12/18/22 11:45 am (Follow up) Robby Zamora MD [Physician] - 12/23/22 2:00 pm (follow up) Discharge Diet: Regular Discharge Activity: Resume usual activity Patient Instructions: Brief Psychotic Disorder (GEN), Opioid Safety Discharge Attestations NPU Time Spent in Discharge Care*: less than 30 min Specific Discharge Activities: Specific discharge activities: educating patient, discussing with case management director/social workers/dc planners, documenting/other paperwork and evaluating patient/reviewing data Coding Level of Care Code Acute Chg FW DC note Diagnoses Psychotic disorder F29 Paranoia (psychosis) F22 Acute dehydration E86.0 Delusions F22 Depression F32.9 DOMINIQUE (generalized anxiety disorder) F41.1 Schizophrenia F20.9
[2022-12-16 12:14] VITALS: BP 118/77; PULSE 87; RESP 18; TEMP 36.7; O2SAT 100
== END 2022-12-16 13:28 | disposition home or self-care (01) | DRG 885 ==
LOC: ER 01:12 → NP 01:53
PROVIDERS: Admitting Provider Psychiatry & Neurology Psychiatry; Emergency Provider Emergency Medicine; Visit Provider Psychiatry & Neurology Psychiatry
DX: F29 Unspecified psychosis not due to a substance or known physiological condition (principal); N39.0 Urinary tract infection, site not specified; E86.0 Dehydration; F22 Delusional disorders; F41.1 Generalized anxiety disorder; F32.A Depression, unspecified; F17.210 Nicotine dependence, cigarettes, uncomplicated; Z91.128 Patient's intentional underdosing of medication regimen for other reason; F19.11 Other psychoactive substance abuse, in remission
CPT/HCPCS: 36415; 80048; 80053; 80076; 80306; 80307; 81001; 84439; 84443; 85025; 96372; 97150; 97165; 99238; 99285; J8499; Q0163

== ENCOUNTER 2023-05-27 07:40 | Inpatient (IN) | payer MEDICAID, SELFPAY ==
[2023-05-27] VITALS (7 sets, daily range): BP systolic 111–125; BP diastolic 66–76; PULSE 108–131; RESP 18; TEMP 37.1–37.4; O2SAT 92–96; BMI 24.7
--- NOTE | 2023-05-27 08:04 | XRR_ITS ---
PROCEDURE INFORMATION: Exam: XR Chest Exam date and time: 05/27/2023 8:39 AM Age: 52 years old Clinical indication: Cough and dyspnea; Additional info: Dyspnea/cough TECHNIQUE: Imaging protocol: Radiologic exam of the chest. Views: 1 view. Total images: 2 COMPARISON: CT angio chest w abd pel w con 02/16/2019 12:26 AM FINDINGS: Lungs: Unremarkable. No consolidation. Pleural spaces: There is biapical pleural thickening, likely related to chronic pleural-parenchymal scarring. Heart/Mediastinum: Unremarkable. No cardiomegaly. Bones/joints: Osseous structures are unchanged from the prior exam. XR/XR chest 1V portable [id number] IMPRESSION: 1. There is biapical pleural thickening, likely related to chronic pleural-parenchymal scarring. 2. No acute cardiopulmonary process.
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
[2023-05-27 08:19] LABS: Basophils # 0.1 10^3/uL (0.0-0.1); Basophils % 0.4 %; Hematocrit 36.8 % (36-47); Lymphocytes # 1.1 10^3/uL (0.8-4.8); Lymphocytes % 4.4 %; Mean Corpuscular HGB Conc 34.5 g/dL (30-55); Mean Corpuscular Volume 92.7 fl (85-98); Mean Platelet Volume 10.1 fL (7.4-10.4); Monocytes # 1.1 10^3/uL (0.2-0.9); Monocytes % 4.6 %; Neutrophils # 21.92 10^3/uL (1.8-7.7); Neutrophils % 90.1 %; Nucleated Red Blood Cells % 0 %; Platelet Count 308 10^3/cmm (157-399); Red Blood Count 3.97 10^6/uL (3.85-5.65); Red Cell Distribution Width 13.5 % (12.1-15.1); White Blood Count 24.34 10^3/uL (3.29-11.43)
[2023-05-27 08:28] LABS: Add Urine Microscopic? NO; Charge for UA Resulting for Rev
[2023-05-27 08:36] LABS: Bilirubin Urine Neg (Negative); Blood Urine Neg (Negative); Glucose Urine UA Norm (Normal); Ketones Urine Negative (Negative); Leukocyte Esterase Urine Negative (Negative); Nitrate Urine Negative (Negative); Protein Urine Neg (Negative); Specific Gravity, Urine 1.005 (1.005-1.030); Urine Appearance Clear (CLEAR); Urine Color Straw (Yellow); Urobilinogen Urine Neg (Negative); pH Urine 6.5 (5-7)
[2023-05-27 08:40] LABS: Alanine Aminotransferase 12 U/L (0-33); Albumin Level 4.3 g/dL (3.5-5.2); Alkaline Phosphatase 112 U/L (35-105); Anion Gap 16.3 (5-19); Aspartate Amino Transferase 29 U/L (0-32); Blood Urea Nitrogen 5 mg/dL (6-20); Calcium 9.8 mg/dL (8.5-10.5); Carbon Dioxide 24 mmol/L (22-29); Chloride 98 mmol/L (98-107); Globulin 3.2 g/dL (1.3-4.6); Glomerular Filtration Rate 87.9 mL/min (90-130); Glucose 141 mg/dL (65-115); Osmolality Calculated 280 mOsm/kg (285-295); Potassium 3.3 mmol/L (3.5-5.1); Sodium 135 mmol/L (136-145); Total Bilirubin 0.4 mg/dL (0.15-1.2); Total Protein 7.5 g/dL (6.6-8.7)
[2023-05-27 08:45] LABS: Amphetamines Screen Urine Negative (Negative); Barbiturates Screen Urine Negative (Negative); Benzodiazepines Screen Urine Negative (Negative); Cocaine Screen Urine Negative (Negative); Opiate Screen Urine Negative (Negative); PCP Screen Urine Negative (Negative); THC Screen Urine Negative (Negative)
[2023-05-27] MEDS: sodium chloride 0.9% 1,000 ML 999 ML IV (08:53)
[2023-05-27 09:04] LABS: Lactic Sepsis W/Reflex 1.6 mmol/L (0.5-2.2)
--- NOTE | 2023-05-27 09:28 | PC.NURSE ---
96 hr patient rights reviewed with patient with assistance of KEVON Aguirre @[id number]. Education provided. No questions, concerns, or needs verbalized at this time. Patient copy left with patient @bedside.
[2023-05-27 10:21] LABS: Adenovirus Not Detected (NOT DETECT); Chlamydia Pneumoniae Not Detected (NOT DETECT); Coronavirus 229E,HKU1,NL63,OC4 Not Detected (NOT DETECT); Human Metapneumovirus Not Detected (NOT DETECT); Human Rhinovirus/Enterovirus Not Detected (NOT DETECT); Influenza A Not Detected (NOT DETECT); Influenza A H1 Not Detected (NOT DETECT); Influenza A H1-2009 Not Detected (NOT DETECT); Influenza A H3 Not Detected (NOT DETECT); Influenza B Not Detected (NOT DETECT); Mycoplasma Pneumoniae Not Detected (NOT DETECT); Parainfluenza Virus Type 1 Not Detected (NOT DETECT); Parainfluenza Virus Type 2 Not Detected (NOT DETECT); Parainfluenza Virus Type 3 Not Detected (NOT DETECT); Parainfluenza Virus Type 4 Not Detected (NOT DETECT); Respiratory Syncytial Virus A Not Detected (NOT DETECT); Respiratory Syncytial Virus B Not Detected (NOT DETECT); SARS-COV-2 Not Detected (NOT DETECT)
[2023-05-27] MEDS: acetaminophen 500 mg Tablet 1000 MG PO (11:10)
[2023-05-27] MEDS: oxyCODONE-APAP 10-325 mg Tablet 1 TAB PO (17:45)
[2023-05-27] MEDS: doxycycline 100 mg Tablet PO (17:45)
[2023-05-27] MEDS: CLONazepam 0.5 mg Tablet PO (17:45)
--- NOTE | 2023-05-27 20:30 | PC.NURSE ---
Unable to obtain vitals on patient due to patient deeply sleeping. Obtained RR
--- NOTE | 2023-05-27 22:01 | PC.NURSE ---
IN BED RESTING, AROUSES TO VOICE. PT DENIES PAIN, SI/HI AND AVH AT THIS TIME. PT STATES I JUST WANT TO SLEEP. RN ASSURED PT THAT AFTER ASSESSMENT SHE COULD REST ALL SHE WANTED. PT RATED ANXIETY AND DEPRESSION 10/10. DECLINED ANY MEDICATION AT THIS TIME. PT WANTED TO KNOW WHEN HER PAIN PILL WAS DUE. PT WAS EDUCATED THAT SHE HAD JUST RECEIVED HER PAIN PILL SO IT WOULD BE SIX MORE HOURS. PT ROLLED OVER AND CLOSED EYES. ALL QUESTIONS ANSWERED AND SUPPORT WAS VOICED. PT IS NOTED TO HAVE A FLAT AFFECT, DEPRESSED MOOD.
[2023-05-27] MEDS: tizanidine 4 mg Tablet PO (22:28)
[2023-05-28] VITALS (7 sets, daily range): BP systolic 111–119; BP diastolic 67–74; PULSE 110–116; RESP 14–20; TEMP 36.6–36.8; O2SAT 95–98
[2023-05-28] MEDS: oxyCODONE-APAP 10-325 mg Tablet 1 TAB PO ×4 (00:11→21:06)
--- NOTE | 2023-05-28 00:11 | PC.NURSE ---
PT AT [facility] WHEN ASKED WHAT SHE IS DOING OR WHAT SHE IS NEEDING. PT STATES I'M WATCHING THE CLOCK FOR MY PERCOCET. PT INFORMED THAT HER PERCOCET IS DUE AT MIDNIGHT. PT THEN GOT UPSET DUE STATING YOU SAID I COULD HAVE MY CLONAZEPAM AND PERCOCET. PT WAS EDUCATED THAT THIS RN STATED SHE CAN HAVE THE PERCOCET AT MIDNIGHT AND THE CLONAZEPAM IN THE AM AT 0900. PT AGAIN BECAME AGITATED STATING JUST GIVE ME MY PERCOCET. PT WAS GIVEN PERCOCET 10/325 MG ORDERED. SUPPORT VOICED.
[2023-05-28] MEDS: cetylpyridinium Lozenge 1 EACH MUCOUS MEM (00:57)
--- NOTE | 2023-05-28 00:57 | PC.NURSE ---
PT UP WALKING HALLS AND COUGHING LOUDLY. PT HAS BEEN GIVEN ALBUTEROL INHALER ORDERED WITH LITTLE EFFECT. PT WAS ALSO GIVEN CEPACOL COUGH DROP ORDERED FOR COUGH. PT INSTRUCTED TO DEEP BREATH. SUPPORT VOICED.
[2023-05-28] MEDS: OLANZapine 5 mg ODT PO ×3 (03:01→21:05)
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
[2023-05-28 07:31] LABS: Hematocrit 31.1 % (36-47); Mean Corpuscular HGB Conc 34.1 g/dL (30-55); Mean Corpuscular Hemoglobin 31.8 pg (27-33); Mean Corpuscular Volume 93.4 fl (85-98); Mean Platelet Volume 10.2 fL (7.4-10.4); Platelet Count 242 10^3/cmm (157-399); Red Blood Count 3.33 10^6/uL (3.85-5.65); Red Cell Distribution Width 13.8 % (12.1-15.1); White Blood Count 13.12 10^3/uL (3.29-11.43)
[2023-05-28 08:09] LABS: Total Cells Counted 100 (0-100)
[2023-05-28 08:15] LABS: Absolute Neutrophil 10.8 10^3/cmm (1.4-6.5); Absolute Segmented Neutrophil 10.8 10/cmm (1.6-7.1); Eosinophils 0 %; Lymphocytes 14 %; Monocytes Absolute 0.4 10^3/cmm (0.1-0.6); Platelet Estimate Normal (Normal); Segmented Neutrophils 82 %
[2023-05-28] MEDS: estradiol 1 mg Tablet PO (08:40)
[2023-05-28] MEDS: CLONazepam 0.5 mg Tablet PO ×2 (08:41→17:12)
[2023-05-28] MEDS: amitriptyline 25 mg Tablet 50 MG PO (08:41)
[2023-05-28] MEDS: levothyroxine 100 mcg Tablet PO (08:42)
[2023-05-28] MEDS: doxycycline 100 mg Tablet PO ×2 (08:42→17:12)
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
[2023-05-28] MEDS: nicotine 4 mg lozenge MUCOUS MEM ×5 (09:57→21:03)
[2023-05-28] MEDS: tizanidine 4 mg Tablet PO ×2 (12:06→21:04)
[2023-05-28] MEDS: acetaminophen 325 mg Tablet 650 MG PO (12:45)
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
[2023-05-28] MEDS: diphenhydrAMINE 50 mg Capsule PO (21:04)
[2023-05-28] MEDS: ARIPiprazole 10 mg Tablet PO (21:04)
[2023-05-28] MEDS: benzonatate 100 mg Capsule PO (21:04)
--- NOTE | 2023-05-28 22:06 | PC.NURSE ---
AT NURSES STATION, CONTINUES TO BE INTRUSIVE AND DEMANDING ALL THE MEDICATIONS I CAN HAVE. PT WAS EDUCATED THAT IT WAS NOT TIME FOR ANY PAIN MEDICATIONS AND IF SHE IS NOT ANXIOUS SHE DOES NOT NEED TO USE THE PRN MEDICATIONS. PT BECAME UPSET AND STATED TO RN, WHY CAN'T YOU JUST GIVE ME ALL THE MEDS LIKE EVERYONE ELSE, PT WAS INFORMED THE TIMES OF PAIN MEDICATIONS AND WHEN THEY WERE DUE. PT ROLLED HER EYES AND WALKED AWAY. PT DENIES SI/HI AND AVH AT THIS TIME. PAIN 7/10 [address]. PERCOCET AND TIZANADINE WAS ADMINISTERD AT THE DUE TIME. ALL QUESTIONS ANSWERED AND SUPPORT VOICED.
--- NOTE | 2023-05-28 23:59 | PC.NURSE ---
PT WAS GIVEN ZYDIS 5 MG REQUESTED FOR INCREASED ANXIETY, TIZANADINE 4 MG WAS GIVEN FOR PAIN, BENADRYL WAS GIVEN FOR ANXIETY AND ALLERGY SYMPTOMS REQUESTED BY PT, PERCOCET 10/325MG WAS GIVEN FOR PAIN 7/10 IN BACK, LEGS AND SPINE. TESSLON PEARLS GIVEN FOR COUGH. PT HAS BEEN RESTING SINCE APPROXIMATELY 2229. MEDICATIONS EFFECTIVE.
[2023-05-29 05:57] VITALS: RESP 15
[2023-05-29 07:45] VITALS: RESP 16
[2023-05-29] MEDS: estradiol 1 mg Tablet PO (07:45)
[2023-05-29] MEDS: oxyCODONE-APAP 10-325 mg Tablet 1 TAB PO ×3 (07:45→19:46)
[2023-05-29] MEDS: doxycycline 100 mg Tablet PO ×2 (07:45→18:04)
[2023-05-29] MEDS: ARIPiprazole 10 mg Tablet PO (07:45)
[2023-05-29] MEDS: levothyroxine 100 mcg Tablet PO (07:45)
[2023-05-29] MEDS: CLONazepam 0.5 mg Tablet PO ×2 (07:45→18:04)
[2023-05-29] MEDS: docusate sodium 100 mg Capsule PO (07:45)
[2023-05-29] MEDS: nicotine 4 mg lozenge MUCOUS MEM ×5 (07:49→19:46)
[2023-05-29] MEDS: tizanidine 4 mg Tablet PO ×2 (08:44→18:50)
[2023-05-29] MEDS: hyDROXYzine 25 mg Capsule 50 MG PO (11:15)
[2023-05-29] MEDS: acetaminophen 325 mg Tablet 650 MG PO (12:59)
[2023-05-29 13:44] VITALS: RESP 16
[2023-05-29] MEDS: benzonatate 100 mg Capsule PO ×2 (13:45→19:45)
[2023-05-29 14:00] VITALS: BP 126/77; PULSE 104; RESP 15; TEMP 36.6; O2SAT 97
[2023-05-29] MEDS: diphenhydrAMINE 50 mg Capsule PO ×2 (16:54→23:59)
--- NOTE | 2023-05-29 18:55 | P.NPUPN_ITS ---
Subjective NPU 2 Subjective: 52-year-old female with schizophrenia admitted after the patient had been noncompliant with her antipsychotic medication for several months. Patient had reported that she was willing to take the medication. She had continued to endorse that people were somehow trying to interfere with her life and were somehow getting into her home. She had been somewhat isolative on the milieu. She reported no side effects from the medication. She had stated that her primary care physician had suggested that she did not need to take the Abilify any longer. Mental Status Exam 2 MSE Comments: She is a casually dressed white female in scrubs who appears older than her stated age with poor grooming. No abnormal involuntary motor movements appreciated other than some mild psychomotor slowing. She was cooperative with exam in no acute distress. Speech was normal in rate and volume. Mood described allright. Her affect was odd and subdued. Thought process: linear, logical Thought content: patient denied suicidal or homicidal ideation, There was continued evidence of delusional thinking. Attention and concentration are intact. Her recent and remote memory were grossly intact. She is alert and oriented x3. Insight is poor and judgment is limited and impulse control appears limited. Vitals/I&O/Wt Last Vital Signs Temp 97.8 F 05/29/23 14:00 Pulse 104 H 05/29/23 14:00 Resp 15 05/29/23 14:00 BP 126/77 05/29/23 14:00 Pulse Ox 97 05/29/23 14:00 O2 Del Method Room Air 05/27/23 12:10 Data NPU 05/28/23 07:19 05/27/23 08:13 Micro: Microbiology 05/27/23 08:38 Blood Culture - Preliminary Blood 05/27/23 08:35 Blood Culture - Preliminary Blood Microbiology 05/27/23 08:38 Blood Blood Culture - Preliminary 05/27/23 08:35 Blood Blood Culture - Preliminary A&P Assessment and plan (1) Psychotic disorder: (2) Paranoia (psychosis): (3) Delusions: (4) DOMINIQUE (generalized anxiety disorder): Plan This is a 52 year old white female with a history of trauma and genetic loading for addiction issues who presents again psychotic with paranoid delusions 5 months after her recent 1 month hospitalization with patient reporting no antipsychotic use in several months. 1. Abilify IM to start tommorow when available and continue oral abilify 10mg tonight. 2. Encourage individual, group and milieu therapy 3. Continue q-15 minute check for safety 4. Will attempt to gather collateral information. Involuntary Hold Information 2 96 Hour Hold: 96 Hour Involuntary Admission: Yes 96 Hour Hold Ending Date: 06/03/22 96 Hour Hold Ending Time: 08:11 Attestations NPU 2 Medical Necessity Statement*: Inpatient hospitalization is medically necessary and the clinically appropriate intervention at this time. We will monitor medications and make changes as indicated. Her Likely length of stay is 7-10 days. Coding Level of Care Code Acute Code for g Fwd Diagnoses Psychotic disorder F29 Paranoia (psychosis) F22 Delusions F22 DOMINIQUE (generalized anxiety disorder) F41.1
[2023-05-29 19:46] VITALS: RESP 18
[2023-05-29] MEDS: amitriptyline 25 mg Tablet 50 MG PO (19:46)
[2023-05-29 21:00] VITALS: BP 115/75; PULSE 110; RESP 18; TEMP 36.7; O2SAT 98
[2023-05-29] MEDS: OLANZapine 5 mg ODT PO (22:03)
[2023-05-30] VITALS (7 sets, daily range): BP systolic 113–118; BP diastolic 62–76; PULSE 108–110; RESP 16–18; TEMP 36.5–36.7; O2SAT 96–98
[2023-05-30] MEDS: oxyCODONE-APAP 10-325 mg Tablet 1 TAB PO ×4 (02:09→20:04)
[2023-05-30] MEDS: benzonatate 100 mg Capsule PO ×3 (02:09→17:20)
[2023-05-30] MEDS: nicotine 4 mg lozenge MUCOUS MEM ×7 (06:29→20:05)
[2023-05-30] MEDS: estradiol 1 mg Tablet PO (08:01)
[2023-05-30] MEDS: levothyroxine 150 mcg Tablet PO (08:01)
[2023-05-30] MEDS: famotidine 20 mg Tablet PO ×2 (08:01→17:20)
[2023-05-30] MEDS: doxycycline 100 mg Tablet PO ×2 (08:01→17:20)
[2023-05-30] MEDS: CLONazepam 0.5 mg Tablet PO ×2 (08:02→17:20)
[2023-05-30] MEDS: ARIPiprazole 10 mg Tablet PO (08:02)
[2023-05-30] MEDS: tizanidine 4 mg Tablet PO ×2 (08:08→17:20)
[2023-05-30] MEDS: hyDROXYzine 25 mg Capsule 50 MG PO (11:54)
--- NOTE | 2023-05-30 13:20 | P.NPUPN_ITS ---
Subjective NPU 2 Subjective: 52-year-old female with schizophrenia admitted after the patient had been noncompliant with her antipsychotic medication for several months. The patient remained actively suspicious still. She had reported that she continue to believe that her house was somehow being occupied by people that were just trying to mess with me . She had to continue to state that she was unsure as to why she was here in the hospital. She was compliant with taking her Abilify. Patient reported that she did not wish to speak with her son at this time. She had remained guarded about what exactly had transpired to lead her here in the hospital but she continued to reiterate that it was part of some conspiracy to see pull her away from her home for some alleged nefarious purposes. Mental Status Exam 2 MSE Comments: She is a casually dressed white female in scrubs who appears older than her stated age with poor grooming. No abnormal involuntary motor movements appreciated other than some mild psychomotor slowing. She was cooperative with exam in no acute distress. Speech was normal in rate and volume. Mood described okay. Her affect remained odd. Thought process: linear, logical Thought content: patient denied suicidal or homicidal ideation, There was continued evidence of delusional thinking and overvalued ideas. Attention and concentration are intact. Her recent and remote memory were grossly intact. She is alert and oriented x3. Insight is poor and judgment is limited and impulse control appears limited. Vitals/I&O/Wt Last Vital Signs Temp 97.7 F 05/30/23 06:00 Pulse 108 H 05/30/23 06:00 Resp 16 05/30/23 08:02 BP 117/73 05/30/23 06:00 Pulse Ox 96 05/30/23 06:00 O2 Del Method Room Air 05/30/23 06:00 Data NPU 05/28/23 07:19 05/27/23 08:13 Micro: Microbiology 05/27/23 08:38 Blood Culture - Preliminary Blood 05/27/23 08:35 Blood Culture - Preliminary Blood Microbiology 05/27/23 08:38 Blood Blood Culture - Preliminary 05/27/23 08:35 Blood Blood Culture - Preliminary A&P Assessment and plan (1) Psychotic disorder: (2) Paranoia (psychosis): (3) Delusions: (4) DOMINIQUE (generalized anxiety disorder): Plan This is a 52 year old white female with a history of trauma and genetic loading for addiction issues who presents again psychotic with paranoid delusions 5 months after her recent 1 month hospitalization with patient reporting no antipsychotic use in several months. 1. Abilify IM to start tommorow when available and continue oral abilify 10mg tonight. IM Abilify will be started on 06/01/23 2. Encourage individual, group and milieu therapy 3. Continue q-15 minute check for safety 4. Will attempt to gather collateral information. Involuntary Hold Information 2 96 Hour Hold: 96 Hour Involuntary Admission: Yes 96 Hour Hold Ending Date: 06/03/22 96 Hour Hold Ending Time: 08:11 Attestations NPU 2 Medical Necessity Statement*: Inpatient hospitalization is medically necessary and the clinically appropriate intervention at this time. We will monitor medications and make changes as indicated. Her likely length of stay is 7-10 days. Coding Level of Care Code Acute Code for [facility] Diagnoses Psychotic disorder F29 Paranoia (psychosis) F22 Delusions F22 DOMINIQUE (generalized anxiety disorder) F41.1
[2023-05-30] MEDS: diphenhydrAMINE 50 mg Capsule PO ×2 (16:07→22:55)
[2023-05-30] MEDS: triamcinolone 0.1% cream 15 gm 1 APPLIC TOPICAL (18:00)
[2023-05-30] MEDS: OLANZapine 5 mg ODT PO (20:04)
[2023-05-30] MEDS: amitriptyline 25 mg Tablet 50 MG PO (20:44)
[2023-05-31] VITALS (7 sets, daily range): BP systolic 117–126; BP diastolic 72–77; PULSE 93–111; RESP 15–18; TEMP 36.5–36.7; O2SAT 97–99
[2023-05-31] MEDS: nicotine 4 mg lozenge MUCOUS MEM ×10 (00:35→20:26)
[2023-05-31] MEDS: oxyCODONE-APAP 10-325 mg Tablet 1 TAB PO ×4 (01:58→20:15)
[2023-05-31] MEDS: benzonatate 100 mg Capsule PO ×2 (01:58→20:57)
[2023-05-31] MEDS: tizanidine 4 mg Tablet PO ×3 (01:58→20:55)
[2023-05-31] MEDS: doxycycline 100 mg Tablet PO ×2 (08:07→17:04)
[2023-05-31] MEDS: famotidine 20 mg Tablet PO ×2 (08:07→17:04)
[2023-05-31] MEDS: estradiol 1 mg Tablet PO (08:07)
[2023-05-31] MEDS: ARIPiprazole 10 mg Tablet PO (08:07)
[2023-05-31] MEDS: CLONazepam 0.5 mg Tablet PO ×2 (08:07→17:03)
[2023-05-31] MEDS: levothyroxine 150 mcg Tablet PO (08:07)
--- NOTE | 2023-05-31 08:32 | PC.NURSE ---
IN DAY ROOM CONVERSING WITH PEERS. DENIES SI/HI AND AVH AT THIS TIME. REPORTS PAIN 7/10 RN ADMINISTERED PERCOCET 10/325MG ORDERED FOR PAIN. PT CONTINUES TO BE GUARDED WITH STAFF, STATES SHE DOES NOT KNOW WHY SHE IS EVEN HERE. PT EDUCATED ON WHAT BROUGHT HER IN. PT STARRED AT NURSE AND SAID NOTHING. ALL QUESTIONS ANSWERED AND SUPPORT VOICED.
[2023-05-31] MEDS: hyDROXYzine 25 mg Capsule 50 MG PO (10:56)
--- NOTE | 2023-05-31 13:15 | PC.NURSE ---
PT UP TO NURSES STATION REQUESTING VISTARIL OR THE PILL THAT GOES UNDER MY TONGUE. PT EDUCATED PER ORDERS WE NEED TO HAVE HER AT LEAST TRY THE VISTARIL FIRST AND IF THAT DOES NOT HELP WE CAN GIVE HER SOMETHING ELSE. PT WAS GIVEN VISTARIL 50 MG ORDERED FOR ANXIETY.
[2023-05-31] MEDS: diphenhydrAMINE 50 mg Capsule PO ×2 (15:58→20:01)
--- NOTE | 2023-05-31 17:05 | PC.NURSE ---
PT REQUEST THAT TRAZODONE BE TAKEN OFF HER PROFILE. PT REPORTS THE MEDICATION MAKES HER STAY AWAKE. NEW ORDERS RECEIVED TO REMOVE TRAZODONE AND DISCONTINUE IT.
--- NOTE | 2023-05-31 17:32 | P.NPUPN_ITS ---
Subjective NPU 2 Subjective: 52-year-old female with schizophrenia admitted after the patient had been noncompliant with her antipsychotic medication for several months. Patient was compliant with her medication regimen. She remained somewhat guarded in regards to discussing her issues that had led to her hospitalization as she continued to state that she was surprised that she was here. She reported no depressive symptoms. She reported that she had changed the locks in her house and had felt more comfortable about returning home since she had made those changes. She had stated that she no longer felt that her home was unsafe since making those changes. She had continued to vaguely admits that she felt that others including her previous friends for attempting to cause trouble for her. Mental Status Exam 2 MSE Comments: She is a casually dressed white female in scrubs who appears older than her stated age with poor grooming. No abnormal involuntary motor movements appreciated other than some mild psychomotor slowing. She was cooperative with exam in no acute distress. Speech was normal in rate and volume. Mood described allright. Her affect remained blunted. Thought process: linear, logical Thought content: patient denied suicidal or homicidal ideation, There was continued evidence of delusional thinking and overvalued ideas. Attention and concentration are intact. Her recent and remote memory were grossly intact. She is alert and oriented x3. Insight is poor and judgment is limited and impulse control appears limited. Vitals/I&O/Wt Last Vital Signs Temp 97.8 F 05/31/23 14:00 Pulse 93 05/31/23 14:00 Resp 18 05/31/23 14:09 BP 117/72 05/31/23 14:00 Pulse Ox 98 05/31/23 14:09 O2 Del Method Room Air 05/31/23 06:00 Weight last 48 hrs Weight 60.895 kg Weight 60.895 kg Data NPU 05/28/23 07:19 05/27/23 08:13 A&P Assessment and plan (1) Psychotic disorder: (2) Paranoia (psychosis): (3) Delusions: (4) DOMINIQUE (generalized anxiety disorder): Plan This is a 52 year old white female with a history of trauma and genetic loading for addiction issues who presents again psychotic with paranoid delusions 5 months after her recent 1 month hospitalization with patient reporting no antipsychotic use in several months. 1. Abilify 10mg daily IM Abilify will be started on 06/01/23 2. Encourage individual, group and milieu therapy 3. Continue q-15 minute check for safety 4. Will attempt to gather collateral information. Involuntary Hold Information 2 96 Hour Hold: 96 Hour Involuntary Admission: Yes 96 Hour Hold Ending Date: 06/03/22 96 Hour Hold Ending Time: 08:11 Attestations NPU 2 Medical Necessity Statement*: Inpatient hospitalization is medically necessary and the clinically appropriate intervention at this time. We will monitor medications and make changes as indicated. Her likely length of stay is 4-6 days. Coding Level of Care Code Acute Code for [facility] Diagnoses Psychotic disorder F29 Paranoia (psychosis) F22 Delusions F22 DOMNIIQUE (generalized anxiety disorder) F41.1
--- NOTE | 2023-05-31 17:41 | PC.NURSE ---
NEW ORDERS RECEIVED FROM DR. LOPEZ TO START ABILIFY MENTENNA 400 MG IM EVERY 28 DAYS ON THURSDAY. ORDERS PLACED AND PT EDUCATED ON MEDICATION. VERBALIZED UNDERSTANDING.
[2023-05-31] MEDS: amitriptyline 25 mg Tablet 50 MG PO (20:01)
[2023-05-31] MEDS: OLANZapine 5 mg ODT PO (23:31)
[2023-06-01 06:00] VITALS: RESP 16
[2023-06-01 07:25] VITALS: RESP 16
[2023-06-01] MEDS: oxyCODONE-APAP 10-325 mg Tablet 1 TAB PO ×3 (07:25→20:02)
[2023-06-01] MEDS: estradiol 1 mg Tablet PO (07:46)
[2023-06-01] MEDS: doxycycline 100 mg Tablet PO ×2 (07:46→17:20)
[2023-06-01] MEDS: CLONazepam 0.5 mg Tablet PO ×2 (07:47→17:20)
[2023-06-01] MEDS: famotidine 20 mg Tablet PO ×2 (07:47→20:06)
[2023-06-01] MEDS: ARIPiprazole 10 mg Tablet PO (07:47)
[2023-06-01] MEDS: levothyroxine 150 mcg Tablet PO (07:48)
[2023-06-01] MEDS: nicotine 4 mg lozenge MUCOUS MEM ×7 (07:59→20:06)
[2023-06-01] MEDS: tizanidine 4 mg Tablet PO ×2 (08:41→17:20)
[2023-06-01] MEDS: ARIPiprazole Maintena 400 MG IM (10:23)
--- NOTE | 2023-06-01 10:29 | PC.NURSE ---
administered Abilify Maintena 400mg IM to patient in right deltoid. tolerated well. Lot: [id number] EXP: November 2025
[2023-06-01] MEDS: OLANZapine 5 mg ODT PO ×2 (12:42→21:11)
[2023-06-01 13:31] VITALS: RESP 16
[2023-06-01 13:37] VITALS: BP 128/79; PULSE 101; RESP 17; TEMP 36.3; O2SAT 100
--- NOTE | 2023-06-01 15:26 | P.NPUPN_ITS ---
Subjective NPU 2 Subjective: 52-year-old female with schizophrenia admitted after the patient had been noncompliant with her antipsychotic medication for several months. Patient had reported feeling better. She had tolerated her Abilify Maintena given today. She had reported that she had felt safe about returning home. She had stated that she no longer felt that other people could enter into her house. She had continued to express unreasonable suspiciousness towards particular people. She was more interactive on the milieu. She had reported no mood symptoms at this time. Mental Status Exam 2 MSE Comments: She is a casually dressed white female in scrubs who appears older than her stated age with improved grooming. No abnormal involuntary motor movements appreciated other than some mild psychomotor slowing. She was cooperative with exam in no acute distress. Speech was normal in rate and volume. Mood described okay. Her affect was subdued Thought process: linear, logical Thought content: patient denied suicidal or homicidal ideation, There was continued evidence of delusional thinking and overvalued ideas. Attention and concentration are intact. Her recent and remote memory were grossly intact. She is alert and oriented x3. Insight is poor and judgment is limited and impulse control appears limited. Vitals/I&O/Wt Last Vital Signs Temp 97.4 F L 06/01/23 13:37 Pulse 101 H 06/01/23 13:37 Resp 17 06/01/23 13:37 BP 128/79 06/01/23 13:37 Pulse Ox 100 06/01/23 13:37 O2 Del Method Room Air 06/01/23 13:37 Weight last 48 hrs Weight 60.895 kg Weight 60.895 kg Data NPU 05/28/23 07:19 05/27/23 08:13 A&P Assessment and plan (1) Psychotic disorder: (2) Paranoia (psychosis): (3) Delusions: (4) DOMINIQUE (generalized anxiety disorder): Plan This is a 52 year old white female with a history of trauma and genetic loading for addiction issues who presents again psychotic with paranoid delusions 5 months after her recent 1 month hospitalization with patient reporting no antipsychotic use in several months. 1. Abilify 10mg daily IM Abilify Maintena 400mg in am on 06/01/23 2. Encourage individual, group and milieu therapy 3. Continue q-15 minute check for safety 4. Will attempt to gather collateral information. Involuntary Hold Information 2 96 Hour Hold: 96 Hour Involuntary Admission: Yes 96 Hour Hold Ending Date: 06/03/22 96 Hour Hold Ending Time: 08:11 Attestations NPU 2 Medical Necessity Statement*: Inpatient hospitalization is medically necessary and the clinically appropriate intervention at this time. We will monitor medications and make changes as indicated. Her likely length of stay is 4-6 days. Coding Level of Care Code Acute Code for [facility] Diagnoses Psychotic disorder F29 Paranoia (psychosis) F22 Delusions F22 DOMINIQUE (generalized anxiety disorder) F41.1
[2023-06-01] MEDS: hyDROXYzine 25 mg Capsule 50 MG PO (15:33)
[2023-06-01 19:32] VITALS: BP 108/72; PULSE 102; RESP 18; TEMP 36.7; O2SAT 100
--- NOTE | 2023-06-01 19:48 | PC.NURSE ---
PT UP IN ROOM. DENIES SI/HI AND AVH AT THIS TIME. RATES PAIN 7/10 IIN BACK, LEGS AND KNEES. RN WILL GIVE PERCOCET WHEN TIME. RATES ANXIETY 5/10 AND DEPRESSION 0/10. PT RECEIVED ABILIFY INJECTION LAST SHIFT, NO ADVERSE REACTIONS REPORTED OR OBSERVED. PT REQUESTS BENADRYL 50 MG WITH NIGHT TIME MEDS PT STATES I'M ITCHING AND IT HELPS WITH MY ANXIETY. PT ASSURED RN WOULD PULL AND GIVE IT TO HER WITH HS MEDS. ALL QUESTIONS ANSWERED AND SUPPORT VOICED.
[2023-06-01 20:02] VITALS: RESP 16; O2SAT 97
[2023-06-01] MEDS: amitriptyline 25 mg Tablet 50 MG PO (20:02)
[2023-06-01] MEDS: diphenhydrAMINE 50 mg Capsule PO (20:02)
--- NOTE | 2023-06-01 22:42 | PC.NURSE ---
UP TO NURSES STATION REQUESTS SOMETHING FOR ANXIETY, ZYDIS 5 MG GIVEN ORDERED FOR REPORTED ANXIETY. PT ALSO REQUESTED BENADRY 50 MG FOR ITCHING AND ANXIETY. SUPPORT VOICED.
[2023-06-02] MEDS: diphenhydrAMINE 50 mg Capsule PO ×2 (01:29→19:10)
[2023-06-02] MEDS: tizanidine 4 mg Tablet PO ×3 (01:31→18:17)
--- NOTE | 2023-06-02 01:42 | PC.NURSE ---
PT UP TO NURSES STATION REQUESTING SOME MORE BENADRYL IS IT TIME. BENADRYL 50 MG GIVEN ORDERED. ONCE PT TOOK MEDICATION PT ASKED OH IS IT TIME FOR MY TIZANADINE? PT WAS GIVEN TIZANADINE 4 MG ORDERED FOR PAIN. PT THEN WENT BACK TO ROOM TO REST.
[2023-06-02 04:23] VITALS: RESP 16; O2SAT 96
[2023-06-02] MEDS: oxyCODONE-APAP 10-325 mg Tablet 1 TAB PO ×3 (04:23→16:30)
[2023-06-02 06:00] VITALS: BP 103/70; PULSE 110; RESP 18; O2SAT 95
[2023-06-02] MEDS: nicotine 4 mg lozenge MUCOUS MEM ×7 (06:12→19:45)
[2023-06-02] MEDS: CLONazepam 0.5 mg Tablet PO ×2 (08:22→17:09)
[2023-06-02] MEDS: famotidine 20 mg Tablet PO ×2 (08:22→17:09)
[2023-06-02] MEDS: estradiol 1 mg Tablet PO (08:22)
[2023-06-02] MEDS: ARIPiprazole 10 mg Tablet PO (08:23)
[2023-06-02] MEDS: levothyroxine 150 mcg Tablet PO (08:23)
[2023-06-02] MEDS: doxycycline 100 mg Tablet PO ×2 (08:23→17:09)
[2023-06-02 10:21] VITALS: RESP 16; O2SAT 96
[2023-06-02] MEDS: blistex lip oint 7 gm Tube 1 APPLIC TOPICAL (12:39)
[2023-06-02] MEDS: hyDROXYzine 25 mg Capsule 50 MG PO (13:26)
[2023-06-02 14:00] VITALS: BP 114/77; PULSE 96; RESP 16; TEMP 36.3; O2SAT 99
--- NOTE | 2023-06-02 14:26 | W.PM.NPUPNS ---
Subjective NPU Subjective: Patient presented today reporting that she is not sure why she is here and is reporting that she is only here because people found out she was not taking her medication. She reports that her outpatient doctor feels she does not need her injection and that is why she did not get it. She took the Abilify Maintena injection yesterday without concerns she reports and says she will continue it if someone prescribes it. We discussed working with her family on discharge planning and she is not having any concerns on the unit per staff. Reports are that her home environment is not in the disarray that it had been previously. Mental Status Exam MSE Comments: She is a casually dressed white female in scrubs who appears older than her stated age with improved grooming. No abnormal involuntary motor movements appreciated other than some mild psychomotor slowing. She was cooperative with exam in no acute distress. Speech was normal in rate and volume. Mood described okay. Her affect was subdued Thought process: linear, logical Thought content: patient denied suicidal or homicidal ideation, There was continued evidence of delusional thinking and overvalued ideas. Attention and concentration are intact. Her recent and remote memory were grossly intact. She is alert and oriented x3. Insight is poor and judgment is limited and impulse control appears limited. Vitals/I&O/Wt Last Vital Signs Temp 98.0 F 06/01/23 19:32 Pulse 110 H 06/02/23 06:00 Resp 16 06/02/23 10:21 BP 103/70 06/02/23 06:00 Pulse Ox 96 06/02/23 10:21 O2 Del Method Room Air 06/02/23 06:00 Data NPU 05/28/23 07:19 05/27/23 08:13 Micro: Microbiology 05/27/23 08:38 Blood Culture - Final Blood 05/27/23 08:35 Blood Culture - Final Blood Microbiology 05/27/23 08:38 Blood Blood Culture - Final 05/27/23 08:35 Blood Blood Culture - Final A&P Assessment and plan (1) Psychotic disorder: (2) Paranoia (psychosis): (3) Delusions: (4) DOMINIQUE (generalized anxiety disorder): Plan This is a 52 year old white female with a history of trauma and genetic loading for addiction issues who presents again psychotic with paranoid delusions 5 months after her recent 1 month hospitalization with patient reporting no antipsychotic use in several months. 1. Abilify 10mg daily IM Abilify Maintena 400mg in am on 06/01/23 2. Encourage individual, group and milieu therapy 3. Continue q-15 minute check for safety 4. Will attempt to gather collateral information. 5. Agreed to discuss discharge planning with family and outpatient doctor she continues to report is behind her not getting her injection. Involuntary Hold Information 96 Hour Hold: 96 Hour Involuntary Admission: Yes 96 Hour Hold Ending Date: 06/03/22 96 Hour Hold Ending Time: 08:11 Attestations NPU Medical Necessity Statement*: Inpatient hospitalization is medically necessary and the clinically appropriate intervention at this time. We will monitor medications and make changes as indicated. Her likely length of stay is 3-5 days. Coding Level of Care Code Acute Code for [facility] Diagnoses Psychotic disorder F29 Paranoia (psychosis) F22 Delusions F22 DOMINIQUE (generalized anxiety disorder) F41.1
[2023-06-02 16:30] VITALS: RESP 16
[2023-06-02] MEDS: benzonatate 100 mg Capsule PO (19:10)
[2023-06-02] MEDS: amitriptyline 25 mg Tablet 50 MG PO (19:10)
[2023-06-02] MEDS: cetylpyridinium Lozenge 1 EACH MUCOUS MEM (19:10)
[2023-06-02] MEDS: OLANZapine 5 mg ODT PO (19:44)
[2023-06-02 19:56] VITALS: BP 115/68; PULSE 87; RESP 16; TEMP 36.4; O2SAT 95
[2023-06-03] VITALS (7 sets, daily range): BP systolic 109–114; BP diastolic 67–78; PULSE 105–111; RESP 16–18; TEMP 36.5–36.8; O2SAT 97–100
[2023-06-03] MEDS: oxyCODONE-APAP 10-325 mg Tablet 1 TAB PO ×4 (00:05→19:36)
[2023-06-03] MEDS: diphenhydrAMINE 50 mg Capsule PO ×2 (02:12→21:23)
[2023-06-03] MEDS: tizanidine 4 mg Tablet PO ×3 (04:33→21:23)
[2023-06-03] MEDS: nicotine 4 mg lozenge MUCOUS MEM ×8 (07:05→21:23)
[2023-06-03] MEDS: CLONazepam 0.5 mg Tablet PO ×2 (08:29→17:09)
[2023-06-03] MEDS: ARIPiprazole 10 mg Tablet PO (08:29)
[2023-06-03] MEDS: levothyroxine 150 mcg Tablet PO (08:29)
[2023-06-03] MEDS: estradiol 1 mg Tablet PO (08:29)
[2023-06-03] MEDS: famotidine 20 mg Tablet PO ×2 (08:29→17:09)
[2023-06-03] MEDS: doxycycline 100 mg Tablet PO (08:29)
--- NOTE | 2023-06-03 10:16 | PC.NURSE ---
ATTEMPTED CONTACT TO PT PRIMARY CARE PHYSICIAN ABOUT PT STATING THAT HE DOES NOT WANT HER ON ABILIFY PER REQUEST OF DR. HENRRY SHABAZZ. UNFORTUNATELY THEIR CONTACT NUMBER WAS BUSY AND A CALL BACK NUMBER WAS LEFT WITH A MESSAGE TO CONTACT THE UNIT BACK.
[2023-06-03] MEDS: hyDROXYzine 25 mg Capsule 50 MG PO ×2 (10:18→16:05)
--- NOTE | 2023-06-03 16:07 | PC.NURSE ---
PT WAS GIVEN PRN HYDROXYZINE 50MG FOR ANXIETY RATING IT 3/10 ON A SCALE OF 0/10 ON A 0-10 SCALE WHERE 0 IS NONE AT ALL AND 10 BEING THE WORST.
--- NOTE | 2023-06-03 17:49 | W.PM.NPUPNS ---
Subjective NPU Subjective: Patient presented today reporting that she was feeling okay. We discussed the fact that we would work with her outpatient team and we were able to contact them and get her on the phone with them as well. She seemed accepting of her interaction with them and reported a willingness to move forward with ongoing Abilify treatment with the injection given their support of that plan. We discussed her working with the social work team to get some outpatient supports/case management to assist in ensuring she continues to get her injection. She is awaiting her 21-day hold hearing we discussed the possibility of not having the hearing and discharging soon. Mental Status Exam MSE Comments: She is a casually dressed white female in scrubs who appears older than her stated age with improved grooming. No abnormal involuntary motor movements appreciated other than some mild psychomotor slowing. She was cooperative with exam in no acute distress. Speech was normal in rate and volume. Mood described okay. Her affect was subdued Thought process: linear, logical Thought content: patient denied suicidal or homicidal ideation, There was continued evidence of delusional thinking and overvalued ideas. Attention and concentration are intact. Her recent and remote memory were grossly intact. She is alert and oriented x3. Insight is poor and judgment is limited and impulse control appears limited. 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 1. Abilify 10mg daily IM Abilify Maintena 400mg in am on 06/01/23 2. Encourage individual, group and milieu therapy 3. Continue q-15 minute check for safety 4. Will attempt to gather collateral information. 5. Was able to talk with outpatient doctor and the patient was able to speak with them and they endorse supporting the treatment plan as it is being executed here. She reports she will continue to go there and take medication as prescribed. We talked about the possibility of getting a case hardener and discharging in the next few days. Involuntary Hold Information 96 Hour Hold: 96 Hour Involuntary Admission: Yes 96 Hour Hold Ending Date: 06/03/22 96 Hour Hold Ending Time: 08:11 Attestations NPU Medical Necessity Statement*: Inpatient hospitalization is medically necessary and the clinically appropriate intervention at this time. We will monitor medications and make changes as indicated. Her likely length of stay is 1-3 days. Coding Level of Care Code Acute Code for [facility] Diagnoses Psychotic disorder F29 Paranoia (psychosis) F22 Delusions F22 DOMINIQUE (generalized anxiety disorder) F41.1
[2023-06-03] MEDS: amitriptyline 25 mg Tablet 50 MG PO (19:36)
[2023-06-03] MEDS: OLANZapine 5 mg ODT PO (21:23)
[2023-06-03] MEDS: benzonatate 100 mg Capsule PO (21:23)
[2023-06-04 02:18] VITALS: RESP 14
[2023-06-04] MEDS: oxyCODONE-APAP 10-325 mg Tablet 1 TAB PO ×2 (02:18→07:43)
[2023-06-04 06:00] VITALS: BP 124/82; PULSE 106; RESP 16; TEMP 36.4; O2SAT 98
[2023-06-04] MEDS: tizanidine 4 mg Tablet PO (06:02)
[2023-06-04] MEDS: nicotine 4 mg lozenge MUCOUS MEM ×4 (06:02→11:34)
[2023-06-04 07:43] VITALS: RESP 16; O2SAT 97
[2023-06-04] MEDS: CLONazepam 0.5 mg Tablet PO (07:45)
[2023-06-04] MEDS: estradiol 1 mg Tablet PO (07:45)
[2023-06-04] MEDS: famotidine 20 mg Tablet PO (07:45)
[2023-06-04] MEDS: ARIPiprazole 10 mg Tablet PO (07:45)
[2023-06-04] MEDS: levothyroxine 150 mcg Tablet PO (07:46)
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
[2023-06-04 10:31] VITALS: RESP 16; O2SAT 97
== END 2023-06-04 13:06 | disposition home or self-care (01) | DRG 885 ==
LOC: ER 08:31 → NP 11:48
PROVIDERS: Admitting Provider Psychiatry & Neurology Psychiatry; Emergency Provider Family Medicine; PCP Family Medicine; Visit Provider Psychiatry & Neurology Psychiatry
DX: F29 Unspecified psychosis not due to a substance or known physiological condition (principal); E86.0 Dehydration; F20.0 Paranoid schizophrenia; I73.00 Raynaud's syndrome without gangrene; E03.9 Hypothyroidism, unspecified; M19.90 Unspecified osteoarthritis, unspecified site; K21.9 Gastro-esophageal reflux disease without esophagitis; G89.4 Chronic pain syndrome; L40.0 Psoriasis vulgaris; F17.210 Nicotine dependence, cigarettes, uncomplicated; M51.37 Other intervertebral disc degeneration, lumbosacral region; F32.A Depression, unspecified; F41.1 Generalized anxiety disorder; Z86.73 Personal history of transient ischemic attack (TIA), and cerebral infarction without residual deficits
CPT/HCPCS: 36415; 71045; 80053; 80306; 81003; 83605; 85007; 85025; 85027; 87040; 87635; 94664; 96372; 97150; 97165; 99285; J7030; J8499; Q0163

== ENCOUNTER → 2023-09-17 11:02 | Outpatient (BNVA) | payer OTHER, SELFPAY | PROVIDERS: PCP Family Medicine; Visit Provider Nurse Practitioner Psychiatric/Mental Health | DX: F41.1 Generalized anxiety disorder (principal); Z79.899 Other long term (current) drug therapy | CPT/HCPCS: 80061; 83036 ==

== ENCOUNTER 2024-03-28 09:32 | Emergency (ER) | payer MEDICAID, SELFPAY ==
[2023-10-02 16:35] VITALS: BP 127/71; BMI 21.8
--- NOTE | 2024-03-28 09:40 | XRR_ITS ---
PROCEDURE INFORMATION: Exam: XR Chest Exam date and time: 03/28/2024 9:57 AM Age: 53 years old Clinical indication: Other: Weakness. No history of recent trauma or surgery is provided. TECHNIQUE: Imaging protocol: Radiologic exam of the chest. 1image(s) are provided. Views: 1 view. COMPARISON: 1. CR XR chest 1V portable [id number] 05/27/2023 8:[address] angio chest w abd pel w con 02/16/2019 12:26 AM 3. CR XR chest 1V [id number] 02/15/2019 10:48 PM FINDINGS: Lungs: No lobar consolidation is appreciated.There is some subsegmental atelectasis versus post inflammatory reticulonodular scarring demonstrated. This appears most pronounced of the apices, upper lung zones similar overall. There is some subtle heterogeneity and slight bronchiolectasis. There is mild chronic air trapping appearance similar overall. Pleural spaces: No pneumothorax or significant pleural effusion is appreciated. Heart/Mediastinum: The cardiomediastinal silhouette is upper normal in size.This can be seen with central averaging as well as jairo enlargement.No cardiac decompensation is appreciated. Diaphragm: The hemidiaphragms are symmetric. Bones/joints: No interval displaced fracture or dislocation is appreciated. Soft tissues: No radiopaque foreign body or subcutaneous emphysema is appreciated. Other findings: No other significant interval changes are appreciated. XR/XR chest 1V portable [id number] IMPRESSION: There is chronic air trapping, scarring appearance with similar distribution overall. No interval lobar consolidation or cardiac decompensation is appreciated.
--- NOTE | 2024-03-28 09:40 | ECG_ITS ---
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 Measurements Intervals [place] Rate: 95 P: 75 [place]: 135 QRS: 63 QRSD: 81 T: 44 QT: 335 QTc: 422 Interpretive Statements SINUS RHYTHM MODERATE ST DEPRESSION [0.05+ mV ST DEPRESSION] Compared to ECG 04/18/2022 19:07:46 ST (T wave) deviation now present Sinus tachycardia no longer present Myocardial infarct finding no longer present Electronically Signed On 03-29-2024 00:49:14 CDT by Alex Perry M.D. [email or web address]
[2024-03-28 09:45] VITALS: BP 147/68; PULSE 88; RESP 18; TEMP 36.7; O2SAT 100; BMI 20.1
[2024-03-28 11:46] LABS: Basophils % 0.4 %; Hematocrit 41.6 % (36-47); Lymphocytes # 1.7 10^3/uL (0.8-4.8); Lymphocytes % 16.6 %; Mean Corpuscular HGB Conc 34.4 g/dL (30-55); Mean Corpuscular Volume 93.1 fl (85-98); Mean Platelet Volume 9.4 fL (7.4-10.4); Monocytes # 0.4 10^3/uL (0.2-0.9); Monocytes % 4.4 %; Neutrophils # 7.91 10^3/uL (1.8-7.7); Neutrophils % 78.3 %; Nucleated Red Blood Cells % 0 %; Platelet Count 308 10^3/cmm (157-399); Red Blood Count 4.47 10^6/uL (3.85-5.65); Red Cell Distribution Width 13.2 % (12.1-15.1); White Blood Count 10.09 10^3/uL (3.29-11.43)
[2024-03-28 12:08] LABS: Alanine Aminotransferase 11 U/L (0-33); Albumin Level 4.3 g/dL (3.5-5.2); Alkaline Phosphatase 130 U/L (35-105); Anion Gap 16.2 (5-19); Aspartate Amino Transferase 22 U/L (0-32); Blood Urea Nitrogen 4 mg/dL (6-20); Calcium 9.2 mg/dL (8.5-10.5); Carbon Dioxide 25 mmol/L (22-29); Chloride 97 mmol/L (98-107); Creatinine Clr Calc Pharmacy 85.6211; Globulin 2.9 g/dL (1.3-4.6); Glomerular Filtration Rate 104.6 mL/min (90-130); Glucose 145 mg/dL (65-115); Osmolality Calculated 277 mOsm/kg (285-295); Potassium 4.2 mmol/L (3.5-5.1); Sodium 134 mmol/L (136-145); Total Bilirubin 0.2 mg/dL (0.15-1.2); Total Protein 7.2 g/dL (6.6-8.7)
[2024-03-28 12:10] VITALS: BP 128/77; PULSE 103; O2SAT 96
--- NOTE | 2024-03-28 12:14 | W.ED.GENADLT ---
HPI - General Adult General: Chief complaint: General Medical Stated complaint: feel very thirsty, weakness Time Seen by Provider: 03/28/24 12:05 History of Present Illness: 53-year-old female presents emergency room complaining of not feeling well. She has been fatigued she reports has a history of hypothyroidism she had her Synthroid change couple months ago has not had a recheck since. She denies any specific chest discomfort or abdominal pain. She states she feels like she is dehydrated. No fever sweats or chills no hematochezia melena hematemesis or coffee-ground emesis. Associated symptoms: Deny chest pain, dyspnea or rash Related Data Home Medications Medication Instructions Recorded Confirmed triamcinolone acetonide 0.025 % 1 applic topical DAILY PRN 11/19/22 03/28/24 topical cream irritation oxycodone-acetaminophen 10 mg-325 1 tab PO Q6H PRN Pain 05/27/23 03/28/24 mg tablet albuterol sulfate 90 mcg/actuation 2 puff inhalation Q4H PRN 03/28/24 03/28/24 aerosol inhaler (Ventolin HFA) Shortness Of Breath Or Wheezing diazepam 5 mg tablet 5 mg PO BID 03/28/24 03/28/24 docusate sodium 100 mg capsule 100 mg PO DAILY PRN constapation 03/28/24 03/28/24 famotidine 20 mg tablet 20 mg PO BID PRN Stomach Upset 03/28/24 03/28/24 naproxen sodium 220 mg tablet 220 mg PO BID PRN Pain 03/28/24 03/28/24 (Tri) Previous Rx's Medication Instructions Recorded diphenhydramine HCl 50 mg capsule 50 mg PO Q4H PRN Allergies 30 days 12/16/22 #120 caps estradiol 1 mg tablet 1 mg PO DAILY Menopause symptoms 12/16/22 90 days #90 tabs tizanidine 4 mg tablet 4 mg PO Q8H PRN Muscle Pain 30 12/16/22 days #90 tabs levothyroxine 150 mcg tablet 150 mcg PO DAILY 30 days #30 tabs 06/04/23 clonazepam 0.5 mg tablet 0.5 mg PO BID PRN anxiety 30 days 10/22/23 #60 tabs olanzapine 5 mg disintegrating 5 mg PO .9 pm anxiety/agitation 05/23/24 tablet (Zyprexa Zydis) #30 tabs levothyroxine 125 mcg tablet 125 mcg PO DAILY #30 tabs 03/28/24 (Synthroid) sulfamethoxazole 800 1 tab PO BID 7 days #14 tabs 03/28/24 mg-trimethoprim 160 mg tablet (Bactrim DS) Allergies Allergy/AdvReac Type Severity Reaction Status Date / Time Penicillins Allergy Severe ALGY-Anaphy Verified 03/28/24 09:53 laxis gabapentin Allergy ADR-Headach Verified 03/28/24 09:53 e sertraline [From Zoloft] Allergy Unknown Verified 03/28/24 09:53 tramadol [From Ultracet] Allergy ADR-Gastrointestinal Verified 03/28/24 09:53 Upset Review of Systems Const: Denies: fever(s) or chills Card: Denies: chest pain Resp: Denies: dyspnea GI: Denies: abdominal pain : Denies: dysuria, urinary frequency or urinary urgency Musc: Denies: neck pain or back pain Skin/Breast: Denies: rash PFSH ED PFSH: Medical History Generalized anxiety disorder with panic attacks Encounter for smoking cessation counseling Tobacco use disorder Started at age 16 Raynaud phenomenon Opiate analgesic 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 Psychiatric care Hypothyroidism Arthritis Muscle cramps DDD (degenerative disc disease), lumbosacral GERD (gastroesophageal reflux disease) Chronic pain syndrome Plaque psoriasis Surgical History History of hysterectomy History of thyroidectomy Family History Grandfather CAD (coronary artery disease) Maternal Cancer Maternal--colon Clotting disorder Maternal Dementia Maternal Hypertension Maternal Lung disease Maternal--TB Stroke Maternal Family/Other CAD (coronary artery disease) Maternal Grandmother Clotting disorder Maternal Dementia Maternal Hypertension Maternal Stroke Maternal Mother Cancer cervical that spread through bones Other Heart disease Denies family history of Diabetes Hyperlipidemia Chronic kidney disease (CKD) Anesthesia complication Bleeding disorder Social History Smoking and tobacco/nicotine status: current every day tobacco/nicotine user cigarettes Packs smoked per day: 1 Years cigarettes smoked: 26 [ Other cigarette details: 1-2 packs] Quit status (tobacco/nicotine): considering quitting Second hand smoke exposure: No Alcohol intake: never Substance/Drug Use: never Adopted: No Caregiver/support person: No Lives independently: Yes Household members: none Housing: House Marital status: Number of children: 2 Number of grandchildren: 5 Highest education level completed: GED or Equivalent 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 service: No Current occupational status: disabled Current occupation: on SSI Pets and animals: Yes Pets & animals: cat(s) Leisure activites: music, reading and other Leisure activities details: watch TV Sexually active: No Do you think of yourself as: Straight/Heterosexual Current gender identity: Female Mia/Mu-Ism: Mandaeism Special mia needs: No Agree to transfusion: Yes Female Reproductive History: Para: 2 Physical Exam Const: COMMON NORMALS: no acute distress GENERAL APPEARANCE: cooperative and comfortable ORIENTATION/CONSCIOUSNESS: Yes awake, Yes oriented to person, Yes oriented to place and Yes oriented to time HENMT: COMMON NORMALS: normocephalic, atraumatic and hearing grossly normal bilaterally HEAD & SCALP: normocephalic and atraumatic Resp: COMMON NORMALS: normal respiratory effort, No retractions, No use of accessory muscles and clear to auscultation bilaterally AUSCULTATION: clear to auscultation bilaterally Cardio: COMMON NORMALS: regular rate, regular rhythm and No murmurs present (Cardio) RATE: regular rate RHYTHM: regular rhythm GI: COMMON NORMALS: Soft to palpation and No hepatosplenomegaly present AUSCULTATION: Yes normoactive bowel sounds PALPATION: Yes Soft to palpation, No Tenderness to palpation present (GI), No Guarding due to palpation present (GI) and Yes No hepatosplenomegaly present Extremity: COMMON NORMALS: normal to inspection, capillary refill normal, no clubbing, cyanosis or edema, no calf tenderness and no pedal edema Neuro: SENSORIUM/ORIENTATION: Yes oriented to person, Yes oriented to place and Yes oriented to time Skin: COMMON NORMALS: no rashes or lesions noted GENERAL SKIN EXAM: no rashes or lesions noted Course Vital Signs: Vital signs: Vital Signs Temperature 98.1 F 03/28/24 09:45 Pulse Rate 101 H 03/28/24 14:01 Respiratory Rate 18 03/28/24 12:55 Blood Pressure 129/68 03/28/24 14:01 Pulse Oximetry 96 03/28/24 14:01 Oxygen Delivery Me thod Room Air 03/28/24 12:55 MDM - General Adult Medical Decision Making Acute cystitis. Iatrogenic hyperthyroid state due to over replacement. Started on Bactrim DS 1 p.o. twice daily for 7 days. Will also decrease her Synthroid to 125 mcg daily. Follow-up with her primary care doctor. She needs have a TSH checked in 6 to 8 weeks. If develops fever recheck. Medical Records I reviewed the patient's medical records. Lab Data I reviewed the patient's lab results. 03/28/24 11:31 03/28/24 11:31 Radiology Impressions Chest X-Ray 03/28/24 09:40 IMPRESSION: There is chronic air trapping, scarring appearance with similar distribution overall. No interval lobar consolidation or cardiac decompensation is appreciated. Laboratory Results WBC 10.09 10^3/uL (3.29-11.43) 03/28/24 11:31 RBC 4.47 10^6/uL (3.85-5.65) 03/28/24 11:31 Hgb 14.30 g/dL (11.27-16.99) 03/28/24 11:31 Hct 41.6 % (36-47) 03/28/24 11:31 MCV 93.1 fl (85-98) 03/28/24 11:31 MCH 32.0 pg (27-33) 03/28/24 11:31 MCHC 34.4 g/dL (30-55) 03/28/24 11:31 RDW 13.2 % (12.1-15.1) 03/28/24 11:31 Plt Count 308 10^3/cmm (157-399) 03/28/24 11:31 MPV 9.4 fL (7.4-10.4) 03/28/24 11:31 Neut % (Auto) 78.3 % 03/28/24 11:31 Lymph % (Auto) 16.6 % 03/28/24 11:31 Iron % (Auto) 4.4 % 03/28/24 11:31 Eos % (Auto) 0.0 % 03/28/24 11:31 Baso % (Auto) 0.4 % 03/28/24 11:31 Neut # (Auto) 7.91 10^3/uL (1.8-7.7) H 03/28/24 11:31 Lymph # (Auto) 1.7 10^3/uL (0.8-4.8) 03/28/24 11:31 Iron # (Auto) 0.4 10^3/uL (0.2-0.9) 03/28/24 11:31 Eos # (Auto) 0.0 10^3/uL (0.0-0.8) 03/28/24 11:31 Baso # (Auto) 0.0 10^3/uL (0.0-0.1) 03/28/24 11:31 Nucleated RBC % (auto) 0 % 03/28/24 11:31 Nucleated RBCs # 0.0 /100WBC 03/28/24 11:31 Sodium 134 mmol/L (136-145) L 03/28/24 11:31 Potassium 4.2 mmol/L (3.5-5.1) 03/28/24 11:31 Chloride 97 mmol/L (98-107) L 03/28/24 11:31 Carbon Dioxide 25 mmol/L (22-29) 03/28/24 11:31 Anion Gap 16.2 (5-19) 03/28/24 11:31 BUN 4 mg/dL (6-20) L 03/28/24 11:31 Creatinine 0.6 mg/dL (0.5-0.9) 03/28/24 11:31 GFR Calculation 104.6 mL/min (90-130) 03/28/24 11:31 Glucose 145 mg/dL (65-115) H 03/28/24 11:31 Calculated Osmolality 277 mOsm/kg (285-295) L 03/28/24 11:31 Calcium 9.2 mg/dL (8.5-10.5) 03/28/24 11:31 Total Bilirubin 0.2 mg/dL (0.15-1.2) 03/28/24 11:31 AST 22 U/L (0-32) 03/28/24 11:31 ALT 11 U/L (0-33) 03/28/24 11:31 Alkaline Phosphatase 130 U/L (35-105) H 03/28/24 11:31 Troponin T Baseline 7 ng/L (0-10) 03/28/24 11:31 Troponin T 120 Minute 7.08 ng/L (0-10) 03/28/24 13:15 Delta Troponin T 0.08 ABS# (0-10) 03/28/24 13:15 Total Protein 7.2 g/dL (6.6-8.7) 03/28/24 11:31 Albumin 4.3 g/dL (3.5-5.2) 03/28/24 11:31 Globulin 2.9 g/dL (1.3-4.6) 03/28/24 11:31 TSH 0.12 uIU/mL (0.27-4.20) L 03/28/24 11:31 Urine Color Yellow (Yellow) 03/28/24 12:44 Urine Appearance Clear (CLEAR) 03/28/24 12:44 Urine pH 6.0 (5-7) 03/28/24 12:44 Ur Specific [place] 1.003 (1.005-1.030) L 03/28/24 12:44 Urine Protein Negative (Negative) 03/28/24 12:44 Urine Glucose (UA) Negative (Normal) 03/28/24 12:44 Urine Ketones Negative (Negative) 03/28/24 12:44 Urine Blood Negative (Negative) 03/28/24 12:44 Urine Nitrate Negative (Negative) 03/28/24 12:44 Urine Bilirubin Negative (Negative) 03/28/24 12:44 Urine Urobilinogen 0.2 mg/dL (Negative) 03/28/24 12:44 Ur Leukocyte Esterase 2+ (Negative) A 03/28/24 12:44 Urine RBC None /hpf (0-2) 03/28/24 12:44 Urine WBC 15-25 /hpf (0-5) H 03/28/24 12:44 Ur Squamous Epith Cells 5-10 /hpf (0-5) H 03/28/24 12:44 Amorphous Sediment Not Reportable 03/28/24 12:44 Urine Bacteria 1+ /hpf (NONE) H 03/28/24 12:44 All radiology interpretation(s) finalized by discharge Discharge Plan Discharge Patient Disposition: Home Clinical Impression: Hypothyroidism, Cystitis Condition: Stable Prescriptions: New levothyroxine [Synthroid] 125 mcg tablet 125 mcg PO DAILY Qty: 30 0RF sulfamethoxazole-trimethoprim [Bactrim DS] 800-160 mg tablet 1 tab PO BID 7 Days Qty: 14 0RF No Action olanzapine [Zyprexa Zydis] 5 mg tablet,disintegrating 5 mg PO .9 pm Qty: 30 3RF Rx Instructions: Take one tablet at 9 pm clonazepam 0.5 mg tablet 0.5 mg PO BID PRN (Reason: anxiety) 30 Days Qty: 60 3RF Rx Instructions: Take one tablet twice per day, last dose no later than 7 pm DO NOT TAKE W/ZYDIS triamcinolone acetonide 0.025 % cream 1 applic TOPICAL DAILY PRN (Reason: irritation) diphenhydramine HCl 50 mg Capsule 50 mg PO Q4H PRN (Reason: Allergies) 30 Days Qty: 120 1RF tizanidine 4 mg tablet 4 mg PO Q8H PRN (Reason: Muscle Pain) 30 Days Qty: 90 1RF estradiol 1 mg tablet 1 mg PO DAILY 90 Days Qty: 90 0RF oxycodone-acetaminophen 10-325 mg tablet 1 tab PO Q6H PRN (Reason: Pain) levothyroxine 150 mcg Tablet 150 mcg PO DAILY 30 Days Qty: 30 1RF diazepam 5 mg tablet 5 mg PO BID albuterol sulfate [Ventolin HFA] 90 mcg/actuation HFA aerosol inhaler 2 puff INHALATION Q4H PRN (Reason: Shortness Of Breath Or Wheezing) famotidine 20 mg tablet 20 mg PO BID PRN (Reason: Stomach Upset) docusate sodium 100 mg capsule 100 mg PO DAILY PRN (Reason: constapation ) naproxen sodium [Aleve] 220 mg Tablet 220 mg PO BID PRN (Reason: Pain) Discharge Orders: Discharge ED (Routine); Ordered 03/28/24 Ordered By: Сергей Mak Referrals: Robby Zamora MD [Primary Care Provider] - Discharge Diet: Usual diet Discharge Activity: Increase activity as tolerated Patient Instructions: Opioid Safety, Pain Management Activity Restrictions/Additional Instructions: Thank you for choosing [facility] for your healthcare needs today. It is very important that you follow up as instructed or that you return to the Emergency Department should you have concerns or if your condition changes or worsens in any way. You were seen in the emergency room with complaints of not feeling well. You are found to have a mild cystitis for which she was started on an oral antibiotic 1 pill twice a day for 7 days. Your thyroid is slightly over replaced. Recommend you decrease the dose to 125 mcg daily and recheck your TSH with your primary care doctor in 6 to 8 weeks Coding Level of Care Code ED Frit Maker for Walter Ricci
--- NOTE | 2024-03-28 12:15 | ECG_ITS ---
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 Measurements Intervals [place] Rate: 91 P: 69 NM: 133 QRS: 65 QRSD: 82 T: 53 QT: 332 QTc: 410 Interpretive Statements SINUS RHYTHM MODERATE ST DEPRESSION [0.05+ mV ST DEPRESSION] Compared to ECG 03/28/2024 11:30:12 No significant changes Electronically Signed On 03-28-2024 23:53:16 CDT by Alex Perry M.D. [email or web address]
[2024-03-28 12:55] VITALS: BP 128/77; PULSE 101; RESP 18; O2SAT 95
[2024-03-28 12:57] LABS: Troponin(5th) Baseline 7 ng/L (0-10)
[2024-03-28 13:04] LABS: Bilirubin Urine Negative (Negative); Blood Urine Negative (Negative); Glucose Urine UA Negative (Normal); Ketones Urine Negative (Negative); Leukocyte Esterase Urine 2+ (Negative); Nitrate Urine Negative (Negative); Protein Urine Negative (Negative); Specific Gravity, Urine 1.003 (1.005-1.030); Urine Appearance Clear (CLEAR); Urine Color Yellow (Yellow); Urobilinogen Urine 0.2 mg/dL (Negative)
[2024-03-28 13:07] LABS: Thyroid Stimulating Hormone 0.12 uIU/mL (0.27-4.20)
[2024-03-28 13:22] LABS: Add Urine Culture? Yes; Add Urine Microscopic? YES; Bacteria Urine 1+ /hpf; UA Manual Slide Review YES; UA Slide Review UA Slide Review Perf; WBC Urine 15-25 /hpf (0-5)
[2024-03-28 13:47] LABS: Troponin 5 2HR 7.08 ng/L (0-10); Troponin 5 2HR Delta 0.08 ABS# (0-10)
[2024-03-28 14:01] VITALS: BP 129/68; PULSE 101; O2SAT 96
== END 2024-03-28 14:02 | disposition home or self-care (01) ==
PROVIDERS: Physician Assistant; Emergency Provider Family Medicine; PCP Family Medicine
DX: N30.90 Cystitis, unspecified without hematuria (principal); E03.9 Hypothyroidism, unspecified; Z79.890 Hormone replacement therapy
CPT/HCPCS: 36415; 71045; 80053; 81001; 84443; 84484; 85025; 87077; 87086; 87186; 93005; 99285

== ENCOUNTER → 2025-01-12 13:18 | Outpatient (BNVA) | payer MEDICAID, SELFPAY ==
[2023-10-02 16:35] VITALS: BP 127/71; BMI 21.8
== END ==
PROVIDERS: PCP Family Medicine; Visit Provider Internal Medicine
DX: E03.9 Hypothyroidism, unspecified (principal); E55.9 Vitamin D deficiency, unspecified; J30.2 Other seasonal allergic rhinitis; E11.9 Type 2 diabetes mellitus without complications
CPT/HCPCS: 36415; 80053; 82306; 82310; 83970; 84439; 84443